=== PATIENT | male | born 1975 | race Caucasian/White ===

== ENCOUNTER 2017-08-15 20:08 | Emergency (ER) | payer SELFPAY ==
[~2017-08-15] VITALS: Ht 175.3 cm; Wt 97.0 kg
[~2017-08-15 20:08] MED LIST: AMLO10 PO; CIPR500T4 PO; DOXY100T PO; DOXY1CAP91 PO; PYRI200T4 PO; TAMS.4 PO; TAMS0.4C67 PO; ULTR50TA PO
[2017-08-15] MEDS ORDERED: HYDR-3516 PO (20:26)
[2017-08-15 20:27] VITALS: BP 179/95; PULSE 83; RESP 18; TEMP 98.3; O2SAT 97
--- NOTE | 2017-08-15 21:04 | PD ---
HPI Chief Complaint: Injury Time Seen by Provider: 20:37 Travel History International Travel<30 days: No Contact w/Intl Traveler<30days: No Traveled to known affect area: No History of Present Illness HPI 41-year-old diabetic male presents to the emergency room for evaluation of right ankle pain and swelling for the past 2 weeks. Patient states while at work, he misstepped and tripped over a tree. He does not remember twisting his ankle because it happened so quickly but had immediate pain. He went to [facility] where they performed x-rays of the evening and told him that it was sprained. They told him to return to work in 2 days. He has not followed up with a worker's comp physician because his child told him that he has to find one on his own. While being evaluated for ankle sprain, the ER physician noticed his diabetic foot ulcer which started about one week prior to injury. It started as a small blister because his shoes are too tight and has been worsening. He was put on clindamycin and Keflex and states he finished both prescriptions yesterday. He denies fever, chills, and vomiting. He has been out of his metformin "since the last time I was at the ER." He does not have a primary care physician. PFSH Past Medical History Arthritis: No Asthma: No Autoimmune Disease: No Anxiety: No Depression: No Heart Rhythm Problems: No Cancer: No Cardiovascular Problems: No High Cholesterol: No Chemotherapy: No Chest Pain: No Congestive Heart Failure: No COPD: No Cerebrovascular Accident: No Diabetes: Yes Patient Takes Glucophage: No (doesn have script fpr meds) Diminished Hearing: No Endocrine: No GERD: No Genitourinary: No Hiatal Hernia: No Hypertension: Yes (NONCOMPLIANT WITH MEDS FOR SEVERAL YEARS) Immune Disorder: No Kidney Stones: No Musculoskeletal: No Neurologic: No Psychiatric: No Reproductive: No Respiratory: No Immunizations Current: No Migraines: Yes Radiation Therapy: No Renal Failure: No Seizures: No Sickle Cell Disease: No Sleep Apnea: No Thyroid Disease: No Ulcer: No Tetanus Vaccination: < 5 Years Influenza Vaccination: No Past Surgical History Abdominal Surgery: No AICD: No Arteriovenous Shunt: No Cardiac Surgery: No Ear Surgery: No Endocrine Surgery: No Eye Surgery: No Genitourinary Surgery: No Gynecologic Surgery: No Insulin Pump: No Joint Replacement: No Oral Surgery: No Pacemaker: No Thoracic Surgery: No Other Surgery: Yes (04/05 PERINEAL/SCROTAL AREA abscess) Social History Alcohol Use: No Tobacco Use: Yes (1 ppd) Substance Use: No Allergies-Medications (Allergen,Severity, Reaction): Coded Allergies: No Known Allergies (Verified , 08/15/17) Reported Meds & Prescriptions Reported Meds & Active Scripts Active Bactrim DS (Sulfamethoxazole-Trimethoprim) 800-160 Mg Tab 1 Tab PO BID Ciprofloxacin (Ciprofloxacin HCl) 500 Mg Tab 500 Mg PO BID 7 Days Metformin (Metformin HCl) 500 Mg Tab 500 Mg PO BIDPC With meals Reported Hydrocodone-Acetaminophen 5-325 mg Tab 1 Tab PO Q4H PRN Review of Systems Except as stated in HPI: all other systems reviewed are Neg Physical Exam Narrative GENERAL: Well-nourished, well-developed male in no acute distress. Afebrile. SKIN: Focused skin assessment warm/dry. Mild to moderate ecchymosis of the right ankle. There is a chronic appearing diabetic foot ulcer on the ball of the right plantar foot. It measures about 4 cm in diameter with a black center. There is mild surrounding erythema. No spontaneous drainage. No streaking. It is extremely tender to palpation. HEAD: Normocephalic. EYES: No scleral icterus. No injection or drainage. NECK: Supple, trachea midline. No JVD or lymphadenopathy. CARDIOVASCULAR: Regular rate and rhythm without murmurs, gallops, or rubs. RESPIRATORY: Breath sounds equal bilaterally. No accessory muscle use. MUSCULOSKELETAL: No cyanosis, or edema. 2+ dorsalis pedis pulse. Full range of motion. Extreme tenderness to palpation especially around the ulcer. Data Data Last Documented VS Vital Signs Date Time Temp Pulse Resp B/P (MAP) Pulse Ox O2 Delivery O2 Flow Rate FiO2 08/15/17 20:27 98.3 83 18 179/95 (123) 97 Orders Orders Complete Blood Count With Diff (08/15/17 20:52) Comprehensive Metabolic Panel (08/15/17 20:52) Prothrombin Time / Inr (Pt) (08/15/17 20:52) Act Partial Throm Time (Ptt) (08/15/17 20:52) Westergren Sedimentation Rate (08/15/17 20:52) Foot, Complete ([id number]) (08/15/17 ) Splint Or Brace Apply/Monitor (08/15/17 22:01) Labs Laboratory Tests Test 08/15/17 21:00 White Blood Count 10.7 TH/MM3 Red Blood Count 4.53 MIL/MM3 Hemoglobin 14.0 GM/DL Hematocrit 40.3 % Mean Corpuscular Volume 88.8 FL Mean Corpuscular Hemoglobin 30.9 PG Mean Corpuscular Hemoglobin Concent 34.8 % Red Cell Distribution Width 12.0 % Platelet Count 255 TH/MM3 Mean Platelet Volume 8.0 FL Neutrophils (%) (Auto) 62.2 % Lymphocytes (%) (Auto) 28.4 % Monocytes (%) (Auto) 6.0 % Eosinophils (%) (Auto) 2.4 % Basophils (%) (Auto) 1.0 % Neutrophils # (Auto) 6.7 TH/MM3 Lymphocytes # (Auto) 3.0 TH/MM3 Monocytes # (Auto) 0.6 TH/MM3 Eosinophils # (Auto) 0.3 TH/MM3 Basophils # (Auto) 0.1 TH/MM3 CBC Comment DIFF FINAL Differential Comment Erythrocyte Sedimentation Rate 22 mm/hr Prothrombin Time 10.7 SEC Prothromb Time International Ratio 1.0 RATIO Activated Partial Thromboplast Time 27.4 SEC Blood Urea Nitrogen 10 MG/DL Creatinine 1.10 MG/DL Random Glucose 334 MG/DL Total Protein 7.4 GM/DL Albumin 3.3 GM/DL Calcium Level 8.7 MG/DL Alkaline Phosphatase 82 U/L Aspartate Amino Transf (AST/SGOT) 19 U/L Alanine Aminotransferase (ALT/SGPT) 23 U/L Total Bilirubin 0.3 MG/DL Sodium Level 137 MEQ/L Potassium Level 3.8 MEQ/L Chloride Level 102 MEQ/L Carbon Dioxide Level 26.5 MEQ/L Anion Gap 9 MEQ/L Estimat Glomerular Filtration Rate 73 ML/MIN [facility] Medical Decision Making Medical Screen Exam Complete: Yes Emergency Medical Condition: Yes Medical Record Reviewed: Yes Differential Diagnosis Diabetic foot ulcer, strain, sprain, contusion, infection, osteomyelitis Narrative Course 41-year-old male presents to the emergency room for reevaluation of right ankle sprain. Patient twisted his ankle 2 weeks ago while at work. He had an x-ray at [facility] which no fracture. He was told to return to work after 2 days. Patient states symptoms are persistent. Incidentally, patient has a diabetic foot ulcer on the same foot that started 1 week prior to injury. He was just on Keflex and clindamycin and finished them 2 days ago. He denies systemic signs of infection. Afebrile and well-appearing in the emergency room. Vital signs stable. Physical exam reveals mild to moderate ecchymosis of the right ankle. There is a chronic appearing diabetic foot ulcer on the ball of the right plantar foot. It measures about 4 cm in diameter with a black center. Mild surrounding erythema. No spontaneous drainage. No streaking. It is extremely tender to palpation. I spoke to my attending physician, Dr. Chahal, who recommends basic labs and x-ray to evaluate for osteomyelitis. CBC and CMP are unremarkable except for hyperglycemia. Sedimentation rate is only mildly elevated at 22. X-ray of the foot shows no bony involvement of the ulcer. 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 He was given one month supply of metformin and told to follow- up at [facility] for management of chronic ulcer and diabetes. Told to return for worsening symptoms. He understands and agrees to plan. Diagnosis Primary Impression: Diabetic foot ulcer Qualified Codes: E10.621 - Type 1 diabetes mellitus with foot ulcer; L97.512 - Non-pressure chronic ulcer of other part of right foot with fat layer exposed Referrals: Primary Care Physician Additional Instructions: Rest and drink plenty of fluids. Cipro and Bactrim as directed, until gone. Take ibuprofen with food as directed, as needed for pain. Apply ice to the affected area for 20 minutes at a time, as needed for pain and swelling. Follow-up with a primary care physician, armed guard, and worker's comp physician. Return to the emergency room for worsening symptoms. Scripts Sulfamethoxazole-Trimethoprim (Bactrim DS) 800-160 Mg Tab 1 TAB PO BID for Infection, #14 TAB 0 Refills Prov: Jorge Rodriguez MD 08/15/17 Ciprofloxacin (Ciprofloxacin) 500 Mg Tab 500 MG PO BID for Infection for 7 Days, #14 TAB 0 Refills Prov: Jorge Rodriguez MD 08/15/17 Metformin (Metformin) 500 Mg Tab 500 MG PO BIDPC for Blood Sugar Management, #60 TAB 0 Refills With meals Prov: Jorge Rodriguez MD 08/15/17 Disposition: 01 DISCHARGE HOME Condition: Stable Nancy Ackerman Aug 15, 2017 21:04
[2017-08-15 21:13] LABS: AUTOMATED NEUTROPHIL # 6.7 TH/MM3 (1.8-7.7); BASOPHIL # 0.1 TH/MM3 (0-0.2); EOSINOPHIL # 0.3 TH/MM3 (0-0.4); EOSINOPHIL % 2.4 % (0.0-4.0); HEMATOCRIT 40.3 % (39.0-51.0); HEMO FLAGS DIFF FINAL; LYMPH % 28.4 % (9.0-44.0); MEAN CELL VOLUME 88.8 FL (80.0-100.0); MEAN CORPUSCULAR HEMOGLOBIN 30.9 PG (27.0-34.0); MEAN CORPUSCULAR HGB CONC 34.8 % (32.0-36.0); NEUT % 62.2 % (16.0-70.0); PLATELET COUNT 255 TH/MM3 (150-450); RED BLOOD COUNT 4.53 MIL/MM3 (4.50-5.90); WHITE BLOOD COUNT 10.7 TH/MM3 (4.0-11.0)
[2017-08-15 21:22] LABS: CHLORIDE 102 MEQ/L (98-107); POTASSIUM 3.8 MEQ/L (3.5-5.1); SODIUM (NA) 137 MEQ/L (136-145)
[2017-08-15 21:27] LABS: ANION GAP 9 MEQ/L (5-15); APTT (PATIENT) 27.4 SEC (24.3-30.1); BICARBONATE 26.5 MEQ/L (21.0-32.0); BLOOD UREA NITROGEN 10 MG/DL (7-18); PROTHROMBIN TIME - PATIENT 10.7 SEC (9.8-11.6)
[2017-08-15 21:30] LABS: ALT (GPT) 23 U/L (12-78); AST (GOT) 19 U/L (15-37); GLOMERULAR FILTRATION RATE 73 ML/MIN (>89)
[2017-08-15 21:31] LABS: TOTAL BILIRUBIN ADULT 0.3 MG/DL (0.2-1.0)
--- NOTE | 2017-08-15 21:31 | RADRPT ---
EXAM DATE/TIME: 08/15/2017 20:56 [facility] COMPARISON: No previous studies available for comparison. INDICATIONS : Open sore on plantar surface of right foot MEDICAL HISTORY : Diabetes mellitus type 2 SURGICAL HISTORY : None. ENCOUNTER: Initial ACUITY: 4 - 6 months PAIN SCORE: 5/10 LOCATION: Right plantar surface of 1st MTPJ FINDINGS: There is ulceration plantar to the first metatarsophalangeal joint and sesamoids that appears fairly shallow. No bone destruction seen. The sesamoids appear mildly sclerotic but probably related to statement request clerk courtney degenerative changes. 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 Second through fifth hammertoe noted. CONCLUSION: No acute bony abnormality demonstrated. Raphael Rogers MD on August 15, 2017 at 21:29 Board Certified Radiologist. This report was verified electronically.
[2017-08-15 21:33] LABS: ALKALINE PHOSPHATASE 82 U/L (45-117)
[2017-08-15] MEDS ORDERED: CIPR500T2 PO (21:50)
[2017-08-15] MEDS ORDERED: METF500T PO (21:50)
[2017-08-15] MEDS ORDERED: BACT800T5 PO (21:50)
== END 2017-08-15 22:28 | disposition home or self-care (01) ==
LOC: PHEFT 20:08
DX: E11.621 Type 2 diabetes mellitus with foot ulcer (principal); L97.512 Non-pressure chronic ulcer of other part of right foot with fat layer exposed; E11.65 Type 2 diabetes mellitus with hyperglycemia; S93.401D Sprain of unspecified ligament of right ankle, subsequent encounter; I10 Essential (primary) hypertension; F17.200 Nicotine dependence, unspecified, uncomplicated; Z79.84 Long term (current) use of oral hypoglycemic drugs; Z86.69 Personal history of other diseases of the nervous system and sense organs; W18.49XD Other slipping, tripping and stumbling without falling, subsequent encounter
CPT/HCPCS: 73630; 80053; 85025; 85610; 85652; 85730; 99284; L1906

== ENCOUNTER 2018-02-14 12:46 | Emergency (ER) | payer SELFPAY ==
[~2018-02-14] VITALS: Ht 185.4 cm; Wt 95.7 kg
[~2018-02-14 12:46] MED LIST changes: -AMLO10 PO; +BACT800T5 PO; +CIPR500T2 PO; -CIPR500T4 PO; -DOXY100T PO; -DOXY1CAP91 PO; +HYDR-3516 PO; +METF500T PO; -PYRI200T4 PO; -TAMS.4 PO; -TAMS0.4C67 PO; -ULTR50TA PO
[2018-02-14 13:01] VITALS: BP 183/84; PULSE 81; RESP 18; TEMP 99.2; O2SAT 99
[2018-02-14] MEDS ORDERED: ASP: Location of Dalbavancin administration OTHER ONE (13:30)
--- NOTE | 2018-02-14 13:31 | PD ---
HPI Chief Complaint: Skin Problem Time Seen by Provider: 13:07 Travel History International Travel<30 days: No Contact w/Intl Traveler<30days: No Traveled to known affect area: No History of Present Illness HPI This is a 42-year-old male who presented to the ER for a right foot pain. Patient has history of diabetes and he is not on any medications due to insurance issues. He states that a year ago he had a new boot that he started using and the boot had a small puncture wound into his right foot and since then he has been having right foot ulcer/cellulitis for the last year. Patient states that for the last week he started noticing that the pain is getting worse as well as the swelling and redness on his right foot. He denies any fever or chills or night sweats. Has not taken any medications for now and denies any new trauma to his foot. PFSH Past Medical History Arthritis: No Asthma: No Autoimmune Disease: No Anxiety: No Depression: No Heart Rhythm Problems: No Cancer: No Cardiovascular Problems: No High Cholesterol: No Chemotherapy: No Chest Pain: No Congestive Heart Failure: No COPD: No Cerebrovascular Accident: No Diabetes: Yes Patient Takes Glucophage: No Diminished Hearing: No Endocrine: No GERD: No Genitourinary: No Headaches: No Hiatal Hernia: No Heparin Induced Thrombocytopen: No Hypertension: Yes (NONCOMPLIANT WITH MEDS FOR SEVERAL YEARS) Immune Disorder: No Implanted Vascular Access Dvce: No Kidney Stones: No Musculoskeletal: No Neurologic: No Psychiatric: No Reproductive: No Respiratory: No Immunizations Current: No Migraines: Yes Radiation Therapy: No Renal Failure: No Seizures: No Sickle Cell Disease: No Sleep Apnea: No Thyroid Disease: No Ulcer: No Past Surgical History Abdominal Surgery: No AICD: No Arteriovenous Shunt: No Cardiac Surgery: No Ear Surgery: No Endocrine Surgery: No Eye Surgery: No Genitourinary Surgery: No Gynecologic Surgery: No Insulin Pump: No Joint Replacement: No Neurologic Surgery: No Oral Surgery: No Pacemaker: No Thoracic Surgery: No Other Surgery: Yes (04/05 PERINEAL/SCROTAL AREA abscess) Social History Alcohol Use: No Tobacco Use: Yes (1 ppd) Substance Use: No Allergies-Medications (Allergen,Severity, Reaction): Coded Allergies: No Known Allergies (Verified Adverse Reaction, Unknown, 02/14/18) Reported Meds & Prescriptions Reported Meds & Active Scripts Active No Active Prescriptions or Reported Medications Review of Systems Except as stated in HPI: all other systems reviewed are Neg Physical Exam Narrative GENERAL: Alert oriented 3 no acute distress. SKIN: Focused skin assessment warm/dry. HEAD: Atraumatic. Normocephalic. EYES: Pupils equal and round. No scleral icterus. No injection or drainage. ENT: No nasal bleeding or discharge. Mucous membranes pink and moist. NECK: Trachea midline. No JVD. CARDIOVASCULAR: Regular rate and rhythm. No murmur appreciated. RESPIRATORY: No accessory muscle use. Clear to auscultation. Breath sounds equal bilaterally. GASTROINTESTINAL: Abdomen soft, non-tender, nondistended. Hepatic and splenic margins not palpable. MUSCULOSKELETAL: Small diabetic ulcer in the right foot and the pulmonary surface of first metatarsal approximately 2 cm in diameter surrounded with area of erythema and warm skin, diminished pulses in the right foot more than left, sensation is intact. Swelling extending to right above the ankle. NEUROLOGICAL: Awake and alert. No obvious cranial nerve deficits. Motor grossly within normal limits. Normal speech. PSYCHIATRIC: Appropriate mood and affect; insight and judgment normal. Data Data Last Documented VS Vital Signs Date Time Temp Pulse Resp B/P (MAP) Pulse Ox O2 Delivery O2 Flow Rate FiO2 02/14/18 13:01 99.2 81 18 183/84 (117) 99 Orders Orders Foot, Limited (2vws) (02/14/18 ) Complete Blood Count With Diff (02/14/18 13:16) Comprehensive Metabolic Panel (02/14/18 13:16) Act Partial Throm Time (Ptt) (02/14/18 13:16) Prothrombin Time / Inr (Pt) (02/14/18 13:16) Asp: [facility] Admin (Asp Crit: (02/14/18 13:30) Ed Discharge Order (02/14/18 14:16) Labs Laboratory Tests Test 02/14/18 13:37 White Blood Count 14.7 TH/MM3 Red Blood Count 4.61 MIL/MM3 Hemoglobin 13.8 GM/DL Hematocrit 41.5 % Mean Corpuscular Volume 90.1 FL Mean Corpuscular Hemoglobin 30.0 PG Mean Corpuscular Hemoglobin Concent 33.3 % Red Cell Distribution Width 12.7 % Platelet Count 259 TH/MM3 Mean Platelet Volume 8.2 FL Neutrophils (%) (Auto) 73.6 % Lymphocytes (%) (Auto) 17.7 % Monocytes (%) (Auto) 6.8 % Eosinophils (%) (Auto) 1.5 % Basophils (%) (Auto) 0.4 % Neutrophils # (Auto) 10.8 TH/MM3 Lymphocytes # (Auto) 2.6 TH/MM3 Monocytes # (Auto) 1.0 TH/MM3 Eosinophils # (Auto) 0.2 TH/MM3 Basophils # (Auto) 0.1 TH/MM3 CBC Comment DIFF FINAL Differential Comment Prothrombin Time 10.5 SEC Prothromb Time International Ratio 1.0 RATIO Activated Partial Thromboplast Time 29.1 SEC Blood Urea Nitrogen 11 MG/DL Creatinine 0.70 MG/DL Random Glucose 329 MG/DL Total Protein 7.5 GM/DL Albumin 3.2 GM/DL Calcium Level 8.6 MG/DL Alkaline Phosphatase 80 U/L Aspartate Amino Transf (AST/SGOT) 11 U/L Alanine Aminotransferase (ALT/SGPT) 13 U/L Total Bilirubin 0.4 MG/DL Sodium Level 134 MEQ/L Potassium Level 3.7 MEQ/L Chloride Level 102 MEQ/L Carbon Dioxide Level 23.7 MEQ/L Anion Gap 8 MEQ/L Estimat Glomerular Filtration Rate 123 ML/MIN [facility] Medical Decision Making Medical Screen Exam Complete: Yes Emergency Medical Condition: Yes Differential Diagnosis Cellulitis, osteomyelitis. Narrative Course This is a 42-year-old male presents to the ER complaining of right foot I will center. Patient has no primary care physician and has history of diabetes but has not been taking any medications for it. Diabetic onset is been going on for a year now but got worse recently. Patient labs show elevated white blood count with left shift and physical exam is remarkable for diabetic ulcer was evidence of cellulitis. I believe this patient will benefit from a course of antibiotics and to return to ER if symptoms change or do not improve. They discussed with the patient importance of following up with the primary care physician from [facility] and I gave him information. I also discussed with the patient that if symptoms get worse he will have to come to the ER immediately for further management. Patient understands and agrees to the plan of care. Diagnosis Primary Impression: Diabetes Qualified Codes: E11.621 - Type 2 diabetes mellitus with foot ulcer; L97.509 - Non-pressure chronic ulcer of other part of unspecified foot with unspecified severity Additional Impression: Diabetic ulcer of foot associated with type 2 diabetes mellitus, limited to breakdown of skin Qualified Codes: E11.621 - Type 2 diabetes mellitus with foot ulcer; L97.511 - Non-pressure chronic ulcer of other part of right foot limited to breakdown of skin Additional Instructions: Follow-up with his iliac clinic, take medication as directed, return to ER immediately if symptoms change or do not improve Scripts Tramadol ER 24 HR (Tramadol ER 24 HR) 100 Mg Caper 100 MG PO DAILY for Pain Management, #10 CAP 0 Refills Prov: Puma Hopkins MD 02/14/18 Metformin (Metformin) 500 Mg Tab 500 MG PO BIDPC for Blood Sugar Management, #60 TAB 0 Refills With meals Prov: Puma Hopkins MD 02/14/18 Sulfamethoxazole-Trimethoprim (Bactrim DS) 800-160 Mg Tab 1 TAB PO BID for Infection, #14 TAB 0 Refills Prov: Puma Hopkins MD 02/14/18 Disposition: 01 DISCHARGE HOME Condition: Stable Puma Hopkins MD Feb 14, 2018 13:30
--- NOTE | 2018-02-14 13:43 | RADRPT ---
EXAM DATE/TIME: 02/14/2018 13:23 [facility] COMPARISON: No previous studies available for comparison. INDICATIONS : Right foot pain; sore on the bottom of foot. MEDICAL HISTORY : Hypertension. Diabetes mellitus type II. SURGICAL HISTORY : None. ENCOUNTER: Initial ACUITY: 1 week PAIN SCORE: 10/10 LOCATION: Right plantar foot. FINDINGS: Two view examination of the right foot demonstrates no soft tissue swelling, dislocation, or fracture . The calcaneus is intact. There is osteopenia of the bony structures. No radiopaque foreign bodies. CONCLUSION: There is osteopenia of the bony structures. However the bony structures are grossly intact. Luis Enrique Colin MD on February 14, 2018 at 13:41 Board Certified Radiologist. This report was verified electronically.
[2018-02-14 13:46] LABS: AUTOMATED NEUTROPHIL # 10.8 TH/MM3 (1.8-7.7); BASOPHIL # 0.1 TH/MM3 (0-0.2); BASOPHIL % 0.4 % (0.0-2.0); EOSINOPHIL # 0.2 TH/MM3 (0-0.4); EOSINOPHIL % 1.5 % (0.0-4.0); HEMATOCRIT 41.5 % (39.0-51.0); HEMOGLOBIN 13.8 GM/DL (13.0-17.0); LYMPH % 17.7 % (9.0-44.0); LYMPHOCYTE # 2.6 TH/MM3 (1.0-4.8); MEAN CELL VOLUME 90.1 FL (80.0-100.0); MEAN CORPUSCULAR HGB CONC 33.3 % (32.0-36.0); MEAN PLATELET VOLUME 8.2 FL (7.0-11.0); MONO % 6.8 % (0.0-8.0); NEUT % 73.6 % (16.0-70.0); PLATELET COUNT 259 TH/MM3 (150-450); RED BLOOD COUNT 4.61 MIL/MM3 (4.50-5.90); RED CELL DISTRIBUTION WIDTH 12.7 % (11.6-17.2); WHITE BLOOD COUNT 14.7 TH/MM3 (4.0-11.0)
[2018-02-14 13:59] LABS: CHLORIDE 102 MEQ/L (98-107); SODIUM (NA) 134 MEQ/L (136-145)
[2018-02-14 14:03] LABS: ALBUMIN 3.2 GM/DL (3.4-5.0); BICARBONATE 23.7 MEQ/L (21.0-32.0); BLOOD UREA NITROGEN 11 MG/DL (7-18); CALCIUM 8.6 MG/DL (8.5-10.1); GLUCOSE,RANDOM 329 MG/DL (74-106)
[2018-02-14 14:06] LABS: ALT (GPT) 13 U/L (12-78); AST (GOT) 11 U/L (15-37); GLOMERULAR FILTRATION RATE 123 ML/MIN (>89); PROTHROMBIN TIME - PATIENT 10.5 SEC (9.8-11.6)
[2018-02-14 14:08] LABS: TOTAL BILIRUBIN ADULT 0.4 MG/DL (0.2-1.0); TOTAL PROTEIN 7.5 GM/DL (6.4-8.2)
[2018-02-14 14:09] LABS: ALKALINE PHOSPHATASE 80 U/L (45-117)
[2018-02-14] MEDS ORDERED: METF500T PO (14:22)
[2018-02-14] MEDS ORDERED: BACT800T5 PO (14:22)
[2018-02-14] MEDS ORDERED: TRAM1CAP21 PO (14:22)
== END 2018-02-14 14:56 | disposition home or self-care (01) ==
LOC: PHED 12:46
DX: E11.621 Type 2 diabetes mellitus with foot ulcer (principal); L97.511 Non-pressure chronic ulcer of other part of right foot limited to breakdown of skin; F17.200 Nicotine dependence, unspecified, uncomplicated; Z91.14 Patient's other noncompliance with medication regimen
CPT/HCPCS: 73620; 80053; 85025; 85610; 85730; 99284

== ENCOUNTER 2018-02-17 11:56 | Inpatient (IN) | payer SELFPAY ==
[~2018-02-17] VITALS: Ht 185.4 cm; Wt 91.2 kg
[~2018-02-17 11:56] MED LIST changes: -CIPR500T2 PO; -HYDR-3516 PO; +TRAM1CAP21 PO
[2018-02-17 11:58] VITALS: BP 186/87; PULSE 95; RESP 16; TEMP 100.4; O2SAT 97
[2018-02-17] MEDS ORDERED: MORPHINE SULFATE 2 MG/ML SYRINGE IV PUSH ONE (12:30)
[2018-02-17 12:58] LABS: AUTOMATED NEUTROPHIL # 14.7 TH/MM3 (1.8-7.7); BASOPHIL # 0.1 TH/MM3 (0-0.2); BASOPHIL % 0.6 % (0.0-2.0); EOSINOPHIL # 0.1 TH/MM3 (0-0.4); EOSINOPHIL % 0.4 % (0.0-4.0); HEMATOCRIT 41.8 % (39.0-51.0); HEMOGLOBIN 14.1 GM/DL (13.0-17.0); LYMPH % 13.1 % (9.0-44.0); LYMPHOCYTE # 2.4 TH/MM3 (1.0-4.8); MEAN CELL VOLUME 89.4 FL (80.0-100.0); MEAN CORPUSCULAR HGB CONC 33.6 % (32.0-36.0); MEAN PLATELET VOLUME 8.1 FL (7.0-11.0); MONO % 6.1 % (0.0-8.0); MONOCYTE # 1.1 TH/MM3 (0-0.9); NEUT % 79.8 % (16.0-70.0); PLATELET COUNT 366 TH/MM3 (150-450); RED BLOOD COUNT 4.68 MIL/MM3 (4.50-5.90); RED CELL DISTRIBUTION WIDTH 12.4 % (11.6-17.2); WHITE BLOOD COUNT 18.4 TH/MM3 (4.0-11.0)
[2018-02-17 13:30] LABS: CHLORIDE 97 MEQ/L (98-107); SODIUM (NA) 131 MEQ/L (136-145)
[2018-02-17 13:33] LABS: CALCIUM 9.3 MG/DL (8.5-10.1)
[2018-02-17 13:34] LABS: ALBUMIN 3.1 GM/DL (3.4-5.0); BICARBONATE 25.1 MEQ/L (21.0-32.0); BLOOD UREA NITROGEN 10 MG/DL (7-18); GLUCOSE,RANDOM 262 MG/DL (74-106)
[2018-02-17 13:35] LABS: INTERNATIONAL NORMALIZED RATIO 1.1 RATIO; PROTHROMBIN TIME - PATIENT 11.4 SEC (9.8-11.6)
[2018-02-17 13:37] LABS: ALT (GPT) 15 U/L (12-78); AST (GOT) 14 U/L (15-37); CREATININE 0.78 MG/DL (0.60-1.30); GLOMERULAR FILTRATION RATE 108 ML/MIN (>89)
[2018-02-17 13:38] LABS: TOTAL BILIRUBIN ADULT 0.5 MG/DL (0.2-1.0); TOTAL PROTEIN 8.3 GM/DL (6.4-8.2)
[2018-02-17 13:38] LABS: BLOOD, URINE NEG (NEG); GLUCOSE,URINE 1000 OR GREATER mg/dL (NEG); KETONE, URINE 80 OR GREATER mg/dL (NEG); NITRITE,URINE NEG (NEG); URINE COLOR YELLOW (YELLW/STRAW); URINE LEUKOCYTE ESTERASE NEG (NEG)
[2018-02-17 13:40] LABS: ALKALINE PHOSPHATASE 99 U/L (45-117)
[2018-02-17 13:41] LABS: BILIRUBIN, URINE NEG (NEG)
[2018-02-17 13:46] LABS: AMORPHOUS SEDIMENT, URINE FEW; RBC, URINE 0-3 /hpf (0-3); SQUAMOUS EPITHELIAL CELL URINE 0-5 /hpf (0-5)
[2018-02-17] MEDS ORDERED: VANCOMYCIN INJ 1,000 MG in SODIUM CHLOR 0.9% 250 ML INJ 250 ML IV ONE (14:00)
[2018-02-17] MEDS ORDERED: LEVOFLOXACIN 500 MG PREMIX INJ 100 ML IV ONE (14:00)
--- NOTE | 2018-02-17 14:00 | PD ---
HPI Chief Complaint: Diabetic Time Seen by Provider: 12:07 Travel History International Travel<30 days: No Contact w/Intl Traveler<30days: No Traveled to known affect area: No History of Present Illness HPI This is a 42-year-old male presented the ER complaining of foot ulcer. Patient was here before and was seen by me on January for diabetic foot ulcer in the right foot. Patient at that time was given antibiotics and was encouraged to follow-up with his [facility] clinic. Patient has uncontrolled diabetes and has not been taking his insulin for "a while" due to insurance issues. Patient returned today to the ER for an annual diabetic ulcer on the right foot closer to the older one that is painful and swollen. Patient denies any fever or chills he has no nausea or vomiting or diarrhea, no chest pain or shortness of breath. Patient states that he started noticing a new lesion on his foot 2 days ago and has been getting worse rapidly. He does not recall any trauma to the foot and does not recall using any new shoes. PFSH Past Medical History Arthritis: No Asthma: No Autoimmune Disease: No Anxiety: No Depression: No Heart Rhythm Problems: No Cancer: No Cardiovascular Problems: No High Cholesterol: No Chemotherapy: No Chest Pain: No Congestive Heart Failure: No COPD: No Cerebrovascular Accident: No Diabetes: Yes Patient Takes Glucophage: Yes Diminished Hearing: No Endocrine: No GERD: No Genitourinary: No Headaches: No Hiatal Hernia: No Heparin Induced Thrombocytopen: No Hypertension: Yes (NONCOMPLIANT WITH MEDS FOR SEVERAL YEARS) Immune Disorder: No Implanted Vascular Access Dvce: No Kidney Stones: No Musculoskeletal: No Neurologic: No Psychiatric: No Reproductive: No Respiratory: No Immunizations Current: No Migraines: Yes Radiation Therapy: No Renal Failure: No Seizures: No Sickle Cell Disease: No Sleep Apnea: No Thyroid Disease: No Ulcer: No Influenza Vaccination: No ?: Not Past Surgical History Abdominal Surgery: No AICD: No Arteriovenous Shunt: No Cardiac Surgery: No Ear Surgery: No Endocrine Surgery: No Eye Surgery: No Genitourinary Surgery: No Gynecologic Surgery: No Insulin Pump: No Joint Replacement: No Neurologic Surgery: No Oral Surgery: No Pacemaker: No Thoracic Surgery: No Other Surgery: Yes (04/05 PERINEAL/SCROTAL AREA abscess) Social History Alcohol Use: No Tobacco Use: Yes (1 ppd) Substance Use: No Allergies-Medications (Allergen,Severity, Reaction): Coded Allergies: No Known Allergies (Verified Adverse Reaction, Unknown, 02/17/18) Reported Meds & Prescriptions Reported Meds & Active Scripts Active Metformin (Metformin HCl) 500 Mg Tab 500 Mg PO BIDPC With meals Bactrim DS (Sulfamethoxazole-Trimethoprim) 800-160 Mg Tab 1 Tab PO BID Review of Systems Except as stated in HPI: all other systems reviewed are Neg Physical Exam Narrative GENERAL: Alert oriented 3 no acute distress SKIN: Focused skin assessment warm/dry. HEAD: Atraumatic. Normocephalic. EYES: Pupils equal and round. No scleral icterus. No injection or drainage. ENT: No nasal bleeding or discharge. Mucous membranes pink and moist. NECK: Trachea midline. CARDIOVASCULAR: Regular rate and rhythm. No murmur appreciated. RESPIRATORY: No accessory muscle use. Clear to auscultation. Breath sounds equal bilaterally. GASTROINTESTINAL: Abdomen soft, non-tender, nondistended. Hepatic and splenic margins not palpable. MUSCULOSKELETAL: Small ulcer in the plantar aspect of right foot close to first metatarsal unchanged from last visit on February 14, new ulcer on the plantar aspect of the right foot as well measuring about 5 cm with gangrenous changes, eschar covering the ulcer, faint pulses bilaterally. NEUROLOGICAL: Awake and alert. No obvious cranial nerve deficits. Motor grossly within normal limits. Normal speech. PSYCHIATRIC: Appropriate mood and affect; insight and judgment normal. Data Data Last Documented VS Vital Signs Date Time Temp Pulse Resp B/P (MAP) Pulse Ox O2 Delivery O2 Flow Rate FiO2 02/17/18 11:58 100.4 95 16 186/87 (120) 97 Orders Orders Lactic Acid (02/17/18 12:17) Complete Blood Count With Diff (02/17/18 12:17) Comprehensive Metabolic Panel (02/17/18 12:17) Act Partial Throm Time (Ptt) (02/17/18 12:17) Prothrombin Time / Inr (Pt) (02/17/18 12:17) Urinalysis - C+S If Indicated (02/17/18 12:17) Blood Culture (02/17/18 12:17) Morphine Inj (Morphine Inj) (02/17/18 12:30) Vancomycin Inj (Vancomycin Inj) (02/17/18 14:00) Levofloxacin 500 Mg Premix Inj (Levaquin (02/17/18 14:00) Admit Order (Ed Use Only) (02/17/18 13:58) Labs Laboratory Tests Test 02/17/18 12:42 02/17/18 13:01 White Blood Count 18.4 TH/MM3 Red Blood Count 4.68 MIL/MM3 Hemoglobin 14.1 GM/DL Hematocrit 41.8 % Mean Corpuscular Volume 89.4 FL Mean Corpuscular Hemoglobin 30.0 PG Mean Corpuscular Hemoglobin Concent 33.6 % Red Cell Distribution Width 12.4 % Platelet Count 366 TH/MM3 Mean Platelet Volume 8.1 FL Neutrophils (%) (Auto) 79.8 % Lymphocytes (%) (Auto) 13.1 % Monocytes (%) (Auto) 6.1 % Eosinophils (%) (Auto) 0.4 % Basophils (%) (Auto) 0.6 % Neutrophils # (Auto) 14.7 TH/MM3 Lymphocytes # (Auto) 2.4 TH/MM3 Monocytes # (Auto) 1.1 TH/MM3 Eosinophils # (Auto) 0.1 TH/MM3 Basophils # (Auto) 0.1 TH/MM3 CBC Comment AUTO DIFF Prothrombin Time 11.4 SEC Prothromb Time International Ratio 1.1 RATIO Activated Partial Thromboplast Time 31.9 SEC Blood Urea Nitrogen 10 MG/DL Creatinine 0.78 MG/DL Random Glucose 262 MG/DL Total Protein 8.3 GM/DL Albumin 3.1 GM/DL Calcium Level 9.3 MG/DL Alkaline Phosphatase 99 U/L Aspartate Amino Transf (AST/SGOT) 14 U/L Alanine Aminotransferase (ALT/SGPT) 15 U/L Total Bilirubin 0.5 MG/DL Sodium Level 131 MEQ/L Potassium Level 3.9 MEQ/L Chloride Level 97 MEQ/L Carbon Dioxide Level 25.1 MEQ/L Anion Gap 9 MEQ/L Estimat Glomerular Filtration Rate 108 ML/MIN Lactic Acid Level 1.3 mmol/L Urine Collection Type CLEAN CATCH Urine Color YELLOW Urine Turbidity CLEAR Urine pH 6.0 Urine Specific [place] 1.025 Urine Protein 30 mg/dL Urine Glucose (UA) 1000 OR GREATER mg/dL Urine Ketones 80 OR GREATER mg/dL Urine Occult Blood NEG Urine Nitrite NEG Urine Bilirubin NEG Urine Leukocyte Esterase NEG Urine RBC 0-3 /hpf Urine Squamous Epithelial Cells 0-5 /hpf Urine Amorphous Sediment FEW Microscopic Urinalysis Comment CULT NOT INDICATED Urine Collection Time 1301 MDM Medical Decision Making Medical Screen Exam Complete: Yes Emergency Medical Condition: Yes Differential Diagnosis Diabetic foot ulcer, gangrene, sepsis. Narrative Course This is a 42-year-old male presented here complaining of foot ulcer and right foot. Patient was seen by me on February 14 and was sent home on antibiotics and a follow-up appointment with primary care physician but he returned to ER with a new ulcer close to the older one measuring approximately 5 cm and showing gangrenous changes. White blood count is elevated from 14,000 to 18,000 now, lactic acid is 1.3, vitals are stable. Patient will be admitted for further evaluation of diabetic foot ulcer and possible debridement. Diagnosis Primary Impression: Diabetic foot ulcer Qualified Codes: E11.621 - Type 2 diabetes mellitus with foot ulcer; L97.415 - Non-pressure chronic ulcer of right heel and midfoot with muscle involvement without evidence of necrosis Additional Impression: Uncontrolled diabetes mellitus Admitting Information Admitting Physician Requests: Admit Condition: Stable Puma Hopkins MD Feb 17, 2018 14:00
[2018-02-17 14:25] VITALS: BP 155/75; PULSE 75; O2SAT 98
[2018-02-17] MEDS ORDERED: SODIUM CHLOR 0.9% 1000 ML INJ 1,000 ML IV ONE ×2 (14:30)
--- NOTE | 2018-02-17 15:12 | HHI.HP ---
[facility] No Primary Care Physician Admission Diagnosis DIABETIC FOOT ULCER, UNCONTROLLED DIABETES. Diagnoses: Chief Complaint: Foot pain Travel History International Travel<30 Days: No Contact w/Intl Traveler <30 Da: No Traveled to Known Affected Are: No History of Present Illness 42-year-old white male being admitted for sepsis secondary to infected diabetic foot ulcer with possible osteomyelitis Patient was in his usual state of health until about a week or 2 ago when he began having some right foot pain. He came to the emergency room about 3 days ago and was given Bactrim to take twice a day for presumed infected diabetic foot ulcer. However patient states that his foot pain actually worsened and he noted a bullous-like lesion arises within the next few days I was very painful. This particular morning he also developed new onset calf pain that would hurt when he would walk around. Does admit to very mild foot edema but denies any calf edema. Denies stepping on a nail or any puncturing injury. He does report nausea but no vomiting. Denies any fevers or chills. In the emergency room the patient was noted to have temperature of 100.4 with a heart rate greater than 90. Patient states that he has been out of his metformin since last September due to financial issues. Review of Systems Except as stated in HPI: all other systems reviewed are Neg Past Family Social History Past Medical History Uncontrolled diabetes, hypertension Allergies: Coded Allergies: No Known Allergies (Verified Adverse Reaction, Unknown, 02/17/18) Family History Mom with lung cancer and throat cancer Brother with some sort of unspecified cancer within the abdomen Father with diabetes Social History Lifelong history of smoking, denies drinking. Does endorse using crack one time in the past. 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 EYES: No scleral icterus. No injection or drainage. ENT: Normocephalic, atraumatic CARDIOVASCULAR: Regular rate and rhythm. no murmurs RESPIRATORY: No accessory muscle use. Clear to auscultation. Breath sounds equal bilaterally. GASTROINTESTINAL: Abdomen soft, non-tender, nondistended. Hepatic and splenic margins not palpable. Extremities: No clubbing, cyanosis. There is erythema on the medial aspect of his right mid foot with an obvious superficial if not deep abscess that drains as well as a second draining site over the first MTP pressure-point. Both of these areas are exquisitely tender to touch and palpation. The first tarsal is tender to palpation as well. Bilateral malleoli are nontender to palpation. Heel is nontender to palpation. Patient also has tenderness to deep palpation over the right calf. He does have intact sensation to light touch all throughout the foot. MUSCULOSKELETAL: grossly intact ROM with 5/5 strength in upper and lower extremities proximally; adequate muscle bulk and tone for age and habitus NEUROLOGICAL: Awake and alert. No obvious cranial nerve deficits. No facial droop nor slurred speech noted. PSYCHIATRIC: Appropriate mood and affect; insight and judgment normal. Laboratory Laboratory Tests Test 02/17/18 12:42 02/17/18 13:01 White Blood Count 18.4 Red Blood Count 4.68 Hemoglobin 14.1 Hematocrit 41.8 Mean Corpuscular Volume 89.4 Mean Corpuscular Hemoglobin 30.0 Mean Corpuscular Hemoglobin Concent 33.6 Red Cell Distribution Width 12.4 Platelet Count 366 Mean Platelet Volume 8.1 Neutrophils (%) (Auto) 79.8 Lymphocytes (%) (Auto) 13.1 Monocytes (%) (Auto) 6.1 Eosinophils (%) (Auto) 0.4 Basophils (%) (Auto) 0.6 Neutrophils # (Auto) 14.7 Lymphocytes # (Auto) 2.4 Monocytes # (Auto) 1.1 Eosinophils # (Auto) 0.1 Basophils # (Auto) 0.1 CBC Comment AUTO DIFF Differential Comment AUTO DIFF CONFIRMED Prothrombin Time 11.4 Prothromb Time International Ratio 1.1 Activated Partial Thromboplast Time 31.9 Blood Urea Nitrogen 10 Creatinine 0.78 Random Glucose 262 Total Protein 8.3 Albumin 3.1 Calcium Level 9.3 Alkaline Phosphatase 99 Aspartate Amino Transf (AST/SGOT) 14 Alanine Aminotransferase (ALT/SGPT) 15 Total Bilirubin 0.5 Sodium Level 131 Potassium Level 3.9 Chloride Level 97 Carbon Dioxide Level 25.1 Anion Gap 9 Estimat Glomerular Filtration Rate 108 Lactic Acid Level 1.3 Urine Collection Type CLEAN CATCH Urine Color YELLOW Urine Turbidity CLEAR Urine pH 6.0 Urine Specific [place] 1.025 Urine Protein 30 Urine Glucose (UA) 1000 OR GREATER Urine Ketones 80 OR GREATER Urine Occult Blood NEG Urine Nitrite NEG Urine Bilirubin NEG Urine Leukocyte Esterase NEG Urine RBC 0-3 Urine Squamous Epithelial Cells 0-5 Urine Amorphous Sediment FEW Microscopic Urinalysis Comment CULT NOT INDICATED Urine Collection Time 1301 Date/Time Source Procedure Growth Status 02/17/18 12:40 Blood Peripheral Aerobic Blood Culture Pending Received 02/17/18 12:40 Blood Peripheral Anaerobic Blood Culture Pending Received Result Diagram: 02/17/18 1242 02/17/18 1242 Capsamir VTE Risk Assessment Caprini VTE Risk Assessment: Mod/High Risk (score >= 2) Caprini Risk Assessment Model Point Value = 1 Point Value = 2 Point Value = 3 Point Value = 5 Age 41-60 Minor surgery BMI > 25 kg/m2 Swollen legs Varicose veins or History of unexplained or recurrent spontaneous Oral contraceptives or hormone replacement Sepsis (< 1 month) Serious lung disease, including pneumonia (< 1 month) Abnormal pulmonary function Acute myocardial infarction Congestive heart failure (< 1 month) History of inflammatory bowel disease Medical patient at bed rest Age 61-74 Arthroscopic surgery Major open surgery (> 45 min) Laparoscopic surgery (> 45 min) Malignancy Confined to bed (> 72 hours) Immobilizing plaster cast Central venous access Age >= 75 History of VTE Family history of VTE Factor V Leiden Prothrombin [id number] Lupus anticoagulant Anticardiolipin antibodies Elevated serum homocysteine Heparin-induced thrombocytopenia Other congenital or acquired thrombophilia Stroke (< 1 month) Elective arthroplasty Hip, pelvis, or leg fracture Acute spinal cord injury (< 1 month) Prophylaxis Regimen Total Risk Factor Score Risk Level Prophylaxis Regimen 0-1 Low Early ambulation 2 Moderate Order ONE of the following: *Sequential Compression Device (SCD) *Heparin 5000 units SQ BID 3-4 Higher Order ONE of the following medications: *Heparin 5000 units SQ TID *Enoxaparin/Lovenox 40 mg SQ daily (WT < 150 kg, CrCl > 30 mL/min) *Enoxaparin/Lovenox 30 mg SQ daily (WT < 150 kg, CrCl > 10-29 mL/min) *Enoxaparin/Lovenox 30 mg SQ BID (WT < 150 kg, CrCl > 30 mL/min) AND/OR *Sequential Compression Device (SCD) 5 or more Highest Order ONE of the following medications: *Heparin 5000 units SQ TID (Preferred with Epidurals) *Enoxaparin/Lovenox 40 mg SQ daily (WT < 150 kg, CrCl > 30 mL/min) *Enoxaparin/Lovenox 30 mg SQ daily (WT < 150 kg, CrCl > 10-29 mL/min) *Enoxaparin/Lovenox 30 mg SQ BID (WT < 150 kg, CrCl > 30 mL/min) AND *Sequential Compression Device (SCD) Assessment and Plan Assessment and Plan 42-year-old white male being admitted for sepsis secondary to infected diabetic foot ulcer as well as possible osteomyelitis Sepsis secondary to infected diabetic foot ulcer and abscess -Blood cultures drawn, aggressive IV fluids, antibiotics and workup as below Infected diabetic foot ulcer with abscess -Consulting podiatry appropriate bedside versus OR debridement -Possible osteomyelitis, obtaining sed rate/CRP, if elevated will proceed with MRI -Vancomycin and Levaquin Uncontrolled diabetes -Starting Accu-Cheks with low-dose sliding scale Heparin Physician Certification 2 Midnight Certification Type: Admission for Inpatient Services Order for Inpatient Services The services are ordered in accordance with Medicare regulations or non- Medicare payer requirements, as applicable. In the case of services not specified as inpatient-only, they are appropriately provided as inpatient services in accordance with the 2-midnight benchmark. Estimated LOS (days): 3 3 days is the estimated time the patient will need to remain in the hospital, assuming treatment plan goals are met and no additional complications. Post-Hospital Plan: Not yet determined Holger Beltrán MD Feb 17, 2018 15:12
[2018-02-17] MEDS ORDERED: DEXTROSE 50% IN WATER 50 ML VIAL(D50) IV PUSH PRN (15:15)
[2018-02-17] MEDS ORDERED: GLUCAGON 1 MG/ML VIAL OTHER PRN (15:15)
[2018-02-17] MEDS ORDERED: Vancomycin Consult Pharmacy 1 EA OTHER SCH (15:15)
[2018-02-17] MEDS: ACETAMINOPHEN/HYDROcodone 325 MG/5 MG TAB PO PRN ×2 (15:53→20:23)
[2018-02-17 16:00] VITALS: BP 172/82; PULSE 78; RESP 12; TEMP 101.8; O2SAT 95
--- NOTE | 2018-02-17 16:22 | RADRPT ---
EXAM DATE/TIME: 02/17/2018 15:20 [facility] COMPARISON: No previous studies available for comparison. INDICATIONS : Right leg swelling and pain. MEDICAL HISTORY : Hypertension. Diabetes. SURGICAL HISTORY : Scrotal abscess. ENCOUNTER: Initial ACUITY: 1 day PAIN SCORE: 10/10 LOCATION: Right leg. TECHNIQUE: Venous ultrasound of the leg was performed from the inguinal ligament to the proximal calf. Real-nazanin e, color Doppler and spectral tracing, compression and augmentation techniques were used. FINDINGS: There is normal compressibility of the deep venous system from the inguinal region to the proximal ca lf. No echogenic clot is seen in the lumen of the common femoral, femoral, popliteal, and posterior tibial veins. There is a normal response of the venous system to proximal and distal augmentation an d respiration. Palpable lump in the upper thigh represents enlarged lymph nodes the largest measuring 3.67 m. CONCLUSION: No evidence of DVT. Lymphadenopathy in the proximal right thigh. Delonte Hernández MD on February 17, 2018 at 16:19 Board Certified Radiologist. This report was verified electronically.
[2018-02-17] MEDS ORDERED: ATORVASTATIN 40 MG TAB PO ONE (16:45)
[2018-02-17] MEDS: GABAPENTIN 300 MG CAP PO SCH (17:14)
[2018-02-17] MEDS: ACETAMINOPHEN 500 MG CPLT PO PRN (17:14)
--- NOTE | 2018-02-17 17:23 | RADRPT ---
EXAM DATE/TIME: 02/17/2018 00:00 [facility] COMPARISON: No previous studies available for comparison. INDICATIONS : Right Foot Diabetic Ulcer TECHNIQUE: Four-cuff ankle and brachial pressures were obtained. Pulse cuff waveform tracings of the ankles were recorded, and ankle-brachial indices were calculated. PRESSURES (mmHg): Brachial (arm): Right 168 Left IV SITE Ankle: Right 44 Left 72 ETHAN: Right 0.26 Left 0.43 PULSED CUFF WAVEFORMS: Not recorded CONCLUSION: 1. Decreased right ETHAN which is in the critical limb ischemia range. 2. Decreased left ETHAN which is in the moderate to severe arterial insufficiency range. Delonte Hernández MD on February 17, 2018 at 17:19 Board Certified Radiologist. This report was verified electronically.
[2018-02-17] MEDS: INSULIN NovoLIN REGULAR SUPPLEMENTAL SCALE SQ SCH ×2 (17:28→21:16)
[2018-02-17] MEDS ORDERED: GADODIAMIDE PF 287 MG/ML 20 ML VIAL (for RAD MRI) IVCONTRAST ONE (18:44)
[2018-02-17 20:00] VITALS: BP 150/72; PULSE 64; PULSE 68; RESP 17; TEMP 99.2; O2SAT 93
[2018-02-17] MEDS: SODIUM CHLOR 0.9% 1000 ML INJ 1,000 ML IV SCH (20:13)
--- NOTE | 2018-02-17 20:16 | RADRPT ---
EXAM DATE/TIME: 02/17/2018 18:22 [facility] COMPARISON: FOOT RIGHT LIMITED (2VWS), February 14, 2018, 13:23. INDICATIONS : Osteomyelitis. CONTRAST: 18 cc Omniscan (gadodiamide) IV MEDICAL HISTORY : Diabetes mellitus type 2. SURGICAL HISTORY : None. ENCOUNTER: Initial ACUITY: 1 day PAIN SCORE: 0/10 LOCATION: Right foot TECHNIQUE: Multiplanar, multisequence MRI examination was performed without contrast and after the intravenous a dministration of gadolinium. FINDINGS: No there is a heterogeneous fluid collection with air locules suspected at the plantar aspect of the foot distally extending to the skin surface and measuring on axial image 8 of series 93.4 x 2.4 cm in transverse and AP dimension. There is edema seen within the plantar musculature and subcutaneous tis sues. The collection is just proximal to the sesamoid bones of the first digit which demonstrated mil d increased T2 signal. There is moderate enhancement of the surrounding plantar soft tissues. The bryanna earance is suspicious for osteomyelitis at this level. There is also mild edema at the base of the fi rst proximal phalanx with enhancement also suspicious for osteomyelitis.. CONCLUSION: There is a plantar subcutaneous abscess and edema identified at the plantar aspect of the first metat arsal, and there is abnormal bone marrow signal intensity within the sesamoid bones of the first digi t, and first proximal phalanx concerning for abscess formation and osteomyelitis. Micah Lowery MD on February 17, 2018 at 20:10 Board Certified Radiologist. This report was verified electronically.
[2018-02-17] MEDS: ATORVASTATIN 40 MG TAB PO SCH (20:23)
[2018-02-17] MEDS ORDERED: VANCOMYCIN 1,000 MG/NS 250 ML IV ONE ×2 (22:00)
[2018-02-17] MEDS: HEPARIN SODIUM - SQ 10,000 UNITS/ML VIAL SQ SCH (22:34)
--- NOTE | 2018-02-17 23:15 | RADRPT ---
EXAM DATE/TIME: 02/17/2018 22:44 [facility] COMPARISON: No previous studies available for comparison. INDICATIONS : Right foot ulcer; osteomyleitis. MEDICAL HISTORY : Diabetes mellitus type II. SURGICAL HISTORY : None. ENCOUNTER: Sequela ACUITY: 1 week PAIN SCORE: 1/10 LOCATION: Right plantar foot. FINDINGS: There is soft tissue air overlying the plantar aspect of the medial midfoot. There is mild diffuse os teopenia. No definite focal cortical obstruction or other change to specifically indicate site of ost eomyelitis. Articulations are grossly intact. CONCLUSION: Medial soft tissue swelling and soft tissue air. No specific findings of osteomyelitis Rapahel Stoner MD on February 17, 2018 at 23:12 Board Certified Radiologist. This report was verified electronically.
--- NOTE | 2018-02-17 23:23 | RADRPT ---
EXAM DATE/TIME: 02/17/2018 22:44 [facility] COMPARISON: No previous studies available for comparison. INDICATIONS : Right ankle swelling; osteomyleitis. MEDICAL HISTORY : Diabetes mellitus type II. SURGICAL HISTORY : None. ENCOUNTER: Initial ACUITY: 3 days PAIN SCORE: 0/10 LOCATION: Right ankle. FINDINGS: Three view exam was performed of the right ankle. The bony structures are in normal alignment. No e vidence of fracture, dislocation, or soft tissue swelling. The ankle mortise is intact. No radiopaq ue foreign bodies are seen. Bony mineralization is normal. CONCLUSION: Unremarkable examination of the right ankle. Raphael Stoner MD on February 17, 2018 at 23:21 Board Certified Radiologist. This report was verified electronically.
[2018-02-18] VITALS (7 sets, daily range): BP systolic 136–163; BP diastolic 69–91; PULSE 67–85; RESP 15–19; TEMP 97.8–98.7; O2SAT 94–98
[2018-02-18] MEDS: ACETAMINOPHEN/HYDROcodone 325 MG/5 MG TAB PO PRN (02:57)
[2018-02-18] MEDS: HEPARIN SODIUM - SQ 10,000 UNITS/ML VIAL SQ SCH ×3 (05:00→20:30)
[2018-02-18 06:38] LABS: AUTOMATED NEUTROPHIL # 9.9 TH/MM3 (1.8-7.7); BASOPHIL # 0.1 TH/MM3 (0-0.2); BASOPHIL % 0.4 % (0.0-2.0); EOSINOPHIL # 0.1 TH/MM3 (0-0.4); EOSINOPHIL % 1.1 % (0.0-4.0); HEMATOCRIT 36.7 % (39.0-51.0); HEMOGLOBIN 12.3 GM/DL (13.0-17.0); LYMPH % 15.9 % (9.0-44.0); LYMPHOCYTE # 2.1 TH/MM3 (1.0-4.8); MEAN CELL VOLUME 89.5 FL (80.0-100.0); MEAN CORPUSCULAR HGB CONC 33.6 % (32.0-36.0); MEAN PLATELET VOLUME 8.3 FL (7.0-11.0); MONO % 9.5 % (0.0-8.0); MONOCYTE # 1.3 TH/MM3 (0-0.9); NEUT % 73.1 % (16.0-70.0); PLATELET COUNT 296 TH/MM3 (150-450); RED BLOOD COUNT 4.09 MIL/MM3 (4.50-5.90); WHITE BLOOD COUNT 13.5 TH/MM3 (4.0-11.0)
--- NOTE | 2018-02-18 06:51 | PD.POD.CON ---
Patient Intake Chief Complaint Painful red hot swollen right foot Consult Requested by Medicine team Reason for Consult Right diabetic foot infection Primary Care Physician No Primary Care Physician History of Present Illness Patient has a history of chronic ulceration of the right foot. He was seen in the ED and was given oral antibiotic with no response. The patient then returned to the ED and the patient was admitted and vascular studies as well as MRI was ordered. A routine consult was placed for podiatry. Patient has a history of smoking since the age of 11 he smokes a pack approximately every other day. Coded Allergies: No Known Allergies (Verified Adverse Reaction, Unknown, 02/17/18) Preferred Language to Discuss: Ug[place]an Vital Signs Date Time Temp Pulse Resp B/P (MAP) Pulse Ox O2 Delivery O2 Flow Rate FiO2 02/18/18 06:28 97.8 85 18 138/76 (96) 96 02/18/18 04:00 98.2 71 19 141/76 (97) 94 02/18/18 00:00 98.5 75 18 136/69 (91) 95 02/17/18 20:00 64 02/17/18 20:00 99.2 68 17 150/72 (98) 93 02/17/18 16:00 101.8 78 12 172/82 (112) 95 02/17/18 16:00 101.8 78 12 172/82 (112) 95 02/17/18 15:04 02/17/18 14:25 75 155/75 (101) 98 02/17/18 11:58 100.4 95 16 186/87 (120) 97 Pain score: 5 Medications Administered Medications Medications (Trade) Dose Ordered Sig/Breanne Route PRN Reason Start Time Stop Time Status Last Admin Dose Admin Sodium Chloride 1,000 ml @ 42 mls/hr [id number] IV 02/17/18 14:30 02/17/18 20:13 Insulin Human Regular (NovoLIN R SUPPLEMENTAL SCALE) 1 ACHS SLIDING SCALE SQ 02/17/18 17:00 02/17/18 21:16 Heparin Sodium (Porcine) (Heparin Inj) 5,000 units Q8HR SQ 02/17/18 22:00 02/17/18 22:34 Gabapentin (Neurontin) 300 mg TID PO 02/17/18 18:00 02/17/18 17:14 Acetaminophen/ Hydrocodone Bitart (Glen 5-325 Mg) 1 tab Q4H PRN PO pain 02/17/18 15:15 02/18/18 02:57 Acetaminophen (Tylenol) 500 mg Q4H PRN PO fever 02/17/18 16:45 02/17/18 17:14 Atorvastatin Calcium (Lipitor) 40 mg HS PO 02/17/18 21:00 02/17/18 20:23 Past, Family & Social History Past Medical History PFSH Reviewed: Yes Endocrine: REPORTS HX OF: Diabetes mellitus, DENIES HX OF: Hyperthyroidism, Hypothyroidism Cardiovascular: REPORTS HX OF: Hypertension, DENIES HX OF: Myocardial infarction Genitourinary: DENIES HX OF: Kidney failure Psychiatric: DENIES HX OF: Anxiety Past Surgical History Musculoskeletal: DENIES HX OF: Other musculoskeletal srg Integumentary: REPORTS HX OF: Other integumentary surg (i and d x2) Family Medical History Diabetes mellitus G8 FATHER G8 BROTHER Hypertension G8 FATHER G8 BROTHER Social History Social History: Educational Level: 3 y hs Marital Status: single Occupation: none Diet and Exercise Dietary Habits: Well-balanced Diet: About half the time Daily Servings Milk/Calcium: 0-1 Eating Out: Rarely or never Substance Use Substance Use: Denies use Exam-Podiatry Constitutional General appearance: comfortable Nutritional status: normal Orientation: alert and oriented x3 Dermatological Exam Details Right foot examined edematous redness with fluctuant soft tissue emphysema plantar aspect medial arch entering approximately 4 x 5 cm no obvious odor the foot is warm redness and swelling remains below the ankle Neurologic Exam Details Decreased sensation to light touch below bilateral ankles however good muscle strength noted Musculoskeletal Exam Details No instability or decreased range of motion of digits forefoot hindfoot or ankle bilateral Lab and Radiology Results Laboratory Laboratory Tests Test 02/17/18 12:42 02/18/18 05:43 White Blood Count 18.4 TH/MM3 13.5 TH/MM3 Red Blood Count 4.68 MIL/MM3 4.09 MIL/MM3 Hemoglobin 14.1 GM/DL 12.3 GM/DL Hematocrit 41.8 % 36.7 % Mean Corpuscular Volume 89.4 FL 89.5 FL Mean Corpuscular Hemoglobin 30.0 PG 30.0 PG Mean Corpuscular Hemoglobin Concent 33.6 % 33.6 % Red Cell Distribution Width 12.4 % 12.0 % Platelet Count 366 TH/MM3 296 TH/MM3 Mean Platelet Volume 8.1 FL 8.3 FL Neutrophils (%) (Auto) 79.8 % 73.1 % Lymphocytes (%) (Auto) 13.1 % 15.9 % Monocytes (%) (Auto) 6.1 % 9.5 % Eosinophils (%) (Auto) 0.4 % 1.1 % Basophils (%) (Auto) 0.6 % 0.4 % Neutrophils # (Auto) 14.7 TH/MM3 9.9 TH/MM3 Lymphocytes # (Auto) 2.4 TH/MM3 2.1 TH/MM3 Monocytes # (Auto) 1.1 TH/MM3 1.3 TH/MM3 Eosinophils # (Auto) 0.1 TH/MM3 0.1 TH/MM3 Basophils # (Auto) 0.1 TH/MM3 0.1 TH/MM3 CBC Comment AUTO DIFF DIFF FINAL Differential Comment AUTO DIFF CONFIRMED Erythrocyte Sedimentation Rate 52 mm/hr Laboratory Tests Test 02/17/18 12:42 02/18/18 05:43 Blood Urea Nitrogen 10 MG/DL Creatinine 0.78 MG/DL Random Glucose 262 MG/DL Total Protein 8.3 GM/DL Albumin 3.1 GM/DL Calcium Level 9.3 MG/DL Alkaline Phosphatase 99 U/L Aspartate Amino Transf (AST/SGOT) 14 U/L Alanine Aminotransferase (ALT/SGPT) 15 U/L Total Bilirubin 0.5 MG/DL Sodium Level 131 MEQ/L Potassium Level 3.9 MEQ/L Chloride Level 97 MEQ/L Carbon Dioxide Level 25.1 MEQ/L Anion Gap 9 MEQ/L Estimat Glomerular Filtration Rate 108 ML/MIN Lactic Acid Level 1.3 mmol/L C-Reactive Protein 25.40 MG/DL Microbiology Date/Time Source Procedure Growth Status 02/17/18 12:40 Blood Peripheral Aerobic Blood Culture Pending Received 02/17/18 12:40 Blood Peripheral Anaerobic Blood Culture Pending Received 02/17/18 12:36 Blood Peripheral Aerobic Blood Culture Pending Received 02/17/18 12:36 Blood Peripheral Anaerobic Blood Culture Pending Received Last 72 hours Impressions Lower Extremity Ultrasound 02/17/18 0000 Signed Impressions: Service Date/Time: Saturday, February 17, 2018 15:20 - CONCLUSION: No evidence of DVT. Lymphadenopathy in the proximal right thigh. Delonte Hernández MD Foot X-Ray 02/17/18 0000 Signed Impressions: Service Date/Time: Saturday, February 17, 2018 22:44 - CONCLUSION: Medial soft tissue swelling and soft tissue air. No specific findings of osteomyelitis Raphael Stoner MD Foot MRI 02/17/18 Signed Impressions: Service Date/Time: Saturday, February 17, 2018 18:22 - CONCLUSION: There is a plantar subcutaneous abscess and edema identified at the plantar aspect of the first metatarsal, and there is abnormal bone marrow signal intensity within the sesamoid bones of the first digit, and first proximal phalanx concerning for abscess formation and osteomyelitis. Micah Lowery MD Ankle X-Ray 02/17/18 Signed Impressions: Service Date/Time: Saturday, February 17, 2018 22:44 - CONCLUSION: Unremarkable examination of the right ankle. Raphael Stoner MD Radiology Last Impressions Lower Extremity Ultrasound 02/17/18 Signed Impressions: Service Date/Time: Saturday, February 17, 2018 15:20 - CONCLUSION: No evidence of DVT. Lymphadenopathy in the proximal right thigh. Delonte Hernández MD Foot X-Ray 02/17/18 Signed Impressions: Service Date/Time: Saturday, February 17, 2018 22:44 - CONCLUSION: Medial soft tissue swelling and soft tissue air. No specific findings of osteomyelitis Raphael Stoner MD Foot MRI 02/17/18 Signed Impressions: Service Date/Time: Saturday, February 17, 2018 18:22 - CONCLUSION: There is a plantar subcutaneous abscess and edema identified at the plantar aspect of the first metatarsal, and there is abnormal bone marrow signal intensity within the sesamoid bones of the first digit, and first proximal phalanx concerning for abscess formation and osteomyelitis. Micah Lowery MD Ankle X-Ray 02/17/18 Signed Impressions: Service Date/Time: Saturday, February 17, 2018 22:44 - CONCLUSION: Unremarkable examination of the right ankle. Raphael Stoner MD Assessment/Plan Problem List: (1) Diabetic infection of right foot Status: Acute Plan: X-rays and MRI reviewed, emergent incision and drainage planned for today. Reviewed with patient risks and benefits regarding surgery. The severity of the infection will likely require multiple debridements possibly leading to digit or partial foot amputation. The patient has a long-standing history of diabetes and smoking. ABIs reviewed, will need vascular surgery intervention likely to heal. Surgery will be performed here within the next 1- 2 hours and then recommend transferring to main hospital for vascular evaluation and likely repeat debridements of the next 3-4 days. I added clindamycin for anaerobic coverage reviewed case with medicine team. Consents signed, right foot incision and drainage debridement with possible bone biopsy. (2) Peripheral vascular disease with claudication Plan: ABIs reviewed, will likely need CTA with runoff however recommend vascular evaluation for possible arteriogram in combination with intervention once transferred to [facility] Oz Delarosa DPM Feb 18, 2018 06:51
[2018-02-18 06:57] LABS: CREATININE 0.52 MG/DL (0.60-1.30)
[2018-02-18] MEDS: CLINDAMYCIN 600 MG/NS PREMIX 50 ML IV SCH ×2 (07:00→13:29)
[2018-02-18] MEDS ORDERED: CHLORHEXIDINE GLUCONATE 2 % 1 PACK (2 CLOTHS) TOPICAL PRN (07:30)
[2018-02-18] MEDS ORDERED: SODIUM CHLORID 0.9% 500 ML IV PRN (07:30)
[2018-02-18] MEDS ORDERED: POVIDONE IODINE 5% (ANTISEPSIS KIT) 4 APPLICATIONS EACH NARE PRN (07:30)
[2018-02-18] MEDS ORDERED: LACTATED RINGER'S 1000 ML IV PRN (07:30)
[2018-02-18] MEDS ORDERED: NEOMYCIN/POLYMYXIN 1 ML G.U. IRRIGANT ONE (07:37)
[2018-02-18] MEDS ORDERED: BUPIVACAINE HCL PF 0.5% 10 ML VIAL ONE (07:42)
[2018-02-18] MEDS: VANCOMYCIN 1,500 MG/NS 500 ML IV SCH ×4 (08:00→16:16)
--- NOTE | 2018-02-18 08:17 | PD.OP ---
Operative Report Preoperative Diagnosis: (1) Diabetic infection of right foot Postoperative Diagnosis: (1) Diabetic infection of right foot Procedure: Incision and drainage debridement fasciotomy extensor tendon sheath exploration with bone biopsy right foot, incision bone cortex Estimated blood loss 75 ML's. Bone biopsy for pathological analysis. 2 deep cultures for microbial analysis. No tourniquet used. Anesthesia: Gen. with local 10 cc 0.25% Marcaine plain Surgeon: Oz Holt Carpet Installation Specialist(s): Scrub Operation and Findings: Justification for procedure. Diabetic gentleman admitted to the hospital MRI showed gas within the tissue x-ray showed gas only in the foot no proximal extension to the ankle. Recommended emergent incision and drainage to prevent further progression of gas within tissue. ABIs noted to be decreased. Patient will need vascular evaluation and very close follow-up. Likely will need multiple surgeries. Procedure in detail: Under mild sedation the patient was brought the operating room and placed on the operative of the supine position. Following the induction of general anesthesia, right lower extremity was scrubbed prepped and draped in the usual aseptic fashion. Foot was elevated and examined. Redness with blistering of soft tissue emphysema of the medial arch. Ulceration noted of the plantar medial first MPJ that probes directly to bone. An elliptical incision to place removing the ulceration extending down to joint capsule and FHL tendon. Fascial planes dissected noted to have gas deep to the fascia and within the flexor hallucis longus tendon sheath. This was tracked up to the level of the medial arch or it appears to have stopped proximal spread at this point. There was actually bleeding noted nonexcessive. Bovie and ligation of structures took place as deemed appropriate. Ronjair was used for an incision bone cortex of the medial first MPJ sesamoid and this was sent for pathological analysis. Pulse lavage was used to evacuate abscess in gas noted within tissue. Ronjair were and iris scissor debridement took place of all nonviable necrotic tissue mainly within the medial arch down to the flexor hallucis longus tendon. Loose retention sutures placed and the wound packed open. 10 cc of 0.25% Marcaine plain was infiltrated in the proximal medial ankle to help with pain in the postop setting. A bulky bandage placed 4 x 4 ABDs pad Eileen wrap and Arturo. Capillary fill time to the digit remained intact. Patient was transferred from or to PACU with all vital signs stable. Immediately after surgery, vascular surgery consult to with infectious disease consultation as well and requesting transfer to the main for appropriate care. Oz Holt DPM Feb 18, 2018 08:17
[2018-02-18] MEDS ORDERED: MIDAZOLAM HCL 2 MG/2 ML VIAL ONE (08:25)
--- NOTE | 2018-02-18 08:25 | EKG ---
Date Performed: 02/17/2018 Time Performed: 23:55:36 PTAGE: 42 years EKG: Sinus rhythm POSSIBLE INFERIOR MYOCARDIAL INFARCTION, OLD BORDERLINE ECG PREVIOUS TRACING : 04/06/2012 13.42 Since the previous tracing, no significant change noted DOCTOR: Franchesca Jiang Interpretating Date/Time 02/18/2018 08:24:37
[2018-02-18] MEDS: INSULIN NovoLIN REGULAR SUPPLEMENTAL SCALE SQ SCH ×4 (08:55→20:29)
[2018-02-18] MEDS ORDERED: INSULIN HUMAN REGULAR 1,000 UNITS/10 ML VIAL ONE (09:02)
[2018-02-18] MEDS ORDERED: DO NOT ADM ANY ANTICOAGULANT DRUGS PRN (09:45)
[2018-02-18] MEDS: GABAPENTIN 300 MG CAP PO SCH ×3 (11:03→17:07)
[2018-02-18] MEDS: oxyCODONE/ACETAMINOPHEN 7.5 MG/325 MG TAB PO PRN ×3 (11:08→20:37)
--- NOTE | 2018-02-18 13:09 | HHI.PR ---
Subjective Remarks Nursing denies any deterioration since last night. Discussed case with podiatry , patient's pain improved. Compared to preop. Patient himself says he feels better. Objective Vital Signs Date Time Temp Pulse Resp B/P (MAP) Pulse Ox O2 Delivery O2 Flow Rate FiO2 02/18/18 11:00 97.9 71 15 156/90 (112) 98 02/18/18 09:15 65 16 122/69 (86) 96 02/18/18 09:05 63 16 124/68 (86) 95 02/18/18 08:50 65 16 126/66 (86) 97 02/18/18 08:36 63 16 117/67 (84) Room Air 02/18/18 08:21 99.6 61 16 108/61 (77) 100 Simple Mask 8 02/18/18 07:09 98.8 96 20 146/78 (100) 100 02/18/18 06:28 97.8 85 18 138/76 (96) 96 02/18/18 04:00 98.2 71 19 141/76 (97) 94 02/18/18 00:00 98.5 75 18 136/69 (91) 95 02/17/18 20:00 64 02/17/18 20:00 99.2 68 17 150/72 (98) 93 02/17/18 16:00 101.8 78 12 172/82 (112) 95 02/17/18 16:00 101.8 78 12 172/82 (112) 95 02/17/18 15:04 02/17/18 14:25 75 155/75 (101) 98 I/O 02/17/18 02/17/18 02/17/18 02/18/18 02/18/18 02/18/18 06:59 14:59 22:59 06:59 14:59 22:59 Intake Total 2590 ml 824 ml 400 ml Output Total 800 ml 1000 ml 75 ml Balance 1790 ml -176 ml 325 ml Intake Oral 240 ml IV Total 2350 ml 824 ml Other 400 ml Output Urine Total 800 ml 1000 ml Estimated Blood Loss 75 ml # Voids 2 Result Diagram: 02/18/18 0543 02/18/18 0543 Objective Remarks Right foot in postop dressing, lying in bed, no acute distress, awake, alert A/P Assessment and Plan 42-year-old white male being admitted for sepsis secondary to infected diabetic foot ulcer as well as possible osteomyelitis Sepsis secondary to infected diabetic foot ulcer and abscess -Blood cultures drawn, abx and IVFs Infected diabetic foot ulcer with abscess and gas gangrene -s/p debridement, podiatry following, -Vancomycin and Levaquin and now clindamycin added; infectious disease consult - f/u on BMP in AM given pt has undergone contrast study and may receive further such studies PAD - confirmed w/ ETHAN, vascular surgery consulted, transferring pt to [facility] [place], -Lipitor and aspirin Uncontrolled diabetes -Starting Accu-Cheks with low-dose sliding scale Heparin Holger Beltrán MD Feb 18, 2018 13:09
[2018-02-18] MEDS ORDERED: LEVOFLOXACIN 750 MG PREMIX INJ 150 ML IV SCH (15:00)
[2018-02-18] MEDS: SODIUM CHLOR 0.9% 1000 ML INJ 1,000 ML IV SCH ×2 (15:16→23:44)
[2018-02-18] MEDS ORDERED: PIPERACIL-TAZO 3.375 GM PREMIX 50 ML IV SCH (18:00)
--- NOTE | 2018-02-18 18:21 | PD.ID.CON ---
History of Present Illness Service ID Consult Requested By Dr Torres Reason for Consult DFI R foot Primary Care Physician No Primary Care Physician Diagnoses: History of Present Illness 42 yo tobacco + diabetic male presented with recurrent open ulcer over R foot He initially had diabetic ulcer in the same location in September, but apparently it healed and now reopend a week ago He was started on oral bactrim and got worse Pt was c/o swelling, pain redness, blister on presentation On presenteation fever up to 101.8, leukocytopsis with WBC of 18 K, no lactic acidosis Blood clx negatvie @ 1 day MRI showed plantar subcutaneous abscess and edema identified at the plantar aspect of the first metatarsal, and there is abnormal bone marrow signal intensity within the sesamoid bones of the first digit, and first proximal phalanx concerning for abscess formation and osteomyelitis Today pt underwent incision and drainage debridement fasciotomy extensor tendon sheath exploration with bone biopsy right foot, incision bone cortex Bone biopsy for pathological analysis. 2 deep cultures for microbial analysis by Dr Holt Pt is scheduled to be transferred to the [facility] for further vascular w/u after his arterial study showed critical ischemia on RLE and severe on LLE Review of Systems Except as stated in HPI: all other systems reviewed are Neg Past Family Social History Allergies: Coded Allergies: No Known Allergies (Verified Adverse Reaction, Unknown, 02/17/18) Past Medical History DM HTN Past Surgical History no major surgeries Active Ordered Medications Medications where reviewed in EMR Antibiotics Include: levaquin clinda vanco Family History reviewed and is non cobntributory ton presenting ID problem Social History tobacco + 1/2 PPD No ETOH no IVDU Physical Exam Vital Signs Vital Signs Date Time Temp Pulse Resp B/P (MAP) Pulse Ox O2 Delivery O2 Flow Rate FiO2 02/18/18 15:00 98.7 72 15 159/91 (113) 02/18/18 11:25 67 02/18/18 11:00 97.9 71 15 156/90 (112) 98 02/18/18 09:15 65 16 122/69 (86) 96 02/18/18 09:05 63 16 124/68 (86) 95 02/18/18 08:50 65 16 126/66 (86) 97 02/18/18 08:36 63 16 117/67 (84) Room Air 02/18/18 08:21 99.6 61 16 108/61 (77) 100 Simple Mask 8 02/18/18 07:09 98.8 96 20 146/78 (100) 100 02/18/18 06:28 97.8 85 18 138/76 (96) 96 02/18/18 04:00 98.2 71 19 141/76 (97) 94 02/18/18 00:00 98.5 75 18 136/69 (91) 95 02/17/18 20:00 64 02/17/18 20:00 99.2 68 17 150/72 (98) 93 Physical Exam CONSTITUTIONAL/GENERAL: This is an adequately nourished patient, in no apparent distress. TUBES/LINES/DRAINS: SKIN: No jaundice, rashes, or lesions. Ecchymoses on upper extremities. No wounds seen anteriorly. Skin temperature appropriate. Not diaphoretic. HEAD: Atraumatic. Normocephalic. EYES: Pupils equal and round and reactive. Extraocular motions intact. No scleral icterus. No injection or drainage. Fundi not examined. ENT: Hearing grossly normal. Nose without bleeding or purulent drainage. Throat without visible erythema, exudates, masses, or lesions. edentulous NECK: Trachea midline. Supple, nontender. No palpable thyroid enlargement or nodularity. CARDIOVASCULAR: Regular rate and rhythm without murmurs, gallops, or rubs. No JVD. Peripheral pulses symmetric. RESPIRATORY/CHEST: Symmetric, unlabored respirations. Clear to auscultation. Breath sounds equal bilaterally. No wheezes, rales, or rhonchi. GASTROINTESTINAL: Abdomen soft, non-tender, nondistended. No hepato-splenomegaly , or palpable masses. No guarding. Bowel sounds present. GENITOURINARY: Without palpable bladder distension. MUSCULOSKELETAL: Extremities without clubbing, cyanosis, or edema. + prominent loss of skin appendages Dressing in place R foot No ascending lymphangitis or cellulitis noted + Enlarged, tender R inguinal lymph node LYMPHATICS: No palpable cervical or supraclavicular adenopathy. NEUROLOGICAL: Awake and alert. Motor and sensory grossly within normal limits. Follows commands. Cognitively sharp. Moves all extremities. PSYCHIATRIC: No obvious anxiety/depression. no apparent hallucinations or other psychotic thought process. Laboratory Laboratory Tests Test 02/18/18 05:43 White Blood Count 13.5 Red Blood Count 4.09 Hemoglobin 12.3 Hematocrit 36.7 Mean Corpuscular Volume 89.5 Mean Corpuscular Hemoglobin 30.0 Mean Corpuscular Hemoglobin Concent 33.6 Red Cell Distribution Width 12.0 Platelet Count 296 Mean Platelet Volume 8.3 Neutrophils (%) (Auto) 73.1 Lymphocytes (%) (Auto) 15.9 Monocytes (%) (Auto) 9.5 Eosinophils (%) (Auto) 1.1 Basophils (%) (Auto) 0.4 Neutrophils # (Auto) 9.9 Lymphocytes # (Auto) 2.1 Monocytes # (Auto) 1.3 Eosinophils # (Auto) 0.1 Basophils # (Auto) 0.1 CBC Comment DIFF FINAL Differential Comment Creatinine 0.52 Estimat Glomerular Filtration Rate 173 Date/Time Source Procedure Growth Status 02/17/18 12:40 Blood Peripheral Aerobic Blood Culture - Preliminary NO GROWTH IN 1 DAY Resulted 02/17/18 12:40 Blood Peripheral Anaerobic Blood Culture - Preliminary NO GROWTH IN 1 DAY Resulted 02/18/18 07:49 Wound Foot Fungal Smear Pending Received 02/18/18 07:49 Wound Foot Fungal Culture Pending Received Result Diagram: 02/18/18 0543 02/18/18 0543 Imaging Last Impressions Lower Extremity Ultrasound 02/17/18 0000 Signed Impressions: Service Date/Time: Saturday, February 17, 2018 15:20 - CONCLUSION: No evidence of DVT. Lymphadenopathy in the proximal right thigh. Delonte Hernández MD Foot X-Ray 02/17/18 0000 Signed Impressions: Service Date/Time: Saturday, February 17, 2018 22:44 - CONCLUSION: Medial soft tissue swelling and soft tissue air. No specific findings of osteomyelitis Raphael Stoner MD Foot MRI 02/17/18 0000 Signed Impressions: Service Date/Time: Saturday, February 17, 2018 18:22 - CONCLUSION: There is a plantar subcutaneous abscess and edema identified at the plantar aspect of the first metatarsal, and there is abnormal bone marrow signal intensity within the sesamoid bones of the first digit, and first proximal phalanx concerning for abscess formation and osteomyelitis. Micah Lowery MD Ankle X-Ray 02/17/18 0000 Signed Impressions: Service Date/Time: Saturday, February 17, 2018 22:44 - CONCLUSION: Unremarkable examination of the right ankle. Raphael Stoner MD Assessment and Plan Assessment and Plan Diabetic foot infection, R foot 1sh prox phalanx with osteomyelitis and abscess s/p I+D PVD with critical ischemia, cont abx: change to zosyn, vancomycin agree with plan for vasc w/u Discussed Condition With Dr Isaura Simmons,Susu Taylor MD Feb 18, 2018 18:21
[2018-02-18] MEDS: ATORVASTATIN 40 MG TAB PO SCH (20:28)
[2018-02-18] MEDS: FAMOTIDINE 20 MG TAB PO SCH (21:45)
[2018-02-18] MEDS ORDERED: ALUMINUM/MAGNESIUM/SIMETH 30 ML CUP PO ONE (21:45)
[2018-02-18] MEDS: MORPHINE SULFATE 2 MG/ML SYRINGE IV PUSH PRN (21:50)
[2018-02-18] MEDS: PIPERACIL-TAZO 3.375 GM PREMIX 50 ML IV SCH (23:56)
[2018-02-19] VITALS: BP 148/70; PULSE 62; RESP 18; TEMP 98; O2SAT 93
[2018-02-19] MEDS: oxyCODONE/ACETAMINOPHEN 7.5 MG/325 MG TAB PO PRN ×2 (00:06→09:08)
[2018-02-19] MEDS: VANCOMYCIN 1,500 MG/NS 500 ML IV SCH ×4 (00:52→08:00)
[2018-02-19] MEDS: MORPHINE SULFATE 2 MG/ML SYRINGE IV PUSH PRN ×3 (04:52→21:42)
[2018-02-19] MEDS: HEPARIN SODIUM - SQ 10,000 UNITS/ML VIAL SQ SCH ×3 (04:52→22:00)
[2018-02-19] MEDS: PIPERACIL-TAZO 3.375 GM PREMIX 50 ML IV SCH ×3 (04:53→18:00)
--- NOTE | 2018-02-19 07:23 | PD.VS.CON ---
History of Present Illness Chief Complaint: R foot wound, DM and PAD Consult Requested by: Medical service and Dr. Delarosa History of Present Illness 42 yo male with longstanding DM and tobacco abuse, adm with diabetic foot infection and presumed osteo. No palpable pedal pulses and asked to evaluate. Pt notes foot hurts worse over past days. Ambulatory. Getting wound / foot care under expertise of Dr. Delarosa. Past/Family/Social History Past Medical History DM HTN tobacco Past Surgical History abscess drainage foot debridement Social History + tobacco Family History DM and ENT malignancies Home Medications Active Scripts Metformin (Metformin) 500 Mg Tab, 500 MG PO BIDPC for Blood Sugar Management, # 60 TAB 0 Refills With meals Prov:Puma Hopkins MD 02/14/18 Sulfamethoxazole-Trimethoprim (Bactrim DS) 800-160 Mg Tab, 1 TAB PO BID for Infection, #14 TAB 0 Refills Prov:Puma Hopkins MD 02/14/18 Discontinued Reported Medications Hydrocodone-Acetaminophen (Hydrocodone-Acetaminophen) 5-325 mg Tab, 1 TAB PO Q4H Y for PAIN, TAB 0 Refills 08/15/17 Discontinued Scripts Tramadol ER 24 HR (Tramadol ER 24 HR) 100 Mg Caper, 100 MG PO DAILY for Pain Management, #10 CAP 0 Refills Prov:Puma Hopkins MD 02/14/18 Ciprofloxacin (Ciprofloxacin) 500 Mg Tab, 500 MG PO BID for Infection for 7 Days , #14 TAB 0 Refills Prov:Jorge Rodriguez MD 08/15/17 Coded Allergies: No Known Allergies (Verified Adverse Reaction, Unknown, 02/17/18) Review of Systems Constitutional: COMPLAINS OF: Chills Musculoskeletal: COMPLAINS OF: Joint pain Physical Exam Vitals/I&O Date Time Temp Pulse Resp B/P (MAP) Pulse Ox O2 Delivery O2 Flow Rate FiO2 02/19/18 00:00 98.0 62 18 148/70 (96) 93 02/18/18 20:00 98.5 70 16 163/76 (105) 94 02/18/18 15:00 98.7 72 15 159/91 (113) 02/18/18 11:25 67 02/18/18 11:00 97.9 71 15 156/90 (112) 98 02/18/18 09:15 65 16 122/69 (86) 96 02/18/18 09:05 63 16 124/68 (86) 95 02/18/18 08:50 65 16 126/66 (86) 97 02/18/18 08:36 63 16 117/67 (84) Room Air 02/18/18 08:21 99.6 61 16 108/61 (77) 100 Simple Mask 8 02/19/18 02/19/18 02/19/18 07:00 15:00 23:00 Output Total 750 ml Balance -750 ml Neuro: alert, oriented, no distress HEENT: NC/AT; anicteric sclera Neck: no JVD Heart: reg rate Lungs: nonlabored breathing Vascular: palpable femoral pulses but nothing distally Extremities: R foot wrapped with surgical dressing, no calf tenderness nor streaking erythema Date/Time Source Procedure Growth Status 02/17/18 12:40 Blood Peripheral Aerobic Blood Culture - Preliminary NO GROWTH IN 1 DAY Resulted 02/17/18 12:40 Blood Peripheral Anaerobic Blood Culture - Preliminary NO GROWTH IN 1 DAY Resulted 02/18/18 07:49 Wound Foot Fungal Smear Pending Received 02/18/18 07:49 Wound Foot Fungal Culture Pending Received PVR: 0.26/0.43 Assessment and Plan Plan R foot wound and nonpalpable pulse, needs more perfusion to improve chances of healing 1. Wound care, IV antibiotics as currently doing 2. vein survey today to access bypass conduit options 3. By my examination, he has infra-inguinal disease (palpable femoral pulse). As such, will perform R LE angiogram. Scheduled for SUNDAY. NPO after MN. 4. f/u Hgb A1c - ordered 5. 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
[2018-02-19] MEDS ORDERED: PHARMACY ORDERED LAB ONE (07:45)
[2018-02-19 08:00] VITALS: BP 162/77; PULSE 58; RESP 19; TEMP 98; O2SAT 93
[2018-02-19] MEDS: INSULIN NovoLIN REGULAR SUPPLEMENTAL SCALE SQ SCH (08:00)
[2018-02-19] MEDS: GABAPENTIN 300 MG CAP PO SCH ×4 (09:08→21:42)
[2018-02-19] MEDS: ASPIRIN EC 81 MG TABEC PO SCH (09:08)
[2018-02-19] MEDS: FAMOTIDINE 20 MG TAB PO SCH ×2 (09:08→21:43)
--- NOTE | 2018-02-19 09:19 | HHI.PR ---
Subjective Remarks This is a pleasant 42 y/o male who was admitted secondary to Diabetic foot ulcer with possible osteomyelitis, February 17/2018, has tobacco dependence Status post Right foot Incision and drainage debridement fasciotomy extensor tendon sheath exploration with bone biopsy right foot, incision bone cortex as per Doctor Oz Davis Followed by Vascular counseling specialist, recommended wound care, IV antibiotics, vein survey to access for bypass conduit options, has infra-inguinal disease with palpable femoral pulse, will perform Right lower extremity angiogram, Scheduled for Sunday, Hemoglobin A1C. and Tobacco cessation. by Doctor Dandy Patel. 02/19; Seen in his bedroom, Awaiting for angiography for tomorrow, his blood sugar is been uncontrolled started on insulin management. No nausea, vomit or diarrhea. Objective Vital Signs Date Time Temp Pulse Resp B/P (MAP) Pulse Ox O2 Delivery O2 Flow Rate FiO2 02/19/18 08:00 98.0 58 19 162/77 (105) 93 02/19/18 00:00 98.0 62 18 148/70 (96) 93 02/18/18 20:00 98.5 70 16 163/76 (105) 94 02/18/18 15:00 98.7 72 15 159/91 (113) 02/18/18 11:25 67 02/18/18 11:00 97.9 71 15 156/90 (112) 98 I/O 02/18/18 02/18/18 02/18/18 02/19/18 02/19/18 02/19/18 07:00 15:00 23:00 07:00 15:00 23:00 Intake Total 824 ml 450 ml 1749 ml Output Total 1000 ml 75 ml 1300 ml 750 ml Balance -176 ml 375 ml 449 ml -750 ml Intake Oral 750 ml IV Total 824 ml 50 ml 999 ml Other 400 ml Output Urine Total 1000 ml 1300 ml 750 ml Estimated Blood Loss 75 ml # Voids 1 Result Diagram: 02/18/18 0543 02/18/18 0543 Imaging Last Impressions Lower Extremity Ultrasound 02/17/18 0000 Signed Impressions: Service Date/Time: Saturday, February 17, 2018 15:20 - CONCLUSION: No evidence of DVT. Lymphadenopathy in the proximal right thigh. Delonte Hernández MD Foot X-Ray 02/17/18 0000 Signed Impressions: Service Date/Time: Saturday, February 17, 2018 22:44 - CONCLUSION: Medial soft tissue swelling and soft tissue air. No specific findings of osteomyelitis Raphael Stoner MD Foot MRI 02/17/18 0000 Signed Impressions: Service Date/Time: Saturday, February 17, 2018 18:22 - CONCLUSION: There is a plantar subcutaneous abscess and edema identified at the plantar aspect of the first metatarsal, and there is abnormal bone marrow signal intensity within the sesamoid bones of the first digit, and first proximal phalanx concerning for abscess formation and osteomyelitis. Micah Lowery MD Ankle X-Ray 02/17/18 0000 Signed Impressions: Service Date/Time: Saturday, February 17, 2018 22:44 - CONCLUSION: Unremarkable examination of the right ankle. Raphael Stoner MD Procedures Status post Right foot Incision and drainage debridement fasciotomy extensor tendon sheath exploration with bone biopsy right foot, incision bone cortex as per Doctor Oz Davis Other Results Laboratory Tests Test 02/17/18 12:42 02/17/18 13:01 02/18/18 05:43 02/19/18 09:00 Erythrocyte Sedimentation Rate 52 mm/hr Prothrombin Time 11.4 SEC Prothromb Time International Ratio 1.1 RATIO Activated Partial Thromboplast Time 31.9 SEC Lactic Acid Level 1.3 mmol/L Blood Urea Nitrogen 10 MG/DL Creatinine 0.78 MG/DL Random Glucose 262 MG/DL Total Protein 8.3 GM/DL Albumin 3.1 GM/DL Calcium Level 9.3 MG/DL Alkaline Phosphatase 99 U/L Aspartate Amino Transf (AST/SGOT) 14 U/L Alanine Aminotransferase (ALT/SGPT) 15 U/L Total Bilirubin 0.5 MG/DL Sodium Level 131 MEQ/L Potassium Level 3.9 MEQ/L Chloride Level 97 MEQ/L Carbon Dioxide Level 25.1 MEQ/L C-Reactive Protein 25.40 MG/DL Urine Collection Type CLEAN CATCH Urine Color YELLOW Urine Turbidity CLEAR Urine pH 6.0 Urine Specific [place] 1.025 Urine Protein 30 mg/dL Urine Glucose (UA) 1000 OR GREATER mg/dL Urine Ketones 80 OR GREATER mg/dL Urine Occult Blood NEG Urine Nitrite NEG Urine Bilirubin NEG Urine Urobilinogen 1.0 MG/DL Urine Leukocyte Esterase NEG Urine RBC 0-3 /hpf Urine Squamous Epithelial Cells 0-5 /hpf Urine Amorphous Sediment FEW Microscopic Urinalysis Comment CULT NOT INDICATED Urine Collection Time 1301 White Blood Count 13.5 TH/MM3 Red Blood Count 4.09 MIL/MM3 Hemoglobin 12.3 GM/DL Hematocrit 36.7 % Mean Corpuscular Volume 89.5 FL Mean Corpuscular Hemoglobin 30.0 PG Mean Corpuscular Hemoglobin Concent 33.6 % Red Cell Distribution Width 12.0 % Platelet Count 296 TH/MM3 Mean Platelet Volume 8.3 FL Neutrophils (%) (Auto) 73.1 % Lymphocytes (%) (Auto) 15.9 % Monocytes (%) (Auto) 9.5 % Eosinophils (%) (Auto) 1.1 % Basophils (%) (Auto) 0.4 % Neutrophils # (Auto) 9.9 TH/MM3 Lymphocytes # (Auto) 2.1 TH/MM3 Monocytes # (Auto) 1.3 TH/MM3 Eosinophils # (Auto) 0.1 TH/MM3 Basophils # (Auto) 0.1 TH/MM3 CBC Comment DIFF FINAL Differential Comment Estimat Glomerular Filtration Rate 173 ML/MIN Objective Remarks GENERAL: Well developed. no acute distress. SKIN: Warm and dry. HEAD: Atraumatic. Normocephalic. EYES: Pupils equal and round. No scleral icterus. No injection or drainage. ENT: No nasal bleeding or discharge. Mucous membranes pink and moist. NECK: Trachea midline. No JVD. CARDIOVASCULAR: Regular rate and rhythm. RESPIRATORY: No accessory muscle use. Clear to auscultation. Breath sounds equal bilaterally. GASTROINTESTINAL: Abdomen soft, non-tender, nondistended. Hepatic and splenic margins not palpable. MUSCULOSKELETAL: Dressed right foot. NEUROLOGICAL: Awake and alert. No obvious cranial nerve deficits. PSYCHIATRIC: Appropriate mood and affect; insight and judgment normal. Medications and IVs Current Medications Medications (Trade) Dose Ordered Sig/Breanne Route Start Time Stop Time Status Last Admin Sodium Chloride 1,000 ml @ 42 mls/hr [id number] IV 02/17/18 14:30 02/18/18 23:44 (D50w (Vial) Inj) 50 ml UNSCH PRN IV PUSH 02/17/18 15:15 (Glucagon Inj) 1 mg UNSCH PRN OTHER 02/17/18 15:15 (NovoLIN R SUPPLEMENTAL SCALE) 1 ACHS SLIDING SCALE SQ 02/17/18 17:00 02/19/18 08:00 Pharmacy Profile Note 0 ml @ 0 mls/hr UNSCH OTHER 02/17/18 15:15 (Heparin Inj) 5,000 units Q8HR SQ 02/17/18 22:00 02/19/18 04:52 (Neurontin) 300 mg TID PO 02/17/18 18:00 02/19/18 09:08 ([place] 5-325 Mg) 1 tab Q4H PRN PO 02/17/18 15:15 02/18/18 02:57 Vancomycin HCl 1500 mg/Sodium Chloride 515 ml @ 257.5 mls/ hr Q8H IV 02/18/18 08:00 02/19/18 00:52 (Tylenol) 500 mg Q4H PRN PO 02/17/18 16:45 02/17/18 17:14 (Lipitor) 40 mg HS PO 02/17/18 21:00 02/18/18 20:28 Lactated Ringer's 1,000 ml @ 30 mls/hr Q24H PRN IV 02/18/18 07:30 02/21/18 07:29 02/18/18 07:00 Sodium Chloride 500 ml @ 30 mls/hr [id number] PRN IV 02/18/18 07:30 02/21/18 07:29 (Betadine 5% Antisepsis Kit) 1 applic CORD SPLICER PRN EACH NARE 02/18/18 07:30 02/21/18 07:29 (Chlorhexidine 2% Cloth) 3 pack CORD SPLICER PRN TOPICAL 02/18/18 07:30 02/21/18 07:29 (Percocet 7.5-325 Mg) 1 tab Q4H PRN PO 02/18/18 08:30 02/19/18 09:08 (Morphine Inj) 2 mg Q4H PRN IV PUSH 02/18/18 08:30 02/19/18 04:52 Miscellaneous Information ALL NURSING DEPARTME... UNSCH PRN .XX 02/18/18 09:45 02/19/18 09:44 (Ecotrin Ec) 81 mg DAILY PO 02/19/18 09:00 02/19/18 09:08 (Nicotine Gum) 4 mg Q4HR PRN CHEW 02/18/18 13:30 Piperacillin Sod/ Tazobactam Sod 50 ml @ 100 mls/hr Q6H IV 02/19/18 00:00 02/19/18 04:53 (Pepcid) 20 mg BID PO 02/18/18 21:45 02/19/18 09:08 A/P Assessment and Plan 42-year-old white male being admitted for sepsis secondary to infected diabetic foot ulcer as well as possible osteomyelitis Sepsis secondary to infected diabetic foot ulcer and abscess -Blood cultures drawn, abx and IVFs, seen by Vascular counseling specialist recommended for Angiography for tomorrow. Infected diabetic foot ulcer with abscess and gas gangrene -s/p debridement, podiatry following, -Vancomycin and Zosyn continued by ID specialist. PAD - seen by Vascular specialist awaiting for Angiography for tomorrow. Uncontrolled diabetes follow hemoglobin A1C 9.8 -continue sliding scale, Insulin Levemir long lasting insulin, scheduled insulin pre meals. Heparin for DVT prophylaxis. Discharge Planning Once cleared by specialists. Wayne Machado MD Feb 19, 2018 09:19
--- NOTE | 2018-02-19 09:32 | RADRPT ---
EXAM DATE/TIME: 02/19/2018 08:00 [facility] COMPARISON: US LEG RIGHT VENOUS DOPPLER, February 17, 2018, 15:20. INDICATIONS : Arterial bypass. MEDICAL HISTORY : Hypertension. Migraine. Diabetes. SURGICAL HISTORY : None. Scrotal abscess surgery. I&D. ENCOUNTER: Subsequent ACUITY: 3 days PAIN SCORE: 4/10 LOCATION: Bilateral legs. TECHNIQUE: Venous ultrasound of the left and right leg was performed from the inguinal ligament to the proximal calf. Real-time, color Doppler and spectral tracing, compression and augmentation techniques were us ed. FINDINGS: RIGHT LEG: There is normal compressibility of the deep venous system from the inguinal region to the proximal ca lf. No echogenic clot is seen in the lumen of the common femoral, femoral, popliteal, and posterior tibial veins. There is a normal response of the venous system to proximal and distal augmentation an d respiration. LEFT LEG: There is normal compressibility of the deep venous system from the inguinal region to the proximal ca lf. No echogenic clot is seen in the lumen of the common femoral, femoral, popliteal, and posterior tibial veins. There is a normal response of the venous system to proximal and distal augmentation an d respiration. CONCLUSION: 1. No DVT identified. Marlo Klein MD on February 19, 2018 at 9:29 Board Certified Radiologist. This report was verified electronically.
[2018-02-19 09:39] LABS: BICARBONATE 24.8 MEQ/L (21.0-32.0); CALCIUM 8.4 MG/DL (8.5-10.1); CREATININE 0.66 MG/DL (0.60-1.30)
--- NOTE | 2018-02-19 09:58 | RADRPT ---
EXAM DATE/TIME: 02/19/2018 08:11 [facility] COMPARISON: US LEG BILATERAL VENOUS DOPPLER, February 19, 2018, 8:00. INDICATIONS : Arterial bypass. MEDICAL HISTORY : Hypertension. Migraine. Diabetes. SURGICAL HISTORY : Scrotal abscess surgery. I&D. ENCOUNTER: Initial ACUITY: 3 day PAIN SCORE: 4/10 LOCATION: Bilateral legs. GREATER SAPHENOUS VEIN THIGH: PROXIMAL: Right 7 mm Left 6 mm MID: Right 3 mm Left 3 mm DISTAL: Right 3 mm Left Non-visualized CALF: PROXIMAL: Right 3 mm Left 3 mm MID: Right 2 mm Left 2 mm DISTAL: Right Non-visualized Left Non-visualized FINDINGS: The venous system of the lower extremities are patent by color Doppler imaging. Measurements of the leg veins (in mm) are listed above. CONCLUSION: 1. Venous mapping as above. Marlo Klein MD on February 19, 2018 at 9:54 Board Certified Radiologist. This report was verified electronically.
[2018-02-19 12:00] VITALS: BP 165/75; PULSE 64; RESP 16; TEMP 97.3; O2SAT 97
[2018-02-19] MEDS: INSULIN DETEMIR 100 UNITS/ML VIAL SQ SCH ×2 (12:12→21:44)
[2018-02-19] MEDS: INSULIN ASPART 1,000 UNITS/10 ML VIAL SQ SCH ×2 (12:12→17:43)
[2018-02-19] MEDS: INSULIN ASPART SUPPLEMENTAL SCALE SQ SCH ×3 (12:13→21:44)
[2018-02-19] MEDS: oxyCODONE/ACETAMINOPHEN 10 MG/325 MG TAB PO PRN ×2 (14:29→18:47)
[2018-02-19] MEDS: VANCOMYCIN INJ 1,750 MG in SODIUM CHLORID 0.9% 500 ML INJ 500 ML IV SCH (15:51)
[2018-02-19 16:00] VITALS: BP 166/78; PULSE 62; RESP 17; TEMP 98.7; O2SAT 97
[2018-02-19 18:28] LABS: HEMOGLOBIN A1C 9.3 % (4.3-6.0)
--- NOTE | 2018-02-19 18:34 | PD.POD ---
Subjective Pain score: 3 Remarks Mild foot pain understands plan for vascular surgery tomorrow no new events overnight Past Med/Surg/Social History Past Medical History PFSH Reviewed: Yes Endocrine: REPORTS HX OF: Diabetes mellitus, DENIES HX OF: Hyperthyroidism, Hypothyroidism Cardiovascular: REPORTS HX OF: Hypertension, DENIES HX OF: Myocardial infarction Genitourinary: DENIES HX OF: Kidney failure Psychiatric: DENIES HX OF: Anxiety Past Surgical History Musculoskeletal: DENIES HX OF: Other musculoskeletal srg Integumentary: REPORTS HX OF: Other integumentary surg (i and d x2) Social History Smoking Status: Former Smoker Objective Vital Signs Vital Signs Date Time Temp Pulse Resp B/P (MAP) Pulse Ox O2 Delivery O2 Flow Rate FiO2 02/19/18 16:00 98.7 62 17 166/78 (107) 97 02/19/18 12:00 97.3 64 16 165/75 (105) 97 02/19/18 08:00 98.0 58 19 162/77 (105) 93 02/19/18 00:00 98.0 62 18 148/70 (96) 93 02/18/18 20:00 98.5 70 16 163/76 (105) 94 Coded Allergies: No Known Allergies (Verified Adverse Reaction, Unknown, 02/17/18) Medications and IVs Administered Medications Medications (Trade) Dose Ordered Sig/Breanne Route PRN Reason Start Time Stop Time Status Last Admin Dose Admin Sodium Chloride 1,000 ml @ 42 mls/hr [id number] IV 02/17/18 14:30 02/18/18 23:44 Heparin Sodium (Porcine) (Heparin Inj) 5,000 units Q8HR SQ 02/17/18 22:00 02/19/18 14:29 Gabapentin (Neurontin) 300 mg TID PO 02/17/18 18:00 02/19/18 17:43 Acetaminophen/ Hydrocodone Bitart ([place] 5-325 Mg) 1 tab Q4H PRN PO PAIN SCALE 1 TO 6 02/17/18 15:15 02/18/18 02:57 Acetaminophen (Tylenol) 500 mg Q4H PRN PO fever 02/17/18 16:45 02/17/18 17:14 Atorvastatin Calcium (Lipitor) 40 mg HS PO 02/17/18 21:00 02/18/18 20:28 Lactated Ringer's 1,000 ml @ 30 mls/hr Q24H PRN IV SEE LABEL COMMENTS 02/18/18 07:30 02/21/18 07:29 02/18/18 07:00 Aspirin (Ecotrin Ec) 81 mg DAILY PO 02/19/18 09:00 02/19/18 09:08 Piperacillin Sod/ Tazobactam Sod 50 ml @ 100 mls/hr Q6H IV 02/19/18 00:00 02/19/18 12:11 Famotidine (Pepcid) 20 mg BID PO 02/18/18 21:45 02/19/18 09:08 Insulin Aspart (NovoLOG SUPPLEMENTAL SCALE) 1 ACHS SLIDING SCALE SQ 02/19/18 12:00 02/19/18 17:43 Insulin Aspart (NovoLOG INJ) 5 units TIDAC SQ 02/19/18 12:00 02/19/18 17:43 Insulin Detemir (Levemir Inj) 10 units BID SQ 02/19/18 11:00 02/19/18 12:12 Vancomycin HCl 1750 mg/Sodium Chloride 517.5 ml @ 257.5 mls/ hr Q8H IV 02/19/18 16:00 02/19/18 15:51 Morphine Sulfate (Morphine Inj) 1 mg Q4H PRN IV PUSH BREAKTHROUGH PAIN 02/19/18 12:30 02/19/18 15:38 Oxycodone/ Acetaminophen (Percocet 10-325 Mg) 1 tab Q4H PRN PO PAIN SCALE 7 TO 10 02/19/18 11:45 02/19/18 14:29 Other Results Laboratory Tests Test 02/18/18 05:43 White Blood Count 13.5 TH/MM3 Red Blood Count 4.09 MIL/MM3 Hemoglobin 12.3 GM/DL Hematocrit 36.7 % Mean Corpuscular Volume 89.5 FL Mean Corpuscular Hemoglobin 30.0 PG Mean Corpuscular Hemoglobin Concent 33.6 % Red Cell Distribution Width 12.0 % Platelet Count 296 TH/MM3 Mean Platelet Volume 8.3 FL Neutrophils (%) (Auto) 73.1 % Lymphocytes (%) (Auto) 15.9 % Monocytes (%) (Auto) 9.5 % Eosinophils (%) (Auto) 1.1 % Basophils (%) (Auto) 0.4 % Neutrophils # (Auto) 9.9 TH/MM3 Lymphocytes # (Auto) 2.1 TH/MM3 Monocytes # (Auto) 1.3 TH/MM3 Eosinophils # (Auto) 0.1 TH/MM3 Basophils # (Auto) 0.1 TH/MM3 CBC Comment DIFF FINAL Differential Comment Laboratory Tests Test 02/18/18 05:43 02/19/18 09:00 Creatinine 0.52 MG/DL 0.66 MG/DL Estimat Glomerular Filtration Rate 173 ML/MIN 131 ML/MIN Blood Urea Nitrogen 7 MG/DL Random Glucose 234 MG/DL Calcium Level 8.4 MG/DL Sodium Level 137 MEQ/L Potassium Level 4.1 MEQ/L Chloride Level 105 MEQ/L Carbon Dioxide Level 24.8 MEQ/L Anion Gap 7 MEQ/L Microbiology Date/Time Source Procedure Growth Status 02/17/18 12:40 Blood Peripheral Aerobic Blood Culture - Preliminary NO GROWTH IN 2 DAYS Resulted 02/17/18 12:40 Blood Peripheral Anaerobic Blood Culture - Preliminary NO GROWTH IN 2 DAYS Resulted 02/17/18 12:36 Blood Peripheral Aerobic Blood Culture - Preliminary NO GROWTH IN 2 DAYS Resulted 02/17/18 12:36 Blood Peripheral Anaerobic Blood Culture - Preliminary NO GROWTH IN 2 DAYS Resulted 02/18/18 07:49 Wound Foot Fungal Smear - Final NO FUNGAL ELEMENTS SEEN. Resulted 02/18/18 07:49 Wound Foot Fungal Culture Pending Resulted 02/18/18 07:49 Wound Foot Acid Fast Stain - Final NO ACID FAST BACILLI SEEN Resulted 02/18/18 07:49 Wound Foot Mycobacterial Culture Pending Resulted 02/18/18 07:49 Wound Foot Gram Stain - Final Resulted 02/18/18 07:49 Wound Culture - Preliminary Group B Beta Strep Resulted 02/18/18 07:49 Wound Foot Fungal Smear - Final NO FUNGAL ELEMENTS SEEN. Resulted 02/18/18 07:49 Wound Foot Fungal Culture Pending Resulted 02/18/18 07:49 Wound Foot Acid Fast Stain - Final NO ACID FAST BACILLI SEEN Resulted 02/18/18 07:49 Wound Foot Mycobacterial Culture Pending Resulted 02/18/18 07:49 Wound Foot Gram Stain - Final Resulted 02/18/18 07:49 Wound Culture - Preliminary Group B Beta Strep Resulted GRAM STAIN Final 02/19/18-0936 RARE WBC MUCUS MANY GRAM POSITIVE COCCI IN PAIRS RARE GRAM NEGATIVE RODS FINAL DIAGNOSIS: BONE RIGHT FOOT, BIOPSY: FRAGMENTED BONE WITH FOCAL ACUTE INFLAMMATION, SUSPICIOUS FOR ACUTE OSTEOMYELITIS. Physical Exam Remarks Right foot medial arch approximately 6 x 5 cm x 3 cm soft tissue void with villaseñor fibrotic tissue exposed flexor hallucis tendon no odor redness has improved upon removing packing serosanguineous drainage noted there appears to be no spread proximal Sensation decreased to light touch intact deep pressure, foot is warm pulses severely diminished Assessment & Plan Diagnosis: (1) Diabetic infection of right foot ICD Codes: E11.628 - Type 2 diabetes mellitus with other skin complications; L08.9 - Local infection of the skin and subcutaneous tissue, unspecified Status: Acute A/P Packing removed bandage changed, reviewed vascular and infectious disease recommendations. Hopefully improvement with blood flow tomorrow, bone path appears to show osteomyelitis, will return to OR for incision drainage and further bone debridement wound VAC as early as Sunday. Educated the patient on the need to remain nicotine free and controlled diabetes. Follow-up 1-2 days. Discharge Planning Upon DC will likely need wound VAC and home health and will be nonweightbearing of the right lower extremity Oz Delarosa DPM Feb 19, 2018 18:34
[2018-02-19] MEDS: NICOTINE 4 MG/GUM CHEW PRN (18:48)
[2018-02-19 20:00] VITALS: BP 172/83; PULSE 58; RESP 16; TEMP 98.1; O2SAT 91
[2018-02-19] MEDS: ATORVASTATIN 40 MG TAB PO SCH (21:43)
[2018-02-20] VITALS: BP 181/86; PULSE 59; RESP 16; TEMP 98; O2SAT 95
[2018-02-20] MEDS: PIPERACIL-TAZO 3.375 GM PREMIX 50 ML IV SCH ×4 (01:05→16:58)
[2018-02-20] MEDS: VANCOMYCIN INJ 1,750 MG in SODIUM CHLORID 0.9% 500 ML INJ 500 ML IV SCH ×2 (01:51→09:20)
[2018-02-20] MEDS: oxyCODONE/ACETAMINOPHEN 10 MG/325 MG TAB PO PRN ×4 (04:17→20:01)
[2018-02-20] MEDS: HEPARIN SODIUM - SQ 10,000 UNITS/ML VIAL SQ SCH ×3 (05:51→21:29)
[2018-02-20] MEDS: MORPHINE SULFATE 2 MG/ML SYRINGE IV PUSH PRN ×3 (06:11→22:39)
[2018-02-20] MEDS: INSULIN ASPART SUPPLEMENTAL SCALE SQ SCH ×4 (07:29→21:30)
[2018-02-20] MEDS: INSULIN ASPART 1,000 UNITS/10 ML VIAL SQ SCH ×3 (07:31→16:57)
[2018-02-20] MEDS: INSULIN DETEMIR 100 UNITS/ML VIAL SQ SCH ×2 (07:31→21:30)
[2018-02-20 08:00] VITALS: BP 166/79; PULSE 55; RESP 17; TEMP 97.7; O2SAT 93
[2018-02-20] MEDS ORDERED: amLODIPine BESYLATE 5 MG TAB PO SCH (09:15)
[2018-02-20] MEDS: ASPIRIN EC 81 MG TABEC PO SCH (09:21)
[2018-02-20] MEDS: FAMOTIDINE 20 MG TAB PO SCH ×2 (09:21→20:00)
[2018-02-20 09:32] LABS: CREATININE 0.62 MG/DL (0.60-1.30)
[2018-02-20] MEDS: GABAPENTIN 300 MG CAP PO SCH ×2 (11:08→16:58)
[2018-02-20] MEDS: SODIUM CHLOR 0.9% 1000 ML INJ 1,000 ML IV SCH (11:09)
[2018-02-20] MEDS ORDERED: MIDAZOLAM HCL 5 MG/5 ML VIAL ONE (11:38)
[2018-02-20] MEDS ORDERED: HEPARIN-NS/PF FLUSH BAG 1,000 ML IV FLUSH ONE (11:44)
[2018-02-20] MEDS ORDERED: HEPARIN SODIUM - IV 10,000 UNITS/10 ML VIAL ONE (12:02)
--- NOTE | 2018-02-20 12:14 | HHI.PR ---
cc: Dandy Patel MD; Oz Delarosa DPM Immediate Post Op Note Procedure Date: Feb 20, 2018 Pre Op Diagnosis: PAD B LE R LE tissue loss Post Op Diagnosis: PAD B LE R LE tissue loss Surgeon: Dandy Patel Observatory Director(s): none Procedure: 1. Aortogram w/ B LE angiogram 2. L EIA COUNTRY MANAGER (8mm) 3. L SUPERVISOR ENGINE ASSEMBLY Angioseal Findings: 1. high grade L EIA stenosis, successful COUNTRY MANAGER 2. R SUPERVISOR ENGINE ASSEMBLY and PFA stenosis 3. R EIA stenosis 4. R SFA occlusion 5. 3 vessel runoff R LE Additional Information: will need R groin reconstruction and SFA recanalization (OR) - will schedule Complications: none Specimen(s) removed: none Estimated blood loss: 10mL Anesthesia: MAC Drains: None Fluids: 500mL IVF Patient to: Other (DOCU) Patient Condition: Good Implant/Devices: SEE IMPLANT LOG (if applicable) Date/Time of Procedure: SEE SURGICAL CARE RECORD Dandy Patel MD Feb 20, 2018 12:14
--- NOTE | 2018-02-20 12:38 | CATHPROC ---
ODEC HIS Report Study Information Study Number Admission Scheduled Start Study Start [id number] Feb 17 2018 2:00PM 02/20/2018 Feb 20 2018 11:17AM [place] Service Cath Endovascular Study Admit Source Facility Department Other [facility] - Maternity Nurse Physician and Clinical Staff Initial Dandy Sims [employer] Ned Horvath,JAMAR Other cathlab, cathlab Recorder Minnie Grimm,CONSERVATION SCIENCE TEACHER TECH2 Recorder Jayne Mclean,RT(R) TECH2 Scrub Benito Swift,RT(R) Procedures Performed Procedure Location (Site) Vessel Name Abdominal Angiogram Abd Aorta (A3) Aorta Angiogram (manual) Iliac L. Com. (L4) Illiac Art. TRAVEL RN Iliac L. Com. (L4) Illiac Art. Wire insertion Fem Art (left) Femoral Art Equipment Time Pleater Hand Description Size Mfg Part Number Used/Scraped [id number] 11:19 ANGIO[employer]NAM[employer] OMNI FLUSH 65CM CATHETER FR 4 Used *[id number] 11:50 ANGIO-DYNAM[employer] OMNI FLUSH 65CM CATHETER FR 4 Used *[id number] INTRODUCER SET, 11:19 [employer] FR 5 [id number] *[id number] Used MICROPUNCTURE STIFF [id number] 12:12 [facility] ANGIOSEAL, FR6 VIP FR 6 Used *[id number] BALLOON, ADMIRAL EXTREME 8 [id number] 12:08 [employer] 130CM Used X 20 130CM *[id number] 11:19 [employer] PACK, CCL CUSTOM * Used *[id number] 11:19 [facility] MEDICAL PRESSURE TUBING 48" 48" [id number] 12:03 [facility] MEDICAL SHEATH, FR5.5 PRELUDE 11CM FR 5 [id number] Used [id number] 12:03 [facility] MEDICAL WIRE, BEEBE 260CM .035 260CM Used *[id number] 11:19 NAMIC TUBING, HIGH PRESSURE 20" 20" Used *[id number] TUBING, PRESSURE INJECTION [id number] 11:19 NAMIC PACER 72" Used 72" *[id number] 11:19 [employer] OMNIPAQUE, 300 MG, 150ML 150ML [id number] Used 11:19 [employer] OMNIPAQUE, 300 MG, 50ML 50ML [id number] Used [id number] 11:19 [facility] [place] BLANKET,WARM AIR CCL * Used *[id number] 11:19 TERUMO MEDICAL SHEATH, FR4 TERUMO (10CM) FR 4 Used *[id number] 12:03 [employer] MEDICAL SHEATH, FR6 TERUMO (10CM) FR 6 Used *[id number] WIRE, ANGLED GLIDE .035 [id number] 11:19 TERUMO MEDICAL/SRIDHAR 260CM Used 260CM *[id number] Medication Medication Total Dose (Bolus/Oral) Medication Total Dosage/Unit 1% XYLOCAINE 20 mL FENTANYL 50 mcg HEPARIN 5000 units VERSED 2 mg Medications (Bolus/Oral) Medication Time Given Dosage/Unit Administered By Reason VERSED 02/20/2018 11:46:35 AM 2 mg Ned Horvath 2 mg VERSED given in lab by Ned Horvath RN in Right Antecubital via Peripheral IV. FENTANYL 02/20/2018 11:46:50 AM 50 mcg Ned Horvath 50 mcg FENTANYL given in lab by Ned Horvath RN in Right Antecubital via Peripheral IV. Ordered by Dandy Patel. 1% XYLOCAINE 02/20/2018 11:49:01 AM 20 mL Dandy Patel For pain 20 mL 1% XYLOCAINE given in lab by Dandy Patel in Left Groin via Subcutaneous. Ordered by Dandy Patel. Reason: For pain. HEPARIN 02/20/2018 12:02:59 PM 5000 units Ned Horvath 5000 units HEPARIN given in lab by Ned Horvath RN in Right Antecubital via Peripheral IV. Ordered by Dandy Patel. Medication (Drip) Medication Time Given Dosage/Unit Concentration/Unit Diluent (ml) Solutio n IV Solutions 02/20/2018 11:30:24 AM 0 mL (IV) 500 NaCl .9 IV Solutions given pre op by cathlab, cathlab in Left Antecubital via Peripheral IV. Pump/Drip Flow = 20 ml/hr using NaCl .9. IV Solutions 02/20/2018 11:30:46 AM 0 mL (IV) 500 NaCl .9 IV Solutions given pre op by cathlab, cathlab in Right Antecubital via Peripheral IV. Pump/Drip Flow = 20 ml/hr using NaCl .9. Initial Case Assessment Cardiovascular HR Rhythm NIBP Chest Pain 56 sr 178/89 0 Edema Present Skin color Skin None Normal Warm Dry Circulatory - Right Pulses Femoral 2 Scale (0,1,2,3,4,d) Circulatory - Left Pulses Femoral 2 Scale (0,1,2,3,4,d) Neurological State Oriented to time-place- Alert Moves all extremities person Respiration - General Respiration Rate SpO2 (%) (B/min) 18 95 Final Case Assessment Cardiovascular HR Rhythm NIBP Chest Pain 65 sr 206/101 0 Edema Present Skin color Skin None Normal Warm Dry Circulatory - Right Pulses Dorsalis Pedis Femoral d 2 Scale (0,1,2,3,4,d) Circulatory - Left Pulses Dorsalis Pedis Femoral 2 Scale (0,1,2,3,4,d) Neurological State Oriented to time-place- Alert Moves all extremities person Respiration - General Respiration Rate SpO2 (%) (B/min) 18 99 Chronological Log Time Study Chronological Log IV Solutions given pre op by cathlab, cathlab in Left Antecubital via Peripheral IV. Pump/Drip Flow = 20 ml/hr using 11:30:24 NaCl .9. 11:30:29 Patient arrived via Bed. 11:30:31 Patient Name, D.O.B, / Armband Verified By R.N. 11:30:32 Consent signed by the physician and the patient and verified by the Maternity Nurse staff. 11:30:32 Pre-op and post- op instructions given; patient acknowledges understanding of instructions. 11:30:34 Verbal Stimulation=2 Physical Stimulation=2 Airway=2 Respiration=2 TOTAL=8. (0=absent, 1=li mited, 2=present) 11:30:36 Presedation assessment performed by Maternity Nurse RN. 11:30:38 Patient has been NPO for More than 6Hrs. 11:30:41 Skin Breakdown-blister right foot 11:30:43 Maria De Jesus [employer] Protected 11:30:44 A # 20 IV was noted in the Antecubital (left). Grade = 0 11:30:46 A # 20 IV was noted in the Antecubital (right). Grade = 0 IV Solutions given pre op by cathlab, cathlab in Right Antecubital via Peripheral IV. Pump/Drip Flow = 20 ml/hr using 11:30:46 NaCl .9. 11:30:48 History and physical on the chart or being dictated. Assessment: Initial Case, HR=56 BPM, Rhythm=sr, LPWA=012/89 mmhg, Chest Pain=0, Edema=None, Col or=Normal, Skin = Warm, Dry Right Pulses: Femoral=2 11:41:33 Left Pulses: Luis Alberto Ped=d, Femoral=2 Neurological: State=Alert, Ox3, HERCULES Respiration: Resp=18 B/min, SpO2=95 % Vitals capture started with the following parameters, Patient=Adult, Interval=5 min, Initial Pr ijxerg=280 mmHg, 11:42:23 Deflation Rate=5 mmHg, Cuff placed on Right Ankle 11:43:28 MD arrived. 11:44:06 HR=52 bpm, ZBVM=602/89 mmhg, SpO2=96.0 %, Resp=14 B/min, Pain=0, Lorena=10, Mcdonald=2 11:44:07 The Recorder is being relieved by Jayne Mclean, RT(R) TECH2. 11:45:15 HR=55 bpm, IYES=058/83 mmhg, SpO2=95 %, Resp=18 B/min, Pain=0, Lorena=10, Mcdonald=2 11:46:01 Reference ECG taken 11:46:35 2 mg VERSED given in lab by Ned Horvath, JAMAR in Right Antecubital via Peripheral IV. 11:46:50 50 mcg FENTANYL given in lab by Ned Horvath, JAMAR in Right Antecubital via Peripheral IV. Ordered by Dandy Patel. 11:47:04 HR=56 bpm, YSXT=117/91 mmhg, SpO2=96.0 %, Resp=16 B/min, Pain=0, Lorena=10, Mcdonald=2 Time Out. Correct patient, correct procedure, correct physician, power injector loaded, or not loaded with contrast with 11:47:16 surgical team present. Time Out Concurred by MD and individual staff in procedure. 11:48:22 Case Start 20 mL 1% XYLOCAINE given in lab by Dandy Patel in Left Groin via Subcutaneous. Ordered by Dandy Chowdary. 11:49:01 Reason: For pain. 11:49:05 HR=60 bpm, HDWD=683/88 mmhg, SpO2=93.0 %, Resp=20 B/min, Pain=0, Lorena=10, Mcdonald=2 11:49:36 Access site was Left Femoral Artery. A SHEATH, FR4 TERUMO (10CM) FR 4 was advanced into the Fem Art (left) using the Percutaneous te chnique. 11:49:50 obtained witht the help of a micropuncture kit A OMNI FLUSH 65CM CATHETER FR 4 was advanced over a wire. OMNIPAQUE, 300 MG, 50ML 50ML was used for 11:50:42 injections. 11:51:08 HR=56 bpm, YEXE=726/86 mmhg, SpO2=92.0 %, Resp=27 B/min, Pain=0, Lorena=10, Mcdonald=2 11:51:36 Through a OMNI FLUSH 65CM CATHETER FR 4, The Abdominal Aorta was injected with 10 cc's of c ontrast. 11:53:04 HR=55 bpm, UQXJ=551/86 mmhg, SpO2=97.0 %, Resp=20 B/min, Pain=0, Lorena=10, Mcdonald=2 11:53:35 A WIRE, ANGLED GLIDE .035 260CM 260CM was inserted via Fem Art (left). 11:55:03 HR=55 bpm, IIPF=451/93 mmhg, SpO2=94.0 %, Resp=27 B/min, Pain=0, Lorena=10, Mcdonald=2 11:56:36 Through a OMNI FLUSH 65CM CATHETER FR 4, The Iliac R. Com. (R4) was injected with 10 cc's o f contrast. 11:56:51 Through a OMNI FLUSH 65CM CATHETER FR 4, The Iliac R. Com. (R4) was injected with 10 cc's o f contrast. 11:57:02 HR=55 bpm, UCTB=823/94 mmhg, SpO2=93.0 %, Resp=23 B/min, Pain=0, Lorena=10, Mcdonald=2 11:59:03 HR=54 bpm, JJEN=739/90 mmhg, SpO2=95.0 %, Resp=24 B/min, Pain=0, Lorena=10, Mcdonald=2 12:01:06 HR=57 bpm, LTRC=590/83 mmhg, SpO2=97.0 %, Resp=20 B/min, Pain=0, Lorena=10, Mcdonald=2 12:01:46 Catheter was removed A SHEATH, FR6 TERUMO (10CM) FR 6 was exchanged in the Fem Art (left). This was necessary in ord er to 12:02:24 accomodate a larger catheter. 12:02:59 5000 units HEPARIN given in lab by Ned Horvath, JAMAR in Right Antecubital via Peripheral I V. Ordered by Dandy Patel. 12:03:05 HR=54 bpm, UNMC=051/96 mmhg, SpO2=98.0 %, Resp=19 B/min, Pain=0, Lorena=10, Mcdonald=2 12:05:05 HR=57 bpm, EKSZ=689/92 mmhg, SpO2=96.0 %, Resp=20 B/min, Pain=0, Lorena=10, Mcdonald=2 12:05:27 A balloons was inserted over WIRE, BEEBE 260CM .035 260CM via the Iliac L. Com. (L4). In the Iliac L. Com. (L4) a BALLOON, ADMIRAL EXTREME 8 X 20 130CM 130CM was inflated to 14 atms for 120 12:06:33 seconds. 12:07:04 HR=59 bpm, WWSJ=905/89 mmhg, SpO2=97.0 %, Resp=27 B/min, Pain=0, Lorena=10, Mcdonald=2 12:09:03 HR=57 bpm, JXYB=157/86 mmhg, SpO2=97.0 %, Resp=19 B/min, Pain=0, Lorena=10, Mcdonald=2 12:09:07 Balloon Removed. 12:10:00 Iliac L. Com. (L4) angiogram, manually injected. injected with 15cc contrast 12:11:39 An injection in the Fem Art (left) was made through the SHEATH, FR6 TERUMO (10CM) FR 6. 12:11:49 HR=70 bpm, NXGO=262/103 mmhg, SpO2=98 %, Resp=23 B/min, Pain=0, Lorena=10, Mcdonald=2 12:12:03 ANGIOSEAL, FR6 VIP FR 6 placement in the Fem Art (left) 12:12:43 No case complications noted. 12:12:45 Sterile dressing applied to site 12:12:48 Cine recording checked. 12:12:52 Bedside Report will be given. Assessment: Final Case, HR=65 BPM, Rhythm=sr, OQOC=006/101 mmhg, Chest Pain=0, Edema=None, Col or=Normal, Skin = Warm, Dry Right Pulses: Luis Alberto Ped=d, Femoral=2 12:13:05 Left Pulses: Femoral=2 Neurological: State=Alert, Ox3, HERCULES Respiration: Resp=18 B/min, SpO2=99 % 12:13:11 HR=66 bpm, WEDR=711/101 mmhg, Resp=20 B/min, Pain=0, Lorena=10, Mcdonald=2 12:15:14 HR=65 bpm, OTCJ=982/95 mmhg, SpO2=98 %, Resp=20 B/min, Pain=0, Lorena=10, Mcdonald=2 12:17:07 Vitals capture stopped. 12:18:11 [facility] DOC[facility] called. Spoke to Elvi ROLDAN regarding finished case End Study - Contrast Media Used In Study Contrast Total Opened (mL) Total Used (mL) Total Wasted (mL) Omnipaque 60 60 0 End Study - Radiation Exposure Fluoro Time (minutes) 3.5 End Study - Patient Disposition Complications Transferred To Interventional Outcome No Telemetry Bed successful
--- NOTE | 2018-02-20 13:02 | HHI.IDPN ---
Subjective Subjective Remarks Pt was seen in DOCU post procedure Pt had angiogram today Findings: 1. 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 R EIA stenosis 4. R SFA occlusion 5. 3 vessel runoff R LE He is scheduled for R groin reconstruction and SFA recanalization pt is afbrile, otolerating abx OK Antibiotics zosyn vanco Allergies: Coded Allergies: No Known Allergies (Verified Adverse Reaction, Unknown, 02/17/18) Objective . Vital Signs Date Time Temp Pulse Resp B/P (MAP) Pulse Ox O2 Delivery O2 Flow Rate FiO2 02/20/18 08:00 97.7 55 17 166/79 (108) 93 02/20/18 00:00 98.0 59 16 181/86 (117) 95 02/19/18 20:00 98.1 58 16 172/83 (112) 91 02/19/18 16:00 98.7 62 17 166/78 (107) 97 . Laboratory Tests Test 02/19/18 09:00 02/20/18 09:00 Blood Urea Nitrogen 7 MG/DL Creatinine 0.66 MG/DL 0.62 MG/DL Random Glucose 234 MG/DL Calcium Level 8.4 MG/DL Sodium Level 137 MEQ/L Potassium Level 4.1 MEQ/L Chloride Level 105 MEQ/L Carbon Dioxide Level 24.8 MEQ/L Anion Gap 7 MEQ/L Estimat Glomerular Filtration Rate 131 ML/MIN 141 ML/MIN Microbiology Date/Time Source Procedure Growth Status 02/18/18 07:49 Wound Foot Fungal Smear - Final NO FUNGAL ELEMENTS SEEN. Resulted 02/18/18 07:49 Wound Foot Fungal Culture Pending Resulted 02/18/18 07:49 Wound Foot Acid Fast Stain - Final NO ACID FAST BACILLI SEEN Resulted 02/18/18 07:49 Wound Foot Mycobacterial Culture Pending Resulted 02/18/18 07:49 Wound Foot Gram Stain - Final Resulted 02/18/18 07:49 Wound Culture - Preliminary Group B Beta Strep Resulted 02/18/18 07:49 Wound Foot Fungal Smear - Final NO FUNGAL ELEMENTS SEEN. Resulted 02/18/18 07:49 Wound Foot Fungal Culture Pending Resulted 02/18/18 07:49 Wound Foot Acid Fast Stain - Final NO ACID FAST BACILLI SEEN Resulted 02/18/18 07:49 Wound Foot Mycobacterial Culture Pending Resulted 02/18/18 07:49 Wound Foot Gram Stain - Final Resulted 02/18/18 07:49 Wound Culture - Preliminary Group B Beta Strep Resulted Imaging Last Impressions Lower Extremity Ultrasound 02/19/18 0000 Signed Impressions: Service Date/Time: Monday, February 19, 2018 08:00 - CONCLUSION: 1. No DVT identified. Marlo Klein MD Foot X-Ray 02/17/18 0000 Signed Impressions: Service Date/Time: Saturday, February 17, 2018 22:44 - CONCLUSION: Medial soft tissue swelling and soft tissue air. No specific findings of osteomyelitis Raphael Stoner MD Foot MRI 02/17/18 0000 Signed Impressions: Service Date/Time: Saturday, February 17, 2018 18:22 - CONCLUSION: There is a plantar subcutaneous abscess and edema identified at the plantar aspect of the first metatarsal, and there is abnormal bone marrow signal intensity within the sesamoid bones of the first digit, and first proximal phalanx concerning for abscess formation and osteomyelitis. Micah Lowery MD Ankle X-Ray 02/17/18 0000 Signed Impressions: Service Date/Time: Saturday, February 17, 2018 22:44 - CONCLUSION: Unremarkable examination of the right ankle. Raphael Stoner MD Physical Exam CONSTITUTIONAL/GENERAL: This is an adequately nourished patient, in no apparent distress. TUBES/LINES/DRAINS: SKIN: No jaundice, rashes, or lesions. MUSCULOSKELETAL: Extremities without clubbing, cyanosis, or edema. + prominent loss of skin appendages Dressing in place R foot No ascending lymphangitis or cellulitis noted + Enlarged, tender R inguinal lymph node NEUROLOGICAL: Awake and alert. Motor and sensory grossly within normal limits. Follows commands. Cognitively sharp. Moves all extremities. PSYCHIATRIC: No obvious anxiety/depression. no apparent hallucinations or other psychotic thought process. Assessment & Plan Remarks Diabetic foot infection, R foot 1sh prox phalanx with osteomyelitis and abscess - Group B strep s/p I+D PVD with critical ischemia, angiogram confirmed severe PVD cont leodan gonzales vancomycin agree with plan for Susu Luther MD Feb 20, 2018 13:02
--- NOTE | 2018-02-20 13:52 | MP ---
cc: Dandy Patel MD DATE OF OPERATION: PREOPERATIVE DIAGNOSIS: Right lower extremity tissue loss, bilateral lower extremity peripheral arterial occlusive disease. POSTOPERATIVE DIAGNOSIS: Right lower extremity tissue loss, bilateral lower extremity peripheral arterial occlusive disease. PROCEDURES: 1. Aortogram with bilateral lower extremity angiogram. 2. Left external iliac artery angioplasty with 8 mm balloon. 3. Left common femoral artery Angio-Seal. ATTENDING SURGEON: Dandy Patel MD ANESTHESIA: Local with sedation. INDICATIONS: Mr. Hills is a 42-year-old gentleman with diabetes and peripheral vascular disease as well as tobacco abuse. He has right lower extremity tissue loss, nonpalpable pedal pulses, taken to the operating room for angiographic evaluation and treatment. There is no prior catheterization available for review. DESCRIPTION OF PROCEDURE: Informed consent was obtained. The patient was taken to the operating room and placed supine on the operating table. An appropriate timeout was taken to ensure the patient, the operative site and planned procedure. He was already on systemic and therapeutic antibiotics, and these will be continued postoperatively for ongoing treatment of his diabetic foot infection. Everyone in the room agreed procedure. The bilateral groins were prepped and draped. Left groin was anesthetized with 1% lidocaine and a 21-gauge micropuncture needle was used to access the left common femoral artery. This was obtained using Seldinger technique for micropuncture sheath, through which a 0.035 Glidewire was introduced and the micropuncture sheath was changed for a 4 Vincentian sheath. The Glidewire and a VCF catheter were advanced down to the right lower extremity, right common femoral artery and the right lower extremity arteriogram was obtained. The patient was then systemically heparinized with 5000 units of IV heparin. The catheter was advanced. It was pulled back to the ipsilateral iliac and a James guidewire was introduced. The 4 Vincentian sheath was exchanged for a 6 Vincentian sheath and the external iliac artery was angioplastied with an 8 mm balloon. The completion angiograms showed excellent result extravasation. The wire, catheter and sheath were removed and groin was closed with Angio-Seal. INTERPRETATION: This patient has patent infrarenal aorta, common iliac arteries and external iliac arteries. The left has a high-grade stenosis that is nearly catheter occlusive. The right is widely patent with a small 50% stenosis proximally. The right common femoral artery has a high-grade stenosis as does the profunda and the SFA is occluded in the mid segment but reconstitutes via based collaterals in the distal SFA and there is 3-vessel runoff to the foot. MD EUGENE Hairston/VIJAY , 01:33 PM , 01:52 PM
[2018-02-20] MEDS ORDERED: IOHEXOL 350 MG/ML 100 ML BTL (for Cath Lab) OTHER ONE (14:09)
[2018-02-20 16:00] VITALS: BP 189/91; PULSE 67; RESP 18; TEMP 98.3; O2SAT 95
[2018-02-20] MEDS: NICOTINE 4 MG/GUM CHEW PRN (17:03)
--- NOTE | 2018-02-20 18:12 | PD.POD ---
Subjective Pain score: 3 Remarks Feels the right foot may be improving, understands the need for debridement, and possible further vascular intervention at a later date. Past Med/Surg/Social History Past Medical History PFSH Reviewed: Yes Endocrine: REPORTS HX OF: Diabetes mellitus, DENIES HX OF: Hyperthyroidism, Hypothyroidism Cardiovascular: REPORTS HX OF: Hypertension, DENIES HX OF: Myocardial infarction Genitourinary: DENIES HX OF: Kidney failure Psychiatric: DENIES HX OF: Anxiety Past Surgical History Musculoskeletal: DENIES HX OF: Other musculoskeletal srg Integumentary: REPORTS HX OF: Other integumentary surg (i and d x2) Social History Smoking Status: Former Smoker Objective Vital Signs Vital Signs Date Time Temp Pulse Resp B/P (MAP) Pulse Ox O2 Delivery O2 Flow Rate FiO2 02/20/18 13:59 98 Room Air 02/20/18 08:00 97.7 55 17 166/79 (108) 93 02/20/18 00:00 98.0 59 16 181/86 (117) 95 02/19/18 20:00 98.1 58 16 172/83 (112) 91 Coded Allergies: No Known Allergies (Verified Adverse Reaction, Unknown, 02/17/18) Medications and IVs Administered Medications Medications (Trade) Dose Ordered Sig/Breanne Route PRN Reason Start Time Stop Time Status Last Admin Dose Admin Sodium Chloride 1,000 ml @ 42 mls/hr [id number] IV 02/17/18 14:30 02/20/18 11:09 Heparin Sodium (Porcine) (Heparin Inj) 5,000 units Q8HR SQ 02/17/18 22:00 02/19/18 14:29 Gabapentin (Neurontin) 300 mg TID PO 02/17/18 18:00 02/20/18 16:58 Acetaminophen/ Hydrocodone Bitart (Diggs 5-325 Mg) 1 tab Q4H PRN PO PAIN SCALE 1 TO 6 02/17/18 15:15 02/18/18 02:57 Acetaminophen (Tylenol) 500 mg Q4H PRN PO fever 02/17/18 16:45 02/17/18 17:14 Atorvastatin Calcium (Lipitor) 40 mg HS PO 02/17/18 21:00 02/19/18 21:43 Lactated Ringer's 1,000 ml @ 30 mls/hr Q24H PRN IV SEE LABEL COMMENTS 02/18/18 07:30 4/5/18 07:29 02/18/18 07:00 Aspirin (Ecotrin Ec) 81 mg DAILY PO 02/19/18 09:00 02/20/18 09:21 Nicotine (Nicotine Gum) 4 mg Q4HR PRN CHEW craving 02/18/18 13:30 02/20/18 17:03 Piperacillin Sod/ Tazobactam Sod 50 ml @ 100 mls/hr Q6H IV 02/19/18 00:00 02/20/18 16:58 Famotidine (Pepcid) 20 mg BID PO 02/18/18 21:45 02/20/18 09:21 Insulin Aspart (NovoLOG SUPPLEMENTAL SCALE) 1 ACHS SLIDING SCALE SQ 02/19/18 12:00 02/20/18 16:58 Insulin Aspart (NovoLOG INJ) 5 units TIDAC SQ 02/19/18 12:00 02/20/18 16:57 Insulin Detemir (Levemir Inj) 10 units BID SQ 02/19/18 11:00 02/19/18 21:44 Morphine Sulfate (Morphine Inj) 1 mg Q4H PRN IV PUSH BREAKTHROUGH PAIN 02/19/18 12:30 02/20/18 11:08 Oxycodone/ Acetaminophen (Percocet 10-325 Mg) 1 tab Q4H PRN PO PAIN SCALE 7 TO 10 02/19/18 11:45 02/20/18 15:40 Amlodipine Besylate (Norvasc) 5 mg DAILY PO 02/20/18 09:15 02/20/18 11:09 Other Results Laboratory Tests Test 02/19/18 09:00 02/20/18 09:00 Blood Urea Nitrogen 7 MG/DL Creatinine 0.66 MG/DL 0.62 MG/DL Random Glucose 234 MG/DL Calcium Level 8.4 MG/DL Sodium Level 137 MEQ/L Potassium Level 4.1 MEQ/L Chloride Level 105 MEQ/L Carbon Dioxide Level 24.8 MEQ/L Anion Gap 7 MEQ/L Estimat Glomerular Filtration Rate 131 ML/MIN 141 ML/MIN Microbiology Date/Time Source Procedure Growth Status 02/18/18 07:49 Wound Foot Fungal Smear - Final NO FUNGAL ELEMENTS SEEN. Resulted 02/18/18 07:49 Wound Foot Fungal Culture Pending Resulted 02/18/18 07:49 Wound Foot Acid Fast Stain - Final NO ACID FAST BACILLI SEEN Resulted 02/18/18 07:49 Wound Foot Mycobacterial Culture Pending Resulted 02/18/18 07:49 Wound Foot Gram Stain - Final Resulted 02/18/18 07:49 Wound Culture - Preliminary Group B Beta Strep Resulted 02/18/18 07:49 Wound Foot Fungal Smear - Final NO FUNGAL ELEMENTS SEEN. Resulted 02/18/18 07:49 Wound Foot Fungal Culture Pending Resulted 02/18/18 07:49 Wound Foot Acid Fast Stain - Final NO ACID FAST BACILLI SEEN Resulted 02/18/18 07:49 Wound Foot Mycobacterial Culture Pending Resulted 02/18/18 07:49 Wound Foot Gram Stain - Final Resulted 02/18/18 07:49 Wound Culture - Preliminary Group B Beta Strep Resulted Physical Exam Remarks Right foot full-thickness wound necrotic borders full-thickness exposed tendon localized redness toes pink no strikethrough on bandage good range of motion of foot and ankle foot is warm decreased sensation to light touch Assessment & Plan Diagnosis: (1) Diabetic infection of right foot ICD Codes: E11.628 - Type 2 diabetes mellitus with other skin complications; L08.9 - Local infection of the skin and subcutaneous tissue, unspecified Status: Acute A/P Reviewed case with vascular intervention at a later date however clear to continue with incision and drainage debridement and application of wound VAC to hopefully expedite healing. Patient ordered nothing by mouth after midnight surgery plan for tomorrow. Discharge Planning Upon DC will likely need wound VAC and home health and will be nonweightbearing of the right lower extremity Oz Delarosa DPM Feb 20, 2018 18:12
[2018-02-20 18:19] VITALS: O2SAT 95
--- NOTE | 2018-02-20 18:37 | HHI.PR ---
Subjective Remarks This is a pleasant 42 y/o male who was admitted secondary to Diabetic foot ulcer with possible osteomyelitis, February 17/2018, has tobacco dependence Status post Right foot Incision and drainage debridement fasciotomy extensor tendon sheath exploration with bone biopsy right foot, incision bone cortex as per Doctor Oz Davis Followed by Vascular grant specialist, recommended wound care, IV antibiotics, vein survey to access for bypass conduit options, has infra-inguinal disease with palpable femoral pulse, will perform Right lower extremity angiogram, Scheduled for Sunday, Hemoglobin A1C. and Tobacco cessation. by Doctor Dandy Patel. 02/19; Seen in his bedroom, Awaiting for angiography for tomorrow, his blood sugar is been uncontrolled started on insulin management. 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 scheduled for tomorrow for Right groin reconstruction and SFA recanalization, Continue Vancomycin and removed Zosyn Group B streptococcus infection performed I and D by Podiatry specialist, no nausea, vomit or diarrhea. Objective Vital Signs Date Time Temp Pulse Resp B/P (MAP) Pulse Ox O2 Delivery O2 Flow Rate FiO2 02/20/18 18:19 95 21 02/20/18 16:00 98.3 67 18 189/91 (123) 95 02/20/18 13:59 98 Room Air 02/20/18 08:00 97.7 55 17 166/79 (108) 93 02/20/18 00:00 98.0 59 16 181/86 (117) 95 02/19/18 20:00 98.1 58 16 172/83 (112) 91 I/O 02/19/18 02/19/18 02/19/18 02/20/18 02/20/18 02/20/18 07:00 15:00 23:00 07:00 15:00 23:00 Intake Total 1240 ml 0 ml 600 ml Output Total 750 ml 950 ml 2250 ml 1800 ml Balance -750 ml 290 ml -2250 ml -1200 ml Intake Oral 1240 ml 0 ml 600 ml Output Urine Total 750 ml 950 ml 2250 ml 1800 ml # Voids 4 # Bowel Movements 0 3 0 Result Diagram: 02/18/18 0543 02/20/18 0900 Imaging Last Impressions Lower Extremity Ultrasound 02/19/18 0000 Signed Impressions: Service Date/Time: Monday, February 19, 2018 08:00 - CONCLUSION: 1. No DVT identified. Marlo Klein MD Foot X-Ray 02/17/18 0000 Signed Impressions: Service Date/Time: Saturday, February 17, 2018 22:44 - CONCLUSION: Medial soft tissue swelling and soft tissue air. No specific findings of osteomyelitis Raphael Stoner MD Foot MRI 02/17/18 0000 Signed Impressions: Service Date/Time: Saturday, February 17, 2018 18:22 - CONCLUSION: There is a plantar subcutaneous abscess and edema identified at the plantar aspect of the first metatarsal, and there is abnormal bone marrow signal intensity within the sesamoid bones of the first digit, and first proximal phalanx concerning for abscess formation and osteomyelitis. Micah Lowery MD Ankle X-Ray 02/17/18 0000 Signed Impressions: Service Date/Time: Saturday, February 17, 2018 22:44 - CONCLUSION: Unremarkable examination of the right ankle. 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 scheduled for tomorrow for Right groin reconstruction and SFA recanalization 03/06 Other Results Laboratory Tests Test 02/17/18 12:42 02/17/18 13:01 02/18/18 05:43 02/19/18 09:00 Erythrocyte Sedimentation Rate 52 mm/hr Prothrombin Time 11.4 SEC Prothromb Time International Ratio 1.1 RATIO Activated Partial Thromboplast Time 31.9 SEC Lactic Acid Level 1.3 mmol/L Blood Urea Nitrogen 10 MG/DL 7 MG/DL Creatinine 0.78 MG/DL 0.66 MG/DL Random Glucose 262 MG/DL 234 MG/DL Total Protein 8.3 GM/DL Albumin 3.1 GM/DL Calcium Level 9.3 MG/DL 8.4 MG/DL Alkaline Phosphatase 99 U/L Aspartate Amino Transf (AST/SGOT) 14 U/L Alanine Aminotransferase (ALT/SGPT) 15 U/L Total Bilirubin 0.5 MG/DL Sodium Level 131 MEQ/L 137 MEQ/L Potassium Level 3.9 MEQ/L 4.1 MEQ/L Chloride Level 97 MEQ/L 105 MEQ/L Carbon Dioxide Level 25.1 MEQ/L 24.8 MEQ/L C-Reactive Protein 25.40 MG/DL Urine Collection Type CLEAN CATCH Urine Color YELLOW Urine Turbidity CLEAR Urine pH 6.0 Urine Specific Gilman 1.025 Urine Protein 30 mg/dL Urine Glucose (UA) 1000 OR GREATER mg/dL Urine Ketones 80 OR GREATER mg/dL Urine Occult Blood NEG Urine Nitrite NEG Urine Bilirubin NEG Urine Urobilinogen 1.0 MG/DL Urine Leukocyte Esterase NEG Urine RBC 0-3 /hpf Urine Squamous Epithelial Cells 0-5 /hpf Urine Amorphous Sediment FEW Microscopic Urinalysis Comment CULT NOT INDICATED Urine Collection Time 1301 White Blood Count 13.5 TH/MM3 Red Blood Count 4.09 MIL/MM3 Hemoglobin 12.3 GM/DL Hematocrit 36.7 % Mean Corpuscular Volume 89.5 FL Mean Corpuscular Hemoglobin 30.0 PG Mean Corpuscular Hemoglobin Concent 33.6 % Red Cell Distribution Width 12.0 % Platelet Count 296 TH/MM3 Mean Platelet Volume 8.3 FL Neutrophils (%) (Auto) 73.1 % Lymphocytes (%) (Auto) 15.9 % Monocytes (%) (Auto) 9.5 % Eosinophils (%) (Auto) 1.1 % Basophils (%) (Auto) 0.4 % Neutrophils # (Auto) 9.9 TH/MM3 Lymphocytes # (Auto) 2.1 TH/MM3 Monocytes # (Auto) 1.3 TH/MM3 Eosinophils # (Auto) 0.1 TH/MM3 Basophils # (Auto) 0.1 TH/MM3 CBC Comment DIFF FINAL Differential Comment Hemoglobin A1c 9.3 % Anion Gap 7 MEQ/L Vancomycin Level Trough 11.2 MCG/ML Test 02/20/18 09:00 Creatinine 0.62 MG/DL Estimat Glomerular Filtration Rate 141 ML/MIN Objective Remarks GENERAL: Well developed. no acute distress. SKIN: Warm and dry. HEAD: Atraumatic. Normocephalic. EYES: Pupils equal and round. No scleral icterus. No injection or drainage. ENT: No nasal bleeding or discharge. Mucous membranes pink and moist. NECK: Trachea midline. No JVD. CARDIOVASCULAR: Regular rate and rhythm. RESPIRATORY: No accessory muscle use. Clear to auscultation. Breath sounds equal bilaterally. GASTROINTESTINAL: Abdomen soft, non-tender, nondistended. Hepatic and splenic margins not palpable. MUSCULOSKELETAL: Dressed right foot. NEUROLOGICAL: Awake and alert. No obvious cranial nerve deficits. PSYCHIATRIC: Appropriate mood and affect; insight and judgment normal. Medications and IVs Current Medications Medications (Trade) Dose Ordered Sig/Breanne Route Start Time Stop Time Status Last Admin Sodium Chloride 1,000 ml @ 42 mls/hr [id number] IV 02/17/18 14:30 02/20/18 11:09 (D50w (Vial) Inj) 50 ml UNSCH PRN IV PUSH 02/17/18 15:15 (Glucagon Inj) 1 mg UNSCH PRN OTHER 02/17/18 15:15 (Heparin Inj) 5,000 units Q8HR SQ 02/17/18 22:00 02/19/18 14:29 (Neurontin) 300 mg TID PO 02/17/18 18:00 02/20/18 16:58 ([place] 5-325 Mg) 1 tab Q4H PRN PO 02/17/18 15:15 02/18/18 02:57 (Tylenol) 500 mg Q4H PRN PO 02/17/18 16:45 02/17/18 17:14 (Lipitor) 40 mg HS PO 02/17/18 21:00 02/19/18 21:43 Lactated Ringer's 1,000 ml @ 30 mls/hr Q24H PRN IV 02/18/18 07:30 02/21/18 07:29 02/18/18 07:00 Sodium Chloride 500 ml @ 30 mls/hr [id number] PRN IV 02/18/18 07:30 02/21/18 07:29 (Betadine 5% Antisepsis Kit) 1 applic VENEER STACKER PRN EACH NARE 02/18/18 07:30 02/21/18 07:29 (Chlorhexidine 2% Cloth) 3 pack VENEER STACKER PRN TOPICAL 02/18/18 07:30 02/21/18 07:29 (Ecotrin Ec) 81 mg DAILY PO 02/19/18 09:00 02/20/18 09:21 (Nicotine Gum) 4 mg Q4HR PRN CHEW 02/18/18 13:30 02/20/18 17:03 Piperacillin Sod/ Tazobactam Sod 50 ml @ 100 mls/hr Q6H IV 02/19/18 00:00 02/20/18 16:58 (Pepcid) 20 mg BID PO 02/18/18 21:45 02/20/18 09:21 (NovoLOG SUPPLEMENTAL SCALE) 1 ACHS SLIDING SCALE SQ 02/19/18 12:00 02/20/18 16:58 (NovoLOG INJ) 5 units TIDAC SQ 02/19/18 12:00 02/20/18 16:57 (Levemir Inj) 10 units BID SQ 02/19/18 11:00 02/19/18 21:44 (Morphine Inj) 1 mg Q4H PRN IV PUSH 02/19/18 12:30 02/20/18 11:08 (Percocet 10-325 Mg) 1 tab Q4H PRN PO 02/19/18 11:45 02/20/18 15:40 (Norvasc) 5 mg DAILY PO 02/20/18 09:15 02/20/18 11:09 (Catapres) 0.1 mg Q6H PRN PO 02/20/18 09:15 A/P Assessment and Plan 42-year-old white male being admitted for sepsis secondary to infected diabetic foot ulcer as well as possible osteomyelitis -Sepsis secondary to infected diabetic foot ulcer and abscess Blood cultures drawn, abx and IVFs, continue Vancomycin and stopped Zosyn, no blood stream infection -Infected diabetic foot ulcer with abscess and gas gangrene, continue Vancomycin ID following, scheduled for tomorrow for scheduled for tomorrow for Right groin reconstruction and SFA recanalization 02/20/18 -Status post Right foot Incision and drainage debridement fasciotomy extensor tendon sheath exploration with bone biopsy right foot, incision bone cortex as per Doctor Oz Davis 02/18/18 Angiography performed, Found High grade L EIA stenosis, 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 -PAD - Read above -Uncontrolled diabetes Mellitus II, hemoglobin A1C 9.8, Poorly controlled -continue sliding scale, Insulin Levemir long lasting insulin, scheduled insulin pre meals. Heparin for DVT prophylaxis. Discharge Planning Once cleared by specialists. Wayne Machado MD Feb 20, 2018 18:37
[2018-02-20 20:00] VITALS: BP 197/93; PULSE 63; RESP 20; TEMP 98; O2SAT 97
[2018-02-20] MEDS ORDERED: amLODIPine BESYLATE 5 MG TAB PO ONE (20:00)
[2018-02-20] MEDS: ATORVASTATIN 40 MG TAB PO SCH (20:00)
[2018-02-21] VITALS: BP 179/86; PULSE 59; RESP 20; TEMP 98.9; O2SAT 93
[2018-02-21] MEDS: PIPERACIL-TAZO 3.375 GM PREMIX 50 ML IV SCH ×5 (00:38→23:35)
[2018-02-21] MEDS: oxyCODONE/ACETAMINOPHEN 10 MG/325 MG TAB PO PRN ×5 (03:04→23:34)
[2018-02-21 04:00] VITALS: BP 183/84; PULSE 61; RESP 20; TEMP 99.8; O2SAT 94
[2018-02-21] MEDS: cloNIDine HCL 0.1 MG TAB PO PRN (04:34)
[2018-02-21] MEDS: MORPHINE SULFATE 2 MG/ML SYRINGE IV PUSH PRN ×4 (04:37→20:28)
[2018-02-21] MEDS: HEPARIN SODIUM - SQ 10,000 UNITS/ML VIAL SQ SCH ×3 (04:42→20:32)
[2018-02-21] MEDS: INSULIN ASPART SUPPLEMENTAL SCALE SQ SCH ×5 (07:10→20:32)
[2018-02-21] MEDS: INSULIN ASPART 1,000 UNITS/10 ML VIAL SQ SCH ×3 (07:10→14:47)
[2018-02-21] MEDS: INSULIN DETEMIR 100 UNITS/ML VIAL SQ SCH ×2 (07:17→20:32)
[2018-02-21] MEDS ORDERED: PHARMACY ORDERED LAB ONE (07:45)
[2018-02-21 08:00] VITALS: BP 170/85; PULSE 54; RESP 16; TEMP 98.4; O2SAT 95
[2018-02-21] MEDS: GABAPENTIN 300 MG CAP PO SCH ×3 (09:28→17:06)
[2018-02-21] MEDS: FAMOTIDINE 20 MG TAB PO SCH ×2 (09:29→20:29)
[2018-02-21] MEDS: ASPIRIN EC 81 MG TABEC PO SCH (09:30)
[2018-02-21] MEDS: SODIUM CHLOR 0.9% 1000 ML INJ 1,000 ML IV SCH (11:16)
[2018-02-21 12:00] VITALS: BP 154/78; PULSE 60; RESP 17; TEMP 98.4; O2SAT 94
--- NOTE | 2018-02-21 12:07 | PD.VS.PN ---
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 Delarosa Discussed angiographic findings with patient today Objective Vitals/I&O Date Time Temp Pulse Resp B/P (MAP) Pulse Ox O2 Delivery O2 Flow Rate FiO2 02/21/18 08:00 98.4 54 16 170/85 (113) 95 02/21/18 04:00 99.8 61 20 183/84 (117) 94 02/21/18 00:00 98.9 59 20 179/86 (117) 93 02/20/18 20:00 98.0 63 20 197/93 (127) 97 02/20/18 18:19 95 21 02/20/18 16:00 98.3 67 18 189/91 (123) 95 02/20/18 13:59 98 Room Air 02/21/18 02/21/18 02/21/18 07:00 15:00 23:00 Intake Total 0 ml Output Total 1700 ml Balance -1700 ml Physical Exam L groin soft, NT Laboratory Date/Time Source Procedure Growth Status 02/17/18 12:40 Blood Peripheral Aerobic Blood Culture - Preliminary NO GROWTH IN 4 DAYS Resulted 02/17/18 12:40 Blood Peripheral Anaerobic Blood Culture - Preliminary NO GROWTH IN 4 DAYS Resulted 02/18/18 07:49 Wound Foot Fungal Smear - Final NO FUNGAL ELEMENTS SEEN. Resulted 02/18/18 07:49 Wound Foot Fungal Culture Pending Resulted Assessment and Plan Plan R foot wound and nonpalpable pulse, needs more perfusion to improve chances of healing 1.Plan for R groin reconstruction and angio on Sunday 2. Continue wound care per podiatry 3. Consents obtained and on chart Dandy Patel MD FACS [employer] product management internship [facility] - Heart and Vascular Surgery at [facility] [phone] Dadny Patel MD Feb 21, 2018 12:07
--- NOTE | 2018-02-21 13:18 | HHI.PR ---
Subjective Remarks Follow-up for diabetic foot infection, peripheral vascular disease. Patient is currently doing well. He is a scheduled for bariatric surgery this afternoon. No fever or chills. Objective Vitals Vital Signs Date Time Temp Pulse Resp B/P (MAP) Pulse Ox O2 Delivery O2 Flow Rate FiO2 02/21/18 12:00 98.4 60 17 154/78 (103) 94 02/21/18 08:00 98.4 54 16 170/85 (113) 95 02/21/18 04:00 99.8 61 20 183/84 (117) 94 02/21/18 00:00 98.9 59 20 179/86 (117) 93 02/20/18 20:00 98.0 63 20 197/93 (127) 97 02/20/18 18:19 95 21 02/20/18 16:00 98.3 67 18 189/91 (123) 95 02/20/18 13:59 98 Room Air I/O 02/20/18 02/20/18 02/20/18 02/21/18 02/21/18 02/21/18 06:59 14:59 22:59 06:59 14:59 22:59 Intake Total 0 ml 600 ml 0 ml Output Total 2250 ml 1800 ml 1700 ml Balance -2250 ml -1200 ml -1700 ml Intake Oral 0 ml 600 ml 0 ml Output Urine Total 2250 ml 1800 ml 1700 ml # Voids 4 # Bowel Movements 3 0 Result Diagram: 02/18/18 0543 02/20/18 0900 Imaging Last Impressions Lower Extremity Ultrasound 02/19/18 0000 Signed Impressions: Service Date/Time: Monday, February 19, 2018 08:00 - CONCLUSION: 1. No DVT identified. Marlo Klein MD Foot X-Ray 02/17/18 0000 Signed Impressions: Service Date/Time: Saturday, February 17, 2018 22:44 - CONCLUSION: Medial soft tissue swelling and soft tissue air. No specific findings of osteomyelitis Raphael Stoner MD Foot MRI 02/17/18 0000 Signed Impressions: Service Date/Time: Saturday, February 17, 2018 18:22 - CONCLUSION: There is a plantar subcutaneous abscess and edema identified at the plantar aspect of the first metatarsal, and there is abnormal bone marrow signal intensity within the sesamoid bones of the first digit, and first proximal phalanx concerning for abscess formation and osteomyelitis. Micah Lowery MD Ankle X-Ray 02/17/18 0000 Signed Impressions: Service Date/Time: Saturday, February 17, 2018 22:44 - CONCLUSION: Unremarkable examination of the right ankle. Raphael Stoner MD Objective Remarks GENERAL: Alert, oriented 3, NAD. SKIN: Warm and dry. HEAD: Normocephalic. EYES: No scleral icterus. No injection or drainage. NECK: Supple, trachea midline. No JVD or lymphadenopathy. CARDIOVASCULAR: Regular rate and rhythm without murmurs, gallops, or rubs. RESPIRATORY: Breath sounds equal bilaterally. No accessory muscle use. GASTROINTESTINAL: Abdomen soft, non-tender, nondistended. MUSCULOSKELETAL: No cyanosis, or edema. Right foot wrapped in dressing. BACK: Nontender without obvious deformity. No CVA tenderness. Procedures 02/20/2018 1. Aortogram with bilateral lower extremity angiogram. 2. Left external iliac artery angioplasty with 8 mm balloon. 3. Left common femoral artery Angio-Seal. 02/18/2018 Incision and drainage debridement fasciotomy extensor tendon sheath exploration with bone biopsy right foot, incision bone cortex A/P Assessment and Plan 42-year-old white male being admitted for sepsis secondary to infected diabetic foot ulcer as well as possible osteomyelitis Sepsis secondary to infected diabetic foot ulcer and abscess Diabetic foot infection Blood cultures negative so far. Wound culture is growing group B strep. Infectious disease following. Vancomycin discontinued and infectious disease continued Zosyn. For incision and drainage with wound VAC placement today. Percocet, morphine for pain. Peripheral arterial disease Vascular surgery following. Patient underwent aortogram and left external iliac artery angioplasty. Continue aspirin 81 mg daily. Diabetes Mellitus II, hemoglobin A1C 9.8, Poorly controlled Hypertension Hyperlipidemia Currently on sliding scale insulin, Levemir 10 units twice daily, pre-meal insulin. Continue amlodipine 10 mg daily, atorvastatin 40 mg nightly. Full code. Heparin for DVT prophylaxis. Navneet Pereyra DO Feb 21, 2018 1:18 pm
[2018-02-21 16:00] VITALS: BP 159/77; PULSE 58; RESP 16; TEMP 98.3; O2SAT 96
[2018-02-21] MEDS: NICOTINE 4 MG/GUM CHEW PRN (17:49)
[2018-02-21] MEDS: ATORVASTATIN 40 MG TAB PO SCH (19:32)
[2018-02-21 20:00] VITALS: BP 155/77; PULSE 61; RESP 20; TEMP 98.4; O2SAT 94
[2018-02-22] VITALS: BP 154/72; PULSE 63; RESP 20; TEMP 98.7; O2SAT 94
[2018-02-22] MEDS: MORPHINE SULFATE 2 MG/ML SYRINGE IV PUSH PRN ×5 (00:58→21:24)
[2018-02-22] MEDS ORDERED: POVIDONE IODINE 5% (ANTISEPSIS KIT) 4 APPLICATIONS EACH NARE PRN (02:15)
[2018-02-22] MEDS ORDERED: METOPROLOL TARTRATE 25 MG TAB PO PRN (02:15)
[2018-02-22] MEDS ORDERED: CHLORHEXIDINE GLUCONATE 2 % 1 PACK (2 CLOTHS) TOPICAL PRN (02:15)
[2018-02-22] MEDS ORDERED: LACTATED RINGER'S 1000 ML IV PRN (02:15)
[2018-02-22] MEDS ORDERED: SODIUM CHLORID 0.9% 500 ML IV PRN (02:15)
[2018-02-22 04:00] VITALS: BP 178/86; PULSE 57; RESP 18; O2SAT 90
[2018-02-22] MEDS: oxyCODONE/ACETAMINOPHEN 10 MG/325 MG TAB PO PRN ×4 (04:33→20:13)
[2018-02-22] MEDS: PIPERACIL-TAZO 3.375 GM PREMIX 50 ML IV SCH ×3 (04:35→17:36)
[2018-02-22] MEDS: HEPARIN SODIUM - SQ 10,000 UNITS/ML VIAL SQ SCH ×3 (04:36→20:19)
[2018-02-22 08:00] VITALS: BP 154/68; PULSE 57; RESP 17; TEMP 98.5; O2SAT 94
[2018-02-22] MEDS: ASPIRIN EC 81 MG TABEC PO SCH (09:00)
[2018-02-22] MEDS: INSULIN ASPART 1,000 UNITS/10 ML VIAL SQ SCH ×3 (09:02→17:33)
[2018-02-22] MEDS: INSULIN ASPART SUPPLEMENTAL SCALE SQ SCH ×4 (09:03→20:25)
[2018-02-22] MEDS: INSULIN DETEMIR 100 UNITS/ML VIAL SQ SCH ×2 (09:04→20:26)
[2018-02-22] MEDS: FAMOTIDINE 20 MG TAB PO SCH ×2 (09:05→20:14)
[2018-02-22] MEDS: GABAPENTIN 300 MG CAP PO SCH ×3 (09:05→17:38)
[2018-02-22 12:00] VITALS: BP 146/70; PULSE 57; RESP 17; TEMP 98.7; O2SAT 92
[2018-02-22] MEDS ORDERED: ONDANSETRON HCL 4 MG/2 ML VIAL IV ONE (12:00)
[2018-02-22] MEDS ORDERED: LIDOCAINE HCL 1% PF 5 ML SYRINGE OTHER ONE (12:00)
[2018-02-22] MEDS ORDERED: PROPOFOL 200 MG/20 ML AMP IV ONE (12:00)
[2018-02-22] MEDS ORDERED: BUPIVACAINE HCL PF 0.25% 30 ML VIAL ONE (12:36)
[2018-02-22] MEDS ORDERED: NEOMYCIN/POLYMYXIN 1 ML G.U. IRRIGANT ONE (12:36)
[2018-02-22] MEDS: SODIUM CHLOR 0.9% 1000 ML INJ 1,000 ML IV SCH (13:35)
--- NOTE | 2018-02-22 14:30 | HHI.PR ---
Immediate Post Op Note Procedure Date: Feb 22, 2018 Pre Op Diagnosis: Right foot osteomyelitis, diabetic foot infection, plantar foot wound Post Op Diagnosis: Same Surgeon: Oz Holt Nursing Consultant(s): Scrub Procedure: Incision bone cortex first MPJ, excision of tibial and fibular sesamoid, incision and drainage deep plantar right foot, partial delayed primary closure of wound, application of wound VAC Findings: Under mild sedation the patient was brought to the operating room and placed in the operating table in the supine position. Following the induction of general anesthesia, the patient's right foot was then scrubbed prepped and draped in the usual aseptic fashion. The right foot was examined loose retention sutures were removed. Plantar wound was examined and extended from the first MPJ to the medial aspect of the foot villaseñor fibrotic purple tissue was noted at the wound periphery. There is exposure of tendon FHL as well as deep aponeurosis and muscle belly of the plantar foot. No odor was noted no dontae purulence. Pathology report verified likely osteomyelitis at this time tibial and fibular sesamoid was then excised. A biopsy was taken of the plantar medial condyle of the first metatarsal as margin to attempt to rule out osteomyelitis of first metatarsal. Extensive sharp debridement took place of all nonviable tissue keeping the FHL tendon intact. The wound was flushed with copious amounts of normal saline. Retention sutures were then placed in the first MPJ just proximal to the resection of the sesamoid excision site. Next a wound VAC was applied under adequate seal and suction the dorsal foot breakage. Decreased bleeding noted however no delayed capillary fill time to digits noted. The patient will return to floor await vascular intervention. The patient will need long-term wound care and possible resection of first MPJ and proximal phalanx to allow for wound closure. There is a possibility of repeat debridement in the next 3-5 days after vascular surgery intervention. Wound will be evaluated on Sunday or Sunday and wound VAC will be changed. Complications: None Specimen(s) removed: Tibial and fibular sesamoid, medial first metatarsal for pathological analysis. Estimated blood loss: Less than 30 mL's Anesthesia: General Drains: None Tourniquet time (min at mmHg) None Patient to: PACU Patient Condition: Good Implant/Devices: SEE IMPLANT LOG (if applicable) Date/Time of Procedure: SEE SURGICAL CARE RECORD Oz Holt DPM Feb 22, 2018 14:30
[2018-02-22] MEDS ORDERED: DO NOT ADM ANY ANTICOAGULANT DRUGS PRN (14:33)
[2018-02-22] MEDS ORDERED: *morphine SULFATE 4 MG/ML PERIprocedure ONLY ONE (14:59)
[2018-02-22 16:00] VITALS: BP 153/73; PULSE 61; RESP 17; TEMP 98.1; O2SAT 96
[2018-02-22] MEDS: NICOTINE 4 MG/GUM CHEW PRN (17:20)
[2018-02-22 20:00] VITALS: BP 138/69; PULSE 64; RESP 17; TEMP 98.9; O2SAT 96
[2018-02-22] MEDS: ATORVASTATIN 40 MG TAB PO SCH (20:14)
--- NOTE | 2018-02-22 23:01 | HHI.PR ---
Subjective Remarks Follow-up for diabetic foot infection, peripheral vascular disease. Patient underwent wound vac placement today. No acute concerns other than pain. No fever , chills. Objective Vitals Vital Signs Date Time Temp Pulse Resp B/P (MAP) Pulse Ox O2 Delivery O2 Flow Rate FiO2 02/22/18 20:00 98.9 64 17 138/69 (92) 96 02/22/18 17:29 18 02/22/18 16:40 18 02/22/18 16:00 98.1 61 17 153/73 (99) 96 02/22/18 15:33 18 02/22/18 15:00 97.9 60 20 141/72 (95) 96 Nasal Cannula 2 02/22/18 14:45 56 20 126/65 (85) 96 Nasal Cannula 2 02/22/18 14:30 97.9 56 20 142/69 (93) 97 Nasal Cannula 2 02/22/18 12:00 98.7 57 17 146/70 (95) 92 02/22/18 08:00 98.5 57 17 154/68 (96) 94 02/22/18 04:00 57 18 178/86 (116) 90 02/22/18 00:00 98.7 63 20 154/72 (99) 94 I/O 02/21/18 02/21/18 02/21/18 02/22/18 02/22/18 02/22/18 07:00 15:00 23:00 07:00 15:00 23:00 Intake Total 0 ml 50 ml 530 ml 0 ml 600 ml 960 ml Output Total 1700 ml 2150 ml 1100 ml 310 ml 1350 ml Balance -1700 ml 50 ml -1620 ml -1100 ml 290 ml -390 ml Intake Oral 0 ml 480 ml 0 ml 960 ml IV Total 50 ml 50 ml 600 ml Output Urine Total 1700 ml 2150 ml 1100 ml 300 ml 1350 ml Estimated Blood Loss 10 ml # Voids 1 # Bowel Movements 0 Result Diagram: 02/18/18 0543 02/20/18 0900 Imaging Last Impressions Lower Extremity Ultrasound 02/19/18 0000 Signed Impressions: Service Date/Time: Monday, February 19, 2018 08:00 - CONCLUSION: 1. No DVT identified. Marlo Klein MD Foot X-Ray 02/17/18 0000 Signed Impressions: Service Date/Time: Saturday, February 17, 2018 22:44 - CONCLUSION: Medial soft tissue swelling and soft tissue air. No specific findings of osteomyelitis Raphael Stoner MD Foot MRI 02/17/18 0000 Signed Impressions: Service Date/Time: Saturday, February 17, 2018 18:22 - CONCLUSION: There is a plantar subcutaneous abscess and edema identified at the plantar aspect of the first metatarsal, and there is abnormal bone marrow signal intensity within the sesamoid bones of the first digit, and first proximal phalanx concerning for abscess formation and osteomyelitis. Micah Lowery MD Ankle X-Ray 02/17/18 0000 Signed Impressions: Service Date/Time: Saturday, February 17, 2018 22:44 - CONCLUSION: Unremarkable examination of the right ankle. Raphael Stoner MD Objective Remarks GENERAL: Alert, oriented 3, NAD. SKIN: Warm and dry. HEAD: Normocephalic. EYES: No scleral icterus. No injection or drainage. NECK: Supple, trachea midline. No JVD or lymphadenopathy. CARDIOVASCULAR: Regular rate and rhythm without murmurs, gallops, or rubs. RESPIRATORY: Breath sounds equal bilaterally. No accessory muscle use. GASTROINTESTINAL: Abdomen soft, non-tender, nondistended. MUSCULOSKELETAL: No cyanosis, or edema. Right foot wrapped in dressing. BACK: Nontender without obvious deformity. No CVA tenderness. Procedures 02/20/2018 1. Aortogram with bilateral lower extremity angiogram. 2. Left external iliac artery angioplasty with 8 mm balloon. 3. Left common femoral artery Angio-Seal. 02/18/2018 Incision and drainage debridement fasciotomy extensor tendon sheath exploration with bone biopsy right foot, incision bone cortex A/P Assessment and Plan 42-year-old white male being admitted for sepsis secondary to infected diabetic foot ulcer as well as possible osteomyelitis Sepsis secondary to infected diabetic foot ulcer and abscess Diabetic foot infection Blood cultures negative so far. Wound culture is growing group B strep. Infectious disease following. Vancomycin discontinued and infectious disease continued Zosyn. For incision and drainage with wound VAC placement 02/22/2018 Percocet, morphine for pain. Peripheral arterial disease Vascular surgery following. Patient underwent aortogram and left external iliac artery angioplasty. Right groin reconstruction early next week. Continue aspirin 81 mg daily. Diabetes Mellitus II, hemoglobin A1C 9.8, Poorly controlled Hypertension Hyperlipidemia Currently on sliding scale insulin, Levemir 10 units twice daily, pre-meal insulin. Continue amlodipine 10 mg daily, atorvastatin 40 mg nightly. Full code. Heparin for DVT prophylaxis. Navneet Pereyra DO Feb 22, 2018 23:01
[2018-02-23] VITALS (7 sets, daily range): BP systolic 147–167; BP diastolic 70–80; PULSE 60–68; RESP 15–18; TEMP 98.3–101.2; O2SAT 91–95
[2018-02-23] MEDS: oxyCODONE/ACETAMINOPHEN 10 MG/325 MG TAB PO PRN ×5 (00:43→19:19)
[2018-02-23] MEDS: PIPERACIL-TAZO 3.375 GM PREMIX 50 ML IV SCH ×5 (00:43→21:56)
[2018-02-23] MEDS: MORPHINE SULFATE 2 MG/ML SYRINGE IV PUSH PRN ×4 (03:28→21:56)
[2018-02-23] MEDS: HEPARIN SODIUM - SQ 10,000 UNITS/ML VIAL SQ SCH ×3 (05:44→21:44)
[2018-02-23] MEDS: ASPIRIN EC 81 MG TABEC PO SCH (08:52)
[2018-02-23] MEDS: INSULIN ASPART 1,000 UNITS/10 ML VIAL SQ SCH ×3 (08:53→17:00)
[2018-02-23] MEDS: FAMOTIDINE 20 MG TAB PO SCH ×2 (08:53→21:43)
[2018-02-23] MEDS: INSULIN ASPART SUPPLEMENTAL SCALE SQ SCH ×4 (08:53→21:46)
[2018-02-23] MEDS: GABAPENTIN 300 MG CAP PO SCH ×3 (08:53→17:44)
[2018-02-23] MEDS: INSULIN DETEMIR 100 UNITS/ML VIAL SQ SCH ×2 (08:54→21:46)
--- NOTE | 2018-02-23 09:46 | HHI.FF ---
Face to Face Verification Diagnosis: (1) Diabetic foot ulcer (2) Diabetic infection of right foot Home Health Nursing Order: Wound care and dressing changes Instructions: Changed Wound vac MWF 100mmg continuous I have seen patient Branden Hills on 02/23/18. My clinical findings support the need for the requested home health care services because: Limited ability to care for self Infection w/ risk of complications I certify that my clinical findings support that this patient is homebound because: [id number] bed/chair Oz Delarosa DPM Feb 23, 2018 09:46
--- NOTE | 2018-02-23 09:52 | PD.POD ---
Subjective Pain score: 6 Remarks Pain intense right foot, poor pain control. Past Med/Surg/Social History Past Medical History PFSH Reviewed: Yes Endocrine: REPORTS HX OF: Diabetes mellitus, DENIES HX OF: Hyperthyroidism, Hypothyroidism Cardiovascular: REPORTS HX OF: Hypertension, DENIES HX OF: Myocardial infarction Genitourinary: DENIES HX OF: Kidney failure Psychiatric: DENIES HX OF: Anxiety Past Surgical History Musculoskeletal: DENIES HX OF: Other musculoskeletal srg Integumentary: REPORTS HX OF: Other integumentary surg (i and d x2) Social History Smoking Status: Former Smoker Objective Vital Signs Vital Signs Date Time Temp Pulse Resp B/P (MAP) Pulse Ox O2 Delivery O2 Flow Rate FiO2 02/23/18 08:00 98.3 61 16 153/71 (98) 91 02/23/18 04:00 99.7 60 17 159/70 (99) 92 02/23/18 03:31 18 02/23/18 03:31 18 02/23/18 00:00 98.8 66 17 153/72 (99) 95 02/22/18 20:00 98.9 64 17 138/69 (92) 96 02/22/18 16:00 98.1 61 17 153/73 (99) 96 02/22/18 15:33 18 02/22/18 15:00 97.9 60 20 141/72 (95) 96 Nasal Cannula 2 02/22/18 14:45 56 20 126/65 (85) 96 Nasal Cannula 2 02/22/18 14:30 97.9 56 20 142/69 (93) 97 Nasal Cannula 2 02/22/18 12:00 98.7 57 17 146/70 (95) 92 Coded Allergies: No Known Allergies (Verified Adverse Reaction, Unknown, 02/17/18) Medications and IVs Administered Medications Medications (Trade) Dose Ordered Sig/Breanne Route PRN Reason Start Time Stop Time Status Last Admin Dose Admin Sodium Chloride 1,000 ml @ 42 mls/hr [id number] IV 02/17/18 14:30 02/22/18 13:35 Heparin Sodium (Porcine) (Heparin Inj) 5,000 units Q8HR SQ 02/17/18 22:00 02/23/18 05:44 Gabapentin (Neurontin) 300 mg TID PO 02/17/18 18:00 02/23/18 08:53 Acetaminophen/ Hydrocodone Bitart ([place] 5-325 Mg) 1 tab Q4H PRN PO PAIN SCALE 1 TO 6 02/17/18 15:15 02/18/18 02:57 Acetaminophen (Tylenol) 500 mg Q4H PRN PO fever 02/17/18 16:45 02/17/18 17:14 Atorvastatin Calcium (Lipitor) 40 mg HS PO 02/17/18 21:00 02/22/18 20:14 Aspirin (Ecotrin Ec) 81 mg DAILY PO 02/19/18 09:00 02/23/18 08:52 Nicotine (Nicotine Gum) 4 mg Q4HR PRN CHEW craving 02/18/18 13:30 02/22/18 17:20 Piperacillin Sod/ Tazobactam Sod 50 ml @ 100 mls/hr Q6H IV 02/19/18 00:00 02/23/18 05:44 Famotidine (Pepcid) 20 mg BID PO 02/18/18 21:45 02/23/18 08:53 Insulin Aspart (NovoLOG SUPPLEMENTAL SCALE) 1 ACHS SLIDING SCALE SQ 02/19/18 12:00 02/23/18 08:53 Insulin Aspart (NovoLOG INJ) 5 units TIDAC SQ 02/19/18 12:00 02/23/18 08:53 Insulin Detemir (Levemir Inj) 10 units BID SQ 02/19/18 11:00 02/23/18 08:54 Morphine Sulfate (Morphine Inj) 1 mg Q4H PRN IV PUSH BREAKTHROUGH PAIN 02/19/18 12:30 02/23/18 07:44 Oxycodone/ Acetaminophen (Percocet 10-325 Mg) 1 tab Q4H PRN PO PAIN SCALE 7 TO 10 02/19/18 11:45 02/23/18 05:44 Clonidine (Catapres) 0.1 mg Q6H PRN PO SBP>160, DBP>90 02/20/18 09:15 02/21/18 04:34 Amlodipine Besylate (Norvasc) 10 mg DAILY PO 02/21/18 09:00 02/23/18 08:53 Physical Exam Remarks Right lower extremity examined: Wound VAC in place with mild edema and redness to the medial arch, suture seen of the distal first MPJ intact. Pulses severely diminished bilateral lower extremities sensation decreased to light touch this or instability upon range of motion of digits forefoot hindfoot or ankle. Assessment & Plan Diagnosis: (1) Diabetic infection of right foot ICD Codes: E11.628 - Type 2 diabetes mellitus with other skin complications; L08.9 - Local infection of the skin and subcutaneous tissue, unspecified Status: Acute A/P Status post incision and drainage excision of sesamoids, first MPJ bone biopsy, with application of wound vac postop day 1 Decreased wound VAC pressure to 75 mmHg, patient will continue nonweightbearing. Changed Percocet. Anticipating vascular intervention on Sunday. Sesamoids were excised attempted clean margins however bone biopsy taken of first MPJ awaiting final pathology. Continue IV antibiotics for now. Wound will be evaluated Sunday or Sunday, wound VAC orders in chart, home health [id number] entered, will sign out Sunday to Dr Carlton who will evaluate wound before advising discharge. Discharge Planning Needs wound VAC and home health and will be nonweightbearing of the right lower extremity, may need wheelchair and crutches. Oz Delaorsa DPM Feb 23, 2018 09:52
[2018-02-23] MEDS: NICOTINE 4 MG/GUM CHEW PRN (12:04)
--- NOTE | 2018-02-23 12:34 | HHI.PR ---
Subjective Remarks Follow-up for diabetic foot infection, peripheral vascular disease. Patient is currently doing well. No fever or chills. No acute concerns. Objective Vitals Vital Signs Date Time Temp Pulse Resp B/P (MAP) Pulse Ox O2 Delivery O2 Flow Rate FiO2 02/23/18 08:00 98.3 61 16 153/71 (98) 91 02/23/18 04:00 99.7 60 17 159/70 (99) 92 02/23/18 03:31 18 02/23/18 03:31 18 02/23/18 00:00 98.8 66 17 153/72 (99) 95 02/22/18 20:00 98.9 64 17 138/69 (92) 96 02/22/18 16:00 98.1 61 17 153/73 (99) 96 02/22/18 15:33 18 02/22/18 15:00 97.9 60 20 141/72 (95) 96 Nasal Cannula 2 02/22/18 14:45 56 20 126/65 (85) 96 Nasal Cannula 2 02/22/18 14:30 97.9 56 20 142/69 (93) 97 Nasal Cannula 2 I/O 02/22/18 02/22/18 02/22/18 02/23/18 02/23/18 02/23/18 07:00 15:00 23:00 07:00 15:00 23:00 Intake Total 0 ml 600 ml 960 ml 1400 ml Output Total 1100 ml 310 ml 1350 ml 1900 ml 0 ml Balance -1100 ml 290 ml -390 ml -500 ml 0 ml Intake Oral 0 ml 960 ml 1400 ml IV Total 600 ml Output Urine Total 1100 ml 300 ml 1350 ml 1900 ml Drainage Total 0 ml Estimated Blood Loss 10 ml # Voids 1 Result Diagram: 02/20/18 0900 Objective Remarks GENERAL: Alert, oriented 3, NAD. SKIN: Warm and dry. HEAD: Normocephalic. EYES: No scleral icterus. No injection or drainage. NECK: Supple, trachea midline. No JVD or lymphadenopathy. CARDIOVASCULAR: Regular rate and rhythm without murmurs, gallops, or rubs. RESPIRATORY: Breath sounds equal bilaterally. No accessory muscle use. GASTROINTESTINAL: Abdomen soft, non-tender, nondistended. MUSCULOSKELETAL: No cyanosis, or edema. Right foot wrapped in dressing. BACK: Nontender without obvious deformity. No CVA tenderness. Procedures 02/20/2018 1. Aortogram with bilateral lower extremity angiogram. 2. Left external iliac artery angioplasty with 8 mm balloon. 3. Left common femoral artery Angio-Seal. 02/18/2018 Incision and drainage debridement fasciotomy extensor tendon sheath exploration with bone biopsy right foot, incision bone cortex A/P Assessment and Plan 42-year-old white male being admitted for sepsis secondary to infected diabetic foot ulcer as well as possible osteomyelitis Sepsis secondary to infected diabetic foot ulcer and abscess Diabetic foot infection Blood cultures negative so far. Wound culture is growing group B strep. Infectious disease following. Vancomycin discontinued and infectious disease continued Zosyn. For incision and drainage with wound VAC placement 02/22/2018 Percocet, morphine for pain. Peripheral arterial disease Vascular surgery following. Patient underwent aortogram and left external iliac artery angioplasty. Right groin reconstruction and angiogram on 02/25/2018. Continue aspirin 81 mg daily. Diabetes Mellitus II, hemoglobin A1C 9.8, Poorly controlled Hypertension Hyperlipidemia Blood glucose is still slightly elevated. Currently on sliding scale insulin, Change from BID dosing to Levemir 15 units QHS and titrate up, pre-meal insulin. Continue amlodipine 10 mg daily, atorvastatin 40 mg nightly. Full code. Heparin for DVT prophylaxis. Discussed with Podiatry. Navneet Pereyra DO Feb 23, 2018 12:34 pm
[2018-02-23] MEDS: SODIUM CHLOR 0.9% 1000 ML INJ 1,000 ML IV SCH (13:24)
[2018-02-23] MEDS: ATORVASTATIN 40 MG TAB PO SCH (21:43)
[2018-02-23] MEDS: cloNIDine HCL 0.1 MG TAB PO PRN (21:43)
[2018-02-24] VITALS: BP 155/75; PULSE 60; RESP 18; TEMP 98.9; O2SAT 93
[2018-02-24] MEDS: oxyCODONE/ACETAMINOPHEN 10 MG/325 MG TAB PO PRN ×5 (02:41→23:07)
[2018-02-24] MEDS: MORPHINE SULFATE 2 MG/ML SYRINGE IV PUSH PRN ×5 (04:10→21:26)
[2018-02-24] MEDS: PIPERACIL-TAZO 3.375 GM PREMIX 50 ML IV SCH ×4 (04:11→22:41)
[2018-02-24] MEDS: HEPARIN SODIUM - SQ 10,000 UNITS/ML VIAL SQ SCH ×3 (04:11→22:41)
[2018-02-24] MEDS: ACETAMINOPHEN/HYDROcodone 325 MG/5 MG TAB PO PRN (06:32)
[2018-02-24 08:00] VITALS: BP 149/73; PULSE 64; RESP 16; TEMP 98.3; O2SAT 94
[2018-02-24] MEDS: INSULIN ASPART 1,000 UNITS/10 ML VIAL SQ SCH ×3 (08:00→17:00)
[2018-02-24] MEDS: INSULIN ASPART SUPPLEMENTAL SCALE SQ SCH ×4 (08:00→20:29)
[2018-02-24] MEDS: ASPIRIN EC 81 MG TABEC PO SCH (08:21)
[2018-02-24] MEDS: FAMOTIDINE 20 MG TAB PO SCH ×2 (08:21→20:29)
[2018-02-24] MEDS: GABAPENTIN 300 MG CAP PO SCH ×3 (08:22→16:46)
[2018-02-24 12:00] VITALS: BP 145/78; PULSE 62; RESP 16; TEMP 97.8; O2SAT 94
--- NOTE | 2018-02-24 12:48 | HHI.PR ---
Subjective Remarks Follow-up for diabetic foot infection, peripheral vascular disease. Patient is currently doing well. No acute concerns. Objective Vitals Vital Signs Date Time Temp Pulse Resp B/P (MAP) Pulse Ox O2 Delivery O2 Flow Rate FiO2 02/24/18 08:00 98.3 64 16 149/73 (98) 94 02/24/18 00:00 98.9 60 18 155/75 (101) 93 02/23/18 20:14 92 02/23/18 20:00 101.2 68 18 167/80 (109) 94 02/23/18 16:00 98.5 67 15 162/76 (104) 93 I/O 02/23/18 02/23/18 02/23/18 02/24/18 02/24/18 02/24/18 07:00 15:00 23:00 07:00 15:00 23:00 Intake Total 1400 ml 1050 ml 240 ml Output Total 1900 ml 0 ml 1500 ml 900 ml Balance -500 ml 0 ml -450 ml -660 ml Intake Oral 1400 ml 1000 ml 240 ml IV Total 50 ml Output Urine Total 1900 ml 1500 ml 900 ml Drainage Total 0 ml 0 ml # Bowel Movements 1 Result Diagram: 02/20/18 0900 Objective Remarks GENERAL: Alert, oriented 3, NAD. SKIN: Warm and dry. HEAD: Normocephalic. EYES: No scleral icterus. No injection or drainage. NECK: Supple, trachea midline. No JVD or lymphadenopathy. CARDIOVASCULAR: Regular rate and rhythm without murmurs, gallops, or rubs. RESPIRATORY: Breath sounds equal bilaterally. No accessory muscle use. GASTROINTESTINAL: Abdomen soft, non-tender, nondistended. MUSCULOSKELETAL: No cyanosis, or edema. Right foot wrapped in dressing. BACK: Nontender without obvious deformity. No CVA tenderness. Procedures 02/20/2018 1. Aortogram with bilateral lower extremity angiogram. 2. Left external iliac artery angioplasty with 8 mm balloon. 3. Left common femoral artery Angio-Seal. 02/18/2018 Incision and drainage debridement fasciotomy extensor tendon sheath exploration with bone biopsy right foot, incision bone cortex A/P Assessment and Plan 42-year-old white male being admitted for sepsis secondary to infected diabetic foot ulcer as well as possible osteomyelitis Sepsis secondary to infected diabetic foot ulcer and abscess Diabetic foot infection Blood cultures negative so far. Wound culture is growing group B strep. Infectious disease following. Vancomycin discontinued and infectious disease continued Zosyn. For incision and drainage with wound VAC placement 02/22/2018 Percocet, morphine for pain. Peripheral arterial disease Vascular surgery following. Patient underwent aortogram and left external iliac artery angioplasty. Right groin reconstruction and angiogram on 02/25/2018. Continue aspirin 81 mg daily. Diabetes Mellitus II, hemoglobin A1C 9.8, Poorly controlled Hypertension Hyperlipidemia Blood glucose is still slightly elevated. Currently on sliding scale insulin, Levemir 15 units QHS and titrate up, pre- meal insulin. Continue amlodipine 10 mg daily, atorvastatin 40 mg nightly. Full code. Heparin for DVT prophylaxis. Navneet Pereyra DO Feb 24, 2018 12:48
[2018-02-24 12:54] VITALS: O2SAT 91
[2018-02-24] MEDS: SODIUM CHLOR 0.9% 1000 ML INJ 1,000 ML IV SCH (15:30)
[2018-02-24 16:00] VITALS: BP 139/71; PULSE 58; RESP 16; TEMP 99.1; O2SAT 96
[2018-02-24 20:00] VITALS: BP 148/73; PULSE 60; RESP 18; TEMP 99.1; O2SAT 95
[2018-02-24] MEDS: NICOTINE 4 MG/GUM CHEW PRN (20:29)
[2018-02-24] MEDS: ATORVASTATIN 40 MG TAB PO SCH (20:29)
[2018-02-24] MEDS: INSULIN DETEMIR 100 UNITS/ML VIAL SQ SCH (20:29)
[2018-02-25] VITALS: BP 169/81; PULSE 61; RESP 18; TEMP 99.2; O2SAT 95
[2018-02-25] MEDS ORDERED: SODIUM CHLORID 0.9% 500 ML IV PRN (00:15)
[2018-02-25] MEDS ORDERED: CHLORHEXIDINE GLUCONATE 2 % 1 PACK (2 CLOTHS) TOPICAL PRN (00:15)
[2018-02-25] MEDS ORDERED: POVIDONE IODINE 5% (ANTISEPSIS KIT) 4 APPLICATIONS EACH NARE PRN (00:15)
[2018-02-25] MEDS ORDERED: LACTATED RINGER'S 1000 ML IV PRN (00:15)
[2018-02-25] MEDS: MORPHINE SULFATE 2 MG/ML SYRINGE IV PUSH PRN ×4 (01:29→23:22)
[2018-02-25] MEDS: PIPERACIL-TAZO 3.375 GM PREMIX 50 ML IV SCH ×3 (05:41→16:35)
[2018-02-25] MEDS: HEPARIN SODIUM - SQ 10,000 UNITS/ML VIAL SQ SCH ×3 (05:41→22:00)
[2018-02-25] MEDS: oxyCODONE/ACETAMINOPHEN 10 MG/325 MG TAB PO PRN (05:41)
[2018-02-25] MEDS ORDERED: THROMBIN (TOPICAL) 20,000 UNIT SPRAY KIT ONE (07:04)
[2018-02-25] MEDS ORDERED: BUPIVACAINE HCL PF 0.5% 30 ML VIAL ONE (07:04)
[2018-02-25] MEDS ORDERED: HEPARIN-NS/PF INJ 500 ML ONE (07:04)
[2018-02-25] MEDS ORDERED: PROTAMINE SULFATE 50 MG/5 ML VIAL ONE (07:04)
[2018-02-25] MEDS ORDERED: HEPARIN SODIUM - IV 10,000 UNITS/10 ML VIAL ONE (07:04)
[2018-02-25] MEDS: GABAPENTIN 300 MG CAP PO SCH ×3 (07:53→16:35)
[2018-02-25] MEDS: FAMOTIDINE 20 MG TAB PO SCH ×2 (07:53→19:36)
[2018-02-25] MEDS: INSULIN ASPART SUPPLEMENTAL SCALE SQ SCH ×4 (07:54→19:39)
[2018-02-25] MEDS: ASPIRIN EC 81 MG TABEC PO SCH (07:54)
[2018-02-25] MEDS: INSULIN ASPART 1,000 UNITS/10 ML VIAL SQ SCH ×3 (07:54→16:35)
[2018-02-25 08:00] VITALS: BP 129/62; PULSE 62; RESP 17; TEMP 98; O2SAT 94
[2018-02-25] MEDS ORDERED: ACETAMINOPHEN 1000 MG/100 ML 100 ML IV ONE (08:08)
[2018-02-25] MEDS ORDERED: VANCOMYCIN HCL 1000 MG VIAL ONE (08:57)
[2018-02-25] MEDS ORDERED: IOHEXOL 300 INJ 50 ML IV ONE (10:00)
--- NOTE | 2018-02-25 11:42 | HHI.PR ---
cc: Dandy Patel MD; Oz Delarosa DPM; Priscilla Carlton DPM Immediate Post Op Note Procedure Date: Feb 25, 2018 Pre Op Diagnosis: PAD, diabetic ulcer Post Op Diagnosis: PAD, diabetic ulcer Surgeon: Dandy Patel Parking Ramp Attendant(s): Dandy Gonzalez Procedure: 1. R ilioprofunda bypass w/ 8mm Dacron 2. R SUPERVISOR PAYROLL-SFA bypass with 8mm Dacron 3. R EIA LIFTS AND CRANES INSPECTOR/stent (8x40) 4. R SFA LIFTS AND CRANES INSPECTOR (5x200) Findings: biphasic PT/DP after case Additional Information: good runoff to foot Complications: none Specimen(s) removed: none for pathology Estimated blood loss: 150mL Anesthesia: General Drains: None Fluids: 1250mL IVF Urinary Output (mLs): 250 Patient to: PACU Patient Condition: Good Implant/Devices: SEE IMPLANT LOG (if applicable) Date/Time of Procedure: SEE SURGICAL CARE RECORD Dandy Patel MD Feb 25, 2018 11:42
[2018-02-25] MEDS ORDERED: NEOSTIGMINE 5 MG/5 ML SYRINGE IV PUSH ONE (12:00)
[2018-02-25] MEDS ORDERED: ROCURONIUM INJ 50 MG/5 ML SYRINGE IV PUSH ONE (12:00)
[2018-02-25] MEDS ORDERED: SODIUM CHLORID 0.9% 500 ML INJ 500 ML IV ONE (12:00)
[2018-02-25] MEDS ORDERED: PROPOFOL 200 MG/20 ML AMP IV ONE (12:00)
[2018-02-25] MEDS ORDERED: ONDANSETRON HCL 4 MG/2 ML VIAL IV PUSH ONE (12:00)
[2018-02-25] MEDS ORDERED: SODIUM CHLORIDE 0.9% 10 ML VIAL IV ONE (12:00)
[2018-02-25] MEDS ORDERED: DEXAMETHASONE SOD PHOS 4 MG/ML VIAL IV ONE (12:00)
[2018-02-25] MEDS ORDERED: GLYCOPYRROLATE 1 MG/5 ML SYRINGE IV PUSH ONE (12:00)
[2018-02-25] MEDS ORDERED: NORMOSOL R INJ 1,000 ML IV ONE (12:00)
[2018-02-25] MEDS ORDERED: ePHEDrine/NS 25 MG/5 ML SYRINGE IV ONE (12:00)
[2018-02-25] MEDS ORDERED: SODIUM CHLOR 0.9% 250 ML INJ 250 ML IV ONE (12:00)
[2018-02-25] MEDS ORDERED: LIDOCAINE HCL 1% PF 5 ML SYRINGE OTHER ONE (12:00)
[2018-02-25] MEDS ORDERED: DO NOT ADM ANY ANTICOAGULANT DRUGS PRN (12:11)
[2018-02-25] MEDS ORDERED: MORPHINE SULFATE 4 MG/ML INJ ONE (12:23)
[2018-02-25] MEDS: SODIUM CHLOR 0.9% 1000 ML INJ 1,000 ML IV SCH (13:02)
[2018-02-25] MEDS: HYDROmorphone HCL 2 MG TAB PO PRN ×3 (13:20→21:31)
--- NOTE | 2018-02-25 13:26 | MP ---
cc: Dandy Patel MD DATE OF OPERATION: 02/25/2018 Corrected Copy: 03/01/18 PREOPERATIVE DIAGNOSIS: Diabetic foot ulcer, right lower extremity peripheral arterial occlusive disease. POSTOPERATIVE DIAGNOSIS: Diabetic foot ulcer, right lower extremity peripheral arterial occlusive disease. PROCEDURE PERFORMED: 1. Right ilio-profunda bypass with 8 mm Dacron. 2. Right common femoral to SFA bypass with 8 mm Dacron. 3. Right external carotid angioplasty and stent with 8 x 40 [place]. 4. Right SFA angioplasty with a 5 x 200 balloon. ATTENDING SURGEON: Dandy Patel MD DIAL SCREW ASSEMBLER SURGEON: Dandy Fernandez ANESTHESIA: General. INDICATION: Mr. Hills is a 42-year-old gentleman with diabetic foot ulcer of the right lower extremity, who was taken to the operating room for endovascular and open revascularization. DESCRIPTION OF PROCEDURE: Informed consent was obtained from the patient. He was taken to the operating room and placed supine on the operating table. An appropriate timeout was taken to ensure the patient's identity, operative site and planned procedure. The administration of a gram of vancomycin was initiated prior skin incision and will be discontinued after a single preoperative dose. Vancomycin was chosen because of patient's preoperative complaint exceeding 48 hours and a diabetic foot infection. Everyone in the room agreed with timeout and we proceeded. He was prepped from his nipples to his knees. A vertical incision was made in the patient's right groin and carried down through subcutaneous tissue with electrocautery. The common femoral artery, external iliac artery were circumferentially dissected free, as well as the profunda down to the second order profunda branches and SFA. The patient was systemically heparinized. Proximal control of the external iliac artery was obtained with profunda clamp and distal control of both profunda branches and SFA was obtained. The artery was transected and the proximal limb was bevelled and endarterectomized locally. The distal end of the SFA was transected and the profunda was endarterectomized. An 8 mm Dacron was brought upon the field, spatulated and sewn end-to-end proximally to the external iliac artery and distally to the profunda femoris artery, so the toe of the anastomosis was over the profunda femoris and the heel of the anastomosis was over the common femoral, thereby preserving a large femoral circumflex branch. Both anastomoses were done with 5-0 Prolene suture. At completion, it was flushed and noted to be hemostatic. Clamps were reapplied on the graft and a longitudinal graftotomy was made with an 11 blade, extended with [place] scissors, and 8 mm Dacron was spatulated and sewn end-to-side to the graft using 5-0 Prolene suture and then the SFA was cut and bevelled and sewn. The distal anastomosis was end-to-end with 5-0 Prolene suture. At the completion, it was flushed and noted to be hemostatic. There was a palpable pulse in the profunda. A 21-gauge micropuncture sheath was used to assess the jump graft to the SFA. This was exchanged using Seldinger undertaken for a micropuncture sheath, through which a 0.035 Glidewire was introduced. Micropuncture sheath was changed to a 6 Bengali sheath. The external iliac artery with angioplastied with 8 mm balloon. The completion angiogram showed residual dissection. It was treated with an 8 x 40 stent, post-dilated to 8 mm. Completion angiogram showed excellent result. The wire, catheter and sheath removed and through the same graftotomy, the Glidewire and a 6 Bengali sheath were angled down to the SFA. A CXI catheter was placed over the Glidewire and a CELLO TEACHER wire and the Glidewire were used to navigate through the SFA occlusion into the popliteal artery. It was confirmed angiographically. The entirety of SFA was angioplastied with a 5 mm balloon. The completion angiogram showed excellent result on extravasation and no embolic complication of the foot. The wire, catheter and sheath were removed. The graftotomy was closed with 5-0 Prolene suture. All the wounds were made hemostatic, infiltrated with Marcaine and closed with 2-0 Polysorb, 3-0 Polysorb and 4-0 Monocryl. Sponge and needle counts were correct at the end of the case. I was present, scrubbed, and performed the entire procedure. MD EUGENE Hairston/VIJAY , 01:03 PM , 01:26 PM
[2018-02-25 14:34] VITALS: O2SAT 93
--- NOTE | 2018-02-25 15:20 | EKG ---
Date Performed: 02/25/2018 Time Performed: 05:30:48 PTAGE: 42 years EKG: Sinus rhythm . Normal ECG PREVIOUS TRACING : 02/17/18 @ 3755 DOCTOR: Maggy Rawls Interpretating Date/Time 02/25/2018 15:13:09
[2018-02-25 16:00] VITALS: BP 148/77; PULSE 66; RESP 17; TEMP 97.3; O2SAT 96
[2018-02-25] MEDS: ATORVASTATIN 40 MG TAB PO SCH (19:36)
[2018-02-25] MEDS: INSULIN DETEMIR 100 UNITS/ML VIAL SQ SCH (19:37)
[2018-02-25 20:00] VITALS: BP 146/67; PULSE 67; RESP 18; TEMP 98.9; O2SAT 95
[2018-02-25 21:25] VITALS: BP 137/65; PULSE 98; RESP 18; TEMP 99.2; O2SAT 100
--- NOTE | 2018-02-25 21:31 | HHI.PR ---
Subjective Remarks Patient seen bedside. Reports pain to right lower extremity. Denies N,V,F,Ch. Objective Vital Signs Date Time Temp Pulse Resp B/P (MAP) Pulse Ox O2 Delivery O2 Flow Rate FiO2 02/25/18 16:00 97.3 66 17 148/77 (100) 96 02/25/18 14:34 93 Nasal Cannula 1.00 02/25/18 13:00 62 20 148/72 (97) 96 Nasal Cannula 3 02/25/18 12:45 68 22 155/78 (103) 94 Nasal Cannula 3 02/25/18 12:30 67 21 149/73 (98) 92 Nasal Cannula 3 02/25/18 12:15 62 22 165/74 (104) 92 Nasal Cannula 3 02/25/18 12:10 98.4 69 17 182/86 (118) 93 Nasal Cannula 3 02/25/18 08:00 98.0 62 17 129/62 (84) 94 02/25/18 00:00 99.2 61 18 169/81 (110) 95 I/O 02/24/18 02/24/18 02/24/18 02/25/18 02/25/18 02/25/18 07:00 15:00 23:00 07:00 15:00 23:00 Intake Total 240 ml 2050 ml 0 ml 1250 ml 460 ml Output Total 900 ml 2000 ml 1450 ml 700 ml 3112 ml Balance -660 ml 50 ml -1450 ml 550 ml -2652 ml Intake Oral 240 ml 1000 ml 0 ml 360 ml IV Total 1050 ml 100 ml Other 1250 ml Output Urine Total 900 ml 2000 ml 1450 ml 550 ml 3112 ml Drainage Total 0 ml Estimated Blood Loss 150 ml # Bowel Movements 1 1 0 Imaging Last Impressions Lower Extremity Ultrasound 02/19/18 0000 Signed Impressions: Service Date/Time: Monday, February 19, 2018 08:00 - CONCLUSION: 1. No DVT identified. Marlo Klein MD Foot X-Ray 02/17/18 0000 Signed Impressions: Service Date/Time: Saturday, February 17, 2018 22:44 - CONCLUSION: Medial soft tissue swelling and soft tissue air. No specific findings of osteomyelitis Raphael Stoner MD Foot MRI 02/17/18 0000 Signed Impressions: Service Date/Time: Saturday, February 17, 2018 18:22 - CONCLUSION: There is a plantar subcutaneous abscess and edema identified at the plantar aspect of the first metatarsal, and there is abnormal bone marrow signal intensity within the sesamoid bones of the first digit, and first proximal phalanx concerning for abscess formation and osteomyelitis. Micah Lowery MD Ankle X-Ray 02/17/18 0000 Signed Impressions: Service Date/Time: Saturday, February 17, 2018 22:44 - CONCLUSION: Unremarkable examination of the right ankle. Raphael Stoner MD Procedures Status post Right foot Incision and drainage debridement fasciotomy extensor tendon sheath exploration with bone biopsy right foot, incision bone cortex as per Doctor Oz Davis 02/18/18 Angiography performed, Found High grade L EIA stenosis, successful DIRECTOR OF MANUFACTURING OPERATIONS, Right RADIO TELEVISION ANNOUNCER and PFA stenosis, Right SFA occlusion, 3 Vessel runoff R LE. scheduled for tomorrow for Right groin reconstruction and SFA recanalization 03/06 Other Results Microbiology Date/Time Source Procedure Growth Status 02/17/18 12:40 Blood Peripheral Aerobic Blood Culture - Final NO GROWTH IN 5 DAYS Complete 02/17/18 12:40 Blood Peripheral Anaerobic Blood Culture - Final NO GROWTH IN 5 DAYS Complete 02/18/18 07:49 Wound Foot Fungal Smear - Final NO FUNGAL ELEMENTS SEEN. Resulted 02/18/18 07:49 Wound Foot Fungal Culture - Preliminary NO GROWTH IN 1 WEEK Resulted Objective Remarks Wound vac in place functioning at 125 mmHg. Plantar ulcerations/fasciotomies x2 with granulation tissue present. Exposed tendon present. Surrounding erythema and edema noted to plantar aspect of right foot. Sutures intact with skin well coapted. PMO BUSINESS ANALYST under 3 secs and WNL. Medications and IVs Current Medications Medications (Trade) Dose Ordered Sig/Breanne Route Start Time Stop Time Status Last Admin Sodium Chloride 1,000 ml @ 42 mls/hr [id number] IV 02/17/18 14:30 02/24/18 15:30 (D50w (Vial) Inj) 50 ml UNSCH PRN IV PUSH 02/17/18 15:15 (Glucagon Inj) 1 mg UNSCH PRN OTHER 02/17/18 15:15 (Heparin Inj) 5,000 units Q8HR SQ 02/17/18 22:00 02/24/18 22:41 (Neurontin) 300 mg TID PO 02/17/18 18:00 02/25/18 16:35 (Tylenol) 500 mg Q4H PRN PO 02/17/18 16:45 02/17/18 17:14 (Lipitor) 40 mg HS PO 02/17/18 21:00 02/25/18 19:36 (Ecotrin Ec) 81 mg DAILY PO 02/19/18 09:00 02/24/18 08:21 (Nicotine Gum) 4 mg Q4HR PRN CHEW 02/18/18 13:30 02/24/18 20:29 Piperacillin Sod/ Tazobactam Sod 50 ml @ 100 mls/hr Q6H IV 02/19/18 00:00 02/25/18 16:35 (Pepcid) 20 mg BID PO 02/18/18 21:45 02/25/18 19:36 (NovoLOG SUPPLEMENTAL SCALE) 1 ACHS SLIDING SCALE SQ 02/19/18 12:00 02/25/18 19:39 (Catapres) 0.1 mg Q6H PRN PO 02/20/18 09:15 02/23/18 21:43 (Norvasc) 10 mg DAILY PO 02/21/18 09:00 02/24/18 08:22 (NovoLOG INJ) 6 units TIDAC SQ 02/23/18 17:00 02/25/18 16:35 (Levemir Inj) 15 units HS SQ 02/23/18 21:00 02/25/18 19:37 Lactated Ringer's 1,000 ml @ 30 mls/hr Q24H PRN IV 02/25/18 00:15 02/28/18 00:14 Sodium Chloride 500 ml @ 30 mls/hr [id number] PRN IV 02/25/18 00:15 02/28/18 00:14 (Betadine 5% Antisepsis Kit) 1 applic PATIENT ACCESS MANAGER PRN EACH NARE 02/25/18 00:15 02/28/18 00:14 (Chlorhexidine 2% Cloth) 3 pack PATIENT ACCESS MANAGER PRN TOPICAL 02/25/18 00:15 02/28/18 00:14 (Roxicodone) 5 mg Q4H PRN PO 02/25/18 11:45 (Dilaudid) 2 mg Q4H PRN PO 02/25/18 11:45 02/25/18 17:27 (Morphine Inj) 2 mg Q1H PRN IV PUSH 02/25/18 11:45 02/25/18 19:48 Miscellaneous Information ALL NURSING DEPARTME... UNSCH PRN .XX 02/25/18 12:11 02/26/18 12:10 Assessment and Plan Assessment and Plan 42 year old male s/p Right foot Incision and drainage debridement fasciotomy extensor tendon sheath exploration with bone biopsy right foot, incision bone cortex Patient examined and evaluated with all questions answered Patient would benefit from continued IV abx therapy Will evaluate wound in 48 hours as there is continued erythema/edema Do not recommend discharge at this time from podiatry stand point Wound care to perform wound vac changes Toni Whitmore,F Priscilla Carlton DPM Feb 25, 2018 21:31
--- NOTE | 2018-02-25 23:07 | HHI.PR ---
Subjective Remarks Follow-up for diabetic foot infection, peripheral vascular disease. Patient is currently doing well. He underwent vascular surgery this morning which included bypass and stent placement on the right leg. Post surgery, patient is doing well. Objective Vitals Vital Signs Date Time Temp Pulse Resp B/P (MAP) Pulse Ox O2 Delivery O2 Flow Rate FiO2 02/25/18 20:00 98.9 67 18 146/67 (93) 95 02/25/18 16:00 97.3 66 17 148/77 (100) 96 02/25/18 14:34 93 Nasal Cannula 1.00 02/25/18 13:00 62 20 148/72 (97) 96 Nasal Cannula 3 02/25/18 12:45 68 22 155/78 (103) 94 Nasal Cannula 3 02/25/18 12:30 67 21 149/73 (98) 92 Nasal Cannula 3 02/25/18 12:15 62 22 165/74 (104) 92 Nasal Cannula 3 02/25/18 12:10 98.4 69 17 182/86 (118) 93 Nasal Cannula 3 02/25/18 08:00 98.0 62 17 129/62 (84) 94 02/25/18 00:00 99.2 61 18 169/81 (110) 95 I/O 02/25/18 02/25/18 02/25/18 02/26/18 02/26/18 02/26/18 07:00 15:00 23:00 07:00 15:00 23:00 Intake Total 0 ml 1250 ml 460 ml Output Total 1450 ml 700 ml 3112 ml Balance -1450 ml 550 ml -2652 ml Intake Oral 0 ml 360 ml IV Total 100 ml Other 1250 ml Output Urine Total 1450 ml 550 ml 3112 ml Drainage Total 0 ml Estimated Blood Loss 150 ml # Bowel Movements 1 0 Objective Remarks GENERAL: Alert, oriented 3, NAD. SKIN: Warm and dry. HEAD: Normocephalic. EYES: No scleral icterus. No injection or drainage. NECK: Supple, trachea midline. No JVD or lymphadenopathy. CARDIOVASCULAR: Regular rate and rhythm without murmurs, gallops, or rubs. RESPIRATORY: Breath sounds equal bilaterally. No accessory muscle use. GASTROINTESTINAL: Abdomen soft, non-tender, nondistended. MUSCULOSKELETAL: No cyanosis, or edema. Right foot wrapped in dressing. BACK: Nontender without obvious deformity. No CVA tenderness. Procedures 02/20/2018 1. Aortogram with bilateral lower extremity angiogram. 2. Left external iliac artery angioplasty with 8 mm balloon. 3. Left common femoral artery Angio-Seal. 02/18/2018 Incision and drainage debridement fasciotomy extensor tendon sheath exploration with bone biopsy right foot, incision bone cortex 02/25/2018 1. R ilioprofunda bypass w/ 8mm Dacron 2. R SALVAGE SUPERVISOR-SFA bypass with 8mm Dacron 3. R EIA GRADUATE NURSE/stent (8x40) 4. R SFA GRADUATE NURSE (5x200) A/P Assessment and Plan 42-year-old white male being admitted for sepsis secondary to infected diabetic foot ulcer as well as possible osteomyelitis Sepsis secondary to infected diabetic foot ulcer and abscess Diabetic foot infection Blood cultures negative so far. Wound culture is growing group B strep. Infectious disease following. Vancomycin discontinued and infectious disease continued Zosyn. For incision and drainage with wound VAC placement 02/22/2018 Percocet, morphine for pain. Peripheral arterial disease Vascular surgery following. Patient underwent aortogram and left external iliac artery angioplasty. Right sided ilioprofunda bypass, SALVAGE SUPERVISOR-SFA bypass Continue aspirin 81 mg daily, Lipitor 40mg QHS. Diabetes Mellitus II, hemoglobin A1C 9.8, Poorly controlled Hypertension Hyperlipidemia Blood glucose is still slightly elevated. Currently on sliding scale insulin, Levemir 15 units QHS and titrate up, pre- meal insulin. Continue amlodipine 10 mg daily, atorvastatin 40 mg nightly. Full code. Heparin for DVT prophylaxis. Navneet Pereyra DO Feb 25, 2018 23:07
[2018-02-26] VITALS: BP 161/74; PULSE 68; RESP 18; TEMP 98.7; O2SAT 96
[2018-02-26] MEDS: PIPERACIL-TAZO 3.375 GM PREMIX 50 ML IV SCH ×5 (00:11→23:56)
[2018-02-26] MEDS: HYDROmorphone HCL 2 MG TAB PO PRN ×6 (01:20→21:46)
[2018-02-26] MEDS: MORPHINE SULFATE 2 MG/ML SYRINGE IV PUSH PRN ×6 (03:30→23:54)
[2018-02-26] MEDS: HEPARIN SODIUM - SQ 10,000 UNITS/ML VIAL SQ SCH ×3 (05:32→20:16)
[2018-02-26 05:44] LABS: HEMATOCRIT 38.5 % (39.0-51.0); MEAN CELL VOLUME 88.1 FL (80.0-100.0); MEAN CORPUSCULAR HEMOGLOBIN 29.7 PG (27.0-34.0); MEAN CORPUSCULAR HGB CONC 33.7 % (32.0-36.0); MEAN PLATELET VOLUME 7.6 FL (7.0-11.0); PLATELET COUNT 554 TH/MM3 (150-450); RED BLOOD COUNT 4.37 MIL/MM3 (4.50-5.90); RED CELL DISTRIBUTION WIDTH 13.2 % (11.6-17.2); WHITE BLOOD COUNT 18.7 TH/MM3 (4.0-11.0)
[2018-02-26 06:14] LABS: BICARBONATE 26.5 MEQ/L (21.0-32.0); CALCIUM 8.8 MG/DL (8.5-10.1); CREATININE 0.65 MG/DL (0.60-1.30)
[2018-02-26] MEDS: INSULIN ASPART 1,000 UNITS/10 ML VIAL SQ SCH ×3 (07:53→17:47)
[2018-02-26] MEDS: INSULIN ASPART SUPPLEMENTAL SCALE SQ SCH ×4 (07:53→20:22)
[2018-02-26 08:00] VITALS: BP 188/85; PULSE 56; RESP 16; TEMP 98.2; O2SAT 96
--- NOTE | 2018-02-26 08:04 | PD.VS.PN ---
Subjective POD #: 1 Procedure(s): R groin reconstruction, iliac stent, and SFA COPY OPERATOR Subjective/Hospital Course C/O groin pain but foot ok linda po Objective Vitals/I&O Date Time Temp Pulse Resp B/P (MAP) Pulse Ox O2 Delivery O2 Flow Rate FiO2 02/26/18 03:35 18 02/26/18 00:00 98.7 68 18 161/74 (103) 96 02/25/18 22:31 18 02/25/18 20:00 98.9 67 18 146/67 (93) 95 02/25/18 16:00 97.3 66 17 148/77 (100) 96 02/25/18 14:34 93 Nasal Cannula 1.00 02/25/18 13:00 62 20 148/72 (97) 96 Nasal Cannula 3 02/25/18 12:45 68 22 155/78 (103) 94 Nasal Cannula 3 02/25/18 12:30 67 21 149/73 (98) 92 Nasal Cannula 3 02/25/18 12:15 62 22 165/74 (104) 92 Nasal Cannula 3 02/25/18 12:10 98.4 69 17 182/86 (118) 93 Nasal Cannula 3 02/26/18 02/26/18 02/26/18 07:00 15:00 23:00 Intake Total 0 ml Output Total 2050 ml Balance -2050 ml Exam: R groin Prevena in place palpable DP pulse Laboratory Laboratory Tests Test 02/26/18 05:25 White Blood Count 18.7 Red Blood Count 4.37 Hemoglobin 13.0 Hematocrit 38.5 Mean Corpuscular Volume 88.1 Mean Corpuscular Hemoglobin 29.7 Mean Corpuscular Hemoglobin Concent 33.7 Red Cell Distribution Width 13.2 Platelet Count 554 Mean Platelet Volume 7.6 Blood Urea Nitrogen 9 Creatinine 0.65 Random Glucose 221 Calcium Level 8.8 Sodium Level 136 Potassium Level 4.2 Chloride Level 102 Carbon Dioxide Level 26.5 Anion Gap 8 Estimat Glomerular Filtration Rate 133 Date/Time Source Procedure Growth Status 02/17/18 12:40 Blood Peripheral Aerobic Blood Culture - Final NO GROWTH IN 5 DAYS Complete 02/17/18 12:40 Blood Peripheral Anaerobic Blood Culture - Final NO GROWTH IN 5 DAYS Complete 02/18/18 07:49 Wound Foot Fungal Smear - Final NO FUNGAL ELEMENTS SEEN. Resulted 02/18/18 07:49 Wound Foot Fungal Culture - Preliminary NO GROWTH IN 1 WEEK Resulted Assessment and Plan Plan POD#1 s/p R groin reconstruction and EIA stent and SFA COPY OPERATOR palpable pedal pulse 1. D/c obregon and normalize (OOB, PT consult) 2. Foot wound per podiatry 3. R Prevena VAC on until Sunday and can be removed as outpatient Dandy Patel MD FACS RPVI technical inspector [facility] - [facility] V[facility] Surgery at [facility] [phone] Discharge Planning as early as tomorrow (POD#2) from vascular surgery standpoint Dandy Patel MD Feb 26, 2018 08:04
[2018-02-26] MEDS: GABAPENTIN 300 MG CAP PO SCH ×3 (08:43→17:26)
[2018-02-26] MEDS: ASPIRIN EC 81 MG TABEC PO SCH (08:43)
[2018-02-26] MEDS: FAMOTIDINE 20 MG TAB PO SCH ×2 (08:43→20:13)
[2018-02-26 12:00] VITALS: BP 166/81; PULSE 67; RESP 16; TEMP 97.9; O2SAT 96
[2018-02-26] MEDS: SODIUM CHLOR 0.9% 1000 ML INJ 1,000 ML IV SCH (12:16)
[2018-02-26 16:00] VITALS: BP 138/73; PULSE 68; RESP 16; TEMP 97.8; O2SAT 97
[2018-02-26 20:00] VITALS: BP 176/82; PULSE 68; RESP 22; TEMP 98.3; O2SAT 96
[2018-02-26] MEDS: ATORVASTATIN 40 MG TAB PO SCH (20:13)
[2018-02-26] MEDS: INSULIN DETEMIR 100 UNITS/ML VIAL SQ SCH (20:21)
--- NOTE | 2018-02-26 21:03 | HHI.PR ---
Subjective Remarks Follow-up for diabetic foot infection, peripheral vascular disease. Patient is currently doing well. Complains of some pain. No fever, chills. Objective Vitals Vital Signs Date Time Temp Pulse Resp B/P (MAP) Pulse Ox O2 Delivery O2 Flow Rate FiO2 02/26/18 16:00 97.8 68 16 138/73 (94) 97 02/26/18 12:00 97.9 67 16 166/81 (109) 96 02/26/18 08:00 98.2 56 16 188/85 (119) 96 02/26/18 03:35 18 02/26/18 00:00 98.7 68 18 161/74 (103) 96 02/25/18 22:31 18 I/O 02/25/18 02/25/18 02/25/18 02/26/18 02/26/18 02/26/18 07:00 15:00 23:00 07:00 15:00 23:00 Intake Total 0 ml 1250 ml 460 ml 0 ml 50 ml 620 ml Output Total 1450 ml 700 ml 3112 ml 2050 ml 400 ml Balance -1450 ml 550 ml -2652 ml -2050 ml -350 ml 620 ml Intake Oral 0 ml 360 ml 0 ml 620 ml IV Total 100 ml 50 ml Other 1250 ml Output Urine Total 1450 ml 550 ml 3112 ml 2000 ml 400 ml Drainage Total 0 ml 50 ml Estimated Blood Loss 150 ml # Voids 2 # Bowel Movements 1 0 0 1 0 Result Diagram: 02/26/18 0525 02/26/18 0525 Objective Remarks GENERAL: Alert, oriented 3, NAD. SKIN: Warm and dry. HEAD: Normocephalic. EYES: No scleral icterus. No injection or drainage. NECK: Supple, trachea midline. No JVD or lymphadenopathy. CARDIOVASCULAR: Regular rate and rhythm without murmurs, gallops, or rubs. RESPIRATORY: Breath sounds equal bilaterally. No accessory muscle use. GASTROINTESTINAL: Abdomen soft, non-tender, nondistended. MUSCULOSKELETAL: No cyanosis, or edema. Right foot wrapped in dressing. BACK: Nontender without obvious deformity. No CVA tenderness. Procedures 02/20/2018 1. Aortogram with bilateral lower extremity angiogram. 2. Left external iliac artery angioplasty with 8 mm balloon. 3. Left common femoral artery Angio-Seal. 02/18/2018 Incision and drainage debridement fasciotomy extensor tendon sheath exploration with bone biopsy right foot, incision bone cortex 02/25/2018 1. R ilioprofunda bypass w/ 8mm Dacron 2. R CHIROPRACTIC TEACHER-SFA bypass with 8mm Dacron 3. R EIA CARRIAGE FEEDER/stent (8x40) 4. R SFA CARRIAGE FEEDER (5x200) A/P Assessment and Plan 42-year-old white male being admitted for sepsis secondary to infected diabetic foot ulcer as well as possible osteomyelitis Sepsis secondary to infected diabetic foot ulcer and abscess Diabetic foot infection Blood cultures negative so far. Wound culture is growing group B strep. Infectious disease following. Vancomycin discontinued and infectious disease continued Zosyn. For incision and drainage with wound VAC placement 02/22/2018 Percocet, morphine for pain. Peripheral arterial disease Vascular surgery following. Patient underwent aortogram and left external iliac artery angioplasty. Right sided ilioprofunda bypass, CHIROPRACTIC TEACHER-SFA bypass Continue aspirin 81 mg daily, Lipitor 40mg QHS. Diabetes Mellitus II, hemoglobin A1C 9.8, Poorly controlled Hypertension Hyperlipidemia Blood glucose better controlled. Currently on sliding scale insulin, Levemir 15 units QHS and titrate up, pre- meal insulin. Continue amlodipine 10 mg daily, atorvastatin 40 mg nightly. Full code. Heparin for DVT prophylaxis. Discharge plan: Discharge when cleared by consultants. Navneet Pereyra DO Feb 26, 2018 21:03
[2018-02-26 21:35] VITALS: O2SAT 93
[2018-02-27] VITALS: BP 164/83; PULSE 71; RESP 20; TEMP 100.8; O2SAT 95
[2018-02-27] MEDS: HYDROmorphone HCL 2 MG TAB PO PRN ×4 (04:32→20:55)
[2018-02-27] MEDS: PIPERACIL-TAZO 3.375 GM PREMIX 50 ML IV SCH ×2 (04:35→12:29)
[2018-02-27] MEDS: HEPARIN SODIUM - SQ 10,000 UNITS/ML VIAL SQ SCH ×3 (04:36→21:05)
[2018-02-27] MEDS: MORPHINE SULFATE 2 MG/ML SYRINGE IV PUSH PRN ×4 (07:53→18:43)
[2018-02-27 08:00] VITALS: BP 168/79; PULSE 67; RESP 16; TEMP 98.9; O2SAT 95
[2018-02-27] MEDS: INSULIN ASPART 1,000 UNITS/10 ML VIAL SQ SCH ×3 (08:27→17:12)
[2018-02-27] MEDS: FAMOTIDINE 20 MG TAB PO SCH ×2 (08:27→20:55)
[2018-02-27] MEDS: GABAPENTIN 300 MG CAP PO SCH ×3 (08:28→17:13)
[2018-02-27] MEDS: ASPIRIN EC 81 MG TABEC PO SCH (08:28)
[2018-02-27] MEDS: INSULIN ASPART SUPPLEMENTAL SCALE SQ SCH ×4 (08:29→21:04)
[2018-02-27 08:40] VITALS: O2SAT 93
--- NOTE | 2018-02-27 10:29 | PD.VS.PN ---
Subjective POD #: 2 Procedure(s): R groin reconstruction, iliac stent, and SFA CANDY WAFFLE ASSEMBLER Subjective/Hospital Course 42/M s/p R LE revascularization Pt c/o mild right groin discomfort R groin w/ Provena wound vac in place/NO hematoma or swelling noted LE warm w/ motor intact Objective Vitals/I&O Date Time Temp Pulse Resp B/P (MAP) Pulse Ox O2 Delivery O2 Flow Rate FiO2 02/27/18 08:40 93 21 02/27/18 08:00 98.9 67 16 168/79 (108) 95 02/27/18 07:58 18 02/27/18 00:00 100.8 71 20 164/83 (110) 95 02/26/18 21:35 93 21 02/26/18 20:00 98.3 68 22 176/82 (113) 96 02/26/18 16:00 97.8 68 16 138/73 (94) 97 02/26/18 12:00 97.9 67 16 166/81 (109) 96 02/27/18 02/27/18 02/27/18 07:00 15:00 23:00 Intake Total 320 ml Output Total 650 ml Balance -330 ml Exam: GENERAL: 42/M alert in NAD SKIN: LE Warm and dry w/ motor intact Right groin w/ provena wound vac intact Right foot with wound vac in place MUSCULOSKELETAL: No cyanosis, or edema R DP/PT with strong multiphasic signals heard via Doppler Laboratory Date/Time Source Procedure Growth Status 02/17/18 12:40 Blood Peripheral Aerobic Blood Culture - Final NO GROWTH IN 5 DAYS Complete 02/17/18 12:40 Blood Peripheral Anaerobic Blood Culture - Final NO GROWTH IN 5 DAYS Complete 02/18/18 07:49 Wound Foot Fungal Smear - Final NO FUNGAL ELEMENTS SEEN. Resulted 02/18/18 07:49 Wound Foot Fungal Culture - Preliminary NO GROWTH IN 1 WEEK Resulted Assessment and Plan Plan POD#2 s/p R groin reconstruction and EIA stent and SFA CANDY WAFFLE ASSEMBLER Pt w/ strong distal pulses present Plan Pt clear for D/C from a vascular standpoint Will arrange out pt f/u Continue Foot wound care per podiatry RIGHT groin Prevena VAC on until Sunday and can be removed as outpatient Zulma Ledezma NP [facility] [phone] Discharge Planning Pt clear for D/C from vascular surgery standpoint Arranged out pt f/u Zulma Ledezma Feb 27, 2018 10:29
[2018-02-27 12:00] VITALS: BP 163/79; PULSE 67; RESP 15; TEMP 99.1; O2SAT 95
--- NOTE | 2018-02-27 13:38 | PD.WCN.NOT ---
Wound Consult Description: Received consult for VAC management of R plantar foot for Sunday- Sunday - Sunday from Doctor Carlton Communicated with: JAMAR gutierrez and Doctor Carlton Recommendation: Please follow orders in place from Doctor Carlton.Leave dressing in place until Sunday. Wound care nurse to re-evaluate, may need Santyl and d/c of VAC with next dressing change. Additional Information: Patient seen on for VAC management around 1030. See NPWT Neg Pressure Wound Therapy Wound Location Wound Location: R medial plantar foot Wound Description Length: 7.5cm Width: 2cm Depth: ~0.9cm Periwound appearance: Other (macerated with 1 suture at 6 o'clock and 2 sutures at 12 o'clock) Settings Suction: 125 mmHg Intensity: Low Other Information: Bridged Foam type: Black Number of pieces: 2 Additonal Information Patient was premedicated for pain by JAMAR gutierrez before removing wound VAC dressing in place, including 1 piece of black granufoam, and oil emulsion gauze in place to reveal wound. Wound bed presents with ~40% exposed tendon, ~40% red non granulation tissue and ~20% necrotic facia. Wound has scant sero-sanguinous drainage without odor. Periwound presents with macerated peeling skin and 2 sutures at 12 o'clock and 1 suture at 6 o'clock. Sutures are intact with macerated periwound. Wound was cleansed with normal saline and patted dry. Skin barrier film was applied to periwound, and dorsal foot. Applied oil emulsion gauze over exposed tendon. Maxorb II (calcium alginate) was applied to macerated periwound. Xeroform was applied over sutures for protection from VAC suction and drape. Window paned wound with VAC drape applied 2 pieces of black granufoam to wound bed . Covered with VAC drape. Small hole was cut to expose granufoam. Bridged 1 piece of granufoam from exposed granufoam to dorsal foot over VAC drape. Secured with additional VAC drape. Applied mushroom cap of black granufoam to dorsal bridged granufoam with attached Sensi trac pad. Secured in place. Further secured dressing with rolled gauze and tape. Patient tolerated dressing change well. Next VAC dressing change is due on 2017. Nichelle Coto [facility] Feb 27, 2018 13:38
[2018-02-27] MEDS: cloNIDine HCL 0.1 MG TAB PO PRN (13:40)
[2018-02-27] MEDS: SODIUM CHLOR 0.9% 1000 ML INJ 1,000 ML IV SCH (13:43)
--- NOTE | 2018-02-27 14:51 | HHI.IDPN ---
Subjective Subjective Remarks doing OK s/p revasc, R foot debridement low graade fever this am 100.8 x 1 time no other c/o no cough, no diarrhea Antibiotics zosyn vanco Allergies: Coded Allergies: No Known Allergies (Verified Adverse Reaction, Unknown, 02/17/18) Objective . Vital Signs Date Time Temp Pulse Resp B/P (MAP) Pulse Ox O2 Delivery O2 Flow Rate FiO2 02/27/18 12:00 99.1 67 15 163/79 (107) 95 02/27/18 11:01 18 02/27/18 10:44 18 02/27/18 08:40 93 21 02/27/18 08:00 98.9 67 16 168/79 (108) 95 02/27/18 00:00 100.8 71 20 164/83 (110) 95 02/26/18 21:35 93 21 02/26/18 20:00 98.3 68 22 176/82 (113) 96 02/26/18 16:00 97.8 68 16 138/73 (94) 97 . Laboratory Tests Test 02/26/18 05:25 White Blood Count 18.7 TH/MM3 Red Blood Count 4.37 MIL/MM3 Hemoglobin 13.0 GM/DL Hematocrit 38.5 % Mean Corpuscular Volume 88.1 FL Mean Corpuscular Hemoglobin 29.7 PG Mean Corpuscular Hemoglobin Concent 33.7 % Red Cell Distribution Width 13.2 % Platelet Count 554 TH/MM3 Mean Platelet Volume 7.6 FL Laboratory Tests Test 02/26/18 05:25 Blood Urea Nitrogen 9 MG/DL Creatinine 0.65 MG/DL Random Glucose 221 MG/DL Calcium Level 8.8 MG/DL Sodium Level 136 MEQ/L Potassium Level 4.2 MEQ/L Chloride Level 102 MEQ/L Carbon Dioxide Level 26.5 MEQ/L Anion Gap 8 MEQ/L Estimat Glomerular Filtration Rate 133 ML/MIN Imaging Last Impressions Lower Extremity Ultrasound 02/19/18 0000 Signed Impressions: Service Date/Time: Monday, February 19, 2018 08:00 - CONCLUSION: 1. No DVT identified. Marlo Klein MD Foot X-Ray 02/17/18 0000 Signed Impressions: Service Date/Time: Saturday, February 17, 2018 22:44 - CONCLUSION: Medial soft tissue swelling and soft tissue air. No specific findings of osteomyelitis Raphael Stoner MD Foot MRI 02/17/18 0000 Signed Impressions: Service Date/Time: Saturday, February 17, 2018 18:22 - CONCLUSION: There is a plantar subcutaneous abscess and edema identified at the plantar aspect of the first metatarsal, and there is abnormal bone marrow signal intensity within the sesamoid bones of the first digit, and first proximal phalanx concerning for abscess formation and osteomyelitis. Micah Lowery MD Ankle X-Ray 02/17/18 0000 Signed Impressions: Service Date/Time: Saturday, February 17, 2018 22:44 - CONCLUSION: Unremarkable examination of the right ankle. Raphael Stoner MD Physical Exam CONSTITUTIONAL/GENERAL: This is an adequately nourished patient, in no apparent distress. TUBES/LINES/DRAINS: SKIN: No jaundice, rashes, or lesions. MUSCULOSKELETAL: Extremities without clubbing, cyanosis, or edema. + prominent loss of skin appendages Dressing in place R foot No ascending lymphangitis or cellulitis noted NEUROLOGICAL: Awake and alert. Motor and sensory grossly within normal limits. Follows commands. Cognitively sharp. Moves all extremities. PSYCHIATRIC: No obvious anxiety/depression. no apparent hallucinations or other psychotic thought process. Assessment & Plan Remarks Diabetic foot infection, R foot 1sh prox phalanx with osteomyelitis and abscess - Group B strep and anaerobs s/p I+D PVD with critical ischemia, angiogram confirmed severe PVD Leukopccytosis, low grade fever - post op? change zosyn to unasyn Susu Simmons MD Feb 27, 2018 14:51
[2018-02-27] MEDS: AMPICILLIN-SULBACTAM INJ 3 GM in SODIUM CHLORIDE 0.9% INJ 100 ML IV SCH ×2 (15:06→20:55)
[2018-02-27 16:00] VITALS: BP 144/73; PULSE 65; RESP 16; TEMP 98.2; O2SAT 97
[2018-02-27 20:00] VITALS: BP 167/75; PULSE 69; RESP 17; TEMP 100.3; O2SAT 94
[2018-02-27] MEDS: ATORVASTATIN 40 MG TAB PO SCH (20:56)
[2018-02-27] MEDS: INSULIN DETEMIR 100 UNITS/ML VIAL SQ SCH (21:03)
--- NOTE | 2018-02-27 22:30 | HHI.PR ---
Subjective Remarks NOT SEEN Objective Vitals Vital Signs Date Time Temp Pulse Resp B/P (MAP) Pulse Ox O2 Delivery O2 Flow Rate FiO2 02/27/18 20:00 100.3 69 17 167/75 (105) 94 02/27/18 16:00 98.2 65 16 144/73 (96) 97 02/27/18 15:14 18 02/27/18 14:40 18 02/27/18 12:00 99.1 67 15 163/79 (107) 95 02/27/18 08:40 93 21 02/27/18 08:00 98.9 67 16 168/79 (108) 95 02/27/18 00:00 100.8 71 20 164/83 (110) 95 I/O 02/26/18 02/26/18 02/26/18 02/27/18 02/27/18 02/27/18 07:00 15:00 23:00 07:00 15:00 23:00 Intake Total 0 ml 50 ml 620 ml 320 ml 480 ml Output Total 2050 ml 400 ml 650 ml 907 ml Balance -2050 ml -350 ml 620 ml -330 ml -427 ml Intake Oral 0 ml 620 ml 320 ml 480 ml IV Total 50 ml Output Urine Total 2000 ml 400 ml 650 ml 900 ml Drainage Total 50 ml 7 ml # Voids 2 # Bowel Movements 0 1 0 0 0 Result Diagram: 02/26/1825 02/26/18 05 Imaging Last Impressions Lower Extremity Ultrasound 02/19/18 0000 Signed Impressions: Service Date/Time: Monday, February 19, 2018 08:00 - CONCLUSION: 1. No DVT identified. Marlo Klein MD Foot X-Ray 02/17/18 0000 Signed Impressions: Service Date/Time: Saturday, February 17, 2018 22:44 - CONCLUSION: Medial soft tissue swelling and soft tissue air. No specific findings of osteomyelitis Raphael Stoner MD Foot MRI 02/17/18 0000 Signed Impressions: Service Date/Time: Saturday, February 17, 2018 18:22 - CONCLUSION: There is a plantar subcutaneous abscess and edema identified at the plantar aspect of the first metatarsal, and there is abnormal bone marrow signal intensity within the sesamoid bones of the first digit, and first proximal phalanx concerning for abscess formation and osteomyelitis. Micah Lowery MD Ankle X-Ray 02/17/18 0000 Signed Impressions: Service Date/Time: Saturday, February 17, 2018 22:44 - CONCLUSION: Unremarkable examination of the right ankle. Raphael Stoner MD Objective Remarks GENERAL: Alert, oriented 3, NAD. SKIN: Warm and dry. HEAD: Normocephalic. EYES: No scleral icterus. No injection or drainage. NECK: Supple, trachea midline. No JVD or lymphadenopathy. CARDIOVASCULAR: Regular rate and rhythm without murmurs, gallops, or rubs. RESPIRATORY: Breath sounds equal bilaterally. No accessory muscle use. GASTROINTESTINAL: Abdomen soft, non-tender, nondistended. MUSCULOSKELETAL: No cyanosis, or edema. Right foot wrapped in dressing. BACK: Nontender without obvious deformity. No CVA tenderness. Procedures 02/20/2018 1. Aortogram with bilateral lower extremity angiogram. 2. Left external iliac artery angioplasty with 8 mm balloon. 3. Left common femoral artery Angio-Seal. 02/18/2018 Incision and drainage debridement fasciotomy extensor tendon sheath exploration with bone biopsy right foot, incision bone cortex 02/25/2018 1. R ilioprofunda bypass w/ 8mm Dacron 2. R UNIX SYSTEM ADMINISTRATOR-SFA bypass with 8mm Dacron 3. R EIA FRENCH BINDING FOLDER/stent (8x40) 4. R SFA FRENCH BINDING FOLDER (5x200) A/P Problem List: (1) Peripheral vascular disease with claudication ICD Code: I73.9 - Peripheral vascular disease, unspecified (2) Diabetic infection of right foot ICD Code: E11.628 - Type 2 diabetes mellitus with other skin complications; L08.9 - Local infection of the skin and subcutaneous tissue, unspecified Status: Acute Assessment and Plan 42-year-old white male being admitted for sepsis secondary to infected diabetic foot ulcer as well as possible osteomyelitis Sepsis secondary to infected diabetic foot ulcer and abscess Diabetic foot infection Blood cultures negative so far. Wound culture is growing group B strep. Infectious disease following. Vancomycin and Zosyn discontinued and continue Unasyn incision and drainage with wound VAC placement 02/22/2018 Percocet, morphine for pain. Peripheral arterial disease Vascular surgery following. Patient underwent aortogram and left external iliac artery angioplasty. Right sided ilioprofunda bypass, UNIX SYSTEM ADMINISTRATOR-SFA bypass Continue aspirin 81 mg daily, Lipitor 40mg QHS. Diabetes Mellitus II, hemoglobin A1C 9.8, Hypertension Hyperlipidemia Blood glucose better controlled. Currently on sliding scale insulin, Levemir 15 units QHS and titrate up, pre- meal insulin. Continue amlodipine 10 mg daily, atorvastatin 40 mg nightly. Full code. Heparin for DVT prophylaxis. Discharge plan: Discharge when cleared by consultants. Froilan Dong MD Feb 27, 2018 22:30
[2018-02-27] MEDS ORDERED: WALKER WHEELS/F1 MIS (22:38)
--- NOTE | 2018-02-27 23:18 | HHI.PR ---
Subjective Remarks Follow-up for diabetic foot infection, peripheral vascular disease. Patient is currently doing well. He complains of pain but controlled with pain medications. No fever or chills. Objective Vitals Vital Signs Date Time Temp Pulse Resp B/P (MAP) Pulse Ox O2 Delivery O2 Flow Rate FiO2 02/27/18 20:00 100.3 69 17 167/75 (105) 94 02/27/18 16:00 98.2 65 16 144/73 (96) 97 02/27/18 15:14 18 02/27/18 14:40 18 02/27/18 12:00 99.1 67 15 163/79 (107) 95 02/27/18 08:40 93 21 02/27/18 08:00 98.9 67 16 168/79 (108) 95 02/27/18 00:00 100.8 71 20 164/83 (110) 95 I/O 02/27/18 02/27/18 02/27/18 02/28/18 02/28/18 02/28/18 07:00 15:00 23:00 07:00 15:00 23:00 Intake Total 320 ml 480 ml Output Total 650 ml 907 ml Balance -330 ml -427 ml Intake Oral 320 ml 480 ml Output Urine Total 650 ml 900 ml Drainage Total 7 ml # Bowel Movements 0 0 Result Diagram: 02/26/1825 02/26/18524 Objective Remarks GENERAL: Alert, oriented 3, NAD. SKIN: Warm and dry. HEAD: Normocephalic. EYES: No scleral icterus. No injection or drainage. NECK: Supple, trachea midline. No JVD or lymphadenopathy. CARDIOVASCULAR: Regular rate and rhythm without murmurs, gallops, or rubs. RESPIRATORY: Breath sounds equal bilaterally. No accessory muscle use. GASTROINTESTINAL: Abdomen soft, non-tender, nondistended. MUSCULOSKELETAL: No cyanosis, or edema. Right foot wrapped in dressing. BACK: Nontender without obvious deformity. No CVA tenderness. Procedures 02/20/2018 1. Aortogram with bilateral lower extremity angiogram. 2. Left external iliac artery angioplasty with 8 mm balloon. 3. Left common femoral artery Angio-Seal. 02/18/2018 Incision and drainage debridement fasciotomy extensor tendon sheath exploration with bone biopsy right foot, incision bone cortex 02/25/2018 1. R ilioprofunda bypass w/ 8mm Dacron 2. R MANAGER BASKETBALL-SFA bypass with 8mm Dacron 3. R EIA ACOUSTIC SENSOR OPERATOR/stent (8x40) 4. R SFA ACOUSTIC SENSOR OPERATOR (5x200) A/P Problem List: (1) Peripheral vascular disease with claudication ICD Code: I73.9 - Peripheral vascular disease, unspecified (2) Diabetic infection of right foot ICD Code: E11.628 - Type 2 diabetes mellitus with other skin complications; L08.9 - Local infection of the skin and subcutaneous tissue, unspecified Status: Acute Assessment and Plan 42-year-old white male being admitted for sepsis secondary to infected diabetic foot ulcer as well as possible osteomyelitis Sepsis secondary to infected diabetic foot ulcer and abscess Diabetic foot infection Blood cultures negative so far. Wound culture is growing group B strep. Infectious disease following. Vancomycin discontinued and infectious disease continued Zosyn. For incision and drainage with wound VAC placement 02/22/2018 Percocet, morphine for pain. Podiatry will likely re-evaluate today. Peripheral arterial disease Vascular surgery following. Patient underwent aortogram and left external iliac artery angioplasty. Right sided ilioprofunda bypass, MANAGER BASKETBALL-SFA bypass Continue aspirin 81 mg daily, Lipitor 40mg QHS. Diabetes Mellitus II, hemoglobin A1C 9.8, Poorly controlled Hypertension Hyperlipidemia Blood glucose better controlled. Currently on sliding scale insulin, Levemir 15 units QHS and titrate up, pre- meal insulin. Continue amlodipine 10 mg daily, atorvastatin 40 mg nightly. Full code. Heparin for DVT prophylaxis. Discharge plan: Discharge when cleared by consultants. Navneet Pereyra DO Feb 27, 2018 23:18
[2018-02-28] VITALS: BP 149/72; PULSE 67; RESP 17; TEMP 99.9; O2SAT 94
[2018-02-28] MEDS: MORPHINE SULFATE 2 MG/ML SYRINGE IV PUSH PRN ×5 (00:42→18:00)
[2018-02-28] MEDS: HYDROmorphone HCL 2 MG TAB PO PRN ×5 (02:10→22:03)
[2018-02-28] MEDS: AMPICILLIN-SULBACTAM INJ 3 GM in SODIUM CHLORIDE 0.9% INJ 100 ML IV SCH ×4 (02:11→22:05)
[2018-02-28] MEDS: HEPARIN SODIUM - SQ 10,000 UNITS/ML VIAL SQ SCH ×3 (06:10→22:13)
[2018-02-28 08:00] VITALS: BP 132/76; PULSE 66; RESP 17; TEMP 98.5; O2SAT 93
[2018-02-28] MEDS: INSULIN ASPART SUPPLEMENTAL SCALE SQ SCH ×4 (08:00→22:14)
[2018-02-28] MEDS: INSULIN ASPART 1,000 UNITS/10 ML VIAL SQ SCH ×3 (08:00→16:20)
[2018-02-28] MEDS: FAMOTIDINE 20 MG TAB PO SCH ×2 (08:09→22:04)
[2018-02-28] MEDS: GABAPENTIN 300 MG CAP PO SCH ×3 (08:09→16:19)
[2018-02-28] MEDS: ASPIRIN EC 81 MG TABEC PO SCH (08:09)
[2018-02-28 12:00] VITALS: BP 144/66; PULSE 61; RESP 17; TEMP 98.9; O2SAT 97
[2018-02-28] MEDS: SODIUM CHLOR 0.9% 1000 ML INJ 1,000 ML IV SCH (12:29)
--- NOTE | 2018-02-28 14:12 | HHI.PR ---
Subjective Remarks Follow-up foot osteomyelitis. States he is doing pretty good complains of right foot pain. Discussed with nursing Objective Vitals Vital Signs Date Time Temp Pulse Resp B/P (MAP) Pulse Ox O2 Delivery O2 Flow Rate FiO2 02/28/18 12:00 98.9 61 17 144/66 (92) 97 02/28/18 08:00 98.5 66 17 132/76 (94) 93 02/28/18 00:00 99.9 67 17 149/72 (97) 94 02/27/18 20:00 100.3 69 17 167/75 (105) 94 02/27/18 16:00 98.2 65 16 144/73 (96) 97 02/27/18 15:14 18 02/27/18 14:40 18 I/O 02/27/18 02/27/18 02/27/18 02/28/18 02/28/18 02/28/18 07:00 15:00 23:00 07:00 15:00 23:00 Intake Total 320 ml 480 ml 240 ml Output Total 650 ml 907 ml 600 ml Balance -330 ml -427 ml -360 ml Intake Oral 320 ml 480 ml 240 ml Output Urine Total 650 ml 900 ml 600 ml Drainage Total 7 ml # Bowel Movements 0 0 Result Diagram: 02/26/18 0525 02/26/18 0525 Imaging Last Impressions Lower Extremity Ultrasound 02/19/18 0000 Signed Impressions: Service Date/Time: Monday, February 19, 2018 08:00 - CONCLUSION: 1. No DVT identified. Marlo Klein MD Foot X-Ray 02/17/18 0000 Signed Impressions: Service Date/Time: Saturday, February 17, 2018 22:44 - CONCLUSION: Medial soft tissue swelling and soft tissue air. No specific findings of osteomyelitis Raphael Stoner MD Foot MRI 02/17/18 0000 Signed Impressions: Service Date/Time: Saturday, February 17, 2018 18:22 - CONCLUSION: There is a plantar subcutaneous abscess and edema identified at the plantar aspect of the first metatarsal, and there is abnormal bone marrow signal intensity within the sesamoid bones of the first digit, and first proximal phalanx concerning for abscess formation and osteomyelitis. Micah Lowery MD Ankle X-Ray 02/17/18 0000 Signed Impressions: Service Date/Time: Saturday, February 17, 2018 22:44 - CONCLUSION: Unremarkable examination of the right ankle. Raphael Stoner MD Objective Remarks GENERAL: Alert, oriented 3, NAD. SKIN: Warm and dry. CARDIOVASCULAR: Regular rate and rhythm without murmurs, gallops, or rubs. RESPIRATORY: Breath sounds equal bilaterally. No accessory muscle use. GASTROINTESTINAL: Abdomen soft, non-tender, nondistended. MUSCULOSKELETAL: No cyanosis, or edema. Right foot wrapped in dressing with wound VAC. BACK: Nontender without obvious deformity. No CVA tenderness. Procedures 02/20/2018 1. Aortogram with bilateral lower extremity angiogram. 2. Left external iliac artery angioplasty with 8 mm balloon. 3. Left common femoral artery Angio-Seal. 02/18/2018 Incision and drainage debridement fasciotomy extensor tendon sheath exploration with bone biopsy right foot, incision bone cortex 02/25/2018 1. R ilioprofunda bypass w/ 8mm Dacron 2. R NEWS EDITOR-SFA bypass with 8mm Dacron 3. R EIA LOAN OPERATIONS SPECIALIST/stent (8x40) 4. R SFA LOAN OPERATIONS SPECIALIST (5x200) A/P Problem List: (1) Peripheral vascular disease with claudication ICD Code: I73.9 - Peripheral vascular disease, unspecified (2) Diabetic infection of right foot ICD Code: E11.628 - Type 2 diabetes mellitus with other skin complications; L08.9 - Local infection of the skin and subcutaneous tissue, unspecified Status: Acute Assessment and Plan 42-year-old white male being admitted for sepsis secondary to infected diabetic foot ulcer as well as possible osteomyelitis Sepsis secondary to infected diabetic foot ulcer and abscess Diabetic foot infection with first metatarsal and sesamoid osteomyelitis Blood cultures negative so far. Wound culture is growing group B strep, but for Aspergillus and anaerobic gram-positive cocci. Infectious disease following. Vancomycin and Zosyn discontinued and started Unasyn incision and drainage with wound VAC placement 02/22/2018 Percocet, morphine for pain. Peripheral arterial disease Vascular surgery following. Patient underwent aortogram and left external iliac artery angioplasty. Right sided ilioprofunda bypass, NEWS EDITOR-SFA bypass Continue aspirin 81 mg daily, Lipitor 40mg QHS. Diabetes Mellitus II, hemoglobin A1C 9.8, Hypertension Hyperlipidemia Blood glucose better controlled. Currently on sliding scale insulin, Levemir 15 units QHS and titrate up, pre- meal insulin. Continue amlodipine 10 mg daily, atorvastatin 40 mg nightly. Full code. Heparin for DVT prophylaxis. Discharge plan: Discharge when cleared by consultants. Discussed with ID. Podiatry to reevaluate Froilan Dong MD Feb 28, 2018 14:12
[2018-02-28 16:00] VITALS: BP 130/68; PULSE 65; RESP 16; TEMP 99.5; O2SAT 98
[2018-02-28 20:00] VITALS: BP 143/69; PULSE 72; RESP 16; TEMP 99.3; O2SAT 97
--- NOTE | 2018-02-28 20:29 | HHI.PR ---
Subjective Remarks Patient seen bedside. Reports continued pain to right groin. States pain in foot is improving. Denies N,V,F,Ch. Objective Vital Signs Date Time Temp Pulse Resp B/P (MAP) Pulse Ox O2 Delivery O2 Flow Rate FiO2 02/28/18 20:00 99.3 72 16 143/69 (93) 97 02/28/18 16:00 99.5 65 16 130/68 (88) 98 02/28/18 12:00 98.9 61 17 144/66 (92) 97 02/28/18 08:00 98.5 66 17 132/76 (94) 93 02/28/18 00:00 99.9 67 17 149/72 (97) 94 I/O 02/27/18 02/27/18 02/27/18 02/28/18 02/28/18 02/28/18 07:00 15:00 23:00 07:00 15:00 23:00 Intake Total 320 ml 480 ml 240 ml 1000 ml Output Total 650 ml 907 ml 600 ml 700 ml Balance -330 ml -427 ml -360 ml 300 ml Intake Oral 320 ml 480 ml 240 ml 1000 ml Output Urine Total 650 ml 900 ml 600 ml 700 ml Drainage Total 7 ml # Bowel Movements 0 0 0 Result Diagram: 02/26/1852402/26/18524 Imaging Last Impressions Lower Extremity Ultrasound 02/19/18 0000 Signed Impressions: Service Date/Time: Monday, February 19, 2018 08:00 - CONCLUSION: 1. No DVT identified. Marlo Klein MD Foot X-Ray 02/17/18 0000 Signed Impressions: Service Date/Time: Saturday, February 17, 2018 22:44 - CONCLUSION: Medial soft tissue swelling and soft tissue air. No specific findings of osteomyelitis Raphael Stoner MD Foot MRI 02/17/18 0000 Signed Impressions: Service Date/Time: Saturday, February 17, 2018 18:22 - CONCLUSION: There is a plantar subcutaneous abscess and edema identified at the plantar aspect of the first metatarsal, and there is abnormal bone marrow signal intensity within the sesamoid bones of the first digit, and first proximal phalanx concerning for abscess formation and osteomyelitis. Micah Lowery MD Ankle X-Ray 02/17/18 0000 Signed Impressions: Service Date/Time: Saturday, February 17, 2018 22:44 - CONCLUSION: Unremarkable examination of the right ankle. Raphael Stoner MD Procedures Status post Right foot Incision and drainage debridement fasciotomy extensor tendon sheath exploration with bone biopsy right foot, incision bone cortex as per Doctor Oz Davis 02/18/18 Angiography performed, Found High grade L EIA stenosis, successful LINE PALLETIZER, Right GLAZE MIXER and PFA stenosis, Right SFA occlusion, 3 Vessel runoff R LE. scheduled for tomorrow for Right groin reconstruction and SFA recanalization 03/06 Other Results Microbiology Date/Time Source Procedure Growth Status 02/17/18 12:40 Blood Peripheral Aerobic Blood Culture - Final NO GROWTH IN 5 DAYS Complete 02/17/18 12:40 Blood Peripheral Anaerobic Blood Culture - Final NO GROWTH IN 5 DAYS Complete 02/18/18 07:49 Wound Foot Fungal Smear - Final NO FUNGAL ELEMENTS SEEN. Resulted 02/18/18 07:49 Wound Foot Fungal Culture - Preliminary NO GROWTH IN 1 WEEK Resulted Objective Remarks Wound vac in place functioning at 125 mmHg. Plantar ulcerations/fasciotomies x2 with granulation tissue present, improvement noted. Exposed tendon present. Decreased surrounding erythema and edema noted to plantar aspect of right foot. Sutures intact with skin well coapted. TIMEKEEPING SUPERVISOR under 3 secs and WNL. Maceration noted periwound area. Medications and IVs Current Medications Medications (Trade) Dose Ordered Sig/Breanne Route Start Time Stop Time Status Last Admin Sodium Chloride 1,000 ml @ 42 mls/hr [id number] IV 02/17/18 14:30 02/28/18 12:29 (D50w (Vial) Inj) 50 ml UNSCH PRN IV PUSH 02/17/18 15:15 (Glucagon Inj) 1 mg UNSCH PRN OTHER 02/17/18 15:15 (Heparin Inj) 5,000 units Q8HR SQ 02/17/18 22:00 02/28/18 14:04 (Neurontin) 300 mg TID PO 02/17/18 18:00 02/28/18 16:19 (Tylenol) 500 mg Q4H PRN PO 02/17/18 16:45 02/17/18 17:14 (Lipitor) 40 mg HS PO 02/17/18 21:00 02/27/18 20:56 (Ecotrin Ec) 81 mg DAILY PO 02/19/18 09:00 02/28/18 08:09 (Nicotine Gum) 4 mg Q4HR PRN CHEW 02/18/18 13:30 02/24/18 20:29 (Pepcid) 20 mg BID PO 02/18/18 21:45 02/28/18 08:09 (NovoLOG SUPPLEMENTAL SCALE) 1 ACHS SLIDING SCALE SQ 02/19/18 12:00 02/28/18 16:21 (Catapres) 0.1 mg Q6H PRN PO 02/20/18 09:15 02/27/18 13:40 (Norvasc) 10 mg DAILY PO 02/21/18 09:00 02/28/18 08:09 (NovoLOG INJ) 6 units TIDAC SQ 02/23/18 17:00 02/28/18 16:20 (Levemir Inj) 15 units HS SQ 02/23/18 21:00 02/27/18 21:03 (Roxicodone) 5 mg Q4H PRN PO 02/25/18 11:45 (Dilaudid) 2 mg Q4H PRN PO 02/25/18 11:45 02/28/18 16:19 (Morphine Inj) 2 mg Q1H PRN IV PUSH 02/25/18 11:45 02/28/18 18:00 Ampicillin Sodium/ Sulbactam Sodium 3 gm/Sodium Chloride 100 ml @ 200 mls/hr Q6H IV 02/27/18 15:00 02/28/18 14:04 Assessment and Plan Assessment and Plan 42 year old male s/p Right foot Incision and drainage debridement fasciotomy extensor tendon sheath exploration with bone biopsy right foot, incision bone cortex Patient examined and evaluated with all questions answered Improvement noted in edema and erythema to right foot OK to DC per podiatry once ID recommendations made for outpatient IV abx therapy as bone margins + for acute OM Patient to follow up in [address] Delarosa Wound care to perform wound vac changes M,W,F while in house please apply white foam/adaptic to tendon area Patient to be DC with wound vac Priscilla Carlton DPM Feb 28, 2018 20:29
[2018-02-28] MEDS: ATORVASTATIN 40 MG TAB PO SCH (22:04)
[2018-02-28] MEDS: INSULIN DETEMIR 100 UNITS/ML VIAL SQ SCH (22:14)
[2018-03-01] VITALS: BP 152/73; PULSE 65; RESP 18; TEMP 98.8; O2SAT 95
[2018-03-01] MEDS: MORPHINE SULFATE 2 MG/ML SYRINGE IV PUSH PRN ×4 (00:16→22:55)
[2018-03-01] MEDS: HEPARIN SODIUM - SQ 10,000 UNITS/ML VIAL SQ SCH ×3 (05:02→21:16)
[2018-03-01] MEDS: AMPICILLIN-SULBACTAM INJ 3 GM in SODIUM CHLORIDE 0.9% INJ 100 ML IV SCH ×4 (05:03→21:16)
[2018-03-01] MEDS: HYDROmorphone HCL 2 MG TAB PO PRN ×4 (05:03→21:20)
[2018-03-01 08:00] VITALS: BP 146/67; PULSE 63; RESP 16; TEMP 98.8; O2SAT 95
[2018-03-01 08:26] LABS: AUTOMATED NEUTROPHIL # 13.9 TH/MM3 (1.8-7.7); BASOPHIL # 0.1 TH/MM3 (0-0.2); BASOPHIL % 0.6 % (0.0-2.0); EOSINOPHIL # 0.3 TH/MM3 (0-0.4); EOSINOPHIL % 1.9 % (0.0-4.0); HEMATOCRIT 34.9 % (39.0-51.0); HEMOGLOBIN 12.1 GM/DL (13.0-17.0); LYMPH % 14.8 % (9.0-44.0); LYMPHOCYTE # 2.8 TH/MM3 (1.0-4.8); MEAN CELL VOLUME 87.8 FL (80.0-100.0); MEAN CORPUSCULAR HEMOGLOBIN 30.4 PG (27.0-34.0); MEAN CORPUSCULAR HGB CONC 34.6 % (32.0-36.0); MEAN PLATELET VOLUME 7.9 FL (7.0-11.0); MONO % 8.9 % (0.0-8.0); MONOCYTE # 1.7 TH/MM3 (0-0.9); NEUT % 73.8 % (16.0-70.0); PLATELET COUNT 560 TH/MM3 (150-450); RED BLOOD COUNT 3.97 MIL/MM3 (4.50-5.90); RED CELL DISTRIBUTION WIDTH 13.1 % (11.6-17.2); WHITE BLOOD COUNT 18.8 TH/MM3 (4.0-11.0)
[2018-03-01 08:39] VITALS: BP 146/67; PULSE 63; RESP 16; TEMP 98.8
[2018-03-01] MEDS: INSULIN ASPART 1,000 UNITS/10 ML VIAL SQ SCH ×3 (10:02→17:30)
[2018-03-01] MEDS: INSULIN ASPART SUPPLEMENTAL SCALE SQ SCH ×4 (10:04→21:17)
[2018-03-01] MEDS: ASPIRIN EC 81 MG TABEC PO SCH (10:07)
[2018-03-01] MEDS: FAMOTIDINE 20 MG TAB PO SCH ×2 (10:08→21:15)
[2018-03-01] MEDS: GABAPENTIN 300 MG CAP PO SCH ×3 (10:08→17:29)
[2018-03-01 11:24] VITALS: BP 143/72; PULSE 62; RESP 18; TEMP 98.7; O2SAT 97
--- NOTE | 2018-03-01 13:02 | HHI.PR ---
Subjective Remarks Follow-up diabetic foot infection. Patient has been cleared for discharge by podiatry however patient having difficulty getting out of bed and ambulating secondary to wound VAC in the right groin. Per vascular surgery this will be discontinued this coming Sunday. Patient also has leukocytosis without fever. He has nonproductive cough. Discussed with ID, will check chest x-ray. Objective Vitals Vital Signs Date Time Temp Pulse Resp B/P (MAP) Pulse Ox O2 Delivery O2 Flow Rate FiO2 03/01/18 11:24 98.7 62 18 143/72 (95) 97 03/01/18 08:39 98.8 63 16 146/67 (93) 03/01/18 08:00 98.8 63 16 146/67 (93) 95 03/01/18 00:00 98.8 65 18 152/73 (99) 95 02/28/18 20:00 99.3 72 16 143/69 (93) 97 02/28/18 16:00 99.5 65 16 130/68 (88) 98 I/O 02/28/18 02/28/18 02/28/18 03/01/18 03/01/18 03/01/18 07:00 15:00 23:00 07:00 15:00 23:00 Intake Total 240 ml 1100 ml 100 ml Output Total 600 ml 700 ml 700 ml Balance -360 ml 400 ml -600 ml Intake Oral 240 ml 1000 ml IV Total 100 ml 100 ml Output Urine Total 600 ml 700 ml 700 ml # Bowel Movements 0 Result Diagram: 03/01/18 0643 02/26/18 0525 Imaging Last Impressions Lower Extremity Ultrasound 02/19/18 0000 Signed Impressions: Service Date/Time: Monday, February 19, 2018 08:00 - CONCLUSION: 1. No DVT identified. Marlo Klein MD Foot X-Ray 02/17/18 0000 Signed Impressions: Service Date/Time: Saturday, February 17, 2018 22:44 - CONCLUSION: Medial soft tissue swelling and soft tissue air. No specific findings of osteomyelitis Raphael Stoner MD Foot MRI 02/17/18 0000 Signed Impressions: Service Date/Time: Saturday, February 17, 2018 18:22 - CONCLUSION: There is a plantar subcutaneous abscess and edema identified at the plantar aspect of the first metatarsal, and there is abnormal bone marrow signal intensity within the sesamoid bones of the first digit, and first proximal phalanx concerning for abscess formation and osteomyelitis. Micah Lowery MD Ankle X-Ray 02/17/18 0000 Signed Impressions: Service Date/Time: Saturday, February 17, 2018 22:44 - CONCLUSION: Unremarkable examination of the right ankle. Raphael Stoner MD Objective Remarks GENERAL: Alert, oriented 3, NAD. SKIN: Warm and dry. Provena dressing with wound VAC right groin. Dry dressing right foot. CARDIOVASCULAR: Regular rate and rhythm without murmurs, gallops, or rubs. RESPIRATORY: Breath sounds equal bilaterally. No accessory muscle use. GASTROINTESTINAL: Abdomen soft, non-tender, nondistended. MUSCULOSKELETAL: No cyanosis, or edema. Right foot wrapped in dressing BACK: Nontender without obvious deformity. No CVA tenderness. Procedures 02/20/2018 1. Aortogram with bilateral lower extremity angiogram. 2. Left external iliac artery angioplasty with 8 mm balloon. 3. Left common femoral artery Angio-Seal. 02/18/2018 Incision and drainage debridement fasciotomy extensor tendon sheath exploration with bone biopsy right foot, incision bone cortex 02/25/2018 1. R ilioprofunda bypass w/ 8mm Dacron 2. R MOTOR AND CONTROLS TESTER-SFA bypass with 8mm Dacron 3. R EIA TRUCK RENTAL SERVICE ATTENDANT/stent (8x40) 4. R SFA TRUCK RENTAL SERVICE ATTENDANT (5x200) A/P Problem List: (1) Peripheral vascular disease with claudication ICD Code: I73.9 - Peripheral vascular disease, unspecified (2) Diabetic infection of right foot ICD Code: E11.628 - Type 2 diabetes mellitus with other skin complications; L08.9 - Local infection of the skin and subcutaneous tissue, unspecified Status: Acute Assessment and Plan 42-year-old white male being admitted for sepsis secondary to infected diabetic foot ulcer as well as possible osteomyelitis Sepsis secondary to infected diabetic foot ulcer and abscess. Diabetic foot infection with first metatarsal and sesamoid osteomyelitis Persistent leukocytosis. Check chest x-ray Blood cultures negative so far. Wound culture is growing group B strep, but for Aspergillus and anaerobic gram-positive cocci. Infectious disease following. Vancomycin and Zosyn discontinued and started Unasyn incision and drainage with wound VAC placement 02/22/2018 Percocet, morphine for pain. Peripheral arterial disease Vascular surgery following. Patient underwent aortogram and left external iliac artery angioplasty. Right sided ilioprofunda bypass, MOTOR AND CONTROLS TESTER-SFA bypass Continue aspirin 81 mg daily, Lipitor 40mg QHS. Continue Provena dressing with wound VAC Diabetes Mellitus II, hemoglobin A1C 9.8, Hypertension Hyperlipidemia Blood glucose better controlled. Currently on sliding scale insulin, Levemir 15 units QHS and titrate up, pre- meal insulin. Continue amlodipine 10 mg daily, atorvastatin 40 mg nightly. Full code. Heparin for DVT prophylaxis. Continue physical therapy discharge plan: Discharge when patient able to ambulate. Having difficulty getting out of bed and ambulating secondary to wound VAC which will be discontinued this coming Sunday Froilan Dong MD Mar 01, 2018 13:02
[2018-03-01] MEDS ORDERED: COLLAGENASE OINT 30 GM TUBE TOPICAL ONE (14:30)
--- NOTE | 2018-03-01 15:08 | RADRPT ---
EXAM DATE/TIME: 03/01/2018 14:37 [facility] COMPARISON: No previous studies available for comparison. INDICATIONS : Cough. MEDICAL HISTORY : Hypertension. Migraine. Diabetes. SURGICAL HISTORY : Scrotal abscess surgery. I&D. ENCOUNTER: Subsequent ACUITY: 4 - 6 days PAIN SCORE: 0/10 LOCATION: Bilateral chest FINDINGS: Ill-defined parenchymal opacity in the right medial lower lobe in the region of the right lower lobe pulmonary vessels which may reflect confluence of shadows. Otherwise, no focal pleural or parenchymal opacities. Cardiomediastinal contours are within normal limits given portable technique bony thorax is intact. CONCLUSION: 1. Ill-defined opacity in the right medial lower lobe in the region of the right lower lobe pulmonary vessels which may reflect confluence of shadows. Consider formal PA and lateral views of the chest f or better evaluation. Fady Triplett MD on March 01, 2018 at 15:05 Board Certified Radiologist. This report was verified electronically.
[2018-03-01 17:00] VITALS: BP 131/64; PULSE 63; RESP 16; TEMP 97.6; O2SAT 98
--- NOTE | 2018-03-01 18:01 | PD.WCN.NOT ---
Wound Consult Additional Information: Spoke with patient and Doctor Carlton regarding wound. Received telephone order to d/c wound VAC dressing and apply dressing as ordered with dina by Doctor Bianka podiatry and change daily. Nichelle Coto [facility] Mar 01, 2018 18:00
[2018-03-01] MEDS: ATORVASTATIN 40 MG TAB PO SCH (21:15)
[2018-03-01] MEDS: INSULIN DETEMIR 100 UNITS/ML VIAL SQ SCH (21:16)
[2018-03-02] VITALS: BP 150/76; PULSE 67; RESP 18; TEMP 99.4; O2SAT 98
[2018-03-02] MEDS: AMPICILLIN-SULBACTAM INJ 3 GM in SODIUM CHLORIDE 0.9% INJ 100 ML IV SCH ×4 (04:24→22:06)
[2018-03-02 05:31] LABS: BASOPHIL # 0.2 TH/MM3 (0-0.2); BASOPHIL % 1.2 % (0.0-2.0); EOSINOPHIL # 0.4 TH/MM3 (0-0.4); EOSINOPHIL % 2.5 % (0.0-4.0); HEMATOCRIT 34.7 % (39.0-51.0); HEMOGLOBIN 11.9 GM/DL (13.0-17.0); LYMPH % 16.1 % (9.0-44.0); LYMPHOCYTE # 2.5 TH/MM3 (1.0-4.8); MEAN CELL VOLUME 87.5 FL (80.0-100.0); MEAN CORPUSCULAR HEMOGLOBIN 30.1 PG (27.0-34.0); MEAN CORPUSCULAR HGB CONC 34.4 % (32.0-36.0); MONO % 9.7 % (0.0-8.0); MONOCYTE # 1.5 TH/MM3 (0-0.9); NEUT % 70.5 % (16.0-70.0); PLATELET COUNT 578 TH/MM3 (150-450); RED BLOOD COUNT 3.97 MIL/MM3 (4.50-5.90); RED CELL DISTRIBUTION WIDTH 12.8 % (11.6-17.2); WHITE BLOOD COUNT 15.6 TH/MM3 (4.0-11.0)
[2018-03-02] MEDS: HYDROmorphone HCL 2 MG TAB PO PRN ×4 (05:31→22:17)
[2018-03-02 05:55] LABS: BICARBONATE 25.2 MEQ/L (21.0-32.0); CREATININE 0.58 MG/DL (0.60-1.30); MAGNESIUM 1.9 MG/DL (1.5-2.5)
[2018-03-02] MEDS: HEPARIN SODIUM - SQ 10,000 UNITS/ML VIAL SQ SCH ×3 (06:00→22:07)
[2018-03-02] MEDS: MORPHINE SULFATE 2 MG/ML SYRINGE IV PUSH PRN ×2 (06:46→14:40)
[2018-03-02 08:00] VITALS: BP 148/73; PULSE 62; RESP 17; TEMP 98.4; O2SAT 98
[2018-03-02] MEDS: GABAPENTIN 300 MG CAP PO SCH ×3 (08:42→17:34)
[2018-03-02] MEDS: ASPIRIN EC 81 MG TABEC PO SCH (08:42)
[2018-03-02] MEDS: INSULIN ASPART SUPPLEMENTAL SCALE SQ SCH ×3 (08:43→22:05)
[2018-03-02] MEDS: INSULIN ASPART 1,000 UNITS/10 ML VIAL SQ SCH ×3 (08:43→17:36)
--- NOTE | 2018-03-02 11:58 | RADRPT ---
EXAM DATE/TIME: 03/02/2018 11:34 [facility] COMPARISON: No previous studies available for comparison. INDICATIONS : Shortness of breath. MEDICAL HISTORY : Hypertension. Diabetes. SURGICAL HISTORY : None. ENCOUNTER: Subsequent ACUITY: 2 days PAIN SCORE: 0/10 LOCATION: Bilateral chest FINDINGS: PA and lateral views of the chest demonstrate the lungs to be symmetrically aerated without evidence of mass, infiltrate or effusion. The cardiomediastinal contours are unremarkable. Osseous structure s are intact. CONCLUSION: No acute disease. Ken Klein MD FACR on March 02, 2018 at 11:56 Board Certified Radiologist. This report was verified electronically.
[2018-03-02 12:00] VITALS: BP 142/70; PULSE 58; RESP 17; TEMP 97.4; O2SAT 96
--- NOTE | 2018-03-02 12:03 | HHI.PR ---
Subjective Remarks Follow-up leukocytosis. He does not have any new complaints. Repeat chest x- ray shows no acute process. Still having difficulty getting out of bed and ambulating secondary to right groin pain where he has a wound VAC. Discussed with nursing and case management. Objective Vitals Vital Signs Date Time Temp Pulse Resp B/P (MAP) Pulse Ox O2 Delivery O2 Flow Rate FiO2 03/02/18 08:00 98.4 62 17 148/73 (98) 98 03/02/18 00:00 99.4 67 18 150/76 (100) 98 03/01/18 17:00 97.6 63 16 131/64 (86) 98 I/O 03/01/18 03/01/18 03/01/18 03/02/18 03/02/18 03/02/18 07:00 15:00 23:00 07:00 15:00 23:00 Intake Total 100 ml 960 ml 480 ml Output Total 700 ml 900 ml 600 ml Balance -600 ml 60 ml -120 ml Intake Oral 860 ml 480 ml IV Total 100 ml 100 ml Output Urine Total 700 ml 900 ml 600 ml Drainage Total 0 ml # Bowel Movements 0 Result Diagram: 03/02/18 0432 03/02/18 0432 Imaging Last Impressions Chest X-Ray 03/02/18 0000 Signed Impressions: Service Date/Time: Friday, March 02, 2018 11:34 - CONCLUSION: No acute disease. Ken Klein MD FACR Lower Extremity Ultrasound 02/19/18 0000 Signed Impressions: Service Date/Time: Monday, February 19, 2018 08:00 - CONCLUSION: 1. No DVT identified. Marlo Klein MD Foot X-Ray 02/17/18 0000 Signed Impressions: Service Date/Time: Saturday, February 17, 2018 22:44 - CONCLUSION: Medial soft tissue swelling and soft tissue air. No specific findings of osteomyelitis Raphael Stoner MD Foot MRI 02/17/18 0000 Signed Impressions: Service Date/Time: Saturday, February 17, 2018 18:22 - CONCLUSION: There is a plantar subcutaneous abscess and edema identified at the plantar aspect of the first metatarsal, and there is abnormal bone marrow signal intensity within the sesamoid bones of the first digit, and first proximal phalanx concerning for abscess formation and osteomyelitis. Micah Lowery MD Ankle X-Ray 02/17/18 0000 Signed Impressions: Service Date/Time: Saturday, February 17, 2018 22:44 - CONCLUSION: Unremarkable examination of the right ankle. Raphael Stoner MD Objective Remarks GENERAL: Alert, oriented 3, NAD. SKIN: Warm and dry. Provena dressing with wound VAC right groin. CARDIOVASCULAR: Regular rate and rhythm without murmurs, gallops, or rubs. RESPIRATORY: Breath sounds equal bilaterally. No accessory muscle use. GASTROINTESTINAL: Abdomen soft, non-tender, nondistended. MUSCULOSKELETAL: No cyanosis, or edema. Right foot wrapped in dressing BACK: Nontender without obvious deformity. No CVA tenderness. Procedures 02/20/2018 1. Aortogram with bilateral lower extremity angiogram. 2. Left external iliac artery angioplasty with 8 mm balloon. 3. Left common femoral artery Angio-Seal. 02/18/2018 Incision and drainage debridement fasciotomy extensor tendon sheath exploration with bone biopsy right foot, incision bone cortex 02/25/2018 1. R ilioprofunda bypass w/ 8mm Dacron 2. R TRANSFORMATION ARCHITECT-SFA bypass with 8mm Dacron 3. R EIA BUSINESS DEPARTMENT CHAIR/stent (8x40) 4. R SFA BUSINESS DEPARTMENT CHAIR (5x200) A/P Problem List: (1) Peripheral vascular disease with claudication ICD Code: I73.9 - Peripheral vascular disease, unspecified (2) Diabetic infection of right foot ICD Code: E11.628 - Type 2 diabetes mellitus with other skin complications; L08.9 - Local infection of the skin and subcutaneous tissue, unspecified Status: Acute Assessment and Plan 42-year-old white male being admitted for sepsis secondary to infected diabetic foot ulcer as well as possible osteomyelitis Sepsis secondary to infected diabetic foot ulcer and abscess. Diabetic foot infection with first metatarsal and sesamoid osteomyelitis Persistent leukocytosis. Improving repeat chest x-ray without acute Blood cultures negative so far. Wound culture is growing group B strep, but for Aspergillus and anaerobic gram-positive cocci. Infectious disease following. Vancomycin and Zosyn discontinued and started Unasyn incision and drainage with wound VAC placement 02/22/2018 Percocet, morphine for pain. Peripheral arterial disease Vascular surgery following. Patient underwent aortogram and left external iliac artery angioplasty. Right sided ilioprofunda bypass, TRANSFORMATION ARCHITECT-SFA bypass Continue aspirin 81 mg daily, Lipitor 40mg QHS. Continue Provena dressing with wound VAC Diabetes Mellitus II, hemoglobin A1C 9.8, Hypertension Hyperlipidemia Blood glucose better controlled. Currently on sliding scale insulin, Levemir 15 units QHS and titrate up, pre- meal insulin. Continue amlodipine 10 mg daily, atorvastatin 40 mg nightly. Full code. Heparin for DVT prophylaxis. Continue physical therapy discharge plan: Discharge when patient able to ambulate. Having difficulty getting out of bed and ambulating secondary to wound VAC which will be discontinued this coming Sunday Froilan Dong MD Mar 02, 2018 12:03
[2018-03-02] MEDS: FAMOTIDINE 20 MG TAB PO SCH ×2 (13:26→22:07)
[2018-03-02 16:00] VITALS: BP 135/73; PULSE 65; RESP 18; TEMP 97.7; O2SAT 98
[2018-03-02 20:00] VITALS: BP 133/69; PULSE 69; RESP 17; TEMP 99.6; O2SAT 95
[2018-03-02] MEDS: INSULIN DETEMIR 100 UNITS/ML VIAL SQ SCH (22:04)
[2018-03-02] MEDS: ATORVASTATIN 40 MG TAB PO SCH (22:06)
[2018-03-02] MEDS: NICOTINE 4 MG/GUM CHEW PRN (22:25)
[2018-03-03] VITALS: BP 134/71; PULSE 67; RESP 17; TEMP 98.3; O2SAT 97
[2018-03-03] MEDS: MORPHINE SULFATE 2 MG/ML SYRINGE IV PUSH PRN ×3 (00:03→17:14)
[2018-03-03] MEDS: AMPICILLIN-SULBACTAM INJ 3 GM in SODIUM CHLORIDE 0.9% INJ 100 ML IV SCH ×4 (02:26→20:34)
[2018-03-03] MEDS: HYDROmorphone HCL 2 MG TAB PO PRN ×5 (02:26→23:59)
[2018-03-03] MEDS: HEPARIN SODIUM - SQ 10,000 UNITS/ML VIAL SQ SCH ×3 (05:02→20:34)
[2018-03-03 08:00] VITALS: BP 111/54; PULSE 62; RESP 17; TEMP 97.2; O2SAT 94
[2018-03-03] MEDS: GABAPENTIN 300 MG CAP PO SCH ×3 (08:20→17:14)
[2018-03-03] MEDS: ASPIRIN EC 81 MG TABEC PO SCH (08:20)
[2018-03-03] MEDS: FAMOTIDINE 20 MG TAB PO SCH ×2 (08:20→20:33)
[2018-03-03] MEDS: INSULIN ASPART 1,000 UNITS/10 ML VIAL SQ SCH ×3 (08:22→17:15)
[2018-03-03] MEDS: INSULIN ASPART SUPPLEMENTAL SCALE SQ SCH ×4 (08:22→20:32)
[2018-03-03 12:00] VITALS: BP 118/61; PULSE 62; RESP 19; TEMP 98.3; O2SAT 94
--- NOTE | 2018-03-03 13:01 | HHI.PR ---
Subjective Remarks Follow-up diabetic foot infection. He is doing okay with increasing exercise tolerance getting out of bed ambulating short distances with nursing assistance. Discussed with nursing and case management, will discharge patient home after removal of inguinal wound VAC. Objective Vitals Vital Signs Date Time Temp Pulse Resp B/P (MAP) Pulse Ox O2 Delivery O2 Flow Rate FiO2 03/03/18 08:00 97.2 62 17 111/54 (73) 94 03/03/18 00:00 98.3 67 17 134/71 (92) 97 03/02/18 20:00 99.6 69 17 133/69 (90) 95 03/02/18 16:00 97.7 65 18 135/73 (93) 98 I/O 03/02/18 03/02/18 03/02/18 03/03/18 03/03/18 03/03/18 07:00 15:00 23:00 07:00 15:00 23:00 Intake Total 480 ml 100 ml 2430 ml 340 ml Output Total 600 ml 825 ml 240 ml Balance -120 ml 100 ml 1605 ml 100 ml Intake Oral 480 ml 900 ml 240 ml IV Total 100 ml 1530 ml 100 ml Output Urine Total 600 ml 825 ml 240 ml # Voids 1 # Bowel Movements 0 0 Result Diagram: 03/02/18 0432 03/02/18 0432 Imaging Last Impressions Chest X-Ray 03/02/18 0000 Signed Impressions: Service Date/Time: Friday, March 02, 2018 11:34 - CONCLUSION: No acute disease. Ken Klein MD FACR Lower Extremity Ultrasound 02/19/18 0000 Signed Impressions: Service Date/Time: Monday, February 19, 2018 08:00 - CONCLUSION: 1. No DVT identified. Marlo Klein MD Foot X-Ray 02/17/18 0000 Signed Impressions: Service Date/Time: Saturday, February 17, 2018 22:44 - CONCLUSION: Medial soft tissue swelling and soft tissue air. No specific findings of osteomyelitis Raphael Stoner MD Foot MRI 02/17/18 0000 Signed Impressions: Service Date/Time: Saturday, February 17, 2018 18:22 - CONCLUSION: There is a plantar subcutaneous abscess and edema identified at the plantar aspect of the first metatarsal, and there is abnormal bone marrow signal intensity within the sesamoid bones of the first digit, and first proximal phalanx concerning for abscess formation and osteomyelitis. Micah Lowery MD Ankle X-Ray 02/17/18 0000 Signed Impressions: Service Date/Time: Saturday, February 17, 2018 22:44 - CONCLUSION: Unremarkable examination of the right ankle. Raphael Stoner MD Objective Remarks GENERAL: Alert, oriented 3, NAD. SKIN: Warm and dry. Provena dressing with wound VAC right groin. CARDIOVASCULAR: Regular rate and rhythm without murmurs, gallops, or rubs. RESPIRATORY: Breath sounds equal bilaterally. No accessory muscle use. GASTROINTESTINAL: Abdomen soft, non-tender, nondistended. MUSCULOSKELETAL: No cyanosis, or edema. Right foot wrapped in dressing BACK: Nontender without obvious deformity. No CVA tenderness. No significant change in PE Procedures 02/20/2018 1. Aortogram with bilateral lower extremity angiogram. 2. Left external iliac artery angioplasty with 8 mm balloon. 3. Left common femoral artery Angio-Seal. 02/18/2018 Incision and drainage debridement fasciotomy extensor tendon sheath exploration with bone biopsy right foot, incision bone cortex 02/25/2018 1. R ilioprofunda bypass w/ 8mm Dacron 2. R TABLE GAMES MANAGER-SFA bypass with 8mm Dacron 3. R EIA REAL ESTATE OFFICE MANAGER/stent (8x40) 4. R SFA REAL ESTATE OFFICE MANAGER (5x200) A/P Problem List: (1) Peripheral vascular disease with claudication ICD Code: I73.9 - Peripheral vascular disease, unspecified (2) Diabetic infection of right foot ICD Code: E11.628 - Type 2 diabetes mellitus with other skin complications; L08.9 - Local infection of the skin and subcutaneous tissue, unspecified Status: Acute Assessment and Plan 42-year-old white male being admitted for sepsis secondary to infected diabetic foot ulcer as well as possible osteomyelitis Sepsis secondary to infected diabetic foot ulcer and abscess. Diabetic foot infection with first metatarsal and sesamoid osteomyelitis Persistent leukocytosis. Improving repeat chest x-ray without acute findings Blood cultures negative so far. Wound culture is growing group B strep, but for Aspergillus and anaerobic gram-positive cocci. Infectious disease following. Vancomycin and Zosyn discontinued and started Unasyn incision and drainage with wound VAC placement 02/22/2018 Percocet, morphine for pain. Peripheral arterial disease Vascular surgery following. Patient underwent aortogram and left external iliac artery angioplasty. Right sided ilioprofunda bypass, TABLE GAMES MANAGER-SFA bypass Continue aspirin 81 mg daily, Lipitor 40mg QHS. Continue Provena dressing with wound VAC Diabetes Mellitus II, hemoglobin A1C 9.8, Hypertension Hyperlipidemia Blood glucose better controlled. Currently on sliding scale insulin, Levemir 15 units QHS and titrate up, pre- meal insulin. Continue amlodipine 10 mg daily, atorvastatin 40 mg nightly. Full code. Heparin for DVT prophylaxis. Continue physical therapy discharge plan: Discharge when patient able to ambulate. Having difficulty getting out of bed and ambulating secondary to wound VAC which will be discontinued this coming Sunday tomorrow Froilan Dong MD Mar 03, 2018 13:01
--- NOTE | 2018-03-03 13:04 | HHI.FF ---
Face to Face Verification Diagnosis: (1) Diabetic infection of right foot Physical Therapy Order: Evaluate and Treat, Improve ambulation, Strength and gait training I have seen patient Branden Hills on 03/03/18. My clinical findings support the need for the requested home health care services because: Deconditioned w/ increased weakness I certify that my clinical findings support that this patient is homebound because: Unsteady gait/balance Unsafe to leave home unassisted Froilan Dong MD Mar 03, 2018 13:04
--- NOTE | 2018-03-03 13:05 | HHI.DCPOC ---
Discharge Care Plan Diagnosis: (1) Diabetic infection of right foot Your Health Problems Are: Difficulty with ADL Exercise Tolerance Goals to Promote Your Health * To prevent worsening of your condition and complications * To maintain your health at the optimal level Directions to Meet Your Goals Take your medications as prescribed Follow your dietary instruction Follow activity as directed Keep your appointments as scheduled Take your immunizations and boosters as scheduled If your symptoms worsen call your PCP, if no PCP go to Urgent Care Center or Emergency Room Smoking is Dangerous to Your Health. Avoid second hand smoke Call the 24-hour hour crisis hotline for domestic abuse at Froilan Dong MD Mar 03, 2018 13:05
[2018-03-03] MEDS ORDERED: ECASA81 PO (13:09)
[2018-03-03] MEDS ORDERED: AMLO10 PO (13:09)
[2018-03-03] MEDS ORDERED: DILA2TAB4 PO (13:09)
[2018-03-03] MEDS ORDERED: ATOR40TA16 PO (13:09)
[2018-03-03] MEDS ORDERED: BEDSIDE COMMODE1 MI1 (13:09)
[2018-03-03] MEDS ORDERED: NEUR300C PO (13:09)
[2018-03-03] MEDS: metFORMIN HCL 500 MG TAB PO SCH ×2 (13:15→17:14)
[2018-03-03 16:00] VITALS: BP 126/68; PULSE 59; RESP 18; TEMP 98.2; O2SAT 96
[2018-03-03 20:00] VITALS: BP 116/59; PULSE 64; RESP 17; TEMP 98.7; O2SAT 97
[2018-03-03] MEDS: INSULIN DETEMIR 100 UNITS/ML VIAL SQ SCH (20:33)
[2018-03-03] MEDS: ATORVASTATIN 40 MG TAB PO SCH (20:33)
[2018-03-04] VITALS: BP 121/57; PULSE 62; RESP 17; TEMP 98.9; O2SAT 95
[2018-03-04] MEDS: AMPICILLIN-SULBACTAM INJ 3 GM in SODIUM CHLORIDE 0.9% INJ 100 ML IV SCH ×4 (03:54→21:20)
[2018-03-04] MEDS: HEPARIN SODIUM - SQ 10,000 UNITS/ML VIAL SQ SCH ×3 (03:55→21:20)
[2018-03-04] MEDS: HYDROmorphone HCL 2 MG TAB PO PRN ×4 (03:55→21:20)
[2018-03-04] MEDS: MORPHINE SULFATE 2 MG/ML SYRINGE IV PUSH PRN ×2 (05:38→16:08)
--- NOTE | 2018-03-04 07:17 | PD.VS.PN ---
Subjective POD #: 7 Procedure(s): R groin reconstruction, iliac stent, and SFA POLICY CHECKER Subjective/Hospital Course looks great Prevena removed this morning palpable popliteal, pedal pulses Objective Vitals/I&O Date Time Temp Pulse Resp B/P (MAP) Pulse Ox O2 Delivery O2 Flow Rate FiO2 03/04/18 00:00 98.9 62 17 121/57 (78) 95 03/03/18 20:00 98.7 64 17 116/59 (78) 97 03/03/18 16:00 98.2 59 18 126/68 (87) 96 03/03/18 12:00 98.3 62 19 118/61 (80) 94 03/03/18 08:00 97.2 62 17 111/54 (73) 94 03/04/18 03/04/18 03/04/18 07:00 15:00 23:00 Intake Total 240 ml Balance 240 ml Exam: R groin incision c/d/i Pulses: palpable Laboratory Date/Time Source Procedure Growth Status 02/17/18 12:40 Blood Peripheral Aerobic Blood Culture - Final NO GROWTH IN 5 DAYS Complete 02/17/18 12:40 Blood Peripheral Anaerobic Blood Culture - Final NO GROWTH IN 5 DAYS Complete 02/18/18 07:49 Wound Foot Fungal Smear - Final NO FUNGAL ELEMENTS SEEN. Resulted 02/18/18 07:49 Wound Foot Fungal Culture - Preliminary NO GROWTH IN 1 WEEK Resulted Assessment and Plan Plan POD#7 s/p R groin reconstruction and EIA stent and SFA POLICY CHECKER Pt w/ strong distal pulses present Clear for d/c from vascular surgery standpoint will arrange f/u in 2-3 weeks Discharge Planning Pt clear for D/C from vascular surgery standpoint Arranged out pt f/u Dandy Patel MD Mar 04, 2018 07:17
[2018-03-04 08:00] VITALS: BP 131/63; PULSE 61; RESP 19; TEMP 98.1; O2SAT 95
[2018-03-04] MEDS: metFORMIN HCL 500 MG TAB PO SCH ×2 (08:23→16:27)
[2018-03-04] MEDS: FAMOTIDINE 20 MG TAB PO SCH ×2 (08:23→21:20)
[2018-03-04] MEDS: GABAPENTIN 300 MG CAP PO SCH ×3 (08:23→16:27)
[2018-03-04] MEDS: ASPIRIN EC 81 MG TABEC PO SCH (08:24)
[2018-03-04] MEDS: INSULIN ASPART SUPPLEMENTAL SCALE SQ SCH ×4 (08:24→22:28)
[2018-03-04] MEDS: INSULIN ASPART 1,000 UNITS/10 ML VIAL SQ SCH ×3 (08:24→16:54)
[2018-03-04 12:00] VITALS: BP 116/65; PULSE 64; RESP 19; TEMP 98; O2SAT 98
--- NOTE | 2018-03-04 12:33 | HHI.PR ---
Subjective Remarks Follow-up diabetic foot infection and PAD. He is doing okay happy that. He is ambulating. He wants to go home. States he was not compliant with metformin prior to admission in does not want insulin when he leaves the hospital. Diabetic education provided discussed with nursing Objective Vitals Vital Signs Date Time Temp Pulse Resp B/P (MAP) Pulse Ox O2 Delivery O2 Flow Rate FiO2 03/04/18 08:00 98.1 61 19 131/63 (85) 95 03/04/18 00:00 98.9 62 17 121/57 (78) 95 03/03/18 20:00 98.7 64 17 116/59 (78) 97 03/03/18 16:00 98.2 59 18 126/68 (87) 96 I/O 03/03/18 03/03/18 03/03/18 03/04/18 03/04/18 03/04/18 07:00 15:00 23:00 07:00 15:00 23:00 Intake Total 340 ml 675 ml 240 ml 120 ml Output Total 240 ml 500 ml Balance 100 ml 175 ml 240 ml 120 ml Intake Oral 240 ml 675 ml 240 ml 120 ml IV Total 100 ml Output Urine Total 240 ml 500 ml # Voids 2 # Bowel Movements 0 0 0 Result Diagram: 03/02/18 0432 03/02/18 0432 Imaging Last Impressions Chest X-Ray 03/02/18 0000 Signed Impressions: Service Date/Time: Friday, March 02, 2018 11:34 - CONCLUSION: No acute disease. Ken Klein MD FACR Lower Extremity Ultrasound 02/19/18 0000 Signed Impressions: Service Date/Time: Monday, February 19, 2018 08:00 - CONCLUSION: 1. No DVT identified. Marlo Klein MD Foot X-Ray 02/17/18 0000 Signed Impressions: Service Date/Time: Saturday, February 17, 2018 22:44 - CONCLUSION: Medial soft tissue swelling and soft tissue air. No specific findings of osteomyelitis Raphael Stoner MD Foot MRI 02/17/18 0000 Signed Impressions: Service Date/Time: Saturday, February 17, 2018 18:22 - CONCLUSION: There is a plantar subcutaneous abscess and edema identified at the plantar aspect of the first metatarsal, and there is abnormal bone marrow signal intensity within the sesamoid bones of the first digit, and first proximal phalanx concerning for abscess formation and osteomyelitis. Micah Lowery MD Ankle X-Ray 02/17/18 0000 Signed Impressions: Service Date/Time: Saturday, February 17, 2018 22:44 - CONCLUSION: Unremarkable examination of the right ankle. Raphael Stoner MD Objective Remarks GENERAL: Alert, oriented 3, NAD. SKIN: Warm and dry. CARDIOVASCULAR: Regular rate and rhythm without murmurs, gallops, or rubs. RESPIRATORY: Breath sounds equal bilaterally. No accessory muscle use. GASTROINTESTINAL: Abdomen soft, non-tender, nondistended. MUSCULOSKELETAL: No cyanosis, or edema. Right foot wrapped in dressing BACK: Nontender without obvious deformity. No CVA tenderness. Procedures 02/20/2018 1. Aortogram with bilateral lower extremity angiogram. 2. Left external iliac artery angioplasty with 8 mm balloon. 3. Left common femoral artery Angio-Seal. 02/18/2018 Incision and drainage debridement fasciotomy extensor tendon sheath exploration with bone biopsy right foot, incision bone cortex 02/25/2018 1. R ilioprofunda bypass w/ 8mm Dacron 2. R GIS PHYSICAL SCIENTIST-SFA bypass with 8mm Dacron 3. R EIA FIELD OPERATIONS MANAGER/stent (8x40) 4. R SFA FIELD OPERATIONS MANAGER (5x200) A/P Problem List: (1) Peripheral vascular disease with claudication ICD Code: I73.9 - Peripheral vascular disease, unspecified (2) Diabetic infection of right foot ICD Code: E11.628 - Type 2 diabetes mellitus with other skin complications; L08.9 - Local infection of the skin and subcutaneous tissue, unspecified Status: Acute Assessment and Plan 42-year-old white male being admitted for sepsis secondary to infected diabetic foot ulcer as well as possible osteomyelitis Sepsis secondary to infected diabetic foot ulcer and abscess. Diabetic foot infection with first metatarsal and sesamoid osteomyelitis Persistent leukocytosis. Improving repeat chest x-ray without acute findings Blood cultures negative so far. Wound culture is growing group B strep, but for Aspergillus and anaerobic gram-positive cocci. Infectious disease following. Continue Unasyn incision and drainage with wound VAC placement 02/22/2018. Wound VAC has been discontinued status post Percocet, morphine for pain. Peripheral arterial disease Vascular surgery following. Patient underwent aortogram and left external iliac artery angioplasty. Right sided ilioprofunda bypass, GIS PHYSICAL SCIENTIST-SFA bypass Continue aspirin 81 mg daily, Lipitor 40mg QHS. Status post Provena dressing with wound VAC Diabetes Mellitus II, hemoglobin A1C 9.8, Hypertension Hyperlipidemia Blood glucose better controlled. Currently on sliding scale insulin, Levemir 15 units QHS and titrate up, pre- meal insulin. Restart metformin patient was noncompliant prior to admission. Diabetic education. He does not want to use insulin when he is discharged from the hospital for Continue amlodipine 10 mg daily, atorvastatin 40 mg nightly. Full code. Heparin for DVT prophylaxis. Continue physical therapy He is stable for discharge Froilan Dong MD Mar 04, 2018 12:33
--- NOTE | 2018-03-04 14:22 | HHI.DS ---
Discharge Summary Admission Date Feb 17, 2018 at 14:00 Discharge Date: Mar 04, 2018 Admitting Diagnosis DIABETIC FOOT ULCER, UNCONTROLLED DIABETES. (1) Peripheral vascular disease with claudication ICD Code: I73.9 - Peripheral vascular disease, unspecified Diagnosis: Principal (2) Diabetic infection of right foot ICD Code: E11.628 - Type 2 diabetes mellitus with other skin complications; L08.9 - Local infection of the skin and subcutaneous tissue, unspecified Diagnosis: Principal Status: Acute Procedures 02/20/2018 1. Aortogram with bilateral lower extremity angiogram. 2. Left external iliac artery angioplasty with 8 mm balloon. 3. Left common femoral artery Angio-Seal. 02/18/2018 Incision and drainage debridement fasciotomy extensor tendon sheath exploration with bone biopsy right foot, incision bone cortex 02/25/2018 1. R ilioprofunda bypass w/ 8mm Dacron 2. R FOLDING RULES PRINTING MACHINE OPERATOR-SFA bypass with 8mm Dacron 3. R EIA SLURRY CONTROL OPERATOR HELPER/stent (8x40) 4. R SFA SLURRY CONTROL OPERATOR HELPER (5x200) Brief History - From Admission 42-year-old white male being admitted for sepsis secondary to infected diabetic foot ulcer with possible osteomyelitis Patient was in his usual state of health until about a week or 2 ago when he began having some right foot pain. He came to the emergency room about 3 days ago and was given Bactrim to take twice a day for presumed infected diabetic foot ulcer. However patient states that his foot pain actually worsened and he noted a bullous-like lesion arises within the next few days I was very painful. This particular morning he also developed new onset calf pain that would hurt when he would walk around. Does admit to very mild foot edema but denies any calf edema. Denies stepping on a nail or any puncturing injury. He does report nausea but no vomiting. Denies any fevers or chills. In the emergency room the patient was noted to have temperature of 100.4 with a heart rate greater than 90. Patient states that he has been out of his metformin since last September due to financial issues. CBC/BMP: 03/02/18 0432 03/02/18 0432 Significant Findings Laboratory Tests Test 03/02/18 04:32 White Blood Count 15.6 TH/MM3 (4.0-11.0) Red Blood Count 3.97 MIL/MM3 (4.50-5.90) Hemoglobin 11.9 GM/DL (13.0-17.0) Hematocrit 34.7 % (39.0-51.0) Platelet Count 578 TH/MM3 (150-450) Neutrophils (%) (Auto) 70.5 % (16.0-70.0) Monocytes (%) (Auto) 9.7 % (0.0-8.0) Neutrophils # (Auto) 11.0 TH/MM3 (1.8-7.7) Monocytes # (Auto) 1.5 TH/MM3 (0-0.9) Creatinine 0.58 MG/DL (0.60-1.30) Random Glucose 226 MG/DL (74-106) Imaging Last Impressions Chest X-Ray 03/02/18 0000 Signed Impressions: Service Date/Time: Friday, March 02, 2018 11:34 - CONCLUSION: No acute disease. Ken Klein MD FACR Lower Extremity Ultrasound 02/19/18 0000 Signed Impressions: Service Date/Time: Monday, February 19, 2018 08:00 - CONCLUSION: 1. No DVT identified. Marlo Klein MD Foot X-Ray 02/17/18 0000 Signed Impressions: Service Date/Time: Saturday, February 17, 2018 22:44 - CONCLUSION: Medial soft tissue swelling and soft tissue air. No specific findings of osteomyelitis Raphael Stoner MD Foot MRI 02/17/18 0000 Signed Impressions: Service Date/Time: Saturday, February 17, 2018 18:22 - CONCLUSION: There is a plantar subcutaneous abscess and edema identified at the plantar aspect of the first metatarsal, and there is abnormal bone marrow signal intensity within the sesamoid bones of the first digit, and first proximal phalanx concerning for abscess formation and osteomyelitis. Micah Lowery MD Ankle X-Ray 02/17/18 0000 Signed Impressions: Service Date/Time: Saturday, February 17, 2018 22:44 - CONCLUSION: Unremarkable examination of the right ankle. Raphael Stoner MD PE at Discharge GENERAL: Alert, oriented 3, NAD. SKIN: Warm and dry. CARDIOVASCULAR: Regular rate and rhythm without murmurs, gallops, or rubs. RESPIRATORY: Breath sounds equal bilaterally. No accessory muscle use. GASTROINTESTINAL: Abdomen soft, non-tender, nondistended. MUSCULOSKELETAL: No cyanosis, or edema. Right foot wrapped in dressing BACK: Nontender without obvious deformity. No CVA tenderness. Hospital Course 42-year-old white male being admitted for sepsis secondary to infected diabetic foot ulcer as well as possible osteomyelitis Sepsis secondary to infected diabetic foot ulcer and abscess. Diabetic foot infection with first metatarsal and sesamoid osteomyelitis Persistent leukocytosis. Improving repeat chest x-ray without acute findings Blood cultures negative so far. Wound culture is growing group B strep, but for Aspergillus and anaerobic gram-positive cocci. Infectious disease following. Continue Unasyn incision and drainage with wound VAC placement 02/22/2018. Wound VAC has been discontinued status post Percocet, morphine for pain. Peripheral arterial disease Vascular surgery following. Patient underwent aortogram and left external iliac artery angioplasty. Right sided ilioprofunda bypass, FOLDING RULES PRINTING MACHINE OPERATOR-SFA bypass Continue aspirin 81 mg daily, Lipitor 40mg QHS. Status post Provena dressing with wound VAC Diabetes Mellitus II, hemoglobin A1C 9.8, Hypertension Hyperlipidemia Blood glucose better controlled. Currently on sliding scale insulin, Levemir 15 units QHS and titrate up, pre- meal insulin. Restart metformin patient was noncompliant prior to admission. Diabetic education. He does not want to use insulin when he is discharged from the hospital for Continue amlodipine 10 mg daily, atorvastatin 40 mg nightly. Full code. Heparin for DVT prophylaxis. Continue physical therapy He is stable for discharge Pt Condition on Discharge: Stable Discharge Disposition: Disch w/ Home Health Serv Discharge Time: > 30 minutes Discharge Instructions DIET: Follow Instructions for: Heart Healthy Diet, Diabetic Diet Activities you can perform: Regular-No Restrictions Activities to Avoid: Driving Follow up Referrals: PCP Follow-up - [address] Lopez Podiatry - 1 Week @ [facility] with Oz Delarosa DPM Vascular Surgery - 3 Weeks @ Vascular Surgery with Zulma Ledezma New Medications: Bedside Commode (Bedside Commode) 1 Mis Mis EA .XX DIRECTED, #1 Walker with Front Wheels (Walker with Front Wheels) 1 Mis Mis EA .XX DIRECTED, #1 0 Refills Amlodipine (Norvasc) 10 Mg Tab 10 MG PO DAILY for Blood Pressure Management, #[address] (Aspirin DR) 81 Mg Tabdr 81 MG PO DAILY for Prevent Blood Clot, #30 TAB Atorvastatin (Atorvastatin) 40 Mg Tab 40 MG PO HS for Cholesterol Management, #30 TAB Gabapentin (Neurontin) 300 Mg Cap 300 MG PO TID for Pain Management, #90 CAP Hydromorphone (Dilaudid) 2 Mg Tab 2 MG PO Q6H PRN for PAIN SCALE 6 TO 10, #28 TAB Continued Medications: Metformin (Metformin) 500 Mg Tab 500 MG PO BIDPC for Blood Sugar Management, #60 TAB 0 Refills With meals Froilan Dong MD Mar 04, 2018 14:22
[2018-03-04 16:00] VITALS: BP 113/77; PULSE 57; RESP 19; TEMP 98.1; O2SAT 99
--- NOTE | 2018-03-04 17:52 | HHI.IDPN ---
Subjective Subjective Remarks s/p revasc, R foot debridement no fever Antibiotics unasyn Allergies: Coded Allergies: No Known Allergies (Verified Adverse Reaction, Unknown, 02/17/18) Objective . Vital Signs Date Time Temp Pulse Resp B/P (MAP) Pulse Ox O2 Delivery O2 Flow Rate FiO2 03/04/18 12:00 98.0 64 19 116/65 (82) 98 03/04/18 08:00 98.1 61 19 131/63 (85) 95 03/04/18 00:00 98.9 62 17 121/57 (78) 95 03/03/18 20:00 98.7 64 17 116/59 (78) 97 03/04/18 03/04/18 03/05/18 15:00 23:00 07:00 Intake Total 120 ml Balance 120 ml Intake Oral 120 ml Imaging Last Impressions Chest X-Ray 03/02/18 0000 Signed Impressions: Service Date/Time: Friday, March 02, 2018 11:34 - CONCLUSION: No acute disease. Ken Klein MD FACR Lower Extremity Ultrasound 02/19/18 0000 Signed Impressions: Service Date/Time: Monday, February 19, 2018 08:00 - CONCLUSION: 1. No DVT identified. Marlo Klein MD Foot X-Ray 02/17/18 0000 Signed Impressions: Service Date/Time: Saturday, February 17, 2018 22:44 - CONCLUSION: Medial soft tissue swelling and soft tissue air. No specific findings of osteomyelitis Raphael Stoner MD Foot MRI 02/17/18 0000 Signed Impressions: Service Date/Time: Saturday, February 17, 2018 18:22 - CONCLUSION: There is a plantar subcutaneous abscess and edema identified at the plantar aspect of the first metatarsal, and there is abnormal bone marrow signal intensity within the sesamoid bones of the first digit, and first proximal phalanx concerning for abscess formation and osteomyelitis. Micah Lowery MD Ankle X-Ray 02/17/18 0000 Signed Impressions: Service Date/Time: Saturday, February 17, 2018 22:44 - CONCLUSION: Unremarkable examination of the right ankle. Raphael Stoner MD Physical Exam CONSTITUTIONAL/GENERAL: This is an adequately nourished patient, in no apparent distress. TUBES/LINES/DRAINS: SKIN: No jaundice, rashes, or lesions. MUSCULOSKELETAL: Extremities without clubbing, cyanosis, or edema. + prominent loss of skin appendages large plantar wound with 50% yang necrotic tissue, 50% granulation + exposed tendons heavy odorless serosang drainage No ascending lymphangitis or cellulitis noted NEUROLOGICAL: Awake and alert. Motor and sensory grossly within normal limits. Follows commands. Cognitively sharp. Moves all extremities. PSYCHIATRIC: No obvious anxiety/depression. no apparent hallucinations or other psychotic thought process. Assessment & Plan Remarks Diabetic foot infection, R foot 1sh prox phalanx with osteomyelitis and abscess - Group B strep and anaerobs s/p I+D PVD with critical ischemia, angiogram confirmed severe PVD Leukopccytosis, btter low grade fever - post op?- resolved will cont Unasyn in house as o/p will use flagyl + IV CFTX 2 gm OPAT forms filled out PICC line dw Susu Rodriguez MD Mar 04, 2018 17:52
[2018-03-04] MEDS ORDERED: METR-1 PO (17:57)
[2018-03-04] MEDS ORDERED: CEFT2INJ IM (17:57)
[2018-03-04] MEDS ORDERED: EPIN1INJ21 IV PUSH (17:57)
[2018-03-04] MEDS ORDERED: EPIN1INJ21 SQ (17:57)
[2018-03-04] MEDS ORDERED: SOLU250I IV PUSH (17:57)
[2018-03-04 20:00] VITALS: BP 135/65; PULSE 59; RESP 18; TEMP 99; O2SAT 97
[2018-03-04] MEDS: ATORVASTATIN 40 MG TAB PO SCH (21:19)
[2018-03-04] MEDS: INSULIN DETEMIR 100 UNITS/ML VIAL SQ SCH (22:27)
[2018-03-05] VITALS: BP 137/70; PULSE 62; RESP 18; TEMP 97.8; O2SAT 96
[2018-03-05] MEDS: MORPHINE SULFATE 2 MG/ML SYRINGE IV PUSH PRN ×3 (00:42→20:33)
[2018-03-05] MEDS: AMPICILLIN-SULBACTAM INJ 3 GM in SODIUM CHLORIDE 0.9% INJ 100 ML IV SCH ×5 (04:18→20:33)
[2018-03-05] MEDS: HYDROmorphone HCL 2 MG TAB PO PRN ×4 (04:18→17:23)
[2018-03-05] MEDS: HEPARIN SODIUM - SQ 10,000 UNITS/ML VIAL SQ SCH ×3 (04:19→20:33)
--- NOTE | 2018-03-05 07:53 | PD.POD ---
Subjective Podiatric Problems Right foot, Status post Right foot Incision and drainage with debridement and fasciotomy with extensor tendon sheath exploration and bone biopsy right foot by Oz Delarosa 02/18/18 Pain score: 6 Past Med/Surg/Social History Past Medical History PFSH Reviewed: Yes Endocrine: REPORTS HX OF: Diabetes mellitus, DENIES HX OF: Hyperthyroidism, Hypothyroidism Cardiovascular: REPORTS HX OF: Hypertension, DENIES HX OF: Myocardial infarction Genitourinary: DENIES HX OF: Kidney failure Psychiatric: DENIES HX OF: Anxiety Past Surgical History Musculoskeletal: DENIES HX OF: Other musculoskeletal srg Integumentary: REPORTS HX OF: Other integumentary surg (i and d x2) Social History Smoking Status: Former Smoker Objective Vital Signs Vital Signs Date Time Temp Pulse Resp B/P (MAP) Pulse Ox O2 Delivery O2 Flow Rate FiO2 03/05/18 00:00 97.8 62 18 137/70 (92) 96 03/04/18 20:00 99.0 59 18 135/65 (88) 97 03/04/18 16:00 98.1 57 19 113/77 (89) 99 03/04/18 12:00 98.0 64 19 116/65 (82) 98 03/04/18 08:00 98.1 61 19 131/63 (85) 95 Coded Allergies: No Known Allergies (Verified Adverse Reaction, Unknown, 02/17/18) Physical Exam Remarks Wound vac not on right plantar foot at this time, but in room. Plantar ulceration medial foot sub 1st metatarsal area with some necrotic tissue to wound edges and some granulation tissue present in wound bed with tendon exposed along central wound area. Wound measurements approximately 8 cm x 3.5cm x 0.5cm depth with exposed tendon, but no exposed bone noted. Minimal lisseth-wound erythema, No purulence noted. Assessment & Plan A/P Right foot, Status post Right foot Incision and drainage with debridement and fasciotomy with extensor tendon sheath exploration and bone biopsy right foot by Oz Delarosa 02/18/18 Apparently there is some improvement noted in edema and erythema to right foot, however there remains some demarcated tissue in need of debridement. Discussed with patient that if wound is able to be adequately debrided bedside this afternoon, I have no issue with d/c home on wound vac. Will need wound vac due to no evidence of granulation over tendon at this time, and eventual graft in order to achieve limb salvage. This patient must have wound care follow up here at wound care center in order to attempt wound salvage and prevent re-admission due to infection. Patient is uninsured. Please follow through with arrangement for wound care center follow up PRIOR to discharge. Jag Jang DPM Mar 05, 2018 07:53
[2018-03-05] MEDS: metFORMIN HCL 500 MG TAB PO SCH ×2 (07:54→17:23)
[2018-03-05] MEDS: FAMOTIDINE 20 MG TAB PO SCH ×2 (07:54→20:33)
[2018-03-05] MEDS: ASPIRIN EC 81 MG TABEC PO SCH (07:54)
[2018-03-05] MEDS: GABAPENTIN 300 MG CAP PO SCH ×3 (07:54→17:23)
[2018-03-05] MEDS: INSULIN ASPART 1,000 UNITS/10 ML VIAL SQ SCH ×3 (07:57→17:23)
[2018-03-05] MEDS: INSULIN ASPART SUPPLEMENTAL SCALE SQ SCH ×4 (07:57→22:23)
[2018-03-05 08:00] VITALS: BP 143/75; PULSE 54; RESP 19; TEMP 97.9; O2SAT 98
[2018-03-05] MEDS ORDERED: SODIUM CHLORIDE 0.9% FLUSH 10 ML FLUSH IV FLUSH PRN (09:00)
[2018-03-05] MEDS: SODIUM CHLORIDE 0.9% FLUSH 10 ML FLUSH IV FLUSH SCH (09:00)
[2018-03-05 12:00] VITALS: BP 142/68; PULSE 58; RESP 19; TEMP 98.8; O2SAT 96
--- NOTE | 2018-03-05 12:35 | HHI.PR ---
Subjective Remarks Follow-up diabetic foot infection. Patient for debridement today by podiatry then possible discharge. Discussed with nursing and case management Objective Vitals Vital Signs Date Time Temp Pulse Resp B/P (MAP) Pulse Ox O2 Delivery O2 Flow Rate FiO2 03/05/18 00:00 97.8 62 18 137/70 (92) 96 03/04/18 20:00 99.0 59 18 135/65 (88) 97 03/04/18 16:00 98.1 57 19 113/77 (89) 99 I/O 03/04/18 03/04/18 03/04/18 03/05/18 03/05/18 03/05/18 07:00 15:00 23:00 07:00 15:00 23:00 Intake Total 240 ml 120 ml 1000 ml Output Total 900 ml 400 ml Balance 240 ml 120 ml 100 ml -400 ml Intake Oral 240 ml 120 ml 1000 ml Output Urine Total 900 ml 400 ml # Voids 2 # Bowel Movements 0 1 Result Diagram: 03/02/18 0432 03/02/18 0432 Imaging Last Impressions Chest X-Ray 03/02/18 0000 Signed Impressions: Service Date/Time: Friday, March 02, 2018 11:34 - CONCLUSION: No acute disease. Ken Klein MD FACR Lower Extremity Ultrasound 02/19/18 0000 Signed Impressions: Service Date/Time: Monday, February 19, 2018 08:00 - CONCLUSION: 1. No DVT identified. Marlo Klein MD Foot X-Ray 02/17/18 0000 Signed Impressions: Service Date/Time: Saturday, February 17, 2018 22:44 - CONCLUSION: Medial soft tissue swelling and soft tissue air. No specific findings of osteomyelitis Raphael Stoner MD Foot MRI 02/17/18 0000 Signed Impressions: Service Date/Time: Saturday, February 17, 2018 18:22 - CONCLUSION: There is a plantar subcutaneous abscess and edema identified at the plantar aspect of the first metatarsal, and there is abnormal bone marrow signal intensity within the sesamoid bones of the first digit, and first proximal phalanx concerning for abscess formation and osteomyelitis. Micah Lowery MD Ankle X-Ray 02/17/18 0000 Signed Impressions: Service Date/Time: Saturday, February 17, 2018 22:44 - CONCLUSION: Unremarkable examination of the right ankle. Raphael Stoner MD Objective Remarks GENERAL: Alert, oriented 3, NAD. SKIN: Warm and dry. CARDIOVASCULAR: Regular rate and rhythm without murmurs, gallops, or rubs. RESPIRATORY: Breath sounds equal bilaterally. No accessory muscle use. GASTROINTESTINAL: Abdomen soft, non-tender, nondistended. MUSCULOSKELETAL: No cyanosis, or edema. Right foot wrapped in dressing BACK: Nontender without obvious deformity. No CVA tenderness. Procedures 02/20/2018 1. Aortogram with bilateral lower extremity angiogram. 2. Left external iliac artery angioplasty with 8 mm balloon. 3. Left common femoral artery Angio-Seal. 02/18/2018 Incision and drainage debridement fasciotomy extensor tendon sheath exploration with bone biopsy right foot, incision bone cortex 02/25/2018 1. R ilioprofunda bypass w/ 8mm Dacron 2. R AUTOMATIC CORN GRINDER OPERATOR-SFA bypass with 8mm Dacron 3. R EIA ASH CONVEYOR OPERATOR/stent (8x40) 4. R SFA ASH CONVEYOR OPERATOR (5x200) PICC A/P Problem List: (1) Peripheral vascular disease with claudication ICD Code: I73.9 - Peripheral vascular disease, unspecified (2) Diabetic infection of right foot ICD Code: E11.628 - Type 2 diabetes mellitus with other skin complications; L08.9 - Local infection of the skin and subcutaneous tissue, unspecified Status: Acute Assessment and Plan 42-year-old white male being admitted for sepsis secondary to infected diabetic foot ulcer as well as possible osteomyelitis Sepsis secondary to infected diabetic foot ulcer and abscess. Diabetic foot infection with first metatarsal and sesamoid osteomyelitis Persistent leukocytosis. Improving repeat chest x-ray without acute findings Blood cultures negative so far. Wound culture is growing group B strep, but for Aspergillus and anaerobic gram-positive cocci. Infectious disease following. Continue Unasyn plan to switch to Flagyl and IV Rocephin after discharge. incision and drainage with wound VAC placement 02/22/2018. For debridement later today Percocet, morphine for pain. Counseled regarding narcotics Peripheral arterial disease Vascular surgery following. Patient underwent aortogram and left external iliac artery angioplasty. Right sided ilioprofunda bypass, AUTOMATIC CORN GRINDER OPERATOR-SFA bypass Continue aspirin 81 mg daily, Lipitor 40mg QHS. Status post Provena dressing with wound VAC Diabetes Mellitus II, hemoglobin A1C 9.8, Hypertension Hyperlipidemia Blood glucose better controlled. Currently on sliding scale insulin, Levemir 15 units QHS and titrate up, pre- meal insulin. Restart metformin patient was noncompliant prior to admission. Diabetic education. He does not want to use insulin when he is discharged from the hospital Continue amlodipine 10 mg daily, atorvastatin 40 mg nightly. Full code. Heparin for DVT prophylaxis. Continue physical therapy He is stable for discharge when cleared by podiatry Froilan Dong MD Mar 05, 2018 12:35
--- NOTE | 2018-03-05 14:02 | HHI.FF ---
Infusion Therapy Location of Infusion Therapy: Home Health Care IV Infusion Order Patient Information Patient Weight 91.2 kg Diagnosis: Coded Allergies: No Known Allergies (Verified Adverse Reaction, Unknown, 02/17/18) Administer Medication Ceftriaxone 2 grams IV q 24 hours Start Treatment: Mar 05, 2018 Stop Treatment: April 15, 2018 Additional Information Venous access: PICC Line Additional Instructions [x] Peripheral flush and dressing changes per protocol [x] Implanted port and central online advertising analyst: * Implanted port: 10 ml Normal Saline followed by 5 ml Heparin 100 units/ml Heparin flush after each use and monthly to maintain. [] May leave port accessed during therapy. [] May leave peripheral site accessed for duration of therapy. [x] If patient has SOB or respiratory distress, check oxygen saturation. If less than 90% or clinical signs of respiratory distress, administer oxygen at 2 L/min. via nasal cannula and notify physician. [x] Anaphylaxis/Reaction orders: * Stop infusion. * Keep IV line open with saline flush. * Notify physician. * Monitor vital signs every 15 minutes until symptoms resolve. * Check Oxygen saturation; Oxygen at 2 L/min. via nasal cannula if less than 90% or clinical signs of respiratory distress. * Administer diphenhydramine (Benadryl) 25 mg IV STAT, (unless patient has received as pre-med). May repeat once, if necessary. * Solu-Cortef 250 mg IVP over 30-60 seconds, use 100 mg vials for each dissolution. * Epinephrine (1mg/1 ml) 0.3 mg subcutaneously or IVP now with any signs of respiratory distress. * Check with physician for new additional pre-med orders if patient is re- challenged or re-treated. [x] May remove PICC line when treatment complete, after confirming with Physician. [x] If the patient is admitted to the hospital, the ED, or transferred via [facility] , complete transfer form including medication reconciliation order sheet. Laboratory Tests Weekly Labs: CBC w/diff, Creatinine, LFT's (Hepatic function test) Susu Simmons MD Mar 05, 2018 14:02
--- NOTE | 2018-03-05 14:52 | PD.WCN.NOT ---
Wound Consult Description: Patient seen with Doctor Valencia for wound care physician consult for R medial plantar foot Communicated with: JAMAR Moe and Doctor Valencia Recommendation: Please follow current orders in place until seen Doctor Jang for debridement Additional Information: Patient seen with Doctor Valencia for wound physician consult placed by Doctor Jang. Removed dressing in place to reveal ~40% exposed tendon, 40% red non granulation tissue, and ~20% black eschar at edges. Wound VAC was removed by Doctor Carlton on and not reapplied by wound care due to the presence of slough/eschar being a contraindication for VAC therapy. Wound was also less than 1 cm deep. two intact sutures noted at 12 o'clock and 1 intact suture noted at 6 o'clock with surround black tissue. Wound was cleansed with normal saline only. Applied Santyl ointment just to wound bed and then covered exposed tendon with oil emulsion gauze. Covered wound with dry 4x4 gauze pads and ABD pad secured dressing with rolled gauze and tape. 4x4 gauze weaved between toes to keep them from rubbing. Doctor Valencia assessed wound. No debridement was done at this time. Nichelle Coto [facility] Mar 05, 2018 14:52
--- NOTE | 2018-03-05 15:55 | PD.POD ---
Subjective Podiatric Problems Right foot, Status post Right foot Incision and drainage with debridement and fasciotomy with extensor tendon sheath exploration and bone biopsy right foot by Oz Delarosa 02/18/18 Pain score: 6 Past Med/Surg/Social History Past Medical History PFSH Reviewed: Yes Endocrine: REPORTS HX OF: Diabetes mellitus, DENIES HX OF: Hyperthyroidism, Hypothyroidism Cardiovascular: REPORTS HX OF: Hypertension, DENIES HX OF: Myocardial infarction Genitourinary: DENIES HX OF: Kidney failure Psychiatric: DENIES HX OF: Anxiety Past Surgical History Musculoskeletal: DENIES HX OF: Other musculoskeletal srg Integumentary: REPORTS HX OF: Other integumentary surg (i and d x2) Social History Smoking Status: Former Smoker Objective Vital Signs Vital Signs Date Time Temp Pulse Resp B/P (MAP) Pulse Ox O2 Delivery O2 Flow Rate FiO2 03/05/18 12:00 98.8 58 19 142/68 (92) 96 03/05/18 08:00 97.9 54 19 143/75 (97) 98 03/05/18 00:00 97.8 62 18 137/70 (92) 96 03/04/18 20:00 99.0 59 18 135/65 (88) 97 03/04/18 16:00 98.1 57 19 113/77 (89) 99 Coded Allergies: No Known Allergies (Verified Adverse Reaction, Unknown, 02/17/18) Exam-Podiatry Remarks right foot plantar wound as described in note earlier this morning. Assessment & Plan A/P Right foot, Status post Right foot Incision and drainage with debridement and fasciotomy with extensor tendon sheath exploration and bone biopsy right foot by Oz Delarosa 02/18/18 Excisional debridement performed of residual plantar right foot ulceration with #15 blade of fibrotic and necrotic tissue down to but not including level of bone and bleeding muscle tissue. Repeat MRI ordered to compare due to obvious exposed bone and dusky brown appearance of plantar 1st metatarsal head area. Dressing reapplied. No wound vac applied at this time. Will review MRI results and patient may have further surgery based on these results. I discussed the lengthy time period for this wound to heal and nonweightbearing all throughout healing and patient was quite upset hearing this news. This patient must have wound care follow up here at wound care center in order to attempt wound salvage and prevent re-admission due to infection. Patient is uninsured. Please follow through with arrangement for wound care center follow up Jag Jagn DPM Mar 05, 2018 15:55
[2018-03-05 16:00] VITALS: BP 154/74; PULSE 61; RESP 19; TEMP 97.7; O2SAT 99
[2018-03-05] MEDS ORDERED: GADODIAMIDE PF 287 MG/ML 20 ML VIAL (for RAD MRI) IVCONTRAST ONE (19:32)
--- NOTE | 2018-03-05 19:51 | RADRPT ---
EXAM DATE/TIME: 03/05/2018 18:50 [facility] COMPARISON: MRI FOOT RIGHT W & W/O CONTRAST, February 17, 2018, 18:22. INDICATIONS : Osteomyelitis. Pain by the great toe, planter surface by MTPJ with an open wound. CONTRAST: 18 cc Omniscan (gadodiamide) IV MEDICAL HISTORY : Hypertension. Diabetes mellitus type 2. SURGICAL HISTORY : Debridement of right foot. ENCOUNTER: Subsequent ACUITY: 3 weeks PAIN SCORE: 0/10 LOCATION: Right foot. TECHNIQUE: Multiplanar, multisequence MRI examination was performed without contrast and after the intravenous a dministration of gadolinium. FINDINGS: There is high T2 signal within the distal first metatarsal and base of the proximal phalanx. The re is ulceration of the skin adjacent to the first metatarsal head. Cellulitic changes are seen. Ther e is enhancement of the adjacent soft tissues. CONCLUSION: 1. Osteomyelitis of the distal first metatarsal and base of the proximal phalanx great toe with ulcer ation of the adjacent plantar surface. Long Guillen MD on March 05, 2018 at 19:42 Board Certified Radiologist. This report was verified electronically.
[2018-03-05 20:00] VITALS: BP 158/78; PULSE 58; RESP 16; TEMP 98; O2SAT 97
[2018-03-05] MEDS: ATORVASTATIN 40 MG TAB PO SCH (20:33)
[2018-03-05] MEDS: INSULIN DETEMIR 100 UNITS/ML VIAL SQ SCH (22:23)
[2018-03-06] VITALS: BP 129/72; PULSE 57; RESP 16; TEMP 98.5; O2SAT 96
[2018-03-06] MEDS: HYDROmorphone HCL 2 MG TAB PO PRN ×3 (01:35→21:21)
[2018-03-06] MEDS ORDERED: LACTATED RINGER'S 1000 ML IV PRN (01:45)
[2018-03-06] MEDS: HEPARIN SODIUM - SQ 10,000 UNITS/ML VIAL SQ SCH ×3 (03:50→19:57)
[2018-03-06] MEDS: AMPICILLIN-SULBACTAM INJ 3 GM in SODIUM CHLORIDE 0.9% INJ 100 ML IV SCH ×4 (03:50→19:52)
[2018-03-06 08:00] VITALS: BP 141/77; PULSE 59; RESP 17; TEMP 97.3; O2SAT 96
[2018-03-06 12:00] VITALS: BP 132/69; PULSE 57; RESP 17; TEMP 98.2; O2SAT 96
[2018-03-06] MEDS ORDERED: LIDOCAINE HCL 1% PF 5 ML SYRINGE OTHER ONE (12:00)
[2018-03-06] MEDS: INSULIN ASPART SUPPLEMENTAL SCALE SQ SCH ×4 (12:00→19:57)
[2018-03-06] MEDS ORDERED: PROPOFOL 200 MG/20 ML AMP IV ONE (12:00)
[2018-03-06] MEDS: INSULIN ASPART 1,000 UNITS/10 ML VIAL SQ SCH ×3 (12:00→17:00)
--- NOTE | 2018-03-06 12:08 | HHI.PR ---
Subjective Remarks MRI reveals osteomyelitis. Patient is going to surgery today for further amputation of foot. Patient's primary complaint is pain. No other complaints. Objective Vital Signs Date Time Temp Pulse Resp B/P (MAP) Pulse Ox O2 Delivery O2 Flow Rate FiO2 03/06/18 08:00 97.3 59 17 141/77 (98) 96 03/06/18 00:00 98.5 57 16 129/72 (91) 96 03/05/18 20:00 98.0 58 16 158/78 (104) 97 03/05/18 16:00 97.7 61 19 154/74 (100) 99 I/O 03/05/18 03/05/18 03/05/18 03/06/18 03/06/18 03/06/18 07:00 15:00 23:00 07:00 15:00 23:00 Intake Total 240 ml 950 ml 100 ml Output Total 400 ml 900 ml 300 ml Balance -400 ml 240 ml 50 ml -200 ml Intake Oral 240 ml 850 ml IV Total 100 ml 100 ml Output Urine Total 400 ml 900 ml 300 ml # Bowel Movements 1 Result Diagram: 03/02/18 0432 03/02/18 0432 Procedures Status post Right foot Incision and drainage debridement fasciotomy extensor tendon sheath exploration with bone biopsy right foot, incision bone cortex as per Doctor Oz Davis 02/18/18 Angiography performed, Found High grade L EIA stenosis, 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 scheduled for tomorrow for Right groin reconstruction and SFA recanalization 03/06 Objective Remarks GENERAL: NAD, A&Ox3 HEAD: Normocephalic. NECK: Supple, trachea midline. No lymphadenopathy. EYES: No scleral icterus. No injection or drainage. CARDIOVASCULAR: Regular rate and rhythm without murmurs, gallops, or rubs. RESPIRATORY: Breath sounds equal bilaterally. No accessory muscle use. GASTROINTESTINAL: Abdomen soft, non-tender, nondistended. MUSCULOSKELETAL: No cyanosis, or edema. SKIN: Warm and dry. NEURO: No focal neurological deficitis. A/P Problem List: (1) Osteomyelitis ICD Code: M86.9 - Osteomyelitis, unspecified (2) Diabetic infection of right foot ICD Code: E11.628 - Type 2 diabetes mellitus with other skin complications; L08.9 - Local infection of the skin and subcutaneous tissue, unspecified Status: Acute (3) DFI Assessment and Plan 42-year-old white male being admitted for sepsis secondary to infected diabetic foot ulcer. Finding of osteomyelitis on MRI. Osteomyelitis Sepsis secondary to infected diabetic foot ulcer and abscess. Diabetic foot infection with first metatarsal and sesamoid osteomyelitis Continue antibiotics Continue to monitor blood cultures Continue pain treatments Amputation surgery today Podiatry following Continue wound VAC postop Continue physical therapy Peripheral arterial disease Status post left external iliac artery angioplasty. Status post right sided ilioprofunda bypass, MANUFACTURING STOREPERSON-SFA bypass Vascular surgery following. Continue aspirin 81 mg daily, Lipitor 40mg QHS. Status post Provena dressing with wound VAC Diabetes mellitus type 2 Follow blood sugars Insulin sliding scale Diabetic diet Latest hemoglobin is A1C 9.8 Continue Levemir Hypertension Continue baseline treatment Follow blood pressures Adjust treatments as needed Continue amlodipine Hyperlipidemia Continue present treatment Follow as an outpatient Continue atorvastatin DVT prophylaxis Heparin Discharge planning Amputation today, postop care and stability needed before consideration for discharge Marlo Umaña MD Mar 06, 2018 12:07
[2018-03-06] MEDS: SODIUM CHLORIDE 0.9% FLUSH 10 ML FLUSH IV FLUSH SCH (12:26)
[2018-03-06] MEDS: GABAPENTIN 300 MG CAP PO SCH ×3 (12:27→18:00)
[2018-03-06] MEDS: metFORMIN HCL 500 MG TAB PO SCH ×2 (12:27→18:00)
[2018-03-06] MEDS: ASPIRIN EC 81 MG TABEC PO SCH (12:27)
[2018-03-06] MEDS: FAMOTIDINE 20 MG TAB PO SCH ×2 (12:30→19:52)
--- NOTE | 2018-03-06 13:57 | PD.WOU.CON ---
Patient Intake Chief Complaint Diabetic foot ulcer Consult Requested by Dr. Da Silva Primary Care Physician No Primary Care Physician Coded Allergies: No Known Allergies (Verified Adverse Reaction, Unknown, 02/17/18) Vital Signs Date Time Temp Pulse Resp B/P (MAP) Pulse Ox O2 Delivery O2 Flow Rate FiO2 03/06/18 12:00 98.2 57 17 132/69 (90) 96 03/06/18 08:00 97.3 59 17 141/77 (98) 96 03/06/18 00:00 98.5 57 16 129/72 (91) 96 03/05/18 20:00 98.0 58 16 158/78 (104) 97 03/05/18 16:00 97.7 61 19 154/74 (100) 99 Past, Family & Social History Past Medical History PFSH Reviewed: Yes Endocrine: REPORTS HX OF: Diabetes mellitus, DENIES HX OF: Hyperthyroidism, Hypothyroidism Cardiovascular: REPORTS HX OF: Hypertension, DENIES HX OF: Myocardial infarction Genitourinary: DENIES HX OF: Kidney failure Psychiatric: DENIES HX OF: Anxiety Past Surgical History Musculoskeletal: DENIES HX OF: Other musculoskeletal srg Integumentary: REPORTS HX OF: Other integumentary surg (i and d x2) Family Medical History Diabetes mellitus G8 FATHER G8 BROTHER Hypertension G8 FATHER G8 BROTHER Social History Social History: Educational Level: 3 y hs Marital Status: single Occupation: none Diet and Exercise Dietary Habits: Well-balanced Diet: About half the time Daily Servings Milk/Calcium: 0-1 Eating Out: Rarely or never Substance Use Substance Use: Denies use Lab and Radiology Results Radiology Last Impressions Foot MRI 03/05/18 0000 Signed Impressions: Service Date/Time: Monday, March 05, 2018 18:50 - CONCLUSION: 1. Osteomyelitis of the distal first metatarsal and base of the proximal phalanx great toe with ulceration of the adjacent plantar surface. Long Guillen MD Chest X-Ray 03/02/18 0000 Signed Impressions: Service Date/Time: Friday, March 02, 2018 11:34 - CONCLUSION: No acute disease. Ken Klein MD FACR Lower Extremity Ultrasound 02/19/18 0000 Signed Impressions: Service Date/Time: Monday, February 19, 2018 08:00 - CONCLUSION: 1. No DVT identified. Marlo Klein MD Foot X-Ray 02/17/18 0000 Signed Impressions: Service Date/Time: Saturday, February 17, 2018 22:44 - CONCLUSION: Medial soft tissue swelling and soft tissue air. No specific findings of osteomyelitis Raphael Stoner MD Ankle X-Ray 02/17/18 0000 Signed Impressions: Service Date/Time: Saturday, February 17, 2018 22:44 - CONCLUSION: Unremarkable examination of the right ankle. Raphael Stoner MD Assessment/Plan Problem List: (1) Diabetic infection of right foot Status: Acute Plan: X-rays and MRI reviewed, emergent incision and drainage planned for today. Reviewed with patient risks and benefits regarding surgery. The severity of the infection will likely require multiple debridements possibly leading to digit or partial foot amputation. The patient has a long-standing history of diabetes and smoking. ABIs reviewed, will need vascular surgery intervention likely to heal. Surgery will be performed here within the next 1- 2 hours and then recommend transferring to main hospital for vascular evaluation and likely repeat debridements of the next 3-4 days. I added clindamycin for anaerobic coverage reviewed case with medicine team. Consents signed, right foot incision and drainage debridement with possible bone biopsy. (2) Peripheral vascular disease with claudication Plan: ABIs reviewed, will likely need CTA with runoff however recommend vascular evaluation for possible arteriogram in combination with intervention once transferred to [facility] Vale Valencia MD Mar 06, 2018 13:57
[2018-03-06 16:00] VITALS: BP 145/72; PULSE 52; RESP 17; TEMP 98.1; O2SAT 98
[2018-03-06] MEDS ORDERED: LIDOCAINE HCL 2% 50 ML VIAL ONE (17:37)
[2018-03-06] MEDS ORDERED: DO NOT ADM ANY ANTICOAGULANT DRUGS PRN (18:35)
[2018-03-06] MEDS ORDERED: MIDAZOLAM HCL 2 MG/2 ML VIAL ONE (18:40)
--- NOTE | 2018-03-06 19:06 | HHI.PR ---
Immediate Post Op Note Procedure Date: Mar 06, 2018 Pre Op Diagnosis: Osteomyelitis right first metatarsal and hallux Post Op Diagnosis: same Surgeon: Jag Jang DPM Podiatrist Orthopedic(s): Staff Procedure: Right foot partial first ray amputation with bone biopsy and wound vac Findings: Consistent with diagnosis. Distal medial right foot with large plantar wound noted with exposed tendon. No dontae purulence noted. Mild peripheral necrotic tissue to wound. There is some healthy-appearing granular tissue present. Incision made encompassing hallux and disarticulated at 1st MTP joint, followed by resection of 1st metatarsal at level of proximal and middle 1/3 shaft area. Bone from residual 1st metatarsal sent as biopsy. Culture taken of right foot. All necrotic tissue and fibrotic tissue and tendon debrided from the area. Healthy wound base noted prior to partial closure. Irrigation with normal saline, followed by partial closure with 2-0 nylon suture distal 1/2 and proximal residual wound measured approximately 4cm x 3cm x 0.5cm depth with exposed plantar fascia present. Wound vac applied and set at 125mmHg medium continuous setting. Orders written for vac changes. Need to await bone biopsy to determine if all infected bone resected. Continue IV antibiotics. Nonweightbearing right foot. No further surgery planned. Will need wound vac at discharge and follow up at wound care center [place] for continued care. Placed case management consult regarding this. Additional Information: No tourniquet utilized. Complications: None Specimen(s) removed: 1. right partial 1st ray to pathology 2. bone residual 1st metatarsal for biopsy 3. culture right foot Estimated blood loss: 20mL Anesthesia: General Drains: None, Other (wound vac) IVF Patient to: PACU Patient Condition: Good Date/Time of Procedure: SEE SURGICAL CARE RECORD Jag aJng DPM Mar 06, 2018 19:06
--- NOTE | 2018-03-06 19:48 | MP ---
cc: Jag Jang KRISTINA DATE OF OPERATION: 03/06/2018 INDICATIONS: The patient presented to the emergency department with infection to the medial aspect of the right foot. He underwent excision of sesamoids with I and D and bone biopsy of the right foot with Dr. Delarosa. He has had the wound VAC on for several weeks and was examined yesterday and found to have some exposed bone to the plantar aspect of the first metatarsal head. A repeat MRI was ordered that showed findings consistent with osteomyelitis to the distal aspect of the first metatarsal as well as the proximal hallux. The bone did appear clinically in the wound to be brown in color. I discussed with the patient that there was a good chance that the bone was infected and needed to be removed. The patient consented to partial first ray amputation, right foot, with bone biopsy and wound VAC. He was seen in preop holding by myself, nursing staff, and anesthesia where the correct patient, side, and site were all confirmed to be correct and the right foot. DESCRIPTION OF PROCEDURE: The right foot was prepped and draped in normal sterile fashion. After timeouts were performed as per facility protocol, the distal medial right foot was addressed and had a large plantar wound noted with exposed tendon. No dontae purulence was noted, however, in the area. There was mild peripheral necrotic tissue noted to the wound with some healthy granular-appearing tissue present in the wound as well. An incision was made to encompass the entire hallux and disarticulated at the first metatarsophalangeal joint, followed by resection of the first metatarsal at the level of approximately the proximal and middle one-third shaft areas. Following removal of this bone, specimen was sent as partial first ray, right foot, to pathology. Bone from the residual aspect of the first metatarsal was taken and sent to pathology as bone biopsy to determine if any further osteomyelitis is left over in the wound. A culture was then taken to the right foot as well. All necrotic tissue was then debrided excisionally as well as fibrotic tissue and tendon debrided from the area. There appeared to be some plantar fascia in the residual wound. After irrigation with normal saline occurred, followed by partial closure distally with 2-0 nylon suture to approximately the distal half of the wound, it was able to be closed. The proximal wound, however, measured approximately 4 cm x 3 cm x 0.5 cm in depth and appeared to have some exposed plantar fascia present. Wound VAC was applied to this area and set at 125 mmHg medium continuous setting. The patient tolerated the procedure and anesthesia well without complications and was taken back to PACU with vital signs stable and vascular status intact to the remainder of the right foot. He will be nonweightbearing to the right foot. He will need a wound VAC upon discharge and will need to follow up at the [facility] [place] for continued care. I put in a case management consult for this. No surgery is planned. We will need to await bone biopsy to determine if all infected bone was resected as anticipated. SHORT OPERATIVE NOTE SURGEON: Jag Jang DPM GRADE CHECKER: Staff. PREOPERATIVE DIAGNOSIS: Osteomyelitis, right first metatarsal and hallux. POSTOPERATIVE DIAGNOSIS: Osteomyelitis, right first metatarsal and hallux. PROCEDURE: Right foot partial first ray amputation with bone biopsy and wound VAC. PATHOLOGY: 1. Right partial first ray to pathology. 2. Bone, residual, first metatarsal, right foot for bone biopsy. 3. Culture, right foot. ESTIMATED BLOOD LOSS: 20 mL ANESTHESIA: General endotracheal. CONDITION: Stable to PACU. COMPLICATIONS: None. DISPOSITION: Nonweightbearing, right foot. Continue wound VAC. Await bone biopsy. KRISTINA Cruz/VIJAY , 07:31 PM , 07:47 PM
[2018-03-06] MEDS: ATORVASTATIN 40 MG TAB PO SCH (19:56)
[2018-03-06] MEDS: INSULIN DETEMIR 100 UNITS/ML VIAL SQ SCH (19:56)
--- NOTE | 2018-03-06 20:02 | RADRPT ---
EXAM DATE/TIME: 03/06/2018 20:14 [facility] COMPARISON: FOOT RIGHT COMPLETE ([id number]), February 17, 2018, 22:44. INDICATIONS : Post op ampitation of right 1st digit MEDICAL HISTORY : Hypertension. Diabetes mellitus type 2. SURGICAL HISTORY : Debridement of right foot ENCOUNTER: Initial ACUITY: 1 day PAIN SCORE: 0/10 LOCATION: Right great toe FINDINGS: There has been interval transmetatarsal amputation of the first digit. Amputation site looks good. Th e remaining toes are stable and intact. The hindfoot is grossly intact. A wound VAC is seen in place. CONCLUSION: Satisfactory postop appearance Raphael Stoner MD on March 06, 2018 at 19:59 Board Certified Radiologist. This report was verified electronically.
[2018-03-06 21:30] VITALS: BP 153/72; PULSE 65; RESP 18; O2SAT 96
[2018-03-06] MEDS: NICOTINE 4 MG/GUM CHEW PRN (22:41)
[2018-03-07] VITALS: BP 165/79; PULSE 64; RESP 20; TEMP 98.3; O2SAT 96
[2018-03-07] MEDS: MORPHINE SULFATE 2 MG/ML SYRINGE IV PUSH PRN ×3 (00:36→20:04)
[2018-03-07] MEDS: AMPICILLIN-SULBACTAM INJ 3 GM in SODIUM CHLORIDE 0.9% INJ 100 ML IV SCH ×4 (03:00→19:58)
[2018-03-07 04:00] VITALS: BP 154/74; PULSE 59; RESP 20; O2SAT 96
[2018-03-07] MEDS: ACETAMINOPHEN 500 MG CPLT PO PRN (06:27)
[2018-03-07 06:46] LABS: AUTOMATED NEUTROPHIL # 7.1 TH/MM3 (1.8-7.7); BASOPHIL # 0.1 TH/MM3 (0-0.2); BASOPHIL % 0.9 % (0.0-2.0); EOSINOPHIL # 0.3 TH/MM3 (0-0.4); EOSINOPHIL % 2.9 % (0.0-4.0); HEMOGLOBIN 11.6 GM/DL (13.0-17.0); LYMPH % 25.2 % (9.0-44.0); LYMPHOCYTE # 2.9 TH/MM3 (1.0-4.8); MEAN CELL VOLUME 87.5 FL (80.0-100.0); MEAN CORPUSCULAR HEMOGLOBIN 29.9 PG (27.0-34.0); MEAN CORPUSCULAR HGB CONC 34.2 % (32.0-36.0); MEAN PLATELET VOLUME 7.7 FL (7.0-11.0); MONO % 10.3 % (0.0-8.0); MONOCYTE # 1.2 TH/MM3 (0-0.9); NEUT % 60.7 % (16.0-70.0); PLATELET COUNT 462 TH/MM3 (150-450); RED BLOOD COUNT 3.88 MIL/MM3 (4.50-5.90); RED CELL DISTRIBUTION WIDTH 13.1 % (11.6-17.2); WHITE BLOOD COUNT 11.7 TH/MM3 (4.0-11.0)
[2018-03-07 07:13] LABS: ALBUMIN 2.4 GM/DL (3.4-5.0); AST (GOT) 22 U/L (15-37); BICARBONATE 27.9 MEQ/L (21.0-32.0); BLOOD UREA NITROGEN 12 MG/DL (7-18); CALCIUM 8.8 MG/DL (8.5-10.1); CHLORIDE 102 MEQ/L (98-107); CREATININE 0.64 MG/DL (0.60-1.30); GLOMERULAR FILTRATION RATE 136 ML/MIN (>89); GLUCOSE,RANDOM 191 MG/DL (74-106); SODIUM (NA) 137 MEQ/L (136-145)
[2018-03-07 07:14] LABS: ALT (GPT) 31 U/L (12-78)
[2018-03-07 07:16] LABS: ALKALINE PHOSPHATASE 89 U/L (45-117); TOTAL BILIRUBIN ADULT 0.2 MG/DL (0.2-1.0); TOTAL PROTEIN 7.6 GM/DL (6.4-8.2)
[2018-03-07 08:30] VITALS: BP 158/82; PULSE 54; RESP 18; TEMP 98.8; O2SAT 98
[2018-03-07] MEDS: INSULIN ASPART SUPPLEMENTAL SCALE SQ SCH ×4 (08:59→20:00)
[2018-03-07] MEDS: INSULIN ASPART 1,000 UNITS/10 ML VIAL SQ SCH ×3 (08:59→16:49)
[2018-03-07] MEDS: metFORMIN HCL 500 MG TAB PO SCH ×2 (09:00→16:50)
[2018-03-07] MEDS: FAMOTIDINE 20 MG TAB PO SCH ×2 (09:00→19:58)
[2018-03-07] MEDS: GABAPENTIN 300 MG CAP PO SCH ×3 (09:00→16:50)
[2018-03-07] MEDS: ASPIRIN EC 81 MG TABEC PO SCH (09:00)
[2018-03-07] MEDS: HYDROmorphone HCL 2 MG TAB PO PRN ×3 (09:01→20:52)
[2018-03-07] MEDS: SODIUM CHLORIDE 0.9% FLUSH 10 ML FLUSH IV FLUSH SCH (09:06)
[2018-03-07 11:05] VITALS: BP 131/69; PULSE 55; RESP 17; TEMP 97.9; O2SAT 96
--- NOTE | 2018-03-07 11:32 | HHI.PR ---
Subjective Remarks Patient doing well postop. Pain is controlled. No nausea or vomiting. Objective Vital Signs Date Time Temp Pulse Resp B/P (MAP) Pulse Ox O2 Delivery O2 Flow Rate FiO2 03/07/18 11:05 97.9 55 17 131/69 (89) 96 03/07/18 08:30 98.8 54 18 158/82 (107) 98 03/07/18 04:00 59 20 154/74 (100) 96 03/07/18 02:36 20 03/07/18 00:00 98.3 64 20 165/79 (107) 96 03/06/18 23:50 20 03/06/18 21:30 65 18 153/72 (99) 96 03/06/18 19:15 98.2 53 14 144/79 (100) 97 Room Air 03/06/18 19:00 52 14 141/79 (99) 97 Room Air 03/06/18 18:45 51 14 133/73 (93) 97 Room Air 03/06/18 18:33 98.2 50 14 140/71 (94) 100 Room Air 03/06/18 16:00 98.1 52 17 145/72 (96) 98 03/06/18 12:00 98.2 57 17 132/69 (90) 96 I/O 03/06/18 03/06/18 03/06/18 03/07/18 03/07/18 03/07/18 07:00 15:00 23:00 07:00 15:00 23:00 Intake Total 100 ml 200 ml Output Total 300 ml 900 ml 20 ml Balance -200 ml -700 ml -20 ml IV Total 100 ml 200 ml Output Urine Total 300 ml 900 ml Drainage Total 20 ml Result Diagram: 03/07/18 0630 03/07/18 0630 Procedures Status post Right foot Incision and drainage debridement fasciotomy extensor tendon sheath exploration with bone biopsy right foot, incision bone cortex as per Doctor Oz Davis 02/18/18 Angiography performed, Found High grade L EIA stenosis, successful RISK ADVISOR, Right RADIAL SAW OPERATOR and PFA stenosis, Right SFA occlusion, 3 Vessel runoff R LE. scheduled for tomorrow for Right groin reconstruction and SFA recanalization 03/06 Objective Remarks GENERAL: NAD, A&Ox3 HEAD: Normocephalic. NECK: Supple, trachea midline. No lymphadenopathy. EYES: No scleral icterus. No injection or drainage. CARDIOVASCULAR: Regular rate and rhythm without murmurs, gallops, or rubs. RESPIRATORY: Breath sounds equal bilaterally. No accessory muscle use. GASTROINTESTINAL: Abdomen soft, non-tender, nondistended. MUSCULOSKELETAL: No cyanosis, or edema. SKIN: Warm and dry. NEURO: No focal neurological deficitis. A/P Problem List: (1) Osteomyelitis ICD Code: M86.9 - Osteomyelitis, unspecified (2) Diabetic infection of right foot ICD Code: E11.628 - Type 2 diabetes mellitus with other skin complications; L08.9 - Local infection of the skin and subcutaneous tissue, unspecified Status: Acute (3) DFI Assessment and Plan 42-year-old white male being admitted for sepsis secondary to infected diabetic foot ulcer. Finding of osteomyelitis on MRI. Surgical follow-up pending. Patient is doing well postop. Discharge arrangements and process. Osteomyelitis Sepsis secondary to infected diabetic foot ulcer and abscess. Diabetic foot infection with first metatarsal and sesamoid osteomyelitis Continue antibiotics Continue to monitor blood cultures Continue pain treatments Amputation surgery today Podiatry following Continue wound VAC postop Continue physical therapy Peripheral arterial disease Status post left external iliac artery angioplasty. Status post right sided ilioprofunda bypass, RADIAL SAW OPERATOR-SFA bypass Vascular surgery following. Continue aspirin 81 mg daily, Lipitor 40mg QHS. Status post Provena dressing with wound VAC Diabetes mellitus type 2 Follow blood sugars Insulin sliding scale Diabetic diet Latest hemoglobin is A1C 9.8 Continue Levemir Hypertension Continue baseline treatment Follow blood pressures Adjust treatments as needed Continue amlodipine Hyperlipidemia Continue present treatment Follow as an outpatient Continue atorvastatin DVT prophylaxis Heparin Discharge planning Amputation today, postop care and stability needed before consideration for discharge Marlo Umaña MD Mar 07, 2018 11:32
[2018-03-07 16:00] VITALS: BP 130/69; PULSE 62; RESP 18; TEMP 98.6; O2SAT 97
--- NOTE | 2018-03-07 17:11 | PD.POD ---
Subjective Podiatric Problems Right foot, Status post Right foot Incision and drainage with debridement and fasciotomy with extensor tendon sheath exploration and bone biopsy right foot by Oz Delarosa 02/18/18 status post right partial 1st ray amputation with wound vac, 03/06/18 Dr Jang Pain score: 6 Past Med/Surg/Social History Past Medical History PFSH Reviewed: Yes Endocrine: REPORTS HX OF: Diabetes mellitus, DENIES HX OF: Hyperthyroidism, Hypothyroidism Cardiovascular: REPORTS HX OF: Hypertension, DENIES HX OF: Myocardial infarction Genitourinary: DENIES HX OF: Kidney failure Psychiatric: DENIES HX OF: Anxiety Past Surgical History Musculoskeletal: DENIES HX OF: Other musculoskeletal srg Integumentary: REPORTS HX OF: Other integumentary surg (i and d x2) Social History Smoking Status: Former Smoker Objective Vital Signs Vital Signs Date Time Temp Pulse Resp B/P (MAP) Pulse Ox O2 Delivery O2 Flow Rate FiO2 03/07/18 16:00 98.6 62 18 130/69 (89) 97 03/07/18 11:05 97.9 55 17 131/69 (89) 96 03/07/18 08:30 98.8 54 18 158/82 (107) 98 03/07/18 04:00 59 20 154/74 (100) 96 03/07/18 02:36 20 03/07/18 00:00 98.3 64 20 165/79 (107) 96 03/06/18 23:50 20 03/06/18 21:30 65 18 153/72 (99) 96 03/06/18 19:15 98.2 53 14 144/79 (100) 97 Room Air 03/06/18 19:00 52 14 141/79 (99) 97 Room Air 03/06/18 18:45 51 14 133/73 (93) 97 Room Air 03/06/18 18:33 98.2 50 14 140/71 (94) 100 Room Air Coded Allergies: No Known Allergies (Verified Adverse Reaction, Unknown, 02/17/18) Other Results Current Medications Medications (Trade) Dose Ordered Sig/Breanne Route Start Time Stop Time Status Last Admin (D50w (Vial) Inj) 50 ml UNSCH PRN IV PUSH 02/17/18 15:15 (Glucagon Inj) 1 mg UNSCH PRN OTHER 02/17/18 15:15 (Heparin Inj) 5,000 units Q8HR SQ 4/1/18 22:00 Future Hold 03/05/18 20:33 (Neurontin) 300 mg TID PO 02/17/18 18:00 03/07/18 16:50 (Tylenol) 500 mg Q4H PRN PO 02/17/18 16:45 03/07/18 06:27 (Lipitor) 40 mg HS PO 02/17/18 21:00 03/06/18 19:56 (Ecotrin Ec) 81 mg DAILY PO 02/19/18 09:00 03/07/18 09:00 (Nicotine Gum) 4 mg Q4HR PRN CHEW 02/18/18 13:30 03/06/18 22:41 (Pepcid) 20 mg BID PO 02/18/18 21:45 03/07/18 09:00 (NovoLOG SUPPLEMENTAL SCALE) 1 ACHS SLIDING SCALE SQ 02/19/18 12:00 03/07/18 11:38 (Catapres) 0.1 mg Q6H PRN PO 02/20/18 09:15 02/27/18 13:40 (Norvasc) 10 mg DAILY PO 02/21/18 09:00 03/07/18 09:00 (NovoLOG INJ) 6 units TIDAC SQ 02/23/18 17:00 03/07/18 16:49 (Levemir Inj) 15 units HS SQ 02/23/18 21:00 03/06/18 19:56 (Roxicodone) 5 mg Q4H PRN PO 02/25/18 11:45 (Dilaudid) 2 mg Q4H PRN PO 02/25/18 11:45 03/07/18 16:50 Ampicillin Sodium/ Sulbactam Sodium 3 gm/Sodium Chloride 100 ml @ 200 mls/hr Q6H IV 02/27/18 15:00 03/07/18 16:48 (Glucophage) 500 mg BIDPC PO 03/03/18 13:15 03/07/18 16:50 (NS Flush) See Protocol DAILY IV FLUSH 03/05/18 09:00 03/07/18 09:06 (NS Flush) See Protocol UNSCH PRN IV FLUSH 03/05/18 09:00 (Heparin Central Flush) See Protocol DAILY IV FLUSH 03/05/18 09:00 03/05/18 10:23 (Heparin Central Flush) See Protocol UNSCH PRN IV FLUSH 03/05/18 09:00 (NS Flush) SEE PROTOCOL UNSCH PRN IV FLUSH 03/05/18 09:00 Lactated Ringer's 1,000 ml @ 30 mls/hr Q24H PRN IV 03/06/18 01:45 03/09/18 01:44 (Morphine Inj) 2 mg Q4H PRN IV PUSH 03/06/18 11:15 03/07/18 11:39 Miscellaneous Information ALL NURSING DEPARTME... UNSCH PRN .XX 03/06/18 18:35 03/07/18 18:34 Objective Remarks Last 72 hours Impressions Foot X-Ray 03/06/18 0000 Signed Impressions: Service Date/Time: Tuesday, March 06, 2018 20:14 - CONCLUSION: Satisfactory postop appearance Raphael Stoner MD Foot MRI 03/05/18 0000 Signed Impressions: Service Date/Time: Monday, March 05, 2018 18:50 - CONCLUSION: 1. Osteomyelitis of the distal first metatarsal and base of the proximal phalanx great toe with ulceration of the adjacent plantar surface. Long Guillen MD Assessment & Plan A/P Right foot, Status post Right foot Incision and drainage with debridement and fasciotomy with extensor tendon sheath exploration and bone biopsy right foot by Oz Delarosa 02/18/18 status post right partial first ray amputation with partial closure and wound vac 03/06/18 Dr Jang Continue Nonweightbearing Continue wound vac Await bone biopsy to determine length of time for antibiotics This patient must have wound care follow up here at wound care center in order to attempt wound salvage and prevent re-admission due to infection. Patient is uninsured. Please follow through with arrangement for wound care center follow up prior to discharge, as patient cannot afford continued wound care in my outpatient clinic. Jag Jang DPM Mar 07, 2018 17:11
[2018-03-07] MEDS: ATORVASTATIN 40 MG TAB PO SCH (19:59)
[2018-03-07] MEDS: INSULIN DETEMIR 100 UNITS/ML VIAL SQ SCH (19:59)
[2018-03-07 20:00] VITALS: BP 145/72; PULSE 59; RESP 20; TEMP 98.1; O2SAT 96
[2018-03-08] VITALS: BP 144/73; PULSE 63; RESP 20; TEMP 97.8; O2SAT 96
[2018-03-08] MEDS: HYDROmorphone HCL 2 MG TAB PO PRN ×4 (00:47→13:35)
[2018-03-08] MEDS: AMPICILLIN-SULBACTAM INJ 3 GM in SODIUM CHLORIDE 0.9% INJ 100 ML IV SCH ×3 (01:50→14:45)
[2018-03-08] MEDS: MORPHINE SULFATE 2 MG/ML SYRINGE IV PUSH PRN ×2 (01:50→11:39)
[2018-03-08 07:00] VITALS: BP 141/69; PULSE 58; RESP 18; TEMP 97.9; O2SAT 96
[2018-03-08] MEDS: INSULIN ASPART 1,000 UNITS/10 ML VIAL SQ SCH ×2 (09:30→11:39)
[2018-03-08] MEDS: INSULIN ASPART SUPPLEMENTAL SCALE SQ SCH ×2 (09:31→11:39)
[2018-03-08] MEDS: metFORMIN HCL 500 MG TAB PO SCH (09:31)
[2018-03-08] MEDS: GABAPENTIN 300 MG CAP PO SCH ×2 (09:31→11:38)
[2018-03-08] MEDS: ASPIRIN EC 81 MG TABEC PO SCH (09:32)
[2018-03-08] MEDS: FAMOTIDINE 20 MG TAB PO SCH (09:33)
[2018-03-08] MEDS: SODIUM CHLORIDE 0.9% FLUSH 10 ML FLUSH IV FLUSH SCH (09:33)
[2018-03-08 11:45] VITALS: BP 129/70; PULSE 61; RESP 18; TEMP 97.8; O2SAT 97
--- NOTE | 2018-03-08 11:46 | HHI.FF ---
Face to Face Verification Diagnosis: (1) Amputation at midfoot (2) Osteomyelitis (3) Diabetic infection of right foot (4) DFI Home Health Nursing Order: Signs/symptoms of disease process Wound care and dressing changes Nursing assessment with vital signs IV medication administration Instructions: Labs, dressing changes, wound vac changes, and IV antibiotic Infusions (with education to teach family) I have seen patient [place]en [place] on 03/08/18. My clinical findings support the need for the requested home health care services because: Ltd mobility - disease progression Deconditioned w/ increased weakness Limited ability to care for self Infection w/ risk of complications I certify that my clinical findings support that this patient is homebound because: Unsteady gait/balance Unsafe to leave home unassisted [id number] bed/chair Unable to use public transportation Marlo Umaña MD Mar 08, 2018 11:46
--- NOTE | 2018-03-08 11:51 | HHI.DS ---
Discharge Summary Admission Date Feb 17, 2018 at 14:00 Discharge Date: Mar 08, 2018 Admitting Diagnosis DIABETIC FOOT ULCER, UNCONTROLLED DIABETES. (1) Peripheral vascular disease with claudication ICD Code: I73.9 - Peripheral vascular disease, unspecified Diagnosis: Principal (2) Diabetic infection of right foot ICD Code: E11.628 - Type 2 diabetes mellitus with other skin complications; L08.9 - Local infection of the skin and subcutaneous tissue, unspecified Diagnosis: Principal Status: Acute (3) Osteomyelitis ICD Code: M86.9 - Osteomyelitis, unspecified Diagnosis: Principal (4) Amputation at midfoot ICD Code: S98.319A - Complete traumatic amputation of unspecified midfoot, initial encounter Diagnosis: Principal (5) DFI Diagnosis: Principal Procedures 02/20/2018 1. Aortogram with bilateral lower extremity angiogram. 2. Left external iliac artery angioplasty with 8 mm balloon. 3. Left common femoral artery Angio-Seal. 02/18/2018 Incision and drainage debridement fasciotomy extensor tendon sheath exploration with bone biopsy right foot, incision bone cortex 02/25/2018 1. R ilioprofunda bypass w/ 8mm Dacron 2. R LAND DEVELOPMENT PROJECT MANAGER-SFA bypass with 8mm Dacron 3. R EIA MOLD STAMPER/stent (8x40) 4. R SFA MOLD STAMPER (5x200) PICC 03/06/2018 amputation of right distal foot secondary to osteomyelitis Brief History - From Admission 42-year-old white male being admitted for sepsis secondary to infected diabetic foot ulcer with possible osteomyelitis Patient was in his usual state of health until about a week or 2 ago when he began having some right foot pain. He came to the emergency room about 3 days ago and was given Bactrim to take twice a day for presumed infected diabetic foot ulcer. However patient states that his foot pain actually worsened and he noted a bullous-like lesion arises within the next few days I was very painful. This particular morning he also developed new onset calf pain that would hurt when he would walk around. Does admit to very mild foot edema but denies any calf edema. Denies stepping on a nail or any puncturing injury. He does report nausea but no vomiting. Denies any fevers or chills. In the emergency room the patient was noted to have temperature of 100.4 with a heart rate greater than 90. Patient states that he has been out of his metformin since last September due to financial issues. CBC/BMP: 03/07/18 0630 03/07/18 0630 Significant Findings Laboratory Tests Test 03/05/18 21:51 03/07/18 06:30 Erythrocyte Sedimentation Rate 23 mm/hr (0-15) White Blood Count 11.7 TH/MM3 (4.0-11.0) Red Blood Count 3.88 MIL/MM3 (4.50-5.90) Hemoglobin 11.6 GM/DL (13.0-17.0) Hematocrit 34.0 % (39.0-51.0) Platelet Count 462 TH/MM3 (150-450) Monocytes (%) (Auto) 10.3 % (0.0-8.0) Monocytes # (Auto) 1.2 TH/MM3 (0-0.9) Random Glucose 191 MG/DL (74-106) Albumin 2.4 GM/DL (3.4-5.0) PE at Discharge Last 72 hours Impressions Foot X-Ray 03/06/18 0000 Signed Impressions: Service Date/Time: Tuesday, March 06, 2018 20:14 - CONCLUSION: Satisfactory postop appearance Raphael Stoner MD Foot MRI 03/05/18 0000 Signed Impressions: Service Date/Time: Monday, March 05, 2018 18:50 - CONCLUSION: 1. Osteomyelitis of the distal first metatarsal and base of the proximal phalanx great toe with ulceration of the adjacent plantar surface. Long Guillen MD Hospital Course Mr. Hills is a 42-year-old male. He was admitted secondary to a diabetic ulcer of the right foot. Debridement was performed and wound VAC was placed. Patient had further imaging which revealed osteomyelitis. removal of the affected bones and further amputation was performed at that time and patient is doing well postop. He has a wound VAC in place. Long-term outpatient antibiotics are arranged and he will have long-term wound care and outpatient antibiotics at time of discharge with home health. Medically clear and stable for discharge home today. Pt Condition on Discharge: Stable Discharge Disposition: Disch w/ Home Health Serv Discharge Time: > 30 minutes Discharge Instructions DIET: Follow Instructions for: Heart Healthy Diet, Diabetic Diet Activities you can perform: Regular-No Restrictions Activities to Avoid: Driving Follow up Referrals: PCP Follow-up - [address] Lopez Podiatry - 1 Week @ [facility] with Oz Delarosa DPM Vascular Surgery - 3 Weeks @ Vascular Surgery with [facility] - 1 Week New Medications: Bedside Commode (Bedside Commode) 1 Mis Mis EA .XX DIRECTED, #1 Ceftriaxone Inj (Ceftriaxone Inj) 2 Gram Inj 2 GM IM Q24H for Infection for 40 Days, VIAL 0 Refills Epinephrine Inj (Epinephrine Inj) 1 Mg/Ml (1 Ml) Inj 0.3 MG IV PUSH ONCE PRN for ALLERGIC REACTION, #1 VIAL Epinephrine Inj (Epinephrine Inj) 1 Mg/Ml (1 Ml) Inj 0.3 MG SQ ONCE PRN for ALLERGIC REACTION, #1 VIAL Give with any signs of respiratory distress. Hydrocortisone Inj (Solu-Cortef Inj) 250 Mg/2 Ml Inj 250 MG IV PUSH ONCE PRN for ALLERGIC REACTION, #1 VIAL 0 Refills Give over 30-60 seconds. Metronidazole (Flagyl) 500 Mg Tab 500 MG PO TID for Infection for 40 Days, TAB 0 Refills Walker with Front Wheels (Walker with Front Wheels) 1 Mis Mis EA .XX DIRECTED, #1 0 Refills Amlodipine (Norvasc) 10 Mg Tab 10 MG PO DAILY for Blood Pressure Management, #[address] (Aspirin DR) 81 Mg Tabdr 81 MG PO DAILY for Prevent Blood Clot, #30 TAB Atorvastatin (Atorvastatin) 40 Mg Tab 40 MG PO HS for Cholesterol Management, #30 TAB Gabapentin (Neurontin) 300 Mg Cap 300 MG PO TID for Pain Management, #90 CAP Hydromorphone (Dilaudid) 2 Mg Tab 2 MG PO Q6H PRN for PAIN SCALE 6 TO 10, #28 TAB Continued Medications: Metformin (Metformin) 500 Mg Tab 500 MG PO BIDPC for Blood Sugar Management, #60 TAB 0 Refills With meals Marlo Umaña MD Mar 08, 2018 11:51
--- NOTE | 2018-03-08 13:15 | PD.WCN.NOT ---
Neg Pressure Wound Therapy Wound Location Wound Location: R medial plantar foot Wound Description Length: 3.1cm Width: 4.3cm Depth: 1.0cm Wound bed appearance: ~90% beefy red granulated tissue ~10% exposed tendon Periwound appearance: Other (Sutures dry intact covered with adaptic and dry dressing) Settings Suction: 125 mmHg, Continuous Intensity: Low Other Information: Bridged, Windowpaned, Mushroomed Foam type: Black, White Number of pieces: 2 Additonal Information Patient was seen today by proposal manager writer for wound vac dressing change.Patient alert and oriented x3. Dressing removed from R foot without difficulty.Wound/suture cleansed with normal saline pat dry.Skin prep applied to periwound and bridging area.Single layer of adaptic applied to exposed tendon.Moist white foam cut to fit wound base applied covered with black sponge bridging to medial tibial area.Track pad applied suction started @125mmHg low continuous patient was connected to home vac being he is being discharged.Suture covered with adaptic and dry dressing.Patient tolerated wound care well states he is very excited to go home.Will follow up with out patient wound center. Jamel Fernandez [facility] Mar 08, 2018 13:15
== END 2018-03-08 17:45 | disposition home health service (06) | DRG 854 ==
LOC: PHED 11:56 → PHEDA 14:00 → PH3B 14:58 → N07A 02-18 22:23
PROVIDERS: ADMIT Hospitalist; ATTEND Hospitalist
PROC: 0QBN0ZX Excision of Right Metatarsal, Open Approach, Diagnostic (ICD-10-PCS; 2018-02-18)
PROC: 0LJ Tendons, Inspection (ICD-10-PCS; 2018-02-18)
PROC: 0J9Q0ZX Drainage of Right Foot Subcutaneous Tissue and Fascia, Open Approach, Diagnostic (ICD-10-PCS; 2018-02-18)
PROC: 0KBV0ZZ Excision of Right Foot Muscle, Open Approach (ICD-10-PCS; principal; 2018-02-18 07:29)
PROC: 047J3ZZ Dilation of Left External Iliac Artery, Percutaneous Approach (ICD-10-PCS; 2018-02-20)
PROC: B41D1ZZ Fluoroscopy of Aorta and Bilateral Lower Extremity Arteries using Low Osmolar Contrast (ICD-10-PCS; 2018-02-20)
PROC: 037 Upper Arteries, Dilation (ICD-10-PCS; 2018-02-25)
PROC: 041H0JH Bypass Right External Iliac Artery to Right Femoral Artery with Synthetic Substitute, Open Approach (ICD-10-PCS; 2018-02-25)
PROC: 041K0JH Bypass Right Femoral Artery to Right Femoral Artery with Synthetic Substitute, Open Approach (ICD-10-PCS; 2018-02-25)
PROC: 047K3ZZ Dilation of Right Femoral Artery, Percutaneous Approach (ICD-10-PCS; 2018-02-25)
PROC: 0KBV0ZZ Excision of Right Foot Muscle, Open Approach (ICD-10-PCS; 2018-03-05)
PROC: 0Y6M0Z9 Detachment at Right Foot, Partial 1st Ray, Open Approach (ICD-10-PCS; 2018-03-06)
PROC: 0QBN0ZX Excision of Right Metatarsal, Open Approach, Diagnostic (ICD-10-PCS; 2018-03-06)
DX: A41.9 Sepsis, unspecified organism (principal); E11.52 Type 2 diabetes mellitus with diabetic peripheral angiopathy with gangrene; E11.621 Type 2 diabetes mellitus with foot ulcer; L97.419 Non-pressure chronic ulcer of right heel and midfoot with unspecified severity; M86.171 Other acute osteomyelitis, right ankle and foot; Z91.14 Patient's other noncompliance with medication regimen; E11.69 Type 2 diabetes mellitus with other specified complication; I70.213 Atherosclerosis of native arteries of extremities with intermittent claudication, bilateral legs; L97.519 Non-pressure chronic ulcer of other part of right foot with unspecified severity; E11.65 Type 2 diabetes mellitus with hyperglycemia; E78.5 Hyperlipidemia, unspecified; Z79.4 Long term (current) use of insulin; G43.909 Migraine, unspecified, not intractable, without status migrainosus; F17.200 Nicotine dependence, unspecified, uncomplicated; I10 Essential (primary) hypertension; L08.9 Local infection of the skin and subcutaneous tissue, unspecified; Z59.9 Problem related to housing and economic circumstances, unspecified; Z80.1 Family history of malignant neoplasm of trachea, bronchus and lung; Z80.8 Family history of malignant neoplasm of other organs or systems; Z82.49 Family history of ischemic heart disease and other diseases of the circulatory system; Z83.3 Family history of diabetes mellitus; Z91.19 Patient's noncompliance with other medical treatment and regimen
CPT/HCPCS: 36246; 36569; 37220; 71045; 71046; 73610; 73630; 73720; 75710; 76937; 80048; 80053; 80202; 81001; 82565; 82948; 83036; 83605; 83735; 85025; 85027; 85610; 85652; 85730; 86140; 86403; 87015; 87040; 87070; 87076; 87102; 87116; 87176; 87185; 87205; 87206; 88304; 88305; 88307; 88311; 93005; 93922; 93970; 93971; 93998; 96374; A9579; C1725; C1768; C1769; C1876; C1893; G0269; J0131; J0295; J1100; J1642; J1644; J1815; J1956; J2250; J2270; J2405; J2543; J2710; J2720; J3010; J3370; J7030; J7040; J7050; J7120; Q9967

== ENCOUNTER 2018-04-01 18:41 | Emergency (ER) | payer SELFPAY ==
[~2018-04-01 18:41] MED LIST changes: +AMLO10 PO; +ATOR40TA16 PO; +BEDSIDE COMMODE1 MI1; +CEFT2INJ IM; +DILA2TAB4 PO; +ECASA81 PO; +EPIN1INJ21 IV PUSH; +EPIN1INJ21 SQ; +METR-1 PO; +NEUR300C PO; +SOLU250I IV PUSH; -TRAM1CAP21 PO; +WALKER WHEELS/F1 MIS
[2018-04-01 19:32] VITALS: BP 194/91; PULSE 84; RESP 18; TEMP 98.6; O2SAT 99
[2018-04-01 20:31] VITALS: BP 139/76; PULSE 73; RESP 18; O2SAT 97
[2018-04-01] MEDS ORDERED: HYDR-3516 PO (21:23)
--- NOTE | 2018-04-01 21:32 | PD ---
HPI Chief Complaint: Skin Problem Time Seen by Provider: 20:35 Travel History International Travel<30 days: No Contact w/Intl Traveler<30days: No Traveled to known affect area: No History of Present Illness HPI This is a 42-year-old male who presents for evaluation. The patient was admitted here in February 17 for treatment of a diabetic foot ulcer, uncontrolled diabetes. He was found to have peripheral vascular disease with claudication, osteomyelitis. He underwent amputation of the foot, aortogram with bilateral lower extremity angiogram, left external iliac artery angioplasty with 8 mm balloon, left common femoral artery Angio-Seal, incision and drainage and debridement of fasciotomy of extensor tendon sheath exploration with bone biopsy right foot, amputation of right distal foot secondary to osteomyelitis. PICC line was placed and he was discharged on March 08 for 40 day course of Rocephin 2 g daily which he has been doing at home. On a weekly basis he sees wound care physician on Fridays. He reports over the past few days he has had pain and pressure when attempting to administer Rocephin through his PICC line. He reports that it feels like he has to push the medication through their more forcefully than usual. In addition the patient was discharged with a 28 tablet supply of Dilaudid 2 mg significant was that he ran out last week and he has had increased pain in his right foot since then. Pain is throbbing and worse with movement and palpation. He reports that the wound care clinic typically changes his dressings on a weekly basis, most recently had been changed 3 days ago. He has had no fevers or chills, he has been compliant with his medications. No other complaints. PFSH Past Medical History Arthritis: No Asthma: No Autoimmune Disease: No Anxiety: No Depression: No Heart Rhythm Problems: No Cancer: No Cardiovascular Problems: No High Cholesterol: No Chemotherapy: No Chest Pain: No Congestive Heart Failure: No COPD: No Cerebrovascular Accident: No Diabetes: Yes Patient Takes Glucophage: No Diminished Hearing: No Endocrine: No GERD: No Genitourinary: No Headaches: No Hiatal Hernia: No Heparin Induced Thrombocytopen: No Hypertension: Yes (NONCOMPLIANT WITH MEDS FOR SEVERAL YEARS) Immune Disorder: No Implanted Vascular Access Dvce: No Kidney Stones: No Musculoskeletal: No Neurologic: No Psychiatric: No Reproductive: No Respiratory: No Immunizations Current: No Migraines: Yes Radiation Therapy: No Renal Failure: No Seizures: No Sickle Cell Disease: No Sleep Apnea: No Thyroid Disease: No Ulcer: No Past Surgical History Abdominal Surgery: No AICD: No Arteriovenous Shunt: No Cardiac Surgery: No Ear Surgery: No Endocrine Surgery: No Eye Surgery: No Genitourinary Surgery: No Gynecologic Surgery: No Insulin Pump: No Joint Replacement: No Neurologic Surgery: No Oral Surgery: No Pacemaker: No Thoracic Surgery: No Other Surgery: Yes (04/05 PERINEAL/SCROTAL AREA abscess) Social History Alcohol Use: No Tobacco Use: Yes (1 ppd) Substance Use: No Allergies-Medications (Allergen,Severity, Reaction): Coded Allergies: No Known Allergies (Verified Adverse Reaction, Unknown, 04/01/18) Reported Meds & Prescriptions Reported Meds & Active Scripts Active Hydrocodone-Acetaminophen 5-325 mg Tab 1 Tab PO Q6H PRN Ceftriaxone Inj (Ceftriaxone Sodium) 2 Gram Inj 2 Gm IM Q24H 40 Days Neurontin (Gabapentin) 300 Mg Cap 300 Mg PO TID Aspirin DR (Aspirin) 81 Mg Tabdr 81 Mg PO DAILY Norvasc (Amlodipine Besylate) 10 Mg Tab 10 Mg PO DAILY Atorvastatin (Atorvastatin Calcium) 40 Mg Tab 40 Mg PO HS Bedside Commode (Device) 1 Mis Mis Ea .XX DIRECTED Walker with Front Wheels (Device) 1 Mis Mis Ea .XX DIRECTED Metformin (Metformin HCl) 500 Mg Tab 500 Mg PO BIDPC With meals Review of Systems Except as stated in HPI: all other systems reviewed are Neg Physical Exam Narrative GENERAL: Well-developed well-nourished male no acute distress SKIN: Warm and dry. Approximately 3 cm ulceration noted to the medial plantar aspect of the right foot with clean wound edges. It is not foul-smelling. There is no necrosis or purulent drainage. HEAD: Atraumatic. Normocephalic. EYES: Pupils equal and round. No scleral icterus. No injection or drainage. ENT: No nasal bleeding or discharge. Mucous membranes pink and moist. NECK: Trachea midline. No JVD. CARDIOVASCULAR: Regular rate and rhythm. No murmur appreciated. RESPIRATORY: No accessory muscle use. Clear to auscultation. Breath sounds equal bilaterally. GASTROINTESTINAL: Abdomen soft, non-tender, nondistended. Hepatic and splenic margins not palpable. MUSCULOSKELETAL: Skin as noted above. Status post amputation right great toe. 2+ dorsalis pedis pulse and the foot feels warm and well-perfused. There is no erythema. PICC line intact in the right upper extremity. NEUROLOGICAL: Awake and alert. No obvious cranial nerve deficits. Motor grossly within normal limits. Normal speech. Data Data Last Documented VS Vital Signs Date Time Temp Pulse Resp B/P (MAP) Pulse Ox O2 Delivery O2 Flow Rate FiO2 04/01/18 20:31 73 18 139/76 (97) 97 Room Air 04/01/18 19:32 98.6 MDM Medical Decision Making Medical Screen Exam Complete: Yes Emergency Medical Condition: Yes Medical Record Reviewed: Yes Differential Diagnosis Occluded PICC line versus kinked picc line versus thrombosis Narrative Course The nurse change the dressing around the PICC line and she was able to then freely flushed with no discomfort or resistance. The right foot appears to be healing well. There is no ulceration with clean wound margins with no evidence of active infectious process. At this point time the plan is to discharge the patient after wound care is provided. He will be given a short course of hydrocodone acetaminophen for pain control. Diagnosis Primary Impression: Encounter for wound care Additional Impression: Diabetic infection of right foot Additional Instructions: Medication as prescribed. Follow-up with wound care physician as scheduled and return for any emergent medical conditions. Med/Other Pt SpecificInfo: Prescription(s) given, Wound Care Scripts Hydrocodone-Acetaminophen (Hydrocodone-Acetaminophen) 5-325 mg Tab 1 TAB PO Q6H Y for PAIN, #15 TAB 0 Refills Prov: Alissa Samuel MD 04/01/18 Disposition: 01 DISCHARGE HOME Condition: Stable Harry Duckworth April 01, 2018 21:31
== END 2018-04-01 22:10 | disposition home or self-care (01) ==
LOC: NEPE 18:41
DX: E11.621 Type 2 diabetes mellitus with foot ulcer (principal); L97.516 Non-pressure chronic ulcer of other part of right foot with bone involvement without evidence of necrosis; Z79.84 Long term (current) use of oral hypoglycemic drugs
CPT/HCPCS: 99283

== ENCOUNTER 2018-05-08 09:42 | Emergency (ER) | payer SELFPAY ==
[~2018-05-08] VITALS: Ht 185.4 cm; Wt 80.0 kg
[~2018-05-08 09:42] MED LIST changes: -BACT800T5 PO; -DILA2TAB4 PO; -EPIN1INJ21 IV PUSH; -EPIN1INJ21 SQ; +HYDR-3516 PO; -METR-1 PO; -SOLU250I IV PUSH
[2018-05-08] MEDS ORDERED: IOHEXOL 350 MG/ML 10 ML VIAL (for RAD DIAG) IVCONTRAST ONE (09:43)
[2018-05-08 09:46] VITALS: BP 138/78; PULSE 73; RESP 16; TEMP 97.8; O2SAT 99
[2018-05-08] MEDS ORDERED: SODIUM CHLOR 0.9% 1000 ML INJ 1,000 ML IV SCH (10:16)
--- NOTE | 2018-05-08 10:27 | PD ---
HPI Chief Complaint: Pain: Acute or Chronic Time Seen by Provider: 10:06 Travel History International Travel<30 days: No Contact w/Intl Traveler<30days: No Traveled to known affect area: No History of Present Illness HPI Patient is a 42-year-old male with history of diabetes, osteomyelitis, peripheral vascular disease, presents the emergency room for evaluation of possible infection to his right foot. Patient reports that in February, he was admitted to the hospital and had multiple procedures performed. On February 18, he had incision and drainage debridement fasciotomy to the extensor tendon sheath with exploration with bone biopsy of the right foot On February 20, 2018, patient had an aortogram of his bilateral lower extremities, he had left external iliac artery angioplasty with an 8 mm balloon. On February 25, 2018 he had 1. R ilioprofunda bypass w/ 8mm Dacron 2. R RECOVERY COLLECTOR-SFA bypass with 8mm Dacron 3. R EIA CLINICAL SOCIAL WORK AIDE/stent (8x40) 4. R SFA CLINICAL SOCIAL WORK AIDE (5x200) On March 06, 2018, patient had amputation of the right distal foot secondary to osteomyelitis. He was discharged home with a PICC line and completed full course of his antibiotics. Patient reports that he had been following up with the wound care clinic every week for his wound dressings. Patient reports that he has lost his patient assistance and cannot apply for help as he is homeless and has no way for applying for patient assistance. Patient reports that he has not been able to change his dressings, the last time they were changed were over a week ago. Reports that he does not have any new dressings to change them and has no help. He was concerned as today, he noticed some oozing from his dressings to his right foot. Denies any fever/chills. Denies n/v. He has not removed his dressing. Patient also complains of pain to his right groin where they performed multiple procedures. He reports that area is scabbed over, but reports increase pain to his groin since this Sunday. Reports that pain does radiate down his right leg. Denies any new trauma/injuries. PFSH Past Medical History Arthritis: No Asthma: No Autoimmune Disease: No Anxiety: No Depression: No Heart Rhythm Problems: No Cancer: No Cardiovascular Problems: No High Cholesterol: No Chemotherapy: No Chest Pain: No Congestive Heart Failure: No COPD: No Cerebrovascular Accident: No Diabetes: Yes Patient Takes Glucophage: Yes Diminished Hearing: No Endocrine: No GERD: No Genitourinary: No Headaches: No Hiatal Hernia: No Heparin Induced Thrombocytopen: No Hypertension: Yes (NONCOMPLIANT WITH MEDS FOR SEVERAL YEARS) Immune Disorder: No Implanted Vascular Access Dvce: No Kidney Stones: No Musculoskeletal: No Neurologic: No Psychiatric: No Reproductive: No Respiratory: No Immunizations Current: No Migraines: Yes Radiation Therapy: No Renal Failure: No Seizures: No Sickle Cell Disease: No Sleep Apnea: No Thyroid Disease: No Ulcer: No Past Surgical History Abdominal Surgery: No AICD: No Arteriovenous Shunt: No Cardiac Surgery: No Ear Surgery: No Endocrine Surgery: No Eye Surgery: No Genitourinary Surgery: No Gynecologic Surgery: No Insulin Pump: No Joint Replacement: No Neurologic Surgery: No Oral Surgery: No Pacemaker: No Thoracic Surgery: No Other Surgery: Yes (04/05 PERINEAL/SCROTAL AREA abscess) Social History Alcohol Use: No Tobacco Use: Yes (1 ppd) Substance Use: No Allergies-Medications (Allergen,Severity, Reaction): Coded Allergies: No Known Allergies (Verified Adverse Reaction, Unknown, 05/08/18) Reported Meds & Prescriptions Reported Meds & Active Scripts Active Aspirin DR (Aspirin) 81 Mg Tabdr 81 Mg PO DAILY Norvasc (Amlodipine Besylate) 10 Mg Tab 10 Mg PO DAILY Metformin (Metformin HCl) 500 Mg Tab 500 Mg PO BIDPC With meals Review of Systems General / Constitutional: No: Fever Eyes: No: Visual changes HENT: No: Headaches Cardiovascular: No: Chest Pain or Discomfort Respiratory: No: Shortness of Breath Gastrointestinal: Positive: Abdominal Pain (Right-sided groin pain), Other Genitourinary: No: Dysuria Musculoskeletal: No: Pain Skin: Positive Other (drainage from his right foot), No Rash Neurologic: No: Weakness Psychiatric: No: Depression Endocrine: No: Polydipsia Hematologic/Lymphatic: No: Easy Bruising Physical Exam Narrative GENERAL: NAD SKIN: Focused skin assessment warm/dry. HEAD: Atraumatic. Normocephalic. EYES: Pupils equal and round. No scleral icterus. No injection or drainage. ENT: No nasal bleeding or discharge. Mucous membranes pink and moist. NECK: Trachea midline. No JVD. CARDIOVASCULAR: Regular rate and rhythm. No murmur appreciated. RESPIRATORY: No accessory muscle use. Clear to auscultation. Breath sounds equal bilaterally. GASTROINTESTINAL: Abdomen soft, non-tender, nondistended. Hepatic and splenic margins not palpable. Exam performed in presence of an RN: Patient with healing wounds to his right groin, areas are scabbed over, there are no pus or drainage from his wound sites , he does have tenderness over these healing wounds. MUSCULOSKELETAL: LLE: normal exam RLE: patient with good granulation tissue to wound with no signs of drainage or redness, pedal pulses intact NEUROLOGICAL: Awake and alert. No obvious cranial nerve deficits. Motor grossly within normal limits. Normal speech. PSYCHIATRIC: Appropriate mood and affect; insight and judgment normal. Data Data Last Documented VS Vital Signs Date Time Temp Pulse Resp B/P (MAP) Pulse Ox O2 Delivery O2 Flow Rate FiO2 05/08/18 09:46 97.8 73 16 138/78 (98) 99 Orders Orders Complete Blood Count With Diff (05/08/18 10:16) Comprehensive Metabolic Panel (05/08/18 10:16) Prothrombin Time / Inr (Pt) (05/08/18 10:16) Act Partial Throm Time (Ptt) (05/08/18 10:16) Urinalysis - C+S If Indicated (05/08/18 10:16) Ct Abd/Pel W Iv Contrast(Rout) (05/08/18 10:16) Iv Access Insert/Monitor (05/08/18 10:16) Ecg Monitoring (05/08/18 10:16) Oximetry (05/08/18 10:16) NPO (05/08/18 10:16) Sodium Chlor 0.9% 1000 Ml Inj (Ns 1000 M (05/08/18 10:16) Sodium Chloride 0.9% Flush (Ns Flush) (05/08/18 10:30) Foot, Complete ([id number]) (05/08/18 ) Ketorolac Inj (Toradol Inj) (05/08/18 11:15) Iohexol 350 Inj (Omnipaque 350 Inj) (05/08/18 09:43) Labs Laboratory Tests Test 05/08/18 10:42 05/08/18 11:18 White Blood Count 11.6 TH/MM3 Red Blood Count 4.92 MIL/MM3 Hemoglobin 14.6 GM/DL Hematocrit 43.7 % Mean Corpuscular Volume 88.9 FL Mean Corpuscular Hemoglobin 29.7 PG Mean Corpuscular Hemoglobin Concent 33.4 % Red Cell Distribution Width 15.8 % Platelet Count 258 TH/MM3 Mean Platelet Volume 8.3 FL Neutrophils (%) (Auto) 57.3 % Lymphocytes (%) (Auto) 29.8 % Monocytes (%) (Auto) 8.9 % Eosinophils (%) (Auto) 2.8 % Basophils (%) (Auto) 1.2 % Neutrophils # (Auto) 6.6 TH/MM3 Lymphocytes # (Auto) 3.4 TH/MM3 Monocytes # (Auto) 1.0 TH/MM3 Eosinophils # (Auto) 0.3 TH/MM3 Basophils # (Auto) 0.1 TH/MM3 CBC Comment DIFF FINAL Differential Comment Prothrombin Time 10.0 SEC Prothromb Time International Ratio 1.0 RATIO Activated Partial Thromboplast Time 27.2 SEC Blood Urea Nitrogen 11 MG/DL Creatinine 0.70 MG/DL Random Glucose 184 MG/DL Total Protein 7.9 GM/DL Albumin 4.0 GM/DL Calcium Level 8.9 MG/DL Alkaline Phosphatase 94 U/L Aspartate Amino Transf (AST/SGOT) 16 U/L Alanine Aminotransferase (ALT/SGPT) 21 U/L Total Bilirubin 0.2 MG/DL Sodium Level 139 MEQ/L Potassium Level 4.3 MEQ/L Chloride Level 104 MEQ/L Carbon Dioxide Level 23.6 MEQ/L Anion Gap 11 MEQ/L Estimat Glomerular Filtration Rate 123 ML/MIN Urine Color YELLOW Urine Turbidity CLEAR Urine pH 5.0 Urine Specific [place] 1.012 Urine Protein NEG mg/dL Urine Glucose (UA) 50 mg/dL Urine Ketones NEG mg/dL Urine Occult Blood NEG Urine Nitrite NEG Urine Bilirubin NEG Urine Urobilinogen LESS THAN 2 mg/dL Urine Leukocyte Esterase NEG Urine RBC 1 /hpf Urine WBC 1 /hpf Microscopic Urinalysis Comment CULT NOT INDICATED MDM Medical Decision Making Medical Screen Exam Complete: Yes Emergency Medical Condition: Yes Medical Record Reviewed: Yes Interpretation(s) Vital Signs Date Time Temp Pulse Resp B/P (MAP) Pulse Ox O2 Delivery O2 Flow Rate FiO2 05/08/18 09:46 97.8 73 16 138/78 (98) 99 Differential Diagnosis Wound infection, electrolyte abnormality, kidney stone Narrative Course During the course of the patients emergency department visit, the patients history, examination, and differential diagnosis were reviewed with the patient. The patient was placed on a cardiac cath rn with oximetry and frequent blood pressure monitoring. The patient had an IV access obtained and blood work sent for analysis. The patients laboratory studies were reviewed and remarkable for Laboratory Tests Test 05/08/18 10:42 05/08/18 11:18 White Blood Count 11.6 TH/MM3 (4.0-11.0) Red Blood Count 4.92 MIL/MM3 (4.50-5.90) Hemoglobin 14.6 GM/DL (13.0-17.0) Hematocrit 43.7 % (39.0-51.0) Mean Corpuscular Volume 88.9 FL (80.0-100.0) Mean Corpuscular Hemoglobin 29.7 PG (27.0-34.0) Mean Corpuscular Hemoglobin Concent 33.4 % (32.0-36.0) Red Cell Distribution Width 15.8 % (11.6-17.2) Platelet Count 258 TH/MM3 (150-450) Mean Platelet Volume 8.3 FL (7.0-11.0) Neutrophils (%) (Auto) 57.3 % (16.0-70.0) Lymphocytes (%) (Auto) 29.8 % (9.0-44.0) Monocytes (%) (Auto) 8.9 % (0.0-8.0) Eosinophils (%) (Auto) 2.8 % (0.0-4.0) Basophils (%) (Auto) 1.2 % (0.0-2.0) Neutrophils # (Auto) 6.6 TH/MM3 (1.8-7.7) Lymphocytes # (Auto) 3.4 TH/MM3 (1.0-4.8) Monocytes # (Auto) 1.0 TH/MM3 (0-0.9) Eosinophils # (Auto) 0.3 TH/MM3 (0-0.4) Basophils # (Auto) 0.1 TH/MM3 (0-0.2) CBC Comment DIFF FINAL Differential Comment Prothrombin Time 10.0 SEC (9.8-11.6) Prothromb Time International Ratio 1.0 RATIO Activated Partial Thromboplast Time 27.2 SEC (24.3-30.1) Blood Urea Nitrogen 11 MG/DL (7-18) Creatinine 0.70 MG/DL (0.60-1.30) Random Glucose 184 MG/DL (74-106) Total Protein 7.9 GM/DL (6.4-8.2) Albumin 4.0 GM/DL (3.4-5.0) Calcium Level 8.9 MG/DL (8.5-10.1) Alkaline Phosphatase 94 U/L (45-117) Aspartate Amino Transf (AST/SGOT) 16 U/L (15-37) Alanine Aminotransferase (ALT/SGPT) 21 U/L (12-78) Total Bilirubin 0.2 MG/DL (0.2-1.0) Sodium Level 139 MEQ/L (136-145) Potassium Level 4.3 MEQ/L (3.5-5.1) Chloride Level 104 MEQ/L (98-107) Carbon Dioxide Level 23.6 MEQ/L (21.0-32.0) Anion Gap 11 MEQ/L (5-15) Estimat Glomerular Filtration Rate 123 ML/MIN (>89) Urine Color YELLOW (YELLW/STRAW) Urine Turbidity CLEAR (CLEAR) Urine pH 5.0 (5.0-8.5) Urine Specific [place] 1.012 (1.002-1.035) Urine Protein NEG mg/dL (NEG-TRACE) Urine Glucose (UA) 50 mg/dL (NEG) Urine Ketones NEG mg/dL (NEG) Urine Occult Blood NEG (NEG) Urine Nitrite NEG (NEG) Urine Bilirubin NEG (NEG) Urine Urobilinogen LESS THAN 2 mg/dL (LESS Urine Leukocyte Esterase NEG (NEG) Urine RBC 1 /hpf (0-3) Urine WBC 1 /hpf (0-5) Microscopic Urinalysis Comment CULT NOT INDICATED Radiology studies were reviewed and remarkable for Last Impressions Abdomen/Pelvis CT 05/08/18 1016 Signed Impressions: CONCLUSION: 1. There are inflammatory changes within the right groin suggesting previous r ight common femoral endarterectomy. The patient's operative procedure was perfo rmed back in February. It is possible this represents postoperative change however there is drainage from the wound infection cannot be excluded. Foot X-Ray 05/08/18 0000 Signed Impressions: CONCLUSION: 1. Stable appearance of transmetatarsal amputation of the first digit. No inte rval bony erosion or acute bony fracture. Vital Signs Date Time Temp Pulse Resp B/P (MAP) Pulse Ox O2 Delivery O2 Flow Rate FiO2 6/20/18 09:46 97.8 73 16 138/78 (98) 99 Patient's VSS, wbc 11.6, hgb 14.6, hct 43.7, platelets: 258 sodium 139, chloride 104, BUN 11, creatinine 0.70, glucose 184 lft's wnl VSS X-ray of the right foot shows stable appearance of the transmetatarsal amputation of the first digit, there is no interval bony erosion or acute bony fracture. On physical exam, patient has healing wounds, there is no signs of pus or drainage or redness or any signs of infection. CT of the abdomen and pelvis with inflammatory changes versus postop changes to the right groin from his previous right common femoral endarterectomy. As per radiologist, the inflammatory changes could represent postop changes if there is drainage from the wound, there is no wound drainage, there is no redness or cellulitis or signs of infection, patient has a healing wound to his right groin. Plan to dress patient's right foot, will give him extra dressings so that he can change his dressings. [facility] will be given to him for follow up. I did review all labs and all studies as well as all findings with patient in detail, he will return to the emergency room as needed. Diagnosis Primary Impression: Post-op pain Additional Impression: Encounter for surgical wound dressing change Referrals: [facility] Patient Instructions: General Instructions Additional Instructions: Please follow up with your primary care doctor in 2-3 days Return to the ER if symptoms worsen or progress Return to the ER as needed Please keep your wound clean and apply dressings Disposition: 01 DISCHARGE HOME Condition: Stable Karina Adorno DO May 08, 2018 10:27
[2018-05-08] MEDS ORDERED: SODIUM CHLORIDE 0.9% FLUSH 10 ML FLUSH IV FLUSH PRN (10:30)
--- NOTE | 2018-05-08 10:50 | RADRPT ---
EXAM DATE: 05/08/2018 10:41 AM EDT AGE/SEX: 42 years / Male INDICATIONS: Right foot pain, sore on plantar surface. CLINICAL DATA: This is the patient's initial encounter. Patient reports that signs and symptoms have been present for 1 day and indicates a pain score of 10/10. MEDICAL/SURGICAL HISTORY: Diabetes mellitus type II. . great toe right foot surgery and sore on plantar surface 02/2018 [place]PAR[place] [facility] [place] ([id number][place] 03/06/2018. . FINDINGS: Stable postsurgical features of transmetatarsal amputation of the first digit. Osseous structures bryanna ear intact without focal bony destruction or acute interval fracture. The amputation stump is stable in appearance. No radiopaque foreign bodies or subcutaneous emphysema. CONCLUSION: 1. Stable appearance of transmetatarsal amputation of the first digit. No interval bony erosion or a cute bony fracture. Electronically signed by: Fady Triplett MD 05/08/2018 10:48 AM EDT
[2018-05-08 11:04] LABS: AUTOMATED NEUTROPHIL # 6.6 TH/MM3 (1.8-7.7); BASOPHIL # 0.1 TH/MM3 (0-0.2); BASOPHIL % 1.2 % (0.0-2.0); EOSINOPHIL # 0.3 TH/MM3 (0-0.4); EOSINOPHIL % 2.8 % (0.0-4.0); HEMATOCRIT 43.7 % (39.0-51.0); HEMOGLOBIN 14.6 GM/DL (13.0-17.0); LYMPH % 29.8 % (9.0-44.0); LYMPHOCYTE # 3.4 TH/MM3 (1.0-4.8); MEAN CELL VOLUME 88.9 FL (80.0-100.0); MEAN CORPUSCULAR HEMOGLOBIN 29.7 PG (27.0-34.0); MEAN CORPUSCULAR HGB CONC 33.4 % (32.0-36.0); MEAN PLATELET VOLUME 8.3 FL (7.0-11.0); MONO % 8.9 % (0.0-8.0); NEUT % 57.3 % (16.0-70.0); PLATELET COUNT 258 TH/MM3 (150-450); RED BLOOD COUNT 4.92 MIL/MM3 (4.50-5.90); RED CELL DISTRIBUTION WIDTH 15.8 % (11.6-17.2); WHITE BLOOD COUNT 11.6 TH/MM3 (4.0-11.0)
[2018-05-08] MEDS ORDERED: KETOROLAC TROMETHAMINE 30 MG/ML (IVP) VIAL IV PUSH ONE (11:15)
[2018-05-08 11:19] LABS: ALT (GPT) 21 U/L (12-78); AST (GOT) 16 U/L (15-37); BICARBONATE 23.6 MEQ/L (21.0-32.0); BLOOD UREA NITROGEN 11 MG/DL (7-18); CALCIUM 8.9 MG/DL (8.5-10.1); CHLORIDE 104 MEQ/L (98-107); GLOMERULAR FILTRATION RATE 123 ML/MIN (>89); GLUCOSE,RANDOM 184 MG/DL (74-106); SODIUM (NA) 139 MEQ/L (136-145)
[2018-05-08 11:21] LABS: ALKALINE PHOSPHATASE 94 U/L (45-117); TOTAL BILIRUBIN ADULT 0.2 MG/DL (0.2-1.0); TOTAL PROTEIN 7.9 GM/DL (6.4-8.2)
[2018-05-08 11:49] LABS: BILIRUBIN, URINE NEG (NEG); BLOOD, URINE NEG (NEG); GLUCOSE,URINE 50 mg/dL (NEG); KETONE, URINE NEG (NEG); NITRITE,URINE NEG (NEG); URINE COLOR YELLOW (YELLW/STRAW); URINE LEUKOCYTE ESTERASE NEG (NEG)
--- NOTE | 2018-05-08 12:32 | RADRPT ---
EXAM DATE: 05/08/2018 11:53 AM EDT AGE/SEX: 42 years / Male This should BE correlated with patient's clinical history. INDICATIONS: Abdomen pain,right groin pain CLINICAL DATA: This is the patient's initial encounter. Patient reports that signs and symptoms have been present for 1 day and indicates a pain score of 10/10. MEDICAL/SURGICAL HISTORY: Hypertension. Diabetes. None. ORAL CONTRAST: No oral contrast ingested. RADIATION DOSE: 10.46 CTDI (mGy) COMPARISON: [facility], CT ABDOMEN & PELVIS W CONTRAST, 04/06/2012. . TECHNIQUE: Multiple contiguous axial images were obtained through the abdomen and pelvis following b olus infusion of 95 ml Omnipaque 350 (iohexol) nonionic water-soluble contrast as a single exam dos e. No oral contrast ingested. Using automated exposure control and adjustment of the mA and/or kV ac cording to patient size, radiation dose was kept as low as reasonably achievable to obtain optimal di agnostic quality images. DICOM format image data is available electronically for review and comparis on. FINDINGS: Imaging through the lung bases demonstrates a 6 mm pulmonary nodule in the posterior lateral aspect o f the right lower lobe. This is nonspecific in appearance. Follow-up CT examination in 6 months to do cument stability would be warranted. The appearance of the liver, spleen, pancreas, adrenal glands and kidneys is within normal limits. The visualized loops of small large bowel in the upper abdomen are unremarkable. No free air or free fluid is seen. The anterior abdominal wall is intact. The abdominal aorta is normal in caliber. There is no retroperitoneal lymphadenopathy evident. There is no free fluid within the pelvis. No iliac or inguinal adenopathy is seen. Incidental note is made of previous stenting of the right external iliac circulation. Imaging through the right groin demonstrates postsurgical changes involving the right common femoral artery. There is diffuse atherosclerotic calcification and mild aneurysmal dilation. The [place] super ficial femoral appears heavily diseased. The exam would suggest previous common femoral endarterectom y. No definite pseudoaneurysm is evident. It is possible this is all postsurgical in etiology however , if the surgery is somewhat remote this could represent postoperative infection of this area as well . CONCLUSION: 1. There are inflammatory changes within the right groin suggesting previous right common femoral en darterectomy. The patient's operative procedure was performed back in February. It is possible this repr esents postoperative change however there is drainage from the wound infection cannot be excluded. Electronically signed by: Marlo Klein MD 05/08/2018 12:31 PM EDT
== END 2018-05-08 13:06 | disposition home or self-care (01) ==
LOC: NEPD 09:42
DX: G89.18 Other acute postprocedural pain (principal); M79.671 Pain in right foot; R10.31 Right lower quadrant pain; E11.9 Type 2 diabetes mellitus without complications; I10 Essential (primary) hypertension; I73.9 Peripheral vascular disease, unspecified; F17.200 Nicotine dependence, unspecified, uncomplicated; Z89.411 Acquired absence of right great toe; Z91.14 Patient's other noncompliance with medication regimen; Z59.0 Homelessness; Z48.01 Encounter for change or removal of surgical wound dressing
CPT/HCPCS: 73630; 74177; 80053; 81001; 85025; 85610; 85730; 96361; 96374; 99285; J1885; J7030; Q9967

== ENCOUNTER 2018-11-29 23:24 | Inpatient (IN) ==
[2018-11-29] MEDS ORDERED: Vancomycin Inj 1,000 MG in Sodium Chlor 0.9% Inj 250 ML IV.SIG ONE (23:56)
[2018-11-30 00:25] LABS: Baso # (Auto) 0.1 th/mm3 (0.0-0.2); Baso % (Auto) 0.8 % (0.0-2.0); Eos # (Auto) 0.3 th/mm3 (0.0-0.4); Eos % (Auto) 2.3 % (0.0-4.0); Hematocrit 44.3 % (39.0-51.0); Hemoglobin 14.6 gm/dL (13.0-17.0); Lymph # (Auto) 3.7 th/mm3 (1.0-4.8); Lymph % (Auto) 25.9 % (9.0-44.0); Mean Corpuscular Hemoglobin 29.8 pg (27.0-34.0); Mean Corpuscular Volume 90.2 fL (80.0-100.0); Mean Platelet Volume 8.8 fL (7.0-11.0); Mono % (Auto) 6.6 % (0.0-8.0); Neut # (Auto) 9.4 th/mm3 (1.8-7.7); Neut % (Auto) 64.4 % (16.0-70.0); Platelet Count 340 th/mm3 (150-450); Red Cell Distribution Width 12.9 % (11.6-17.2); White Blood Count 14.5 th/mm3 (4.0-11.0)
--- NOTE | 2018-11-30 00:40 | ED ---
HPI General Chief complaint: Skin/Abscess/Foreign Body Stated complaint: Right foot injury x 3 days ago Time Seen by Provider: 11/29/18 23:54 Source: patient Mode of arrival: ambulatory Limitations: no limitations History of Present Illness MD complaint: Reports rash and lesion Onset (ago): day(s) (3) Tetanus Immunization: <5 Years Location: Reports R foot Severity: moderate Severity scale (1-10): 5 Quality: Reports burning and aching Pain Consistency: constant Relieving factors: none Exacerbating factors: palpation, movement and other (weight bearing) Context: Reports recent antibiotic (3 days of clindamycin sypmtoms worsening) Associated symptoms: Reports chills; Denies fever, rigors, itching, nausea, vomiting, malaise, arthralgias, myalgias, cough and shortness of breath Treatments prior to arrival: Reports antibiotic (clindamycin) Related Data Home Medications Medication Instructions Recorded Confirmed amlodipine 10 mg PO DAILY 05/31/18 11/29/18 metformin 500 mg PO BID 05/31/18 11/29/18 gabapentin 300 mg PO TID 08/19/18 11/29/18 aspirin [Aspirin Low Dose] 81 mg PO DAILY 11/29/18 11/29/18 atorvastatin 40 mg PO DAILY 11/29/18 11/29/18 Previous Rx's Medication Instructions Recorded clindamycin HCl 300 mg PO Q6H 7 Days #28 cap 11/27/18 Allergies Allergy/AdvReac Type Severity Reaction Status Date / Time No Known Allergies Allergy Verified 08/19/18 20:56 Review of Systems ROS: all other systems reviewed are negative [facility] Medical History Medical History Amputated toe of right foot (Acute) Loss of teeth due to extraction (Acute) Hypertension (Acute) Diabetes (Acute) PVD (peripheral vascular disease) (Acute) Surgical History Surgical History History of vascular surgery (Acute) Social History Social History Substance History: No History of Abuse Second Hand Smoke Exposure: Yes Smoking Status: Current every day smoker Tobacco Type: Cigarettes How Often Do You Have a Drink Containing Alcohol: Never Recent Out of Country Travel within the Last 8 Weeks: No Immunization History Tetanus Immunization: Unsure Tetanus Immunization Year if Known: 2017 Exam Narrative Exam Narrative: GENERAL: Well-nourished, well-developed patient. SKIN: Focused skin assessment warm/dry. HEAD: Normocephalic. EYES: No scleral icterus. No injection or drainage. NECK: Supple, trachea midline. No JVD or lymphadenopathy. CARDIOVASCULAR: Regular rate and rhythm without murmurs, gallops, or rubs. RESPIRATORY: Breath sounds equal bilaterally. No accessory muscle use. GASTROINTESTINAL: Abdomen soft, non-tender, nondistended. MUSCULOSKELETAL: No cyanosis, or edema. Attention right foot patient is status post amputation of the right great toe small intact hemorrhagic bullous lesion is noted to the distal aspect of the second toe large callus bullous lesion on the plantar surface at the location of the amputated right great toe with interruption of the vesicle. Erythema warmth of the dorsum of the right foot with tenderness to palpation that extends proximally to the mid lower leg. No right groin lymphadenopathy. BACK: Nontender without obvious deformity. No CVA tenderness. Course Initial Documented Vital Signs Temperature 98.6 F 11/29/18 23:28 Pulse Rate 81 11/29/18 23:28 Respiratory Rate 18 11/29/18 23:28 Blood Pressure 192/89 H 11/29/18 23:28 Pulse Oximetry 98 11/29/18 23:28 Last Documented Vital Signs Temperature 98.6 F 11/29/18 23:28 Pulse Rate 74 11/30/18 00:24 Respiratory Rate 20 11/30/18 00:24 Blood Pressure 143/78 H 11/30/18 00:24 Pulse Oximetry 97 11/30/18 00:24 Medical Decision Making [facility] Narrative Medical decision making narrative: Patient presents for worsening cellulitis of the right lower extremity specifically the foot with ascending erythema to the right mid leg patient is diabetic. Patient has large callus with interruption on the bottom of the right foot with clear drainage. White count elevated Patient is failed outpatient therapy will admit for IV antibiotics and podiatry consult will get MRI in the a.m. Discussed with Dr. Fozia Fernandez admit as inpatient Medical Screen Exam Complete: Yes Emergency Medical Condition: Yes Differential Diagnosis Differential Diagnosis: Cellulitis, osteomyelitis, infected diabetic ulcer, ascending lymphangitis, poorly controlled diabetes, failed outpatient antibiotic therapy Medical Records Medical records reviewed: Yes I reviewed the patient's medical records. Lab Data Lab results reviewed: Yes I reviewed the patient's lab results. Result diagrams: 11/30/18 00:10 11/30/18 00:10 Lab Results 11/30/18 11/30/18 11/30/18 Range/Units 00:10 00:10 00:10 CBC w Diff Auto diff final WBC 14.5 H (4.0-11.0) th/mm3 RBC 4.90 (4.50-5.90) mil/mm3 Hgb 14.6 (13.0-17.0) gm/dL Hct 44.3 (39.0-51.0) % MCV 90.2 (80.0-100.0) fL MCH 29.8 (27.0-34.0) pg MCHC 33.0 (32.0-36.0) % RDW 12.9 (11.6-17.2) % Plt Count 340 D (150-450) th/mm3 MPV 8.8 (7.0-11.0) fL Neut % (Auto) 64.4 (16.0-70.0) % Lymph % (Auto) 25.9 (9.0-44.0) % [place] % (Auto) 6.6 (0.0-8.0) % Eos % (Auto) 2.3 (0.0-4.0) % Baso % (Auto) 0.8 (0.0-2.0) % Neut # (Auto) 9.4 H (1.8-7.7) th/mm3 Lymph # (Auto) 3.7 (1.0-4.8) th/mm3 [place] # (Auto) 1.0 H (0.0-0.9) th/mm3 Eos # (Auto) 0.3 (0.0-0.4) th/mm3 Baso # (Auto) 0.1 (0.0-0.2) th/mm3 WBC Differential . Differential Comment . Sodium 137 (136-145) meq/L Potassium 3.6 (3.5-5.1) meq/L Chloride 104 (98-107) meq/L Carbon Dioxide 24.5 (21.0-32.0) meq/L Anion Gap 9 (5-15) meq/L BUN 13 (7-18) mg/dL Creatinine 0.80 (0.60-1.30) mg/dL Estimated GFR Greater than 89 (>89) mL/min POC Glucose (68-110) mg/dl Random Glucose 233 H (74-106) mg/dL Lactic Acid 1.4 (0.4-2.0) mmol/L Calcium 8.7 (8.5-10.1) mg/dL 11/30/18 Range/Units 00:41 CBC w Diff WBC (4.0-11.0) th/mm3 RBC (4.50-5.90) mil/mm3 Hgb (13.0-17.0) gm/dL Hct (39.0-51.0) % MCV (80.0-100.0) fL MCH (27.0-34.0) pg MCHC (32.0-36.0) % RDW (11.6-17.2) % Plt Count (150-450) th/mm3 MPV (7.0-11.0) fL Neut % (Auto) (16.0-70.0) % Lymph % (Auto) (9.0-44.0) % [place] % (Auto) (0.0-8.0) % Eos % (Auto) (0.0-4.0) % Baso % (Auto) (0.0-2.0) % Neut # (Auto) (1.8-7.7) th/mm3 Lymph # (Auto) (1.0-4.8) th/mm3 [place] # (Auto) (0.0-0.9) th/mm3 Eos # (Auto) (0.0-0.4) th/mm3 Baso # (Auto) (0.0-0.2) th/mm3 WBC Differential Differential Comment Sodium (136-145) meq/L Potassium (3.5-5.1) meq/L Chloride (98-107) meq/L Carbon Dioxide (21.0-32.0) meq/L Anion Gap (5-15) meq/L BUN (7-18) mg/dL Creatinine (0.60-1.30) mg/dL Estimated GFR (>89) mL/min POC Glucose 246 H (68-110) mg/dl Random Glucose (74-106) mg/dL Lactic Acid (0.4-2.0) mmol/L Calcium (8.5-10.1) mg/dL Discharge Plan Discharge Disposition Patient Disposition: ED Admit(ED Internal Use Only) Discharge Condition Condition: Stable Discharge Order Discharge Orders: ED Use Only Admit Order (Routine); Ordered 11/30/18 Ordered By: Sharron Calle Discharge Details Diagnosis: Cellulitis of right foot, Diabetes mellitus, Diabetic foot infection, Failure of outpatient treatment Physicians Team ED Provider: Sharron Calle Primary Care Provider: Bill Hagen Attending Provider: Aixa Fernandez Status ED Status: Admitted Patient
[2018-11-30 00:45] LABS: Chloride 104 meq/L (98-107); Potassium 3.6 meq/L (3.5-5.1); Sodium 137 meq/L (136-145)
[2018-11-30 00:48] LABS: Anion Gap 9 meq/L (5-15); Calcium 8.7 mg/dL (8.5-10.1); Carbon Dioxide 24.5 meq/L (21.0-32.0); Glucose,Random 233 mg/dL (74-106)
[2018-11-30 00:49] LABS: Blood Urea Nitrogen 13 mg/dL (7-18)
[2018-11-30 00:52] LABS: Glomerular Filtration Rate Greater Than 89 mL/min (>89)
[2018-11-30] MEDS ORDERED: Dextrose 50% in Water 50 ML Vial IV.PUSH PRN (01:06)
[2018-11-30] MEDS ORDERED: Acetaminophen 325 MG Tablet PO PRN (01:07)
[2018-11-30] MEDS ORDERED: Vancomycin Consult Pharmacy OTHER PRN (01:07)
[2018-11-30] MEDS ORDERED: Bisacodyl 10 MG Supp RECTAL PRN (01:07)
[2018-11-30] MEDS ORDERED: Naloxone Inj 0.4 MG/ML Vial IV.PUSH PRN (01:07)
[2018-11-30] MEDS: Morphine Inj 4 MG/ML Vial IV.PUSH PRN ×5 (01:37→20:54)
[2018-11-30] MEDS: Sod Chloride 0.9% Inj 1,000 ML IV.CONT SCH ×4 (01:39→21:51)
[2018-11-30] MEDS: amLODIPine 5 MG Tablet PO SCH (08:05)
[2018-11-30] MEDS: Gabapentin 300 MG Capsule PO SCH ×4 (08:06→18:14)
[2018-11-30] MEDS: Senna/Docusate Sodium 8.6/50 MG Tablet PO SCH ×2 (08:07→20:58)
[2018-11-30] MEDS: Insulin NovoLOG Aspart Correctional Sugar Inj SQ SCH ×4 (08:07→21:49)
[2018-11-30] MEDS: Heparin - SQ 10,000 UNITS/ML Vial SQ SCH ×2 (08:10→20:57)
--- NOTE | 2018-11-30 09:08 | P.HPIM ---
History of Present Illness Primary Care Physician: WILDA Winkler Chief Complaint: right foot infection History of Present Illness: patient is a 43 y/o male with history of diabetes and hypertension, who presented to ER with right foot infection. he says that it started about a week ago. he was seen in ER three days ago and was discharged with Clindamycin which he says that he took with no significant improvement. he denies any fever or chills but has some pain to the right foot.he otherwise denies any other complaints. Inpatient Certification Inpatient Certification: I certify that the inpatient services were ordered in accordance with Medicare regulations governing the order. This includes certification that hospital inpatient services are reasonable and necessary and in the case of services not specified as inpatient-only under 42 CFR 419.22(n), that they are appropriately provided as inpatient services in accordance to with the 2-midnight benchmark under 43 CFR 412.3(e) Estimated Total Length of Stay (Days): 2 Plans for Post Hospital Care: Not yet determined Review of Systems Review of Systems: all other systems reviewed are negative [facility] Medical History Medical History Amputated toe of right foot (Acute) Loss of teeth due to extraction (Acute) Hypertension (Acute) Diabetes (Acute) PVD (peripheral vascular disease) (Acute) Surgical History Surgical History History of vascular surgery (Acute) Social History Social History Substance History: No History of Abuse Second Hand Smoke Exposure: Yes Smoking Status: Current every day smoker Tobacco Type: Cigarettes How Often Do You Have a Drink Containing Alcohol: Never Recent Out of Country Travel within the Last 8 Weeks: No Immunization History Tetanus Immunization: Unsure Tetanus Immunization Year if Known: 2016 Hx Influenza Vaccine This Season: No Medications and Allergies Allergies Allergy/AdvReac Type Severity Reaction Status Date / Time No Known Allergies Allergy Verified 08/19/18 20:56 Home Medications Medication Instructions Recorded Confirmed Type amlodipine 10 mg PO DAILY 05/31/18 11/29/18 History metformin 500 mg PO BID 05/31/18 11/29/18 History gabapentin 300 mg PO TID 08/19/18 11/29/18 History aspirin [Aspirin Low Dose] 81 mg PO DAILY 11/29/18 11/29/18 History atorvastatin 40 mg PO DAILY 11/29/18 11/29/18 History Active Medications: Active Medications Acetaminophen (Tylenol) 650 mg PO Q4H PRN PRN Reason: Temp > 100.4 Hydrocodone Bitart/Acetaminophen ([place] 5/325) 1 tab PO Q4H PRN PRN Reason: PAIN SCALE 3 TO 5 Al Hydroxide/Mg Hydroxide (Milk Of Magnesia Liq) 30 ml PO Q12H PRN PRN Reason: Mild Constipation Amlodipine Besylate (Norvasc) 10 mg PO DAILY [facility] Last Admin: 11/30/18 08:05 Dose: 10 mg Aspirin (Ecotrin) 81 mg PO DAILY [facility] Last Admin: 11/30/18 08:06 Dose: 81 mg Atorvastatin Calcium (Lipitor) 40 mg PO DAILY [facility] Last Admin: 11/30/18 08:06 Dose: 40 mg Bisacodyl (Dulcolax Supp) 10 mg RECTAL DAILY PRN PRN Reason: SEVERE CONSITIPATION Dextrose (D50w Vial) 50 ml IV.PUSH UNSCH PRN PRN Reason: PER HYPOGLYCEMIA PROTOCOL Gabapentin (Neurontin) 300 mg PO TID [facility] Last Admin: 11/30/18 08:06 Dose: 300 mg Glucagon (Glucagon Inj) 1 mg OTHER PRN PRN PRN Reason: for Hypoglycemia Protocol Heparin Sodium (Porcine) (Heparin Inj) 5,000 units SQ Q12H [facility] Last Admin: 11/30/18 08:10 Dose: 5,000 units Cefepime HCl 1,000 mg/ Sodium (Chloride) 100 mls @ 200 mls/hr IV.SIG Q12H [facility] Last Infusion: 11/30/18 08:44 Dose: Infused Sodium Chloride (Ns Inj) 1,000 mls @ 100 mls/hr IV.CONT .Q10H [facility] Last Admin: 11/30/18 08:08 Dose: 100 mls/hr Vancomycin HCl 1,500 mg/ (Sodium Chloride) 515 mls @ 250 mls/hr IV.SIG Q12H [facility] Insulin Aspart (Novolog Insulin Correctional Sugar Inj) 0 unit SQ ACHS [facility]; Protocol Last Admin: 11/30/18 08:07 Dose: 3 unit Lactulose (Lactulose Liq) 30 ml PO DAILY PRN PRN Reason: SEVERE CONSITIPATION Miscellaneous Information [place] [place] Info) 1 each OTHER ONCE ONE Stop: 12/01/18 11:46 Morphine Sulfate (Morphine Inj) 2 mg IV.PUSH Q3H PRN PRN Reason: PAIN 6-10;IF UNABLE TO TAKE PO Last Admin: 11/30/18 08:00 Dose: 2 mg Naloxone HCl (Narcan Inj) 0.4 mg IV.PUSH UNSCH PRN PRN Reason: SEE LABEL COMMENTS Ondansetron HCl (Zofran Inj) 4 mg IV.PUSH Q6H PRN PRN Reason: NAUSEA OR VOMITING Pharmacy Profile Note (Vancomycin Consult Pharmacy) 1 each OTHER UNSCH PRN PRN Reason: Pharmacy to dose Senna/Docusate Sodium (Savana-Colace) 1 tab PO BID [facility] Last Admin: 11/30/18 08:07 Dose: Not Given Sennosides (Senokot) 17.2 mg PO Q12H PRN PRN Reason: Moderate Constipation Sodium Chloride (Ns Flush) 2 ml IV.FLUSH BID [facility] Last Admin: 11/30/18 08:06 Dose: Not Given Sodium Chloride (Ns Flush) 2 ml IV.FLUSH PRN PRN PRN Reason: FLUSH AFTER USING IV ACCESS Last Admin: 11/30/18 01:38 Dose: 2 ml Physical Exam Vital signs: Vital Signs 11/29/18 23:28 11/30/18 00:24 11/30/18 01:44 Temperature 98.6 F Pulse Rate 81 74 70 Respiratory Rate 18 20 18 Blood Pressure 192/89 H 143/78 H 154/83 H Pulse Oximetry 98 97 95 11/30/18 02:30 11/30/18 02:43 11/30/18 05:00 Temperature 98 F Pulse Rate 70 83 Respiratory Rate 20 18 Blood Pressure 148/80 H 167/76 H 150/70 H Pulse Oximetry 95 94 L 11/30/18 08:00 Temperature 99.2 F Pulse Rate 72 Respiratory Rate 16 Blood Pressure 134/62 Pulse Oximetry 96 Intake & Output 11/29/18 11/30/18 11/30/18 18:59 06:59 18:59 Intake Total 350 / 350 800 / 800 Balance 350 / 350 800 / 800 Weight 93.6 kg Intake: IV 350 / 350 800 / 800 NS Inj 1,000 ML @ 100 mls/hr IV 100 / 100 700 / 700 .CONT .Q10H [facility] Rx#:[id number] Maxipime Inj 1,000 MG In NS Inj 100 / 100 100 ML @ 200 mls/hr IV.SIG Q12H [facility] Rx#:[id number] Vancomycin Inj 1,000 MG In NS 250 / 250 Inj 250 ML @ 250 mls/hr IV.SIG ONCE ONE Rx#:[id number] Other: # Voids 3 Date of Last Bowel Movement 11/29/18 Weight On Admission 93.8 kg Constitutional no acute distress Routine HEENT Exam Eye: Present PERRL Routine Neck Exam Present supple Routine Respiratory Exam Present CTA bilaterally Routine Cardiovascular Exam Present RRR Routine Abdominal Exam Present soft Routine Extremities Exam Comments: some swelling and warmth noted over the right foot. s/p right big toe amputation. Routine Skin Exam Comments: wound noted on the bottom of the right foot. Results Labs CBC & Chem 7: 11/30/18 00:10 11/30/18 00:10 Caprini VTE Risk Assessment Caprini VTE Risk Assessment: Moderate/High Risk (score >= 2) Caprini Risk Assessment Model: Point Value = 1 Point Value = 2 Point Value = 3 Point Value = 5 Age 41-60 Minor surgery BMI > 25 kg/m2 Swollen legs Varicose veins or History of unexplained or recurrent spontaneous Oral contraceptives or hormone replacement Sepsis (< 1 month) Serious lung disease, including pneumonia (< 1 month) Abnormal pulmonary function Acute myocardial infarction Congestive heart failure (< 1 month) History of inflammatory bowel disease Medical patient at bed rest Age 61-74 Arthroscopic surgery Major open surgery (> 45 min) Laparoscopic surgery (> 45 min) Malignancy Confined to bed (> 72 hours) Immobilizing plaster cast Central venous access Age >= 75 History of VTE Family history of VTE Factor V Leiden Prothrombin [id number] Lupus anticoagulant Anticardiolipin antibodies Elevated serum homocysteine Heparin-induced thrombocytopenia Other congenital or acquired thrombophilia Stroke (< 1 month) Elective arthroplasty Hip, pelvis, or leg fracture Acute spinal cord injury (< 1 month) Prophylaxis Regimen: Total Risk Factor Score Risk Level Prophylaxis Regimen 0-1 Low Early ambulation 2 Moderate Order ONE of the following: *Sequential Compression Device (SCD) *Heparin 5000 units SQ BID 3-4 Higher Order ONE of the following medications: *Heparin 5000 units SQ TID *Enoxaparin/Lovenox 40 mg SQ daily (WT < 150 kg, CrCl > 30 mL/min) *Enoxaparin/Lovenox 30 mg SQ daily (WT < 150 kg, CrCl > 10-29 mL/min) *Enoxaparin/Lovenox 30 mg SQ BID (WT < 150 kg, CrCl > 30 mL/min) AND/OR *Sequential Compression Device (SCD) 5 or more Highest Order ONE of the following medications: *Heparin 5000 units SQ TID (Preferred with Epidurals) *Enoxaparin/Lovenox 40 mg SQ daily (WT < 150 kg, CrCl > 30 mL/min) *Enoxaparin/Lovenox 30 mg SQ daily (WT < 150 kg, CrCl > 10-29 mL/min) *Enoxaparin/Lovenox 30 mg SQ BID (WT < 150 kg, CrCl > 30 mL/min) AND *Sequential Compression Device (SCD) Assessment and Plan Plan A/P - right foot infection- failed outpatient therapy continue with broad spectrum IV antibiotics and follow the cultures- podiatry consulted. -diabetes mellitus; continue with accu-check with SSI -hypertension; resumed home meds. -DVT prophylaxis; subq Heparin. Discussed Condition With: the patient. Discharge Planning: home when work-up completed. H&P: Quality VTE Deep Vein Thrombosis/Pulmonary Embolism Present on Admission: No
[2018-11-30] MEDS ORDERED: Gadobutrol PF 10 MMOL/10 ML Vial (for RAD) IV.SIG ONE (10:31)
--- NOTE | 2018-11-30 11:04 | MR ---
EXAM DATE: 11/30/2018 10:51 AM EST AGE/SEX: 43 years / Male INDICATIONS: Osteomyelitis. Right great toe and metatarsal amputation. Pain, redness, and swellin g. CLINICAL DATA: This is the patient's initial encounter. Patient reports that signs and symptoms have been present for 1 day and indicates a pain score of 3/10. MEDICAL/SURGICAL HISTORY: Diabetes mellitus type II. Hypertension. Peripheral vascular diseas e. . Vascular surgery. COMPARISON: [facility], MRI FOOT RIGHT W & W/O CONTRAST, 03/05/2018. [facility], MRI FOOT RIGHT W & W/O CONTR AST, 02/17/2018. . TECHNIQUE: Multiplanar, multisequence MRI examination was performed without contrast and after th e intravenous administration of 10cc ml Gadavist (gadobutrol) single exam dose. FINDINGS: Bones: The osseous structures are in normal alignment. No evidence of fracture or bony edema. There are no obvious erosions present. Joint Spaces: No joint effusion or loose bodies are seen. The joint spaces are preserved. Tendons: The flexor tendons are intact. Soft Tissues: There is mild increased T2 signal identified within the intraosseous muscles with subtl e enhancement after the administration of contrast. No evidence of abscess. No clearly defined ulcera tion. Other: The plantar fascia is intact. No signal abnormalities are seen in the plantar musculature. Post Contrast: There are no abnormal areas of enhancement in the marrow, muscle or soft tissues on im ages obtained after intravenous administration of gadolinium. CONCLUSION: 1. Mild edema identified within the intraosseous muscles and oblique head of the abductor hallucis. No evidence of osteomyelitis. No visible ulceration of the skin. Electronically signed by: Varsha Colorado MD Board Certified Radiologist 11/30/2018 11:03 AM SHAUN Dc
[2018-11-30] MEDS: Vancomycin Inj 1,500 MG in Sodium Chlor 0.9% Inj 500 ML IV.SIG SCH (11:15)
--- NOTE | 2018-11-30 23:47 | P.CON ---
History of Present Illness Service: Podiatry Reason for Consult: Right ot infection Primary Care Provider: WILDA Winkler Chief Complaint: right foot infection History of Present Illness: Podiatry consulted for this 43 y/o male with history of diabetes and hypertension for right foot infection, right foot ulcer. Patient states he has been walking more which may have caused the ulceration. He denies any N, V, F, Ch. 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 Review of Systems All other systems reviewed negative except as stated in HPI PMFSH - History History Provided By: Patient - Medical History Medical History: Medical History (Last Reviewed 11/30/18 @ 23:43 by Priscilla Carlton DPM) Amputated toe of right foot (Acute) Loss of teeth due to extraction (Acute) Hypertension (Acute) Diabetes (Acute) PVD (peripheral vascular disease) (Acute) - Surgical History Surgical History: Surgical History (Last Reviewed 11/30/18 @ 09:05 by Rickey Maldonado MD) History of vascular surgery - Tobacco History Second Hand Smoke Exposure: Yes Tobacco Use In Past 30 Days: Yes Smoking Status: Current every day smoker Tobacco Type: Cigarettes - Alcohol History How Often Do You Have a Drink Containing Alcohol: Never - Substance Use History Substance History: No History of Abuse - Travel History Recent Travel Out of the Country Within the Last 8 Weeks: No - Immunization History Tetanus Immunization: Unsure Tetanus Immunization Year if Known: 2016 Hx Influenza Vaccine This Season: No Medications and Allergies Active Medications: Active Medications Acetaminophen (Tylenol) 650 mg PO Q4H PRN PRN Reason: Temp > 100.4 Hydrocodone Bitart/Acetaminophen ([place] 5/325) 1 tab PO Q4H PRN PRN Reason: PAIN SCALE 3 TO 5 Last Admin: 11/30/18 18:14 Dose: 1 tab Al Hydroxide/Mg Hydroxide (Milk Of Magnluis Liq) 30 ml PO Q12H PRN PRN Reason: Mild Constipation Amlodipine Besylate (Norvasc) 10 mg PO DAILY [facility] Last Admin: 11/30/18 08:05 Dose: 10 mg Aspirin (Ecotrin) 81 mg PO DAILY [facility] Last Admin: 11/30/18 08:06 Dose: 81 mg Atorvastatin Calcium (Lipitor) 40 mg PO DAILY [facility] Last Admin: 11/30/18 08:06 Dose: 40 mg Bisacodyl (Dulcolax Supp) 10 mg RECTAL DAILY PRN PRN Reason: SEVERE CONSITIPATION Dextrose (D50w Vial) 50 ml IV.PUSH UNSCH PRN PRN Reason: PER HYPOGLYCEMIA PROTOCOL Gabapentin (Neurontin) 300 mg PO TID [facility] Last Admin: 11/30/18 18:14 Dose: 300 mg Glucagon (Glucagon Inj) 1 mg OTHER PRN PRN PRN Reason: for Hypoglycemia Protocol Heparin Sodium (Porcine) (Heparin Inj) 5,000 units SQ Q12H [facility] Last Admin: 11/30/18 20:57 Dose: 5,000 units Cefepime HCl 1,000 mg/ Sodium (Chloride) 100 mls @ 200 mls/hr IV.SIG Q12H [facility] Last Admin: 11/30/18 21:03 Dose: 200 mls/hr Sodium Chloride (Ns Inj) 1,000 mls @ 100 mls/hr IV.CONT .Q10H [facility] Last Admin: 11/30/18 21:51 Dose: 100 mls/hr Vancomycin HCl 1,500 mg/ (Sodium Chloride) 515 mls @ 250 mls/hr IV.SIG Q12H [facility] Last Infusion: 11/30/18 13:23 Dose: Infused Insulin Aspart (Novolog Insulin Correctional Sugar Inj) 0 unit SQ ACHS [facility]; Protocol Last Admin: 11/30/18 21:49 Dose: 3 unit Lactulose (Lactulose Liq) 30 ml PO DAILY PRN PRN Reason: SEVERE CONSITIPATION Miscellaneous Information ([facility] Ordered Lab Info) 1 each OTHER ONCE ONE Stop: 12/01/18 11:46 Morphine Sulfate (Morphine Inj) 2 mg IV.PUSH Q3H PRN PRN Reason: PAIN 6-10;IF UNABLE TO TAKE PO Last Admin: 11/30/18 20:54 Dose: 2 mg Naloxone HCl (Narcan Inj) 0.4 mg IV.PUSH UNSCH PRN PRN Reason: SEE LABEL COMMENTS Ondansetron HCl (Zofran Inj) 4 mg IV.PUSH Q6H PRN PRN Reason: NAUSEA OR VOMITING Pharmacy Profile Note (Vancomycin Consult Pharmacy) 1 each OTHER UNSCH PRN PRN Reason: Pharmacy to dose Senna/Docusate Sodium (Savana-Colace) 1 tab PO BID [facility] Last Admin: 11/30/18 20:58 Dose: 1 tab Sennosides (Senokot) 17.2 mg PO Q12H PRN PRN Reason: Moderate Constipation Sodium Chloride (Ns Flush) 2 ml IV.FLUSH BID [facility] Last Admin: 11/30/18 21:03 Dose: 2 ml Sodium Chloride (Ns Flush) 2 ml IV.FLUSH PRN PRN PRN Reason: FLUSH AFTER USING IV ACCESS Last Admin: 11/30/18 01:38 Dose: 2 ml Allergies Allergy/AdvReac Type Severity Reaction Status Date / Time No Known Allergies Allergy Verified 08/19/18 20:56 Home Medications Medication Instructions Recorded Confirmed Type amlodipine 10 mg PO DAILY 05/31/18 11/29/18 History metformin 500 mg PO BID 05/31/18 11/29/18 History gabapentin 300 mg PO TID 08/19/18 11/29/18 History aspirin [Aspirin Low Dose] 81 mg PO DAILY 11/29/18 11/29/18 History atorvastatin 40 mg PO DAILY 11/29/18 11/29/18 History Physical Exam Vital signs: Vital Signs 11/30/18 00:24 11/30/18 01:44 11/30/18 02:30 Temperature Pulse Rate 74 70 70 Respiratory Rate 20 18 20 Blood Pressure 143/78 H 154/83 H 148/80 H Pulse Oximetry 97 95 95 11/30/18 02:43 11/30/18 05:00 11/30/18 08:00 Temperature 98 F 99.2 F Pulse Rate 83 72 Respiratory Rate 18 16 Blood Pressure 167/76 H 150/70 H 134/62 Pulse Oximetry 94 L 96 11/30/18 12:00 11/30/18 16:00 11/30/18 20:00 Temperature 97.5 F L 95.6 F L 98.3 F Pulse Rate 63 60 58 L Respiratory Rate 16 16 18 Blood Pressure 126/65 143/70 H 136/72 Pulse Oximetry 93 L 93 L 95 Intake & Output 11/30/18 11/30/18 12/01/18 06:59 18:59 06:59 Intake Total 350 / 350 3041 / 3041 800 / 800 Output Total 900 / 900 Balance 350 / 350 2141 / 2141 800 / 800 Weight 93.6 kg Intake: IV 350 / 350 1 / 1961 800 / 800 NS Inj 1,000 ML @ 100 mls/hr IV 100 / 100 1296 / 1296 800 / 800 .CONT .Q10H [facility] Rx#:[id number] Maxipime Inj 1,000 MG In NS Inj 100 / 100 100 ML @ 200 mls/hr IV.SIG Q12H [facility] Rx#:[id number] Vancomycin Inj 1,000 MG In NS 250 / 250 Inj 250 ML @ 250 mls/hr IV.SIG ONCE ONE Rx#:[id number] Vancomycin Inj 1,500 MG In NS 565 / 565 Inj 500 ML @ 250 mls/hr IV.SIG Q12H [facility] Rx#:[id number] Oral 1080 / 1080 Output: Urine 900 / 900 Other: # Voids 3 Date of Last Bowel Movement 11/29/18 11/29/18 # Bowel Movements 0 Weight On Admission 93.8 kg Narrative: Palpable pulses. Hallux amputated to right foot. Submet met 1 ulceration noted with blister formation. No probe to bone, no malodor. Mild clinical signs of infection. Blister noted to medial second digit which has dried and is almost resolved. Results - Labs CBC & Chem 7: 11/30/18 00:10 11/30/18 00:10 Labs: Laboratory Results - last 24 hr 11/30/18 11/30/18 11/30/18 00:10 00:10 00:10 CBC w Diff Auto diff final WBC 14.5 H RBC 4.90 Hgb 14.6 Hct 44.3 MCV 90.2 MCH 29.8 MCHC 33.0 RDW 12.9 Plt Count 340 D MPV 8.8 Neut % (Auto) 64.4 Lymph % (Auto) 25.9 [place] % (Auto) 6.6 Eos % (Auto) 2.3 Baso % (Auto) 0.8 Neut # (Auto) 9.4 H Lymph # (Auto) 3.7 [place] # (Auto) 1.0 H Eos # (Auto) 0.3 Baso # (Auto) 0.1 WBC Differential . Differential Comment . Sodium 137 Potassium 3.6 Chloride 104 Carbon Dioxide 24.5 Anion Gap 9 BUN 13 Creatinine 0.80 Estimated GFR Greater than 89 POC Glucose Random Glucose 233 H Lactic Acid 1.4 Calcium 8.7 11/30/18 11/30/18 11/30/18 00:41 07:38 11:23 CBC w Diff WBC RBC Hgb Hct MCV MCH MCHC RDW Plt Count MPV Neut % (Auto) Lymph % (Auto) [place] % (Auto) Eos % (Auto) Baso % (Auto) Neut # (Auto) Lymph # (Auto) [place] # (Auto) Eos # (Auto) Baso # (Auto) WBC Differential Differential Comment Sodium Potassium Chloride Carbon Dioxide Anion Gap BUN Creatinine Estimated GFR POC Glucose 246 H 207 H 212 H Random Glucose Lactic Acid Calcium 11/30/18 11/30/18 17:07 21:48 CBC w Diff WBC RBC Hgb Hct MCV MCH MCHC RDW Plt Count MPV Neut % (Auto) Lymph % (Auto) [place] % (Auto) Eos % (Auto) Baso % (Auto) Neut # (Auto) Lymph # (Auto) [place] # (Auto) Eos # (Auto) Baso # (Auto) WBC Differential Differential Comment Sodium Potassium Chloride Carbon Dioxide Anion Gap BUN Creatinine Estimated GFR POC Glucose 236 H 249 H Random Glucose Lactic Acid Calcium - Imaging Impressions Foot MRI 11/30/18 01:28 CONCLUSION: 1. Mild edema identified within the intraosseous muscles and oblique head of the abductor hallucis. No evidence of osteomyelitis. No visible ulceration of the skin. Assessment and Plan - Plan 43 year old with right foot ulceration Maxsorb to be applied daily to right submet 1 ulceration MRI r/o bony involvement Silvadene to right foot in [address] dressing orders Non weight bearing to right foot Patient will need referral for podiatry, patient ok to see me in office if appropriate referal is made Surgical shoe
[2018-12-01] MEDS: Vancomycin Inj 1,500 MG in Sodium Chlor 0.9% Inj 500 ML IV.SIG SCH ×2 (00:29→12:09)
[2018-12-01] MEDS: Morphine Inj 4 MG/ML Vial IV.PUSH PRN ×5 (07:39→23:15)
[2018-12-01] MEDS: Sod Chloride 0.9% Inj 1,000 ML IV.CONT SCH ×3 (07:45→18:05)
[2018-12-01 09:04] LABS: Baso # (Auto) 0.1 th/mm3 (0.0-0.2); Baso % (Auto) 1.1 % (0.0-2.0); Eos # (Auto) 0.2 th/mm3 (0.0-0.4); Eos % (Auto) 2.7 % (0.0-4.0); Hemoglobin 12.9 gm/dL (13.0-17.0); Lymph # (Auto) 2.2 th/mm3 (1.0-4.8); Lymph % (Auto) 24.6 % (9.0-44.0); Mean Corpuscular Hemoglobin 30.9 pg (27.0-34.0); Mean Corpuscular Volume 90.8 fL (80.0-100.0); Mean Platelet Volume 8.7 fL (7.0-11.0); Mono # (Auto) 0.6 th/mm3 (0.0-0.9); Mono % (Auto) 7.2 % (0.0-8.0); Neut # (Auto) 5.9 th/mm3 (1.8-7.7); Neut % (Auto) 64.4 % (16.0-70.0); Platelet Count 236 th/mm3 (150-450); Red Blood Count 4.19 mil/mm3 (4.50-5.90); Red Cell Distribution Width 12.3 % (11.6-17.2)
[2018-12-01 09:11] LABS: Chloride 108 meq/L (98-107); Potassium 3.9 meq/L (3.5-5.1); Sodium 140 meq/L (136-145)
[2018-12-01 09:15] LABS: Anion Gap 7 meq/L (5-15); Blood Urea Nitrogen 7 mg/dL (7-18); Calcium 8.1 mg/dL (8.5-10.1); Carbon Dioxide 24.6 meq/L (21.0-32.0); Glucose,Random 183 mg/dL (74-106)
[2018-12-01 09:18] LABS: Alanine Aminotransferase 26 U/L (12-78); Aspartate Aminotransferase 21 U/L (15-37)
[2018-12-01 09:19] LABS: Glomerular Filtration Rate Greater Than 89 mL/min (>89)
[2018-12-01 09:20] LABS: Total Protein 6.4 g/dL (6.4-8.2)
[2018-12-01 09:21] LABS: Alkaline Phosphatase 96 U/L (45-117)
[2018-12-01] MEDS: Insulin NovoLOG Aspart Correctional Sugar Inj SQ SCH ×4 (09:26→22:00)
[2018-12-01] MEDS: Gabapentin 300 MG Capsule PO SCH ×3 (09:27→18:06)
[2018-12-01] MEDS: Senna/Docusate Sodium 8.6/50 MG Tablet PO SCH ×2 (09:27→23:08)
[2018-12-01] MEDS: amLODIPine 5 MG Tablet PO SCH (09:28)
[2018-12-01] MEDS: Heparin - SQ 10,000 UNITS/ML Vial SQ SCH ×2 (09:30→22:59)
[2018-12-01] MEDS ORDERED: Pharmacy Ordered Lab Info OTHER ONE (11:45)
--- NOTE | 2018-12-01 15:43 | P.PNIM ---
Subjective Interval history: The patient is in bed appears in not acute distress. Says he still has pain at the surgical site. No fever or chills overnight. No nausea or vomiting able to eat. Physical Exam Vital signs: Vital Signs 11/30/18 16:00 11/30/18 20:00 12/01/18 00:00 Temperature 95.6 F L 98.3 F 97.8 F Pulse Rate 60 58 L 66 Respiratory Rate 16 18 18 Blood Pressure 143/70 H 136/72 131/64 Pulse Oximetry 93 L 95 99 12/01/18 08:00 12/01/18 12:00 Temperature 99.5 F 98.6 F Pulse Rate 62 59 L Respiratory Rate 16 16 Blood Pressure 144/55 H 135/82 Pulse Oximetry 95 95 Intake & Output 11/30/18 12/01/18 12/01/18 18:59 06:59 18:59 Intake Total 3041 / 3041 1415 / 1415 1590 / 1590 Output Total 900 / 900 Balance 2141 / 2141 1415 / 1415 1590 / 1590 Weight 95.9 kg Intake: IV 1960 / 1 1415 / 1415 1590 / 1590 NS Inj 1,000 ML @ 100 mls/hr IV 1296 / 1296 800 / 800 925 / 925 .CONT .Q10H [facility] Rx#:[id number] Maxipime Inj 1,000 MG In NS Inj 100 / 100 100 / 100 100 / 100 100 ML @ 200 mls/hr IV.SIG Q12H [facility] Rx#:[id number] Vancomycin Inj 1,500 MG In NS 565 / 565 515 / 515 565 / 565 Inj 500 ML @ 250 mls/hr IV.SIG Q12H [facility] Rx#:[id number] Oral 1080 / 1080 Output: Urine 900 / 900 Other: # Voids 3 Date of Last Bowel Movement 11/29/18 # Bowel Movements 0 Narrative: GENERAL: 43-year-old male, appears to not acute distress. CARDIOVASCULAR: Regular rate and rhythm. RESPIRATORY: No accessory muscle use. Clear to auscultation. Breath sounds equal bilaterally. GASTROINTESTINAL: Abdomen soft, obese, non-tender, nondistended. MUSCULOSKELETAL: Status post right big toe amputation, dressing CDI. Neurovascular intact. NEUROLOGICAL: Awake and alert. No obvious cranial nerve deficits. Motor grossly within normal limits. Normal speech. PSYCHIATRIC: Appropriate mood and affect; insight and judgment normal. Results Labs CBC & Chem 7: 12/01/18 07:45 12/01/18 07:45 Labs: Microbiology 11/29/18 23:55 Wound - Foot Gram Stain - Final 11/29/18 23:55 Wound - Foot Wound Culture - Preliminary Staphylococcus species gram negative rods 11/30/18 00:00 Blood - Peripheral Aerobic Blood Culture - Preliminary No growth in 1 day 11/30/18 00:00 Blood - Peripheral Anaerobic Blood Culture - Preliminary No growth in 1 day 11/30/18 00:10 Blood - Peripheral Aerobic Blood Culture - Preliminary No growth in 1 day 11/30/18 00:10 Blood - Peripheral Anaerobic Blood Culture - Preliminary No growth in 1 day Assessment and Plan Plan Right foot infection- failed outpatient therapy continue with broad spectrum IV antibiotics and follow the cultures- podiatry consulted. S/p Right big toe amputation Follow up intraoperative cultures Diabetes mellitus; continue with accu-check with SSI Hypertension; resumed home meds. DVT prophylaxis; subq Heparin. Discussed Condition With: the patient, nurse. Discharge Planning: home when cultures are back and when cleared by podiatry CM consulted for DC plan Will have PT for eval Progress Note: Quality VTE Deep Vein Thrombosis/Pulmonary Embolism Present on Admission: No
[2018-12-01] MEDS: Famotidine 20 MG Tablet PO SCH (18:32)
[2018-12-01] MEDS: Vancomycin Inj 2,000 MG in Sodium Chlor 0.9% Inj 500 ML IV.SIG SCH (23:38)
[2018-12-02] MEDS: Sod Chloride 0.9% Inj 1,000 ML IV.CONT SCH ×2 (04:47→16:22)
[2018-12-02 07:27] LABS: Baso # (Auto) 0.1 th/mm3 (0.0-0.2); Baso % (Auto) 0.9 % (0.0-2.0); Eos # (Auto) 0.2 th/mm3 (0.0-0.4); Eos % (Auto) 2.7 % (0.0-4.0); Hemoglobin 12.7 gm/dL (13.0-17.0); Lymph # (Auto) 2.4 th/mm3 (1.0-4.8); Lymph % (Auto) 31.4 % (9.0-44.0); Mean Corpuscular HGB Conc 33.3 % (32.0-36.0); Mean Corpuscular Hemoglobin 30.4 pg (27.0-34.0); Mean Corpuscular Volume 91.2 fL (80.0-100.0); Mean Platelet Volume 9.4 fL (7.0-11.0); Mono # (Auto) 0.5 th/mm3 (0.0-0.9); Mono % (Auto) 6.6 % (0.0-8.0); Neut # (Auto) 4.6 th/mm3 (1.8-7.7); Neut % (Auto) 58.4 % (16.0-70.0); Platelet Count 246 th/mm3 (150-450); Red Blood Count 4.17 mil/mm3 (4.50-5.90); Red Cell Distribution Width 12.6 % (11.6-17.2); White Blood Count 7.8 th/mm3 (4.0-11.0)
[2018-12-02 07:36] LABS: Chloride 110 meq/L (98-107); Potassium 3.9 meq/L (3.5-5.1); Sodium 141 meq/L (136-145)
[2018-12-02 07:45] LABS: Anion Gap 7 meq/L (5-15); Blood Urea Nitrogen 7 mg/dL (7-18); Carbon Dioxide 23.7 meq/L (21.0-32.0); Glucose,Random 166 mg/dL (74-106)
[2018-12-02 07:48] LABS: Glomerular Filtration Rate Greater Than 89 mL/min (>89)
[2018-12-02] MEDS: Insulin NovoLOG Aspart Correctional Sugar Inj SQ SCH ×4 (09:12→22:43)
[2018-12-02] MEDS: amLODIPine 5 MG Tablet PO SCH (09:15)
[2018-12-02] MEDS: Gabapentin 300 MG Capsule PO SCH ×3 (09:15→17:37)
[2018-12-02] MEDS: Heparin - SQ 10,000 UNITS/ML Vial SQ SCH ×2 (09:15→22:30)
[2018-12-02] MEDS: Senna/Docusate Sodium 8.6/50 MG Tablet PO SCH ×2 (09:16→22:31)
[2018-12-02] MEDS: Famotidine 20 MG Tablet PO SCH ×2 (09:16→22:31)
[2018-12-02] MEDS: Morphine Inj 4 MG/ML Vial IV.PUSH PRN ×4 (10:14→23:47)
[2018-12-02] MEDS: Vancomycin Inj 2,000 MG in Sodium Chlor 0.9% Inj 500 ML IV.SIG SCH (11:32)
--- NOTE | 2018-12-02 14:06 | P.PNIM ---
Subjective Interval history: With some nausea. no vomiting No fever or chills. No n/v/d/c. Denies chest pain or sob. Pain in his foot is farily controlled by meds. Physical Exam Vital signs: Vital Signs 12/01/18 16:00 12/01/18 20:00 12/02/18 00:00 Temperature 97.7 F 97.9 F 97.9 F Pulse Rate 56 L 60 52 L Respiratory Rate 16 16 18 Blood Pressure 148/67 H 147/65 H 133/70 Pulse Oximetry 93 L 92 L 90 L 12/02/18 08:00 12/02/18 12:00 Temperature 97.7 F 98.4 F Pulse Rate 59 L 59 L Respiratory Rate 18 18 Blood Pressure 157/83 H 153/83 H Pulse Oximetry 96 96 Intake & Output 12/01/18 12/02/18 12/02/18 18:59 06:59 18:59 Intake Total 2718 / 2718 1732 / 1732 620 / 620 Balance 2718 / 2718 1732 / 1732 620 / 620 Weight 101.1 kg Intake: IV 1958 / 1958 1252 / 1252 620 / 620 NS Inj 1,000 ML @ 100 mls/hr IV 1293 / 1293 632 / 632 .CONT .Q10H STELLA Rx#:[id number] Maxipime Inj 1,000 MG In NS Inj 100 / 100 100 / 100 100 / 100 100 ML @ 200 mls/hr IV.SIG Q12H STELLA Rx#:[id number] Vancomycin Inj 2,000 MG In NS 565 / 565 520 / 520 520 / 520 Inj 500 ML @ 250 mls/hr IV.SIG Q12H STELLA Rx#:[id number] Oral 760 / 760 480 / 480 Other: # Voids 4 3 # Bowel Movements 0 Narrative: GENERAL: 43-year-old male, appears to not acute distress. CARDIOVASCULAR: Regular rate and rhythm. RESPIRATORY: No accessory muscle use. Clear to auscultation. Breath sounds equal bilaterally. GASTROINTESTINAL: Abdomen soft, obese, non-tender, nondistended. MUSCULOSKELETAL: Status post right big toe amputation, dressing CDI. Neurovascular intact. NEUROLOGICAL: Awake and alert. No obvious cranial nerve deficits. Motor grossly within normal limits. Normal speech. PSYCHIATRIC: Appropriate mood and affect; insight and judgment normal. Results Labs CBC & Chem 7: 12/02/18 06:16 12/02/18 06:16 Labs: Microbiology 11/30/18 00:00 Blood - Peripheral Aerobic Blood Culture - Preliminary No growth in 2 days 11/30/18 00:00 Blood - Peripheral Anaerobic Blood Culture - Preliminary No growth in 2 days 11/30/18 00:10 Blood - Peripheral Aerobic Blood Culture - Preliminary No growth in 2 days 11/30/18 00:10 Blood - Peripheral Anaerobic Blood Culture - Preliminary No growth in 2 days 11/29/18 23:55 Wound - Foot Gram Stain - Final 11/29/18 23:55 Wound - Foot Wound Culture - Final Acinetobacter idalia cplx/haemol Serratia marcescens Assessment and Plan Plan Right foot infection- failed outpatient therapy continue with broad spectrum IV antibiotics and follow the cultures- podiatry consulted. S/p Right big toe amputation Follow up intraoperative cultures Diabetes mellitus; continue with accu-check with SSI Hypertension; resumed home meds. DVT prophylaxis; subq Heparin. Discussed Condition With: the patient, nurse. Discharge Planning: home when cultures are back and when cleared by podiatry CM consulted for DC plan PT for eval Progress Note: Quality VTE Deep Vein Thrombosis/Pulmonary Embolism Present on Admission: No
[2018-12-03] MEDS: Vancomycin Inj 2,000 MG in Sodium Chlor 0.9% Inj 500 ML IV.SIG SCH ×2 (01:04→12:27)
[2018-12-03] MEDS: Sod Chloride 0.9% Inj 1,000 ML IV.CONT SCH ×2 (01:04→14:57)
[2018-12-03] MEDS: Morphine Inj 4 MG/ML Vial IV.PUSH PRN ×2 (06:13→12:26)
[2018-12-03 07:41] LABS: Baso # (Auto) 0.1 th/mm3 (0.0-0.2); Baso % (Auto) 0.9 % (0.0-2.0); Eos # (Auto) 0.2 th/mm3 (0.0-0.4); Eos % (Auto) 2.9 % (0.0-4.0); Hemoglobin 13.7 gm/dL (13.0-17.0); Lymph # (Auto) 2.8 th/mm3 (1.0-4.8); Lymph % (Auto) 33.2 % (9.0-44.0); Mean Corpuscular HGB Conc 33.3 % (32.0-36.0); Mean Corpuscular Hemoglobin 30.4 pg (27.0-34.0); Mean Corpuscular Volume 91.2 fL (80.0-100.0); Mean Platelet Volume 8.8 fL (7.0-11.0); Mono # (Auto) 0.6 th/mm3 (0.0-0.9); Neut # (Auto) 4.6 th/mm3 (1.8-7.7); Platelet Count 250 th/mm3 (150-450); Red Blood Count 4.49 mil/mm3 (4.50-5.90); Red Cell Distribution Width 12.7 % (11.6-17.2); White Blood Count 8.3 th/mm3 (4.0-11.0)
[2018-12-03 07:48] LABS: Chloride 108 meq/L (98-107); Potassium 3.9 meq/L (3.5-5.1); Sodium 140 meq/L (136-145)
[2018-12-03 07:56] LABS: Blood Urea Nitrogen 6 mg/dL (7-18); Calcium 7.9 mg/dL (8.5-10.1); Glucose,Random 184 mg/dL (74-106)
[2018-12-03 07:57] LABS: Anion Gap 5 meq/L (5-15); Carbon Dioxide 26.6 meq/L (21.0-32.0)
[2018-12-03 07:59] LABS: Glomerular Filtration Rate Greater Than 89 mL/min (>89)
[2018-12-03] MEDS: Insulin NovoLOG Aspart Correctional Sugar Inj SQ SCH ×2 (08:20→12:28)
[2018-12-03] MEDS: Heparin - SQ 10,000 UNITS/ML Vial SQ SCH (08:21)
[2018-12-03] MEDS: Gabapentin 300 MG Capsule PO SCH ×2 (08:23→12:29)
[2018-12-03] MEDS: amLODIPine 5 MG Tablet PO SCH (08:23)
[2018-12-03] MEDS: Famotidine 20 MG Tablet PO SCH (08:24)
[2018-12-03] MEDS: Senna/Docusate Sodium 8.6/50 MG Tablet PO SCH (08:24)
--- NOTE | 2018-12-03 11:31 | P.DS ---
DS: Providers Date of admission: 11/30/18 01:07 Primary care physician: WILDA Winkler Consults: 11/30/18 01:11 Consult to Podiatry Routine Consulting Provider: Priscilla Carlton Reason for Consultation: Non-Healing Diabetic Foot Wound/Cellulitis CONSULT FOR AM Notified:: Service Spoke with:: Barry Date Notified:: 11/30/18 Time Notified:: 01:39 Ordering Provider: BRANDAN Brief History from admission: patient is a 43 y/o male with history of diabetes and hypertension, who presented to ER with right foot infection. he says that it started about a week ago. he was seen in ER three days ago and was discharged with Clindamycin which he says that he took with no significant improvement. he denies any fever or chills but has some pain to the right foot.he otherwise denies any other complaints. DS: Summary Right foot infection- failed outpatient therapy continue with broad spectrum IV antibiotics and follow the cultures- podiatry consulted. S/p Right big toe amputation Follow up intraoperative cultures Diabetes mellitus; continue with accu-check with SSI Hypertension; resumed home meds. DVT prophylaxis; subq Heparin. Patient improved cleared by podiatry for DC cultures reviewed continue ciprofloxacin at DC, patient to follow up with podiatry as OP. Time Spent with Patient Total time spent providing and/or coordinating discharge services: >30 min Greater than 30 minutes Quality: VTE Deep Vein Thrombosis/Pulmonary Embolism Present on Admission: No Exam Narrative Exam Narrative: GENERAL: 43-year-old male, appears in not acute distress. CARDIOVASCULAR: Regular rate and rhythm. RESPIRATORY: No accessory muscle use. Clear to auscultation. Breath sounds equal bilaterally. GASTROINTESTINAL: Abdomen soft, obese, non-tender, nondistended. MUSCULOSKELETAL: Status post right big toe amputation, dressing CDI. Neurovascular intact. NEUROLOGICAL: Awake and alert. No obvious cranial nerve deficits. Motor grossly within normal limits. Normal speech. PSYCHIATRIC: Appropriate mood and affect; insight and judgment normal. Results Labs on day of discharge: Labs from last 24 hours 12/03/18 12/03/18 12/03/18 07:32 06:30 06:30 CBC w Diff Auto diff final WBC 8.3 RBC 4.49 L Hgb 13.7 Hct 41.0 MCV 91.2 MCH 30.4 MCHC 33.3 RDW 12.7 Plt Count 250 MPV 8.8 Neut % (Auto) 56.0 Lymph % (Auto) 33.2 [place] % (Auto) 7.0 Eos % (Auto) 2.9 Baso % (Auto) 0.9 Neut # (Auto) 4.6 Lymph # (Auto) 2.8 [place] # (Auto) 0.6 Eos # (Auto) 0.2 Baso # (Auto) 0.1 WBC Differential . Differential Comment . Sodium 140 Potassium 3.9 Chloride 108 H Carbon Dioxide 26.6 Anion Gap 5 BUN 6 L Creatinine 0.56 L Estimated GFR Greater than 89 POC Glucose 194 H Random Glucose 184 H Calcium 7.9 L 12/02/18 12/02/18 12/02/18 22:28 16:21 11:30 CBC w Diff WBC RBC Hgb Hct MCV MCH MCHC RDW Plt Count MPV Neut % (Auto) Lymph % (Auto) [place] % (Auto) Eos % (Auto) Baso % (Auto) Neut # (Auto) Lymph # (Auto) [place] # (Auto) Eos # (Auto) Baso # (Auto) WBC Differential Differential Comment Sodium Potassium Chloride Carbon Dioxide Anion Gap BUN Creatinine Estimated GFR POC Glucose 243 H 231 H 183 H Random Glucose Calcium Preliminary micro results at discharge 11/30/18 00:00 Aerobic Blood Culture - Preliminary Blood - Peripheral No growth in 3 days Anaerobic Blood Culture - Preliminary No growth in 3 days 11/30/18 00:10 Aerobic Blood Culture - Preliminary Blood - Peripheral No growth in 3 days Anaerobic Blood Culture - Preliminary No growth in 3 days Impressions ITS Impressions Foot MRI 11/30/18 01:28 CONCLUSION: 1. Mild edema identified within the intraosseous muscles and oblique head of the abductor hallucis. No evidence of osteomyelitis. No visible ulceration of the skin. Discharge Plan Discharge Disposition Patient Disposition: Discharge Home Discharge Condition Condition: Stable Discharge Order Discharge Orders: Discharge Order (Routine); Ordered 12/03/18 Ordered By: Ariane Torres Physicians Team ED Provider: Sharron Calle Primary Care Provider: Bill Hagen Attending Provider: Ariane Torres Other Providers: Priscilla Carlton Rxs /Orders / Referrals /Forms Prescriptions: New hydrocodone-acetaminophen [[place]] 5-325 mg tablet 1 tab PO Q4-6H PRN (Reason: Acute Pain Exemption) Qty: 10 RF: 0 Continue metformin 500 mg Tablet 500 mg PO BID RF: 0 amlodipine 5 mg Tablet 10 mg PO DAILY RF: 0 atorvastatin 40 mg Tablet 40 mg PO DAILY RF: 0 aspirin [Aspirin Low Dose] 81 mg Tablet,Delayed Release (Dr/Ec) 81 mg PO DAILY RF: 0 gabapentin 300 mg capsule 300 mg PO TID RF: 0 clindamycin HCl 300 mg capsule 300 mg PO Q6H 7 Days Qty: 28 RF: 0 Referrals: Priscilla Carlton DPM [Physician] - See Instructions ( Please call the physician's office to book the appointment to be seen within [5-7 days ].) Bill Hagen PA [Primary Care Provider] - See Instructions ( Please call the physician's office to book the appointment to be seen within [2-3 days]. follow up with your PCP) Discharge Instructions Patient Printed Instructions: Hydrocodone/Acetaminophen (By mouth), Cellulitis (DC), Foot Care for People with Diabetes (DC), Hypertension (DC) Status ED Status: Left Department
[2018-12-03] MEDS ORDERED: Pharmacy Ordered Lab Info OTHER ONE (11:45)
== END 2018-12-03 16:40 | disposition home or self-care (01) | DRG 638 ==
LOC: PHED 23:24 → PHEDA 11-30 01:19 → PH3 11-30 02:34
PROVIDERS: ADMIT Hospitalist; ATTEND Hospitalist
CPT/HCPCS: 73720; 80048; 80053; 80202; 82948; 82962; 83605; 85025; 87040; 87070; 87077; 87186; 87205; 90765; 96365; 97116; 97162; 99285; A9585; J0692; J1644; J1815; J2270; J2405; J3370; J7030; J7040; J7050; L3250; L3825; L3908; Q0169

== ENCOUNTER 2018-12-23 17:40 | Inpatient (IN) ==
[2018-12-23] MEDS ORDERED: Piperacil/Tazo 3.375 GM Premix 3.375 GM/50 ML PIGGYBACK IV.SIG ONE (19:48)
[2018-12-23] MEDS ORDERED: Vancomycin Inj 1,000 MG in Sodium Chlor 0.9% Inj 250 ML IV.SIG ONE (19:48)
[2018-12-23] MEDS ORDERED: Sodium Chlor 0.9% Inj 500 ML IV.SIG ONE (19:48)
--- NOTE | 2018-12-23 20:01 | ED ---
HPI General Chief complaint: Extremity Injury, Lower Stated complaint: foot pain/dr sent Time Seen by Provider: 12/23/18 19:28 Source: patient History of Present Illness HPI narrative: The patient is a 43 year old female who presents to the [facility] emergency department with a history of with a history of peripheral vascular disease and diabetes who presents with a recurrent ulcer to the right foot. The patient reports that he first noticed the area of skin breakdown on his foot in mid November. He reports that he is followed by Dr. Atkinson, a local coin teller for this area of ulcer. He reports that he completed a course of antibiotic approximately 1-1/2-2 weeks ago. He reports that since completing the antibiotic, he has developed increased pain in the right foot and an area of discoloration that is new over the last week along the distal lateral surface of the right foot. The patient reports having a history of diabetes. He does not know what his last hemoglobin A1c was. He last checked his blood sugar this morning and it was in the 180s reports that he is only on metformin for his diabetes. His primary care physician is Dr. Hagen. The patient reports that he saw his coin teller earlier today and was sent to the hospital for admission and evaluation for possible worsening underlying peripheral vascular disease including an ankle-brachial index on the right side , MRI of the right foot, IV antibiotic, podiatry consultation as an inpatient. On review of systems otherwise, the patient denies having any known recent fevers, congestion, neck pain, chest pain, shortness of breath, abdominal pain, vomiting, diarrhea, urinary symptoms, or neurologic symptoms. Related Data Home Medications Medication Instructions Recorded Confirmed amlodipine 10 mg PO DAILY 05/31/18 11/29/18 metformin 500 mg PO BID 05/31/18 11/29/18 gabapentin 300 mg PO TID 08/19/18 11/29/18 aspirin [Aspirin Low Dose] 81 mg PO DAILY 11/29/18 11/29/18 atorvastatin 40 mg PO DAILY 11/29/18 11/29/18 Previous Rx's Medication Instructions Recorded hydrocodone-acetaminophen [[place]] 1 tab PO Q4-6H PRN #10 tab 12/03/18 Allergies Allergy/AdvReac Type Severity Reaction Status Date / Time No Known Allergies Allergy Verified 08/19/18 20:56 Review of Systems ROS: all other systems reviewed are negative PMFSH Medical History Medical History Amputated toe of right foot (Acute) Loss of teeth due to extraction (Acute) Hypertension (Acute) Diabetes (Acute) PVD (peripheral vascular disease) (Acute) Amputated great toe of right foot (Acute) Surgical History Surgical History History of vascular surgery (Acute) Social History Social History Substance History: No History of Abuse Second Hand Smoke Exposure: No Smoking Status: Current every day smoker Tobacco Type: Cigarettes How Often Do You Have a Drink Containing Alcohol: Never Immunization History Tetanus Immunization: <5 Years Tetanus Immunization Year if Known: 2017 Exam Const General: cooperative, no acute distress and well developed Nutritional Appearance: well nourished Orientation: alert, awake and oriented x3 HENMT Head: normocephalic and atraumatic Nose: no nasal discharge and no epistaxis Mouth: moist mucous membranes Throat: posterior oropharynx normal and uvula midline Eyes Sclera: normal sclerae Pupils: PERRL Neck Neck: no meningeal signs, trachea midline and no JVD Resp Effort & Inspection: no use of accessory muscles Auscultation: clear to auscultation bilaterally Cardio Rate: regular rate Rhythm: regular rhythm Heart Sounds: no murmurs GI Inspection: non-distended Palpation: soft, no hepatosplenomegaly, no guarding, not rigid and nontender Auscultation: normal bowel sounds Back/Spine/Pelvis Back: no CVA tenderness Skin General: dry skin (warm) Neuro General: alert, awake, oriented x3 and other (Grossly nonfocal) Speech: speech normal Motor: no movement abnormalities noted Extrem General: normal to inspection (1+ pulses in bilateral lower extremities. The patient has less than 3-second capillary refill bilateral lower extremities.), no clubbing, no cyanosis and edema (Trace pedal edema bilateral lower extremities.) Laterality: bilaterally Right lower extremity: foot (Patient has a bandage in place in the right foot that was gently removed. The patient is noted to have a prior amputation of the right great toe. The patient is noted on the ball of the foot overlying the first and second distal metatarsal to have an area of ulceration with pink base, no active drainag. The patient additionally has an area of discoloration that appears ecchymotic along the lateral aspect of the right foot along the distal aspect of the skin overlying the right fifth metatarsal.) Psych Mood: congruent mood Affect: normal affect Judgment: judgment good Course Initial Documented Vital Signs Temperature 98.1 F 12/23/18 17:44 Pulse Rate 91 H 12/23/18 17:44 Respiratory Rate 20 12/23/18 17:44 Blood Pressure 197/90 H 12/23/18 17:44 Pulse Oximetry 98 12/23/18 17:44 Last Documented Vital Signs Temperature 98.1 F 12/23/18 17:44 Pulse Rate 76 12/23/18 21:18 Respiratory Rate 16 12/23/18 21:18 Blood Pressure 151/74 H 12/23/18 21:18 Pulse Oximetry 98 12/23/18 21:18 Medical Decision Making MDM Narrative Medical decision making narrative: During the course of the patient's emergency department visit, the patient's history, examination, and differential diagnosis were reviewed with the patient. The patient was placed on a potline monitor with oximetry and frequent blood pressure monitoring. The patient had IV access obtained and blood work sent for analysis. A diagnostic evaluation was started regarding the patient's worsening right foot area of ulceration. The patient was initially provided broad-spectrum antibiotic coverage to include Zosyn and vancomycin, normal saline of 500 milliliters bolus was given x1. The patient was given hydrocodone 5 mg p.o. x1 for pain. The patient's diagnostic studies are remarkable for a white count of 10.2, hemoglobin 17.9, platelets 208 with a normal differential, PT PTT within normal limits, chemistries remarkable for GFR of 86, glucose 390, lactic acid 2.8. Given the patient's lactic acidosis, an additional normal saline 1 L IV fluid bolus was administered. A chest x-ray shows no acute cardiopulmonary disease, foot x-ray on the right side reveals no acute findings, amputation of the right great toe, mild osteoarthritis. Right foot MRI with and without contrast shows amputation of the distal first metatarsal and great toe with ulceration and mild cellulitis, medially near the amputation site. No discrete abscess, no evidence of osteomyelitis. The patient's case including history, pertinent physical examination findings, and laboratory studies were discussed with Dr. Mcdermott. It was agreed that the patient would be admitted to the hospitalist service. The patient's results were discussed with the patient, including the plan of care. I explained that further testing and/ or monitoring is indicated based on the patient's history, examination, and/ or laboratory findings. Therefore, I recommended admission for additional evaluation. The patient expressed understanding and was agreeable with this plan. The patient was admitted to the hospital in stable condition and sent to a bed under the care of the [facility] service. Medical Screen Exam Complete: Yes Emergency Medical Condition: Yes Differential Diagnosis Differential Diagnosis: Osteomyelitis, versus cellulitis, versus peripheral arterial thrombosis Medical Records Medical records reviewed: Yes I reviewed the patient's medical records. Lab Data Lab results reviewed: Yes I reviewed the patient's lab results. Result diagrams: 12/23/18 19:50 12/23/18 19:50 Lab Results 12/23/18 12/23/18 12/23/18 Range/Units 19:50 19:50 19:50 WBC 10.2 (4.0-11.0) th/mm3 RBC 5.65 (4.50-5.90) mil/mm3 Hgb 17.9 H (13.0-17.0) gm/dL Hct 52.1 H (39.0-51.0) % MCV 92.1 (80.0-100.0) fL MCH 31.7 (27.0-34.0) pg MCHC 34.4 (32.0-36.0) % RDW 13.6 (11.6-17.2) % Plt Count 208 (150-450) th/mm3 MPV 8.6 (7.0-11.0) fL Neut % (Auto) 63.0 (16.0-70.0) % Lymph % (Auto) 26.1 (9.0-44.0) % [place] % (Auto) 6.4 (0.0-8.0) % Eos % (Auto) 3.5 (0.0-4.0) % Baso % (Auto) 1.0 (0.0-2.0) % Neut # (Auto) 6.5 (1.8-7.7) th/mm3 Lymph # (Auto) 2.7 (1.0-4.8) th/mm3 [place] # (Auto) 0.7 (0.0-0.9) th/mm3 Eos # (Auto) 0.4 (0.0-0.4) th/mm3 Baso # (Auto) 0.1 (0.0-0.2) th/mm3 WBC Differential . Differential Comment Auto diff final PT 9.9 (9.8-11.6) sec INR 1.0 Ratio APTT 28.2 (23.4-31.7) sec Sodium 136 (136-145) meq/L Potassium 4.1 (3.5-5.1) meq/L Chloride 102 (98-107) meq/L Carbon Dioxide 25.6 (21.0-32.0) meq/L Anion Gap 8 (5-15) meq/L BUN 15 (7-18) mg/dL Creatinine 0.95 (0.60-1.30) mg/dL Estimated GFR 86 L (>89) mL/min Random Glucose 390 H (74-106) mg/dL Lactic Acid (0.4-2.0) mmol/L Calcium 8.8 (8.5-10.1) mg/dL Magnesium 2.2 (1.5-2.5) mg/dL Total Bilirubin 0.2 (0.2-1.0) mg/dL AST 21 (15-37) U/L ALT 28 (12-78) U/L Alkaline Phosphatase 106 (45-117) U/L Total Protein 7.8 (6.4-8.2) g/dL Albumin 3.7 (3.4-5.0) g/dL 12/23/18 Range/Units 19:55 WBC (4.0-11.0) th/mm3 RBC (4.50-5.90) mil/mm3 Hgb (13.0-17.0) gm/dL Hct (39.0-51.0) % MCV (80.0-100.0) fL MCH (27.0-34.0) pg MCHC (32.0-36.0) % RDW (11.6-17.2) % Plt Count (150-450) th/mm3 MPV (7.0-11.0) fL Neut % (Auto) (16.0-70.0) % Lymph % (Auto) (9.0-44.0) % [place] % (Auto) (0.0-8.0) % Eos % (Auto) (0.0-4.0) % Baso % (Auto) (0.0-2.0) % Neut # (Auto) (1.8-7.7) th/mm3 Lymph # (Auto) (1.0-4.8) th/mm3 [place] # (Auto) (0.0-0.9) th/mm3 Eos # (Auto) (0.0-0.4) th/mm3 Baso # (Auto) (0.0-0.2) th/mm3 WBC Differential Differential Comment PT (9.8-11.6) sec INR Ratio APTT (23.4-31.7) sec Sodium (136-145) meq/L Potassium (3.5-5.1) meq/L Chloride (98-107) meq/L Carbon Dioxide (21.0-32.0) meq/L Anion Gap (5-15) meq/L BUN (7-18) mg/dL Creatinine (0.60-1.30) mg/dL Estimated GFR (>89) mL/min Random Glucose (74-106) mg/dL Lactic Acid 2.8 H (0.4-2.0) mmol/L Calcium (8.5-10.1) mg/dL Magnesium (1.5-2.5) mg/dL Total Bilirubin (0.2-1.0) mg/dL AST (15-37) U/L ALT (12-78) U/L Alkaline Phosphatase (45-117) U/L Total Protein (6.4-8.2) g/dL Albumin (3.4-5.0) g/dL Imaging Data Radiologist's impression: Chest X-Ray 12/23/18 19:47 CONCLUSION: No acute cardiopulmonary disease Foot MRI 12/23/18 19:48 CONCLUSION: 1. Amputation of distal first metatarsal and great toe with ulceration and mild cellulitis medially near the amputation site. No discrete abscess. No evidence for osteomyelitis. Foot X-Ray 12/23/18 19:50 CONCLUSION: No acute findings. Amputation of the right great toe. Mild osteoarthritis. Discharge Plan Discharge Disposition Patient Disposition: ED Admit(ED Internal Use Only) Discharge Order Discharge Orders: ED Use Only Admit Order (Routine); Ordered 12/23/18 Ordered By: Alissa Samuel Discharge Details Diagnosis: Cellulitis of foot, right, Failure of outpatient treatment Physicians Team ED Provider: Alissa Samuel Primary Care Provider: UNKNOWN, Attending Provider: Karina Mcdermott Status ED Status: Admitted Patient
[2018-12-23 20:12] LABS: Baso # (Auto) 0.1 th/mm3 (0.0-0.2); Eos # (Auto) 0.4 th/mm3 (0.0-0.4); Eos % (Auto) 3.5 % (0.0-4.0); Hematocrit 52.1 % (39.0-51.0); Hemoglobin 17.9 gm/dL (13.0-17.0); Lymph # (Auto) 2.7 th/mm3 (1.0-4.8); Lymph % (Auto) 26.1 % (9.0-44.0); Mean Corpuscular HGB Conc 34.4 % (32.0-36.0); Mean Corpuscular Hemoglobin 31.7 pg (27.0-34.0); Mean Corpuscular Volume 92.1 fL (80.0-100.0); Mean Platelet Volume 8.6 fL (7.0-11.0); Mono # (Auto) 0.7 th/mm3 (0.0-0.9); Mono % (Auto) 6.4 % (0.0-8.0); Neut # (Auto) 6.5 th/mm3 (1.8-7.7); Platelet Count 208 th/mm3 (150-450); Red Blood Count 5.65 mil/mm3 (4.50-5.90); Red Cell Distribution Width 13.6 % (11.6-17.2); White Blood Count 10.2 th/mm3 (4.0-11.0)
[2018-12-23 20:21] LABS: Activated Partial Thrombo Time 28.2 sec (23.4-31.7); Prothrombin Time 9.9 sec (9.8-11.6)
--- NOTE | 2018-12-23 20:22 | XR ---
EXAM DATE: 12/23/2018 8:12 PM EST AGE/SEX: 43 years / Male INDICATIONS: Fever. CLINICAL DATA: This is the patient's initial encounter. Patient reports that signs and symptoms have been present for 1 day and indicates a pain score of 0/10. MEDICAL/SURGICAL HISTORY: Diabetes mellitus type II. None. [place] [facility] [place]. . FINDINGS: A single AP view of the chest demonstrates the lungs to be symmetrically aerated without evidence of mass, infiltrate or effusion. The cardiomediastinal contours are unremarkable. Osseous structures a re intact. CONCLUSION: No acute cardiopulmonary disease Electronically signed by: Long Guillen MD Board Certified Radiologist 12/23/2018 8:20 PM EST
[2018-12-23 20:29] LABS: Alanine Aminotransferase 28 U/L (12-78)
--- NOTE | 2018-12-23 20:30 | XR ---
EXAM DATE: 12/23/2018 8:14 PM EST AGE/SEX: 43 years / Male INDICATIONS: Right foot ulcers on toes and plantar surface. CLINICAL DATA: This is the patient's initial encounter. Patient reports that signs and symptoms have been present for 3 days and indicates a pain score of 2/10. MEDICAL/SURGICAL HISTORY: Diabetes mellitus type II. . Great toe amputation. COMPARISON: No prior exams available for comparison. FINDINGS: There is amputation of the distal first metatarsal and great toe. No acute fracture or dislocation. N o acute bony destructive changes. Mild osteoarthritis in the right foot. CONCLUSION: No acute findings. Amputation of the right great toe. Mild osteoarthritis. Electronically signed by: Fazal Matta MD Board Certified Radiologist 12/23/2018 8:29 PM EST
[2018-12-23 20:31] LABS: Alkaline Phosphatase 106 U/L (45-117); Total Protein 7.8 g/dL (6.4-8.2)
[2018-12-23 20:44] LABS: Albumin 3.7 g/dL (3.4-5.0); Anion Gap 8 meq/L (5-15); Aspartate Aminotransferase 21 U/L (15-37); Blood Urea Nitrogen 15 mg/dL (7-18); Calcium 8.8 mg/dL (8.5-10.1); Carbon Dioxide 25.6 meq/L (21.0-32.0); Chloride 102 meq/L (98-107); Glomerular Filtration Rate 86 mL/min (>89); Glucose,Random 390 mg/dL (74-106); Magnesium 2.2 mg/dL (1.5-2.5); Sodium 136 meq/L (136-145)
[2018-12-23 20:45] LABS: Potassium 4.1 meq/L (3.5-5.1)
[2018-12-23] MEDS ORDERED: Gadobutrol PF 10 MMOL/10 ML Vial (for RAD) IV.SIG ONE (20:57)
[2018-12-23] MEDS ORDERED: Sod Chloride 0.9% Inj 1,000 ML IV.SIG ONE (21:04)
--- NOTE | 2018-12-23 21:15 | MR ---
EXAM DATE: 12/23/2018 9:06 PM EST AGE/SEX: 43 years / Male INDICATIONS: Osteomyelitis. Right foot, planter surface, ulcer by MTPJ of first digit. CLINICAL DATA: This is the patient's subsequent encounter. Patient reports that signs and symptoms h ave been present for 3 weeks and indicates a pain score of 8/10. MEDICAL/SURGICAL HISTORY: Diabetes mellitus type II. Hypertension. . Right foot great toe sx. COMPARISON: No prior exams available for comparison. TECHNIQUE: Multiplanar, multisequence MRI examination was performed without contrast and after th e intravenous administration of 10 ml Gadavist (gadobutrol) single exam dose. FINDINGS: The distal first metatarsal and great toe has been amputated. There is an ulceration on the medial le ft foot near the amputation site. There is some mild surrounding cellulitis. No marrow signal abnorma lities or marrow enhancement is seen to suggest osteomyelitis. No fracture is identified. Mild degene rative change within the right foot. No discrete abscess. CONCLUSION: 1. Amputation of distal first metatarsal and great toe with ulceration and mild cellulitis medially near the amputation site. No discrete abscess. No evidence for osteomyelitis. Electronically signed by: Fazal Matta MD Board Certified Radiologist 12/23/2018 9:13 PM EST
[2018-12-23] MEDS ORDERED: Vancomycin Consult Pharmacy OTHER PRN (22:35)
[2018-12-23] MEDS ORDERED: Dextrose 50% in Water 50 ML Vial IV.PUSH PRN (22:37)
[2018-12-23] MEDS ORDERED: Bisacodyl 10 MG Supp RECTAL PRN (22:38)
[2018-12-23] MEDS ORDERED: Acetaminophen 325 MG Tablet PO PRN (22:38)
--- NOTE | 2018-12-23 23:33 | P.HP ---
History of Present Illness Service: [facility] Primary Care Physician: UNKNOWN History of Present Illness: 43-year-old male with a past medical history significant for diabetes mellitus, peripheral vascular disease, hypertension and hyperlipidemia presents to the emergency department at the suggestion of his quality control expert following his appointment today. The patient was seen by his quality control expert, Dr. Atkinson for his chronic foot ulcer. He completed a course of antibiotics approximately 1 week ago. He reports that since completing the antibiotic he has developed increased pain in the right foot and a new area of discoloration over the distal lateral surface on the right foot. Patient denies any fever/chills. No chest pain or shortness of breath. No abdominal pain. No nausea/vomiting/ diarrhea. No focal neurologic deficits. Inpatient Certification: I certify that the inpatient services were ordered in accordance with Medicare regulations governing the order. This includes certification that hospital inpatient services are reasonable and necessary and in the case of services not specified as inpatient-only under 42 CFR 419.22(n), that they are appropriately provided as inpatient services in accordance to with the 2-midnight benchmark under 43 CFR 412.3(e) Estimated Total Length of Stay (Days): 3 Plans for Post Hospital Care: Home Review of Systems All other systems reviewed negative except as stated in [facility]PI [facility] - History History Provided By: Patient - Medical History Medical History: Medical History (Last Updated 12/23/18 @ 23:22 by Karina Mcdermott MD) Amputated toe of right foot (Acute) Loss of teeth due to extraction (Acute) Hypertension (Acute) Diabetes (Acute) PVD (peripheral vascular disease) (Acute) Amputated great toe of right foot Hyperlipidemia - Surgical History Surgical History: Surgical History (Last Reviewed 12/23/18 @ 23:22 by Karina Mcdermott MD) History of vascular surgery - Family History Family History: Family History (Last Updated 12/23/18 @ 23:23 by Karina Mcdermott MD) Other Diabetes mellitus - Social History I have reviewed the patient's Social History: Yes - Tobacco History Second Hand Smoke Exposure: No Tobacco Use In Past 30 Days: Yes Smoking Status: Current every day smoker Tobacco Type: Cigarettes - Alcohol History How Often Do You Have a Drink Containing Alcohol: Never - Substance Use History Substance History: No History of Abuse - Immunization History Tetanus Immunization: <5 Years Tetanus Immunization Year if Known: 2017 Medications and Allergies Active Medications: Active Medications Acetaminophen (Tylenol) 650 mg PO Q4H PRN PRN Reason: Temp > 100.4 Al Hydroxide/Mg Hydroxide (Milk Of Richie Dobson) 30 ml PO Q12H PRN PRN Reason: Mild Constipation Bisacodyl (Dulcolax Supp) 10 mg RECTAL DAILY PRN PRN Reason: SEVERE CONSITIPATION Dextrose (D50w Vial) 50 ml IV.PUSH UNSCH PRN PRN Reason: PER HYPOGLYCEMIA PROTOCOL Glucagon (Glucagon Inj) 1 mg OTHER PRN PRN PRN Reason: for Hypoglycemia Protocol Piperacillin/Tazobactam/Dextrose (Zosyn 3.375 Gm Premix) 3.375 gm in 50 mls @ 100 mls/hr IV.SIG Q6H [facility] Sodium Chloride (Ns Inj) 1,000 mls @ 100 mls/hr IV.CONT .Q10H [facility] Vancomycin HCl 1,250 mg/ (Sodium Chloride) 262.5 mls @ 250 mls/hr IV.SIG Q8H [facility] Insulin Aspart (Novolog Insulin Correctional Sugar Inj) 0 unit SQ ACHS AND 3AM STE[facility]; Protocol Miscellaneous Information ([facility] Ordered Lab Info) 0 each OTHER ONCE ONE Stop: 12/24/18 19:46 Ondansetron HCl (Zofran Inj) 4 mg IV.PUSH Q6H PRN PRN Reason: NAUSEA OR VOMITING Pharmacy Profile Note (Vancomycin Consult Pharmacy) 1 each OTHER UNSCH PRN PRN Reason: Pharmacy to dose Sennosides (Senokot) 17.2 mg PO Q12H PRN PRN Reason: Moderate Constipation Sodium Chloride (Ns Flush) 2 ml IV.FLUSH BID [facility] Sodium Chloride (Ns Flush) 2 ml IV.FLUSH PRN PRN PRN Reason: FLUSH AFTER USING IV ACCESS Allergies Allergy/AdvReac Type Severity Reaction Status Date / Time No Known Allergies Allergy Verified 08/19/18 20:56 Home Medications Medication Instructions Recorded Confirmed Type amlodipine 10 mg PO DAILY 05/31/18 11/29/18 History metformin 500 mg PO BID 05/31/18 11/29/18 History gabapentin 300 mg PO TID 08/19/18 11/29/18 History aspirin [Aspirin Low Dose] 81 mg PO DAILY 11/29/18 11/29/18 History atorvastatin 40 mg PO DAILY 11/29/18 11/29/18 History Exam Vital signs: Vital Signs 12/23/18 17:44 12/23/18 19:47 12/23/18 21:18 Temperature 98.1 F Pulse Rate 91 H 76 Respiratory Rate 20 16 Blood Pressure 197/90 H 151/74 H Pulse Oximetry 98 97 98 Intake & Output 12/23/18 12/23/18 12/24/18 06:59 18:59 06:59 Intake Total 1800 / 1800 Balance 1800 / 1800 Weight 102.058 kg Intake: IV 1800 / 1800 Zosyn 3.375 GM Premix 3.375 gm 50 / 50 In 50 ml @ 100 mls/hr IV.SIG ONCE ONE Rx#:[id number] NS Inj 1,000 ML @ Wide Open IV. 1000 / 1000 SIG BOLUS ONE Rx#:[id number] NS Inj 500 ML @ Wide Open IV. 500 / 500 SIG BOLUS ONE Rx#:[id number] Vancomycin Inj 1,000 MG In NS 250 / 250 Inj 250 ML @ 250 mls/hr IV.SIG ONCE ONE Rx#:[id number] Narrative: Gen.: No acute distress Head: Normocephalic. Atraumatic. EENT: Pupils equal round and reactive to light. Nose without drainage. Airway intact. Throat without injection. Cardiovascular: Regular rate and rhythm. No murmurs, rubs or gallops. Respiratory: Lungs clear to auscultation bilaterally. No wheezes or rhonchi. Abdomen: Soft, nontender, nondistended. No peritoneal signs. Musculoskeletal: Area of ulceration at the ball of the right foot with no active drainage. The patient has an additional area of discoloration that appears ecchymotic along the lateral aspect of the right foot. Skin: No obvious rashes or erythema. Neuro: Sensory and motor grossly intact. Cranial nerves II through XII grossly intact. Results - Labs CBC & Chem 7: 12/23/18 19:50 12/23/18 19:50 Labs: Laboratory Results - last 24 hr 12/23/18 12/23/18 12/23/18 19:50 19:50 19:50 WBC 10.2 RBC 5.65 Hgb 17.9 H Hct 52.1 H MCV 92.1 MCH 31.7 MCHC 34.4 RDW 13.6 Plt Count 208 MPV 8.6 Neut % (Auto) 63.0 Lymph % (Auto) 26.1 [place] % (Auto) 6.4 Eos % (Auto) 3.5 Baso % (Auto) 1.0 Neut # (Auto) 6.5 Lymph # (Auto) 2.7 [place] # (Auto) 0.7 Eos # (Auto) 0.4 Baso # (Auto) 0.1 WBC Differential . Differential Comment Auto diff final PT 9.9 INR 1.0 APTT 28.2 Sodium 136 Potassium 4.1 Chloride 102 Carbon Dioxide 25.6 Anion Gap 8 BUN 15 Creatinine 0.95 Estimated GFR 86 L Random Glucose 390 H Lactic Acid Calcium 8.8 Magnesium 2.2 Total Bilirubin 0.2 AST 21 ALT 28 Alkaline Phosphatase 106 Total Protein 7.8 Albumin 3.7 12/23/18 19:55 WBC RBC Hgb Hct MCV MCH MCHC RDW Plt Count MPV Neut % (Auto) Lymph % (Auto) [place] % (Auto) Eos % (Auto) Baso % (Auto) Neut # (Auto) Lymph # (Auto) [place] # (Auto) Eos # (Auto) Baso # (Auto) WBC Differential Differential Comment PT INR APTT Sodium Potassium Chloride Carbon Dioxide Anion Gap BUN Creatinine Estimated GFR Random Glucose Lactic Acid 2.8 H Calcium Magnesium Total Bilirubin AST ALT Alkaline Phosphatase Total Protein Albumin - Imaging Impressions Chest X-Ray 12/23/18 19:47 CONCLUSION: No acute cardiopulmonary disease Foot MRI 12/23/18 19:48 CONCLUSION: 1. Amputation of distal first metatarsal and great toe with ulceration and mild cellulitis medially near the amputation site. No discrete abscess. No evidence for osteomyelitis. Foot X-Ray 12/23/18 19:50 CONCLUSION: No acute findings. Amputation of the right great toe. Mild osteoarthritis. Caprini VTE Risk Assessment Caprini VTE Risk Assessment: No/Low Risk (score <= 1) Caprini Risk Assessment Model: Point Value = 1 Point Value = 2 Point Value = 3 Point Value = 5 Age 41-60 Minor surgery BMI > 25 kg/m2 Swollen legs Varicose veins or History of unexplained or recurrent spontaneous Oral contraceptives or hormone replacement Sepsis (< 1 month) Serious lung disease, including pneumonia (< 1 month) Abnormal pulmonary function Acute myocardial infarction Congestive heart failure (< 1 month) History of inflammatory bowel disease Medical patient at bed rest Age 61-74 Arthroscopic surgery Major open surgery (> 45 min) Laparoscopic surgery (> 45 min) Malignancy Confined to bed (> 72 hours) Immobilizing plaster cast Central venous access Age >= 75 History of VTE Family history of VTE Factor V Leiden Prothrombin [id number] Lupus anticoagulant Anticardiolipin antibodies Elevated serum homocysteine Heparin-induced thrombocytopenia Other congenital or acquired thrombophilia Stroke (< 1 month) Elective arthroplasty Hip, pelvis, or leg fracture Acute spinal cord injury (< 1 month) Prophylaxis Regimen: Total Risk Factor Score Risk Level Prophylaxis Regimen 0-1 Low Early ambulation 2 Moderate Order ONE of the following: *Sequential Compression Device (SCD) *Heparin 5000 units SQ BID 3-4 Higher Order ONE of the following medications: *Heparin 5000 units SQ TID *Enoxaparin/Lovenox 40 mg SQ daily (WT < 150 kg, CrCl > 30 mL/min) *Enoxaparin/Lovenox 30 mg SQ daily (WT < 150 kg, CrCl > 10-29 mL/min) *Enoxaparin/Lovenox 30 mg SQ BID (WT < 150 kg, CrCl > 30 mL/min) AND/OR *Sequential Compression Device (SCD) 5 or more Highest Order ONE of the following medications: *Heparin 5000 units SQ TID (Preferred with Epidurals) *Enoxaparin/Lovenox 40 mg SQ daily (WT < 150 kg, CrCl > 30 mL/min) *Enoxaparin/Lovenox 30 mg SQ daily (WT < 150 kg, CrCl > 10-29 mL/min) *Enoxaparin/Lovenox 30 mg SQ BID (WT < 150 kg, CrCl > 30 mL/min) AND *Sequential Compression Device (SCD) Assessment and Plan - Plan Assessment/plan: 1. Right foot cellulitis/ulcer Foot MRI negative for abscess/osteomyelitis Broad-spectrum antibiotics with vancomycin/Zosyn ETHAN pending Podiatry consulted, appreciate assistance 2. Diabetes mellitus Holding metformin Sliding-scale insulin Monitor blood glucose 3. Hypertension/hyperlipidemia Continue home medications FEN N.p.o. NS at 100 cc/hour Electrolytes: Monitor and replete as needed
[2018-12-24] MEDS: Sod Chloride 0.9% Inj 1,000 ML IV.CONT SCH ×4 (00:36→20:12)
[2018-12-24] MEDS: Piperacil/Tazo 3.375 GM Premix 3.375 GM/50 ML PIGGYBACK IV.SIG SCH ×4 (02:36→19:35)
[2018-12-24] MEDS: Vancomycin Inj 1,250 MG in Sodium Chlor 0.9% Inj 250 ML IV.SIG SCH ×3 (03:53→21:16)
[2018-12-24] MEDS: Insulin NovoLOG Aspart Correctional Sugar Inj SQ SCH ×5 (03:56→21:16)
[2018-12-24 07:24] LABS: Baso # (Auto) 0.1 th/mm3 (0.0-0.2); Baso % (Auto) 1.1 % (0.0-2.0); Eos # (Auto) 0.5 th/mm3 (0.0-0.4); Eos % (Auto) 4.9 % (0.0-4.0); Hematocrit 39.5 % (39.0-51.0); Hemoglobin 13.8 gm/dL (13.0-17.0); Lymph # (Auto) 3.3 th/mm3 (1.0-4.8); Lymph % (Auto) 35.9 % (9.0-44.0); Mean Corpuscular HGB Conc 34.9 % (32.0-36.0); Mean Corpuscular Hemoglobin 31.6 pg (27.0-34.0); Mean Corpuscular Volume 90.6 fL (80.0-100.0); Mean Platelet Volume 8.5 fL (7.0-11.0); Mono # (Auto) 0.8 th/mm3 (0.0-0.9); Mono % (Auto) 8.3 % (0.0-8.0); Neut # (Auto) 4.6 th/mm3 (1.8-7.7); Neut % (Auto) 49.8 % (16.0-70.0); Platelet Count 212 th/mm3 (150-450); Red Blood Count 4.36 mil/mm3 (4.50-5.90); White Blood Count 9.3 th/mm3 (4.0-11.0)
[2018-12-24 08:15] LABS: Anion Gap 9 meq/L (5-15); Blood Urea Nitrogen 12 mg/dL (7-18); Carbon Dioxide 24.3 meq/L (21.0-32.0); Chloride 110 meq/L (98-107); Glomerular Filtration Rate Greater Than 89 mL/min (>89); Potassium 3.9 meq/L (3.5-5.1); Sodium 143 meq/L (136-145)
--- NOTE | 2018-12-24 08:32 | P.PNIM ---
Subjective Interval history: f/u; right foot infection in no acute distress. has some pain to the right foot. no fever. Physical Exam Vital signs: Vital Signs 12/23/18 17:44 12/23/18 19:47 12/23/18 21:18 Temperature 98.1 F Pulse Rate 91 H 76 Respiratory Rate 20 16 Blood Pressure 197/90 H 151/74 H Pulse Oximetry 98 97 98 12/24/18 00:00 12/24/18 04:00 Temperature 98.1 F 98.3 F Pulse Rate 65 64 Respiratory Rate 20 20 Blood Pressure 143/75 H 149/76 H Pulse Oximetry 93 L 93 L Intake & Output 12/23/18 12/24/18 12/24/18 18:59 06:59 18:59 Intake Total 2112.5 / 2112.5 Balance 2112.5 / 2112.5 Weight 102.058 kg 96.8 kg Intake: IV 2112.5 / 2112.5 Zosyn 3.375 GM Premix 3.375 gm 100 / 100 In 50 ml @ 100 mls/hr IV.SIG Q6H [facility] Rx#:[id number] NS Inj 1,000 ML @ Wide Open IV. 1000 / 1000 SIG BOLUS ONE Rx#:[id number] NS Inj 500 ML @ Wide Open IV. 500 / 500 SIG BOLUS ONE Rx#:[id number] Vancomycin Inj 1,000 MG In NS 250 / 250 Inj 250 ML @ 250 mls/hr IV.SIG ONCE ONE Rx#:[id number] Vancomycin Inj 1,250 MG In NS 262.5 / 262.5 Inj 250 ML @ 250 mls/hr IV.SIG Q8H [facility] Rx#:[id number] Other: Weight On Admission 96.8 kg Constitutional no acute distress Routine Respiratory Exam Present CTA bilaterally Routine Cardiovascular Exam Present RRR Routine Abdominal Exam Present soft Routine Extremities Exam Present tenderness Comments: mild tenderness over the right foot. Routine Skin Exam Present erythema Comments: mild erythema over the right foot. Routine Neurological Exam Present alert and oriented X3 Results Labs CBC & Chem 7: 12/24/18 06:24 12/24/18 06:24 Imaging Imaging: Impressions Chest X-Ray 12/23/18 19:47 CONCLUSION: No acute cardiopulmonary disease Foot MRI 12/23/18 19:48 CONCLUSION: 1. Amputation of distal first metatarsal and great toe with ulceration and mild cellulitis medially near the amputation site. No discrete abscess. No evidence for osteomyelitis. Foot X-Ray 12/23/18 19:50 CONCLUSION: No acute findings. Amputation of the right great toe. Mild osteoarthritis. Assessment and Plan Plan A/P 1. Right foot cellulitis/ulcer Foot MRI negative for abscess/osteomyelitis Broad-spectrum antibiotics with vancomycin/Zosyn ETHAN pending. follow the cultures. Podiatry consulted, appreciate assistance 2. Diabetes mellitus Holding metformin Sliding-scale insulin Monitor blood glucose 3. Hypertension/hyperlipidemia Continue home medications DVT prophylaxis; will initiate chemical prophylaxis - pending podiatry evaluation. Discussed Condition With: the patient. Progress Note: Quality VTE Deep Vein Thrombosis/Pulmonary Embolism Present on Admission: No
[2018-12-24 08:42] LABS: Glucose,Random 195 mg/dL (74-106)
[2018-12-24] MEDS: Gabapentin 300 MG Capsule PO SCH ×3 (08:46→17:58)
[2018-12-24] MEDS: amLODIPine 5 MG Tablet PO SCH (08:47)
--- NOTE | 2018-12-24 13:56 | ECHRPT ---
EXAM DATE: 12/24/2018 1:24 PM EST AGE/SEX: 43 years / Male INDICATIONS: right foot infection, peripheral vascular disease CLINICAL DATA: This is the patient's initial encounter. Patient reports that signs and symptoms have been present for 3 weeks and indicates a pain score of 9/10. MEDICAL/SURGICAL HISTORY: . diabetes mellitus, hyperlipidemia, hypertension, teeth extraction, peripheral vascular disease . vascular surgery, amputation right great toe COMPARISON: No prior exams available for comparison. TECHNIQUE: Four-cuff ankle and brachial pressures were obtained. Pulse cuff waveform tracings of the ankles were recorded, and ankle-brachial indices were calculated. PRESSURES (mmHg): Brachial (arm) : RIGHT: iv site, LEFT: 134 Ankle : RIGHT: 67, LEFT: 81 ETHAN : RIGHT: 0.50, LEFT: 0.60 TBI : RIGHT: 0.00, LEFT: 0.34 FINDINGS: The ABIs are moderately decreased at both lower extremities, left greater than right. The left TBI is also decreased. No TBI in the right was demonstrated. Other: None. CONCLUSION: 1. The ABIs are moderately decreased in both lower extremities, left greater than right suggesting a t least moderate arterial insufficiency. Moderate to severe insufficiency involving the left big toe. No TBI was recorded on the right side. Electronically signed by: Luis Enrique Colin MD Board Certified Radiologist 12/24/2018 1:55 PM EST
--- NOTE | 2018-12-24 15:15 | ECG ---
Date Performed: 12/23/2018 Time Performed: 22:28:42 PTAGE: 43 years EKG: Sinus rhythm Since the previous tracing, no significant change noted NORMAL ECG PREVIOUS TRACING : 02/25/2018 05.30 DOCTOR: Maggy Rawls Interpretating Date/Time 12/24/2018 15:11:16
--- NOTE | 2018-12-24 15:17 | P.CONPOD ---
History of Present Illness Service: Podiatry Consult date: 12/24/18 Reason for Consult: right foot infection Primary Care Provider: UNKNOWN History of Present Illness: Patient says he noticed a lesion on the outer right foot and was concerned for infection and came in. He has had many issues with his feet with previous admissions. Review of Systems All other systems reviewed negative except as stated [facility] - History History Provided By: Patient - Medical History Medical History: Medical History (Last Updated 12/23/18 @ 23:22 by Karina Mcdermott MD) Amputated toe of right foot (Acute) Loss of teeth due to extraction (Acute) Hypertension (Acute) Diabetes (Acute) PVD (peripheral vascular disease) (Acute) Amputated great toe of right foot Hyperlipidemia - Surgical History Surgical History: Surgical History (Last Reviewed 12/23/18 @ 23:22 by Karina Mcdermott MD) History of vascular surgery - Family History Family History: Family History (Last Updated 12/23/18 @ 23:23 by Karina Mcdermott MD) Other Diabetes mellitus - Tobacco History Second Hand Smoke Exposure: Yes Tobacco Use In Past 30 Days: Yes Smoking Status: Light tobacco smoker Tobacco Type: Cigarettes - Alcohol History How Often Do You Have a Drink Containing Alcohol: Never - Substance Use History Substance History: No History of Abuse - Immunization History Tetanus Immunization: <5 Years Tetanus Immunization Year if Known: 2016 Hx Influenza Vaccine This Season: No Medications and Allergies Active Medications: Active Medications Acetaminophen (Tylenol) 650 mg PO Q4H PRN PRN Reason: Temp > 100.4 Hydrocodone Bitart/Acetaminophen ([place] 5/325) 1 tab PO Q4H PRN PRN Reason: Acute Pain Exemption Last Admin: 12/24/18 13:16 Dose: 1 tab Al Hydroxide/Mg Hydroxide (Milk Of Richie Liq) 30 ml PO Q12H PRN PRN Reason: Mild Constipation Amlodipine Besylate (Norvasc) 10 mg PO DAILY [facility] Last Admin: 12/24/18 08:47 Dose: 10 mg Atorvastatin Calcium (Lipitor) 40 mg PO DAILY [facility] Last Admin: 12/24/18 08:46 Dose: 40 mg Bisacodyl (Dulcolax Supp) 10 mg RECTAL DAILY PRN PRN Reason: SEVERE CONSITIPATION Dextrose (D50w Vial) 50 ml IV.PUSH UNSCH PRN PRN Reason: PER HYPOGLYCEMIA PROTOCOL Gabapentin (Neurontin) 300 mg PO TID [facility] Last Admin: 12/24/18 13:16 Dose: 300 mg Glucagon (Glucagon Inj) 1 mg OTHER PRN PRN PRN Reason: for Hypoglycemia Protocol Piperacillin/Tazobactam/Dextrose (Zosyn 3.375 Gm Premix) 3.375 gm in 50 mls @ 100 mls/hr IV.SIG Q6H [facility] Last Admin: 12/24/18 14:59 Dose: 100 mls/hr Sodium Chloride (Ns Inj) 1,000 mls @ 100 mls/hr IV.CONT .Q10H [facility] Last Admin: 12/24/18 13:25 Dose: 100 mls/hr Vancomycin HCl 1,250 mg/ (Sodium Chloride) 262.5 mls @ 250 mls/hr IV.SIG Q8H [facility] Last Infusion: 12/24/18 14:34 Dose: Infused Insulin Aspart (Novolog Insulin Correctional Sugar Inj) 0 unit SQ ACHS AND 3AM [facility]; Protocol Last Admin: 12/24/18 12:04 Dose: Not Given Miscellaneous Information ([facility] Ordered Lab Info) 0 each OTHER ONCE ONE Stop: 12/24/18 19:46 Ondansetron HCl (Zofran Inj) 4 mg IV.PUSH Q6H PRN PRN Reason: NAUSEA OR VOMITING Pharmacy Profile Note (Vancomycin Consult Pharmacy) 1 each OTHER UNSCH PRN PRN Reason: Pharmacy to dose Sennosides (Senokot) 17.2 mg PO Q12H PRN PRN Reason: Moderate Constipation Sodium Chloride (Ns Flush) 2 ml IV.FLUSH BID [facility] Last Admin: 12/24/18 09:29 Dose: 2 ml Sodium Chloride (Ns Flush) 2 ml IV.FLUSH PRN PRN PRN Reason: FLUSH AFTER USING IV ACCESS Allergies Allergy/AdvReac Type Severity Reaction Status Date / Time No Known Allergies Allergy Verified 08/19/18 20:56 Home Medications Medication Instructions Recorded Confirmed Type amlodipine 10 mg PO DAILY 05/31/18 12/23/18 History metformin 500 mg PO BID 05/31/18 12/23/18 History gabapentin 300 mg PO TID 08/19/18 12/23/18 History aspirin [Aspirin Low Dose] 81 mg PO DAILY 11/29/18 12/23/18 History atorvastatin 40 mg PO DAILY 11/29/18 12/23/18 History Physical Exam Vital signs: Vital Signs 12/23/18 17:44 12/23/18 19:47 12/23/18 21:18 Temperature 98.1 F Pulse Rate 91 H 76 Respiratory Rate 20 16 Blood Pressure 197/90 H 151/74 H Pulse Oximetry 98 97 98 12/24/18 00:00 12/24/18 04:00 12/24/18 08:37 Temperature 98.1 F 98.3 F 98.4 F Pulse Rate 65 64 64 Respiratory Rate 20 20 20 Blood Pressure 143/75 H 149/76 H 138/75 Pulse Oximetry 93 L 93 L 94 L 12/24/18 12:36 12/24/18 14:00 Temperature 98.3 F Pulse Rate 57 L Respiratory Rate 18 20 Blood Pressure 142/74 H Pulse Oximetry 93 L Intake & Output 12/23/18 12/24/18 12/24/18 18:59 06:59 18:59 Intake Total 2112.5 / 2112.5 1312.5 / 1312.5 Balance 2112.5 / 2112.5 1312.5 / 1312.5 Weight 102.058 kg 96.8 kg Intake: IV 2112.5 / 2112.5 1312.5 / 1312.5 NS Inj 1,000 ML @ 100 mls/hr IV 1000 / 1000 .CONT .Q10H [facility] Rx#:[id number] Zosyn 3.375 GM Premix 3.375 gm 100 / 100 50 / 50 In 50 ml @ 100 mls/hr IV.SIG Q6H [facility] Rx#:[id number] NS Inj 1,000 ML @ Wide Open IV. 1000 / 1000 SIG BOLUS ONE Rx#:[id number] NS Inj 500 ML @ Wide Open IV. 500 / 500 SIG BOLUS ONE Rx#:[id number] Vancomycin Inj 1,000 MG In NS 250 / 250 Inj 250 ML @ 250 mls/hr IV.SIG ONCE ONE Rx#:[id number] Vancomycin Inj 1,250 MG In NS 262.5 / 262.5 262.5 / 262.5 Inj 250 ML @ 250 mls/hr IV.SIG Q8H [facility] Rx#:[id number] Other: Weight On Admission 96.8 kg Narrative: Right foot previous hallux amputation with plantar lateral foot hyperkeratotic lesion with purple discoloration. mild erythema. No warmth noted. No edema present. No foul odor. No crepitus. No palpable/visible bone. Results - Labs CBC & Chem 7: 12/24/18 06:24 12/24/18 06:24 Laboratory Results - last 24 hr 12/23/18 12/23/18 12/23/18 19:50 19:50 19:50 WBC 10.2 RBC 5.65 Hgb 17.9 H Hct 52.1 H MCV 92.1 MCH 31.7 MCHC 34.4 RDW 13.6 Plt Count 208 MPV 8.6 Neut % (Auto) 63.0 Lymph % (Auto) 26.1 [place] % (Auto) 6.4 Eos % (Auto) 3.5 Baso % (Auto) 1.0 Neut # (Auto) 6.5 Lymph # (Auto) 2.7 [place] # (Auto) 0.7 Eos # (Auto) 0.4 Baso # (Auto) 0.1 WBC Differential . Differential Comment Auto diff final PT 9.9 INR 1.0 APTT 28.2 Sodium 136 Potassium 4.1 Chloride 102 Carbon Dioxide 25.6 Anion Gap 8 BUN 15 Creatinine 0.95 Estimated GFR 86 L POC Glucose Random Glucose 390 H Lactic Acid Calcium 8.8 Magnesium 2.2 Total Bilirubin 0.2 AST 21 ALT 28 Alkaline Phosphatase 106 Total Protein 7.8 Albumin 3.7 12/23/18 12/23/18 12/24/18 19:55 22:07 00:15 WBC RBC Hgb Hct MCV MCH MCHC RDW Plt Count MPV Neut % (Auto) Lymph % (Auto) [place] % (Auto) Eos % (Auto) Baso % (Auto) Neut # (Auto) Lymph # (Auto) [place] # (Auto) Eos # (Auto) Baso # (Auto) WBC Differential Differential Comment PT INR APTT Sodium Potassium Chloride Carbon Dioxide Anion Gap BUN Creatinine Estimated GFR POC Glucose 231 H Random Glucose Lactic Acid 2.8 H 1.2 Calcium Magnesium Total Bilirubin AST ALT Alkaline Phosphatase Total Protein Albumin 12/24/18 12/24/18 12/24/18 03:56 06:24 06:24 WBC 9.3 RBC 4.36 L Hgb 13.8 D Hct 39.5 MCV 90.6 MCH 31.6 MCHC 34.9 RDW 13.0 Plt Count 212 MPV 8.5 Neut % (Auto) 49.8 Lymph % (Auto) 35.9 [place] % (Auto) 8.3 H Eos % (Auto) 4.9 H Baso % (Auto) 1.1 Neut # (Auto) 4.6 Lymph # (Auto) 3.3 [place] # (Auto) 0.8 Eos # (Auto) 0.5 H Baso # (Auto) 0.1 WBC Differential . Differential Comment Auto diff final PT INR APTT Sodium 143 Potassium 3.9 Chloride 110 H D Carbon Dioxide 24.3 Anion Gap 9 BUN 12 Creatinine 0.59 L Estimated GFR Greater than 89 POC Glucose 197 H Random Glucose 195 H D Lactic Acid Calcium 8.0 L D Magnesium Total Bilirubin AST ALT Alkaline Phosphatase Total Protein Albumin 12/24/18 12/24/18 07:46 11:40 WBC RBC Hgb Hct MCV MCH MCHC RDW Plt Count MPV Neut % (Auto) Lymph % (Auto) [place] % (Auto) Eos % (Auto) Baso % (Auto) Neut # (Auto) Lymph # (Auto) [place] # (Auto) Eos # (Auto) Baso # (Auto) WBC Differential Differential Comment PT INR APTT Sodium Potassium Chloride Carbon Dioxide Anion Gap BUN Creatinine Estimated GFR POC Glucose 214 H 180 H Random Glucose Lactic Acid Calcium Magnesium Total Bilirubin AST ALT Alkaline Phosphatase Total Protein Albumin Microbiology 12/23/18 23:00 Wound - Foot Gram Stain - Final 12/23/18 23:00 Wound - Foot Wound Culture - Preliminary S. aureus MRSA 12/23/18 19:45 Blood - Peripheral Aerobic Blood Culture - Preliminary No growth in 1 day 12/23/18 19:45 Blood - Peripheral Anaerobic Blood Culture - Preliminary No growth in 1 day 12/23/18 19:55 Blood - Peripheral Aerobic Blood Culture - Preliminary No growth in 1 day 12/23/18 19:55 Blood - Peripheral Anaerobic Blood Culture - Preliminary No growth in 1 day - Imaging Impressions Extremity Arterial Study 12/23/18 00:00 CONCLUSION: 1. The ABIs are moderately decreased in both lower extremities, left greater than right suggesting at least moderate arterial insufficiency. Moderate to severe insufficiency involving the left big toe. No TBI was recorded on the right side. Chest X-Ray 12/23/18 19:47 CONCLUSION: No acute cardiopulmonary disease Foot MRI 12/23/18 19:48 CONCLUSION: 1. Amputation of distal first metatarsal and great toe with ulceration and mild cellulitis medially near the amputation site. No discrete abscess. No evidence for osteomyelitis. Foot X-Ray 12/23/18 19:50 CONCLUSION: No acute findings. Amputation of the right great toe. Mild osteoarthritis. Assessment and Plan - Assessment (1) Cellulitis of foot, right Code(s): L03.115 - Cellulitis of right lower limb Status: Acute (2) Diabetic foot infection Code(s): E11.628 - Type 2 diabetes mellitus with other skin complications; L08.9 - Local infection of the skin and subcutaneous tissue, unspecified Status: Acute - Plan Betadine wet to dry dressings ordered right foot daily per nursing. Call podiatry if any wound deterioration develops MRI result reviewed. No abscess, no osteomyelitis signs on imaging. Needs full vascular work up and intervention prior to foot surgery Vascular consulted. Will continue to monitor foot wound daily
--- NOTE | 2018-12-24 17:13 | P.CONVS ---
History of Present Illness Service: Vascular Surgery Consult date: 12/24/18 Requesting Physician: Jag Jang Reason for Consult: R foot infection Primary Care Provider: UNKNOWN Chief Complaint: 3 weeks R foot wound History of Present Illness: 43 yo male with PAD and history of R groin reconstruction, iliac stent, and [employer] 02/25/18. He has 3 weeks of worsening R foot wound that he says he first noticed it when he took off his work boot. No fevers or chills. Does have elevated BS but that seems to be normal for him. ETHAN 0.5 this admission. Review of Systems All other systems reviewed negative except as stated in HPI [facility] - History History Provided By: Patient - Medical History Medical History: Medical History (Last Reviewed 12/24/18 @ 17:07 by Dandy Patel MD) Amputated toe of right foot (Acute) Loss of teeth due to extraction (Acute) Hypertension (Acute) Diabetes (Acute) PVD (peripheral vascular disease) (Acute) Amputated great toe of right foot Hyperlipidemia - Surgical History Surgical History: Surgical History (Last Reviewed 12/24/18 @ 17:07 by Dandy Patel MD) History of vascular surgery - Family History Family History: Family History (Last Updated 12/23/18 @ 23:23 by Karina Mcdermott MD) Other Diabetes mellitus - Tobacco History Second Hand Smoke Exposure: Yes Tobacco Use In Past 30 Days: Yes Smoking Status: Light tobacco smoker Tobacco Type: Cigarettes - Alcohol History How Often Do You Have a Drink Containing Alcohol: Never - Substance Use History Substance History: No History of Abuse - Immunization History Tetanus Immunization: <5 Years Tetanus Immunization Year if Known: 2016 Hx Influenza Vaccine This Season: No Medications and Allergies Active Medications: Active Medications Acetaminophen (Tylenol) 650 mg PO Q4H PRN PRN Reason: Temp > 100.4 Hydrocodone Bitart/Acetaminophen ([place] 5/325) 1 tab PO Q4H PRN PRN Reason: Acute Pain Exemption Last Admin: 12/24/18 13:16 Dose: 1 tab Al Hydroxide/Mg Hydroxide (Milk Of Magnesia Liq) 30 ml PO Q12H PRN PRN Reason: Mild Constipation Amlodipine Besylate (Norvasc) 10 mg PO DAILY [facility] Last Admin: 12/24/18 08:47 Dose: 10 mg Atorvastatin Calcium (Lipitor) 40 mg PO DAILY [facility] Last Admin: 12/24/18 08:46 Dose: 40 mg Bisacodyl (Dulcolax Supp) 10 mg RECTAL DAILY PRN PRN Reason: SEVERE CONSITIPATION Dextrose (D50w Vial) 50 ml IV.PUSH UNSCH PRN PRN Reason: PER HYPOGLYCEMIA PROTOCOL Gabapentin (Neurontin) 300 mg PO TID [facility] Last Admin: 12/24/18 13:16 Dose: 300 mg Glucagon (Glucagon Inj) 1 mg OTHER PRN PRN PRN Reason: for Hypoglycemia Protocol Piperacillin/Tazobactam/Dextrose (Zosyn 3.375 Gm Premix) 3.375 gm in 50 mls @ 100 mls/hr IV.SIG Q6H [facility] Last Infusion: 12/24/18 15:30 Dose: Infused Sodium Chloride (Ns Inj) 1,000 mls @ 100 mls/hr IV.CONT .Q10H [facility] Last Admin: 12/24/18 13:25 Dose: 100 mls/hr Vancomycin HCl 1,250 mg/ (Sodium Chloride) 262.5 mls @ 250 mls/hr IV.SIG Q8H [facility] Last Infusion: 12/24/18 14:34 Dose: Infused Insulin Aspart (Novolog Insulin Correctional Sugar Inj) 0 unit SQ ACHS AND 3AM [facility]; Protocol Last Admin: 12/24/18 16:41 Dose: 1 unit Miscellaneous Information ([facility] Ordered Lab Info) 0 each OTHER ONCE ONE Stop: 12/24/18 19:46 Ondansetron HCl (Zofran Inj) 4 mg IV.PUSH Q6H PRN PRN Reason: NAUSEA OR VOMITING Pharmacy Profile Note (Vancomycin Consult Pharmacy) 1 each OTHER UNSCH PRN PRN Reason: Pharmacy to dose Sennosides (Senokot) 17.2 mg PO Q12H PRN PRN Reason: Moderate Constipation Sodium Chloride (Ns Flush) 2 ml IV.FLUSH BID [facility] Last Admin: 12/24/18 09:29 Dose: 2 ml Sodium Chloride (Ns Flush) 2 ml IV.FLUSH PRN PRN PRN Reason: FLUSH AFTER USING IV ACCESS Allergies Allergy/AdvReac Type Severity Reaction Status Date / Time No Known Allergies Allergy Verified 08/19/18 20:56 Home Medications Medication Instructions Recorded Confirmed Type amlodipine 10 mg PO DAILY 05/31/18 12/23/18 History metformin 500 mg PO BID 05/31/18 12/23/18 History gabapentin 300 mg PO TID 08/19/18 12/23/18 History aspirin [Aspirin Low Dose] 81 mg PO DAILY 11/29/18 12/23/18 History atorvastatin 40 mg PO DAILY 11/29/18 12/23/18 History Physical Exam Vital Signs / I&O: Vital Signs 12/23/18 17:44 12/23/18 19:47 12/23/18 21:18 Temperature 98.1 F Pulse Rate 91 H 76 Respiratory Rate 20 16 Blood Pressure 197/90 H 151/74 H Pulse Oximetry 98 97 98 12/24/18 00:00 12/24/18 04:00 12/24/18 08:37 Temperature 98.1 F 98.3 F 98.4 F Pulse Rate 65 64 64 Respiratory Rate 20 20 20 Blood Pressure 143/75 H 149/76 H 138/75 Pulse Oximetry 93 L 93 L 94 L 12/24/18 12:36 12/24/18 14:00 12/24/18 16:46 Temperature 98.3 F 97.4 F L Pulse Rate 57 L 55 L Respiratory Rate 18 20 18 Blood Pressure 142/74 H 141/73 H Pulse Oximetry 93 L 94 L Intake & Output 12/23/18 12/24/18 12/24/18 18:59 06:59 18:59 Intake Total 2112.5 / 2112.5 1362.5 / 1362.5 Balance 2112.5 / 2112.5 1362.5 / 1362.5 Weight 102.058 kg 96.8 kg Intake: IV 2112.5 / 2112.5 1362.5 / 1362.5 NS Inj 1,000 ML @ 100 mls/hr IV 1000 / 1000 .CONT .Q10H [facility] Rx#:[id number] Zosyn 3.375 GM Premix 3.375 gm 100 / 100 100 / 100 In 50 ml @ 100 mls/hr IV.SIG Q6H [facility] Rx#:[id number] NS Inj 1,000 ML @ Wide Open IV. 1000 / 1000 SIG BOLUS ONE Rx#:[id number] NS Inj 500 ML @ Wide Open IV. 500 / 500 SIG BOLUS ONE Rx#:[id number] Vancomycin Inj 1,000 MG In NS 250 / 250 Inj 250 ML @ 250 mls/hr IV.SIG ONCE ONE Rx#:[id number] Vancomycin Inj 1,250 MG In NS 262.5 / 262.5 262.5 / 262.5 Inj 250 ML @ 250 mls/hr IV.SIG Q8H [facility] Rx#:[id number] Other: Weight On Admission 96.8 kg Neuro: alert, no distress HEENT: NC/AT Neck: no JVD Heart: reg rate, no M Lungs: clear B Vascular: palpable R femoral and L femoral pulses no popliteal or pedal pulses R foot Extremities: would lateral R foot Laboratory Results - last 24 hr 12/23/18 12/23/18 12/23/18 19:50 19:50 19:50 WBC 10.2 RBC 5.65 Hgb 17.9 H Hct 52.1 H MCV 92.1 MCH 31.7 MCHC 34.4 RDW 13.6 Plt Count 208 MPV 8.6 Neut % (Auto) 63.0 Lymph % (Auto) 26.1 [place] % (Auto) 6.4 Eos % (Auto) 3.5 Baso % (Auto) 1.0 Neut # (Auto) 6.5 Lymph # (Auto) 2.7 [place] # (Auto) 0.7 Eos # (Auto) 0.4 Baso # (Auto) 0.1 WBC Differential . Differential Comment Auto diff final PT 9.9 INR 1.0 APTT 28.2 Sodium 136 Potassium 4.1 Chloride 102 Carbon Dioxide 25.6 Anion Gap 8 BUN 15 Creatinine 0.95 Estimated GFR 86 L POC Glucose Random Glucose 390 H Lactic Acid Calcium 8.8 Magnesium 2.2 Total Bilirubin 0.2 AST 21 ALT 28 Alkaline Phosphatase 106 Total Protein 7.8 Albumin 3.7 12/23/18 12/23/18 12/24/18 19:55 22:07 00:15 WBC RBC Hgb Hct MCV MCH MCHC RDW Plt Count MPV Neut % (Auto) Lymph % (Auto) [place] % (Auto) Eos % (Auto) Baso % (Auto) Neut # (Auto) Lymph # (Auto) [place] # (Auto) Eos # (Auto) Baso # (Auto) WBC Differential Differential Comment PT INR APTT Sodium Potassium Chloride Carbon Dioxide Anion Gap BUN Creatinine Estimated GFR POC Glucose 231 H Random Glucose Lactic Acid 2.8 H 1.2 Calcium Magnesium Total Bilirubin AST ALT Alkaline Phosphatase Total Protein Albumin 0212/24/18 12/24/18 03:56 06:24 06:24 WBC 9.3 RBC 4.36 L Hgb 13.8 D Hct 39.5 MCV 90.6 MCH 31.6 MCHC 34.9 RDW 13.0 Plt Count 212 MPV 8.5 Neut % (Auto) 49.8 Lymph % (Auto) 35.9 [place] % (Auto) 8.3 H Eos % (Auto) 4.9 H Baso % (Auto) 1.1 Neut # (Auto) 4.6 Lymph # (Auto) 3.3 [place] # (Auto) 0.8 Eos # (Auto) 0.5 H Baso # (Auto) 0.1 WBC Differential . Differential Comment Auto diff final PT INR APTT Sodium 143 Potassium 3.9 Chloride 110 H D Carbon Dioxide 24.3 Anion Gap 9 BUN 12 Creatinine 0.59 L Estimated GFR Greater than 89 POC Glucose 197 H Random Glucose 195 H D Lactic Acid Calcium 8.0 L D Magnesium Total Bilirubin AST ALT Alkaline Phosphatase Total Protein Albumin 12/24/18 12/24/18 12/24/18 07:46 11:40 16:20 WBC RBC Hgb Hct MCV MCH MCHC RDW Plt Count MPV Neut % (Auto) Lymph % (Auto) [place] % (Auto) Eos % (Auto) Baso % (Auto) Neut # (Auto) Lymph # (Auto) [place] # (Auto) Eos # (Auto) Baso # (Auto) WBC Differential Differential Comment PT INR APTT Sodium Potassium Chloride Carbon Dioxide Anion Gap BUN Creatinine Estimated GFR POC Glucose 214 H 180 H 157 H Random Glucose Lactic Acid Calcium Magnesium Total Bilirubin AST ALT Alkaline Phosphatase Total Protein Albumin Microbiology 12/23/18 23:00 Gram Stain - Final Wound - Foot Wound Culture - Preliminary S. aureus MRSA 12/23/18 19:45 Aerobic Blood Culture - Preliminary Blood - Peripheral No growth in 1 day Anaerobic Blood Culture - Preliminary No growth in 1 day 12/23/18 19:55 Aerobic Blood Culture - Preliminary Blood - Peripheral No growth in 1 day Anaerobic Blood Culture - Preliminary No growth in 1 day Impressions Extremity Arterial Study 12/23/18 00:00 CONCLUSION: 1. The ABIs are moderately decreased in both lower extremities, left greater than right suggesting at least moderate arterial insufficiency. Moderate to severe insufficiency involving the left big toe. No TBI was recorded on the right side. Chest X-Ray 12/23/18 19:47 CONCLUSION: No acute cardiopulmonary disease Foot MRI 12/23/18 19:48 CONCLUSION: 1. Amputation of distal first metatarsal and great toe with ulceration and mild cellulitis medially near the amputation site. No discrete abscess. No evidence for osteomyelitis. Foot X-Ray 12/23/18 19:50 CONCLUSION: No acute findings. Amputation of the right great toe. Mild osteoarthritis. Assessment and Plan - Assessment (1) PAD (peripheral artery disease) Code(s): I73.9 - Peripheral vascular disease, unspecified Status: Acute (2) Cellulitis of foot, right Code(s): L03.115 - Cellulitis of right lower limb Status: Acute - Plan R LE tissue loss and ETHAN 0.5 Will schedule R LE angiogram for tomorrow (Wed). NPO after MN
--- NOTE | 2018-12-24 18:46 | US ---
EXAM DATE: 12/24/2018 6:42 PM EST AGE/SEX: 43 years / Male INDICATIONS: Preop surgery. CLINICAL DATA: This is the patient's subsequent encounter. Patient reports that signs and symptoms h ave been present for 1 day and indicates a pain score of 0/10. MEDICAL/SURGICAL HISTORY: Hypertension. Amputated toe right foot. Diabetes. Hyperlipidemia. Per ipheral vascular disease. . Right leg artery surgery. COMPARISON: [facility] – [place], [place] LEG BILATERAL VENOUS DOPPLER, 02/19/2018. . TECHNIQUE: Venous ultrasound of both lower extremities was performed from the inguinal ligament to t he proximal calf. Real-time, color Doppler and spectral tracing, compression and augmentation techni ques were used. FINDINGS: Right Leg: Normal compression of the deep venous system from the inguinal region to the proximal bhavya f. No echogenic clot is seen. Normal response of the venous system to augmentation and respiration. Left Leg: Normal compression of the deep venous system from the inguinal region to the proximal calf . No echogenic clot is seen. Normal response of the venous system to augmentation and respiration. Other: None. CONCLUSION: 1. The study is negative for bilateral lower extremity deep venous thrombosis. Electronically signed by: Micah Lowery MD Board Certified Radiologist 12/24/2018 6:44 PM EST
--- NOTE | 2018-12-24 19:08 | US ---
EXAM DATE: 12/24/2018 6:46 PM EST AGE/SEX: 43 years / Male INDICATIONS: Preop surgery. CLINICAL DATA: This is the patient's subsequent encounter. Patient reports that signs and symptoms h ave been present for 1 day and indicates a pain score of 0/10. MEDICAL/SURGICAL HISTORY: Hypertension. Amputated toe right foot. Diabetes. Hyperlipidemia. Per ipheral vascular disease. . Right leg surgery. COMPARISON: No prior exams available for comparison. MEASUREMENTS: RIGHT THIGH: Proximal:__8 mm Mid:__ 2 mm Distal:__2 mm LEFT THIGH: Proximal:__6 mm Mid:__3 mm Distal:__2 mm RIGHT CALF: Proximal:__2 mm Mid:__2 mm Distal:__2 mm LEFT CALF: Proximal:__2 mm Mid:__2 mm Distal:__1 mm FINDINGS: The venous system of the lower extremities are patent by color Doppler imaging. Measurements of the leg veins (in mm) are listed above. CONCLUSION: 1. Venous mapping as above Electronically signed by: Ken Klein MD Board Certified Radiologist 12/24/2018 7:07 PM EST
[2018-12-24] MEDS ORDERED: Pharmacy Ordered Lab Info OTHER ONE (19:45)
[2018-12-24 22:40] LABS: Hemoglobin A1c 9.7 % (4.3-6.0)
[2018-12-25] MEDS: Piperacil/Tazo 3.375 GM Premix 3.375 GM/50 ML PIGGYBACK IV.SIG SCH ×4 (01:13→19:29)
[2018-12-25] MEDS: Sod Chloride 0.9% Inj 1,000 ML IV.CONT SCH ×4 (01:21→17:29)
[2018-12-25] MEDS: Insulin NovoLOG Aspart Correctional Sugar Inj SQ SCH ×5 (02:27→20:57)
[2018-12-25] MEDS: Vancomycin Inj 1,250 MG in Sodium Chlor 0.9% Inj 250 ML IV.SIG SCH ×3 (03:26→19:54)
[2018-12-25] MEDS: amLODIPine 5 MG Tablet PO SCH (09:39)
[2018-12-25] MEDS: Gabapentin 300 MG Capsule PO SCH ×3 (09:39→18:19)
--- NOTE | 2018-12-25 10:41 | P.PNIM ---
Subjective Interval history: f/u; cellulitis right foot in no acute distress. no fever. pain seems to be controlled. for angiogram today. Physical Exam Vital signs: Vital Signs 12/24/18 12:36 12/24/18 14:00 12/24/18 16:46 Temperature 98.3 F 97.4 F L Pulse Rate 57 L 55 L Respiratory Rate 18 20 18 Blood Pressure 142/74 H 141/73 H Pulse Oximetry 93 L 94 L 12/24/18 19:45 12/25/18 00:30 12/25/18 04:00 Temperature 98.0 F 98.1 F 97.8 F Pulse Rate 57 L 62 59 L Respiratory Rate 18 17 16 Blood Pressure 146/70 H 146/74 H 140/80 Pulse Oximetry 94 L 94 L 94 L 12/25/18 08:00 Temperature 98.3 F Pulse Rate 60 Respiratory Rate 18 Blood Pressure 146/63 H Pulse Oximetry 93 L Intake & Output 12/24/18 12/25/18 12/25/18 18:59 06:59 18:59 Intake Total 1362.5 / 1362.5 1625.0 / 1625.0 50 / 50 Output Total 1825 / 1825 250 / 250 Balance -462.5 / -462.5 1375.0 / 1375.0 50 / 50 Weight 98 kg Intake: IV 1362.5 / 1362.5 1625.0 / 1625.0 50 / 50 NS Inj 1,000 ML @ 100 mls/hr IV 1000 / 1000 1000 / 1000 .CONT .Q10H STELLA Rx#:[id number] Zosyn 3.375 GM Premix 3.375 gm 100 / 100 100 / 100 50 / 50 In 50 ml @ 100 mls/hr IV.SIG Q6H STELLA Rx#:[id number] Vancomycin Inj 1,250 MG In NS 262.5 / 262.5 525.0 / 525.0 Inj 250 ML @ 250 mls/hr IV.SIG Q8H STELLA Rx#:[id number] Oral 0 / 0 Output: Urine 1825 / 1825 250 / 250 Other: # Bowel Movements 0 Constitutional no acute distress Routine Respiratory Exam Present CTA bilaterally Routine Cardiovascular Exam Present RRR Routine Abdominal Exam Present soft Routine Extremities Exam Comments: erythema/ tenderness of the right foot seems to be improving. Routine Neurological Exam Present alert and oriented X3 Results Labs CBC & Chem 7: 12/24/18 06:24 12/24/18 06:24 Labs: Microbiology 12/23/18 23:00 Wound - Foot Gram Stain - Final 12/23/18 23:00 Wound - Foot Wound Culture - Preliminary S. aureus MRSA 12/23/18 19:45 Blood - Peripheral Aerobic Blood Culture - Preliminary No growth in 1 day 12/23/18 19:45 Blood - Peripheral Anaerobic Blood Culture - Preliminary No growth in 1 day 12/23/18 19:55 Blood - Peripheral Aerobic Blood Culture - Preliminary No growth in 1 day 12/23/18 19:55 Blood - Peripheral Anaerobic Blood Culture - Preliminary No growth in 1 day Imaging Imaging: Impressions Extremity Arterial Study 12/23/18 00:00 CONCLUSION: 1. The ABIs are moderately decreased in both lower extremities, left greater than right suggesting at least moderate arterial insufficiency. Moderate to severe insufficiency involving the left big toe. No TBI was recorded on the right side. Lower Extremity Ultrasound 12/24/18 00:00 CONCLUSION: 1. Venous mapping as above Venous Doppler Study 12/24/18 00:00 CONCLUSION: 1. The study is negative for bilateral lower extremity deep venous thrombosis. Assessment and Plan (1) PAD (peripheral artery disease): Code(s): I73.9 - Peripheral vascular disease, unspecified Status: Acute (2) Cellulitis of foot, right: Code(s): L03.115 - Cellulitis of right lower limb Status: Acute Plan A/P 1. Right foot cellulitis/ulcer Foot MRI negative for abscess/osteomyelitis Broad-spectrum antibiotics with vancomycin/Zosyn follow the cultures. Podiatry consulted, appreciate assistance vascular surgery consult appreciated and plan for angiogram today. 2. Diabetes mellitus Holding metformin Sliding-scale insulin Monitor blood glucose 3. Hypertension/hyperlipidemia Continue home medications DVT prophylaxis; will initiate chemical prophylaxis - pending vascular interventions. Discharge Planning: for angiogram today. Progress Note: Quality VTE Deep Vein Thrombosis/Pulmonary Embolism Present on Admission: No
[2018-12-25] MEDS ORDERED: Heparin/NS PF Inj 1,000 ML ONE (15:00)
[2018-12-25] MEDS ORDERED: fentaNYL Citrate Inj 100 MCG/2 ML Ampul ONE ×2 (15:00→15:49)
[2018-12-25] MEDS ORDERED: Iohexol 350 MG/ML 100 ML Vial (for Cath Lab) IVCONTRAST ONE (15:15)
--- NOTE | 2018-12-25 16:20 | P.OP ---
- Preoperative Diagnosis (1) PAD (peripheral artery disease) - Postoperative Diagnosis (1) PAD (peripheral artery disease) Date of procedure: 12/25/18 Procedure: 1. Aortogram w/ R LE angiogram 2. R SFA FRAME TENDER/stent 3. L GARDEN TRACTOR MECHANIC Angioseal Implants: R SFA stents (6x80, 6x120, 6x60) L GARDEN TRACTOR MECHANIC Angioseal Anesthesia: MAC Surgeon: Dandy Patel MD Estimated blood loss (mL): 5 Pathology: none sent Operation and Findings: SFA occlusion, recanalized palpable pedal pulses at end of case
[2018-12-25] MEDS ORDERED: Heparin 10,000 UNITS/10 ML Vial (for IV use) ONE (16:21)
--- NOTE | 2018-12-25 16:31 | CATHPROC ---
[facility] HIS Report Study Information Study Number Admission Scheduled Start Study Start [id number] Dec 23 2018 9:05PM 12/25/2018 Dec 25 2018 2:52PM [place] Service Cath Endovascular Study Admit Source Facility Department Emergency department [facility] - Rehab Therapy Manager Physician and Clinical Staff Initial Dandy Sims Heat Treater Apprentice Karina Qureshi,JAMAR Heat Treater Apprentice Suzie Arreola,JAMAR Recorder Benito Swift,RT(R) ScrNaseem Sears,RT(R) Scrub Karen Diop ,RT(R) Procedures Performed Procedure Location (Site) Vessel Name Abdominal Angiogram Abd Aorta (A3) Aorta Abdominal Angiogram Fem Art (right) Femoral Art Abdominal Angiogram PELVIC Angiogram Pelvic Abdominal Angiogram Popliteal R (R10) Popliteal Abdominal Angiogram SFA (right) Femoral Art Abdominal Angiogram Tib, Ant. (right) Popliteal PTCA SFA (right) Femoral Art Wire insertion Fem Art (left) Femoral Art Wire insertion Fem Art (right) Femoral Art Equipment Time Glass Breaker Description Size Mfg Part Number Used/Scraped [id number] 15:17 ANGIO-DYNAMICS OMNI FLUSH 65CM CATHETER FR 4 Used *[id number] INTRODUCER SET, 14:54 [employer]. FR 5 [id number] *[id number] Used MICROPUNCTURE STIFF BALLOON, ADVANCE 35 LP .035 5 [id number] 16:02 COOK/SRIDHAR 5 X 10 Used X 10 *[id number] CXI-4.0-35-135- 15:25 COOK/SRIDHAR CATHETER, FR4 CXI SUPPORT .035 Used P-NS-0 *[id number] CATHETER, CXI SUPPORT 2.6FR 15:36 COOK/SRIDHAR .018 [id number] Used 0.18 ANGLED SHEATH, FR6 LIT 1 FLEXOR [id number] 15:29 COOK/SRIDHAR FR 6 Used 55CM *[id number] WIRE, GUIDE APPROACH RECOVERY RN [id number] 15:43 COOK/SRIDHAR 300CM Used MICROWIRE *[id number] WIRE, GUIDE APPROACH RECOVERY RN [id number] 15:27 COOK/SRIDHAR 300CM Used MICROWIRE *[id number] WIRE, BEEBE CURVED GUIDE [id number] 15:29 COOK/SRIDHAR 260CM Used 260CM *[id number] 15:36 DAIG/[employer] ANGIOSEAL, FR6 VIP FR 6 Used *[id number] ENDOVASCULAR 16:21 STENT, EVERFLEX 6 X 60 120CM 6 X 60 [id number] Used COMPANY ENDOVASCULAR STENT, EVERFLEX ENTRUST 6 X [id number]- 16:04 FR 5 Used COMPANY 120 120CM 120 *[id number] ENDOVASCULAR STENT, EVERFLEX ENTRUST 6 X [id number] 15:58 FR 5 Used Penana 80 120CM 120 *[id number] BALLOON, ADMIRAL XTREME 5 X [id number] 15:47 [employer] 5 X 300 Used 300 LONG 130CM *[id number] 14:54 Mevio BLANKET,WARM AIR CCL * Used *[id number] 14:54 Mevio PACK, CCL CUSTOM * Used *[id number] [id number] 15:49 [employer] 30 NARCISO INDEFLATOR Used *[id number] TUBING, 72" PRESSURE [id number] 14:54 NAMIC 72" Used INJECTION (FRONT DESK TEAM MEMBER) 0476 14:54 NYCOMED OMNIPAQUE, 300 MG, 150ML 150ML [id number] Used 14:54 NYCOMED OMNIPAQUE, 300 MG, 50ML 50ML [id number] Used 15:43 NYCOMED OMNIPAQUE, 300 MG, 50ML 50ML [id number] Used 15:44 NYCOMED OMNIPAQUE, 300 MG, 50ML 50ML [id number] Used 15:44 NYCOMED OMNIPAQUE, 300 MG, 50ML 50ML [id number] Used [id number] 15:16 TERUMO MEDICAL SHEATH, FR5 TERUMO (10CM) FR 5 Used *[id number] WIRE, ANGLED GLIDE .035 RQ9964 14:54 TERUMO MEDICAL/SRIDHAR 260CM Used 260CM *[id number] Equipment Model, Serial, Lot Number and Expiration Data Description Model Number Serial Number Lot Number Expiration Date ANGIOSEAL, FR6 VIP [id number] 04-18-2019 BALLOON, ADMIRAL XTREME 5 X [id number] 06-18-2021 300 LONG 130CM CATHETER, FR4 CXI SUPPORT [id number] 10-08-2021 SHEATH, FR6 LIT 1 FLEXOR [id number] 05-24-2021 55CM STENT, EVERFLEX 6 X 60 120CM [id number] 08-28-2020 STENT, EVERFLEX ENTRUST 6 X [id number] 09-10-2020 120 120CM STENT, EVERFLEX ENTRUST 6 X 80 [id number] 07-07-2021 120CM WIRE, GUIDE APPROACH RECOVERY RN [id number] 08-31-2022 MICROWIRE WIRE, GUIDE APPROACH RECOVERY RN [id number] 11-30-2022 MICROWIRE WIRE, BEEBE CURVED GUIDE [id number] 10-03-2023 260CM History: Current Medications Medication Dosage/Unit Route Frequency Last Date/Time Taken Insulin Glucophage ASA Statins (any) History: Allergies Allergy Reaction No Known Allergies History: Risk Factors Family History of Hypertension Dyslipidemia Previous NE Previous Heart Failure Premature CAD Yes Yes No No No Prior Valve Prior PCI Prior CABG Surgery No No No Cerebrovascular Peripheral Artery Chronic Lung On Dialysis Diabetes Diabetes Therapy Disease Disease Disease No No Yes No Yes Oral History: Risk Factors Selection Items Current Smoker History: Stress Tests Stress or Imaging Studies Performed No History: Other Disease Selection Items HTN History: Other Current Smoker Method Packs a Day Years Used Pack Years Yes Cigarettes 12 16 27 Labs Hgb (g/dl) Hct (%) RBC (MIL/MM3) WBC (l/cumm) Platelets (thousands) 11.60-17.00 35.00-51.00 4.00-5.90 4.00-11.00 150.00-450.00 17.9 52.1 5.6 10.2 208 Glucose (mg/dl) BUN (mg/dl) Creatinine (mg/dl) BUN:Creatinine (1:x) 74.00-106.00 7.00-18.00 0.50-1.30 10.00-20.00 390 15 0.9 16.7 Na (meq/l) K (meq/l) Cl (meq/l) CO2 (mmol/L) Ca (mg/dl) 136.00-145.00 3.50-5.10 98.00-107.00 21.00-32.00 8.50-10.10 136 4.1 102 25.6 8.8 PT (sec) PTT (sec) INR (PTT:PT) 9.80-11.60 24.30-30.10 0.90-1.10 9.9 28.2 1 CPK-MB (ng/ML) 0.50-3.60 Not Drawn Medication Medication Total Dose (Bolus/Oral) Medication Total Dosage/Unit 1% XYLOCAINE 20 mL FENTANYL 200 mcg HEPARIN 8000 units VERSED 3 mg Medications (Bolus/Oral) Medication Time Given Dosage/Unit Administered By Reason VERSED 12/25/2018 3:11:53 PM 1 mg Adamy, Karina 1 mg VERSED given in lab by Karina Qureshi RN in Left Hand via Peripheral IV. FENTANYL 12/25/2018 3:11:54 PM 50 mcg [place] Qureshifer 50 mcg FENTANYL given in lab by Karina Qureshi RN in Left Hand via Peripheral IV. 1% XYLOCAINE 12/25/2018 3:11:56 PM 20 mL Dandy Patel 20 mL 1% XYLOCAINE given in lab by Dandy Patel in Right Groin via Subcutaneous. HEPARIN 12/25/2018 3:30:04 PM 5000 units Karina Qureshi 5000 units HEPARIN given in lab by Karina Qureshi RN in Left Hand via Peripheral IV. VERSED 12/25/2018 3:31:54 PM 1 mg Binhy, Karina 1 mg VERSED given in lab by Karina Qureshi RN in Left Hand via Peripheral IV. FENTANYL 12/25/2018 3:31:59 PM 50 mcg Binhy, Karina 50 mcg FENTANYL given in lab by Karina Qureshi RN in Left Hand via Peripheral IV. HEPARIN 12/25/2018 3:45:56 PM 3000 units Karina Qureshi 3000 units HEPARIN given in lab by Karina Qureshi RN in Left Hand via Peripheral IV. VERSED 12/25/2018 3:50:35 PM 1 mg Adamy, Karina 1 mg VERSED given in lab by Karina Qureshi RN in Left Hand via Peripheral IV. FENTANYL 12/25/2018 3:50:42 PM 50 mcg Binhy, Karina 50 mcg FENTANYL given in lab by Karina Qureshi RN in Left Hand via Peripheral IV. FENTANYL 12/25/2018 4:16:29 PM 50 mcg Binhy, Karina 50 mcg FENTANYL given in lab by Karina Qureshi RN in Left Hand via Peripheral IV. Medication (Drip) Medication Time Given Dosage/Unit Concentration/Unit Diluent (ml) Solution IV Solutions 12/25/2018 2:52:01 PM 0 mL (IV) 500 NaCl .9 Patient arrived on IV Solutions in Left Hand via Peripheral IV. Pump/Drip Flow = 20 ml/hr using NaCl .9. Initial Case Assessment Cardiovascular HR Rhythm NIBP Chest Pain 54 Sinus 138/76 0 Edema Present Skin color Skin None Normal Warm Dry Circulatory - Right Pulses Femoral 2 Scale (0,1,2,3,4,d) Circulatory - Left Pulses Femoral 2 Scale (0,1,2,3,4,d) Neurological State Oriented to time-place- Alert Moves all extremities person Respiration - General Respiration Rate SpO2 (%) O2 (lpm) (B/min) 11 96 0 Final Case Assessment Cardiovascular HR Rhythm NIBP Chest Pain 73 Sinus 150/81 0 Edema Present Skin color Skin None Normal Warm Dry Circulatory - Right Pulses Femoral 2 Scale (0,1,2,3,4,d) Circulatory - Left Pulses Femoral 2 Scale (0,1,2,3,4,d) Neurological State Oriented to time-place- Alert Moves all extremities person Respiration - General Respiration Rate SpO2 (%) O2 (lpm) (B/min) 13 99 2 Chronological Log Time Study Chronological Log 14:50:00 MD arrived. 14:51:48 Patient arrived via Bed. 14:51:49 Patient Name, D.O.B, / Armband Verified By R.N. 14:51:50 Consent signed by the physician and the patient and verified by the Rehab Therapy Manager staff. 14:51:50 Pre-op and post- op instructions given; patient acknowledges understanding of instructions. 14:51:51 Verbal Stimulation=2 Physical Stimulation=2 Airway=2 Respiration=2 TOTAL=8. (0=absent, 1=li mited, 2=present) 14:51:52 Presedation assessment performed by Rehab Therapy Manager RN. 14:51:55 Patient has been NPO for More than 6Hrs. 14:51:55 Skin Breakdown- right foot skin breakdown. 14:51:56 Patient Warmer Placed on the Table. 14:51:58 Maria De Jesus Prominences Protected 14:51:59 A # 20 IV was noted in the Hand (left). Grade = 0 14:52:01 Patient arrived on IV Solutions in Left Hand via Peripheral IV. Pump/Drip Flow = 20 ml/hr u sing NaCl .9. 14:52:02 History and physical on the chart or being dictated. Assessment: Initial Case, HR=54 BPM, Rhythm=Sinus, ZLGV=897/76 mmhg, Chest Pain=0, Edema=None, Color=Normal, Skin = Warm, Dry Right Pulses: Femoral=2 14:52:02 Left Pulses: Femoral=2 Neurological: State=Alert, Ox3, HERCULES Respiration: Resp=11 B/min, SpO2=96 %, O2=0 lpm Vitals capture started with the following parameters, Patient=Adult, Interval=5 min, Initial Pr zrqmoq=151 mmHg, 14:58:34 Deflation Rate=5 mmHg, Cuff placed on Right Arm 14:59:53 HR=54 bpm, SJYX=693/76 mmhg, SpO2=97.0 %, Resp=12 B/min, Pain=0, Lorena=10, Mcdonald=2 15:04:13 HR=55 bpm, KEZW=738/76 mmhg, SpO2=96.0 %, Resp=11 B/min, Pain=0, Lorena=10, Mcdonald=2 15:08:31 Bilateral groins prepped with 2% chlorhexidine, and draped after a 3 minute waiting time. 15:09:16 HR=58 bpm, AHJA=459/74 mmhg, SpO2=95.0 %, Resp=14 B/min, Pain=0, Lorena=10, Mcdonald=2 15:09:44 Reference ECG taken Time Out. Correct patient, correct procedure, correct physician, labs, allergies, and equipment verified with environmental laboratory technician 15:10:59 team present. Fire risk assesment completed (see hard stop sheet for coding). Time Out Conc urred by MD and individual staff in procedure. 15:11:53 1 mg VERSED given in lab by Karina Qureshi, RN in Left Hand via Peripheral IV. 15:11:54 50 mcg FENTANYL given in lab by Karina Qureshi RN in Left Hand via Peripheral IV. 15:11:56 20 mL 1% XYLOCAINE given in lab by Dandy Patel in Right Groin via Subcutaneous. 15:11:57 Case Start 15:14:14 Access site was Left Femoral Artery. 15:14:26 A SHEATH, FR5 TERUMO (10CM) FR 5 was advanced into the Fem Art (left) using the Percutaneou s technique. 15:14:46 HR=56 bpm, ILQJ=110/75 mmhg, SpO2=93.0 %, Resp=14 B/min, Pain=0, Lorena=10, Mcdonald=2 A OMNI FLUSH 65CM CATHETER FR 4 was advanced over a wire. OMNIPAQUE, 300 MG, 150ML 150ML was us ed for 15:16:14 injections. 15:16:56 Through a OMNI FLUSH 65CM CATHETER FR 4, The Abdominal Aorta was injected with 10 cc's of c ontrast. 15:17:11 Through a OMNI FLUSH 65CM CATHETER FR 4, The Abdominal Aorta was injected with 10 cc's of c ontrast. 15:18:14 A WIRE, ANGLED GLIDE .035 260CM 260CM was inserted via Fem Art (left). 15:19:02 Through a OMNI FLUSH 65CM CATHETER FR 4, The Abdominal Aorta was injected with 4 cc's of co ntrast. 15:19:17 HR=55 bpm, UUTT=895/70 mmhg, SpO2=95.0 %, Resp=14 B/min, Pain=0, Lorena=10, Mcdonald=2 15:19:25 Through a OMNI FLUSH 65CM CATHETER FR 4, The Abdominal Aorta was injected with 4 cc's of co ntrast. 15:19:49 Through a OMNI FLUSH 65CM CATHETER FR 4, The Abdominal Aorta was injected with 4 cc's of co ntrast. 15:20:22 Through a OMNI FLUSH 65CM CATHETER FR 4, The Abdominal Aorta was injected with 4 cc's of co ntrast. 15:23:24 Through a OMNI FLUSH 65CM CATHETER FR 4, The Abdominal Aorta was injected with 4 cc's of co ntrast. 15:24:50 HR=59 bpm, AUBY=590/69 mmhg, SpO2=95.0 %, Resp=14 B/min, Pain=0, Lorena=10, Mcdonald=2 After removing the current catheter a CATHETER, FR4 CXI SUPPORT .035 was advanced over a WIRE, ANGLED GLIDE 15:25:01 .035 260CM 260CM. 15:26:47 The previous wire was exchanged for a WIRE, GUIDE APPROACH RECOVERY RN MICROWIRE 300CM. 15:28:45 Wire removed 15:29:11 A WIRE, BEEBE CURVED GUIDE 260CM 260CM was inserted via Fem Art (left). 15:29:15 HR=63 bpm, JEWB=560/75 mmhg, SpO2=96.0 %, Resp=7 B/min, Pain=0, Lorena=10, Mcdonald=2 A SHEATH, FR6 LIT 1 FLEXOR 55CM FR 6 was exchanged in the Fem Art (left). This was necessary in order to 15:29:39 minimize site leakage. 15:30:04 5000 units HEPARIN given in lab by Karina Qureshi, JAMAR in Left Hand via Peripheral IV. 15:31:48 Manual injection left femoral 15:31:54 1 mg VERSED given in lab by Karina Qureshi, JAMAR in Left Hand via Peripheral IV. 15:31:59 50 mcg FENTANYL given in lab by Karina Qureshi RN in Left Hand via Peripheral IV. 15:32:58 The previous wire was exchanged for a WIRE, ANGLED GLIDE .035 260CM 260CM. 15:34:16 HR=51 bpm, HJTT=160/85 mmhg, SpO2=88.0 %, Resp=17 B/min, Pain=0, Lorena=10, Mcdonald=2 15:34:58 Wire removed 15:35:16 A WIRE, GUIDE APPROACH RECOVERY RN MICROWIRE 300CM was inserted via Fem Art (right). After removing the current catheter a CATHETER, CXI SUPPORT 2.6FR 0.18 ANGLED .018 was advanced over a WIRE, 15:36:40 GUIDE APPROACH RECOVERY RN MICROWIRE 300CM. 15:38:18 The previous wire was exchanged for a WIRE, ANGLED GLIDE .035 260CM 260CM. 15:40:00 HR=57 bpm, GNRH=977/86 mmhg, SpO2=94.0 %, Resp=16 B/min, Pain=0, Lorena=10, Mcdonald=2 15:41:14 The previous wire was exchanged for a WIRE, GUIDE APPROACH RECOVERY RN MICROWIRE 300CM. 15:42:46 Wire removed 15:42:54 Manual injection SFA Right 15:43:10 A WIRE, GUIDE APPROACH RECOVERY RN MICROWIRE 300CM was inserted via Fem Art (left). 15:44:17 Wire removed 15:44:22 HR=50 bpm, CBGS=244/85 mmhg, SpO2=99.0 %, Resp=9 B/min, Pain=0, Lorena=10, Mcdonald=2 15:44:31 Manual injection SFA Right 15:45:48 The previous wire was exchanged for a WIRE, BEEBE CURVED GUIDE 260CM 260CM. 15:45:56 3000 units HEPARIN given in lab by Karina Qureshi, RN in Left Hand via Peripheral IV. 15:46:31 Catheter was removed A BALLOON, ADMIRAL XTREME 5 X 300 LONG 130CM 5 X 300 was inserted over WIRE, BEEBE CURVED GUIDE 260CM 15:47:11 260CM via the SFA (right). A BALLOON, ADMIRAL XTREME 5 X 300 LONG 130CM 5 X 300 over a WIRE, BEEBE CURVED GUIDE 260CM 260C M in 15:48:25 the SFA (right) was inflated using a 30 NARCISO INDEFLATOR at 8 narciso for 120 sec. 15:49:23 HR=54 bpm, LAEV=710/90 mmhg, SpO2=99.0 %, Resp=10 B/min, Pain=0, Lorena=10, Mcdonald=2 15:50:35 1 mg VERSED given in lab by Karina Qureshi, RN in Left Hand via Peripheral IV. 15:50:42 50 mcg FENTANYL given in lab by Karina Qureshi, JAMAR in Left Hand via Peripheral IV. A BALLOON, ADMIRAL XTREME 5 X 300 LONG 130CM 5 X 300 over a WIRE, BEEBE CURVED GUIDE 260CM 260C M in 15:51:48 the SFA (right) was inflated using a 30 NARCISO INDEFLATOR at 8 narciso for 120 sec. 15:54:24 HR=56 bpm, PYLI=492/80 mmhg, SpO2=95.0 %, Resp=20 B/min, Pain=0, Lorena=10, Mcdonald=2 15:58:37 Balloon Removed. 15:59:21 HR=63 bpm, IODJ=902/78 mmhg, SpO2=94.0 %, Resp=35 B/min, Pain=0, Lorena=10, Mcdonald=2 An STENT, EVERFLEX ENTRUST 6 X 80 120CM FR 5 Bare Metal Stent was inserted through a catheter o xander a WIRE, 16:00:15 BEEBE CURVED GUIDE 260CM 260CM. Self expanding stent. 16:01:13 Delivery device removed A BALLOON, ADVANCE 35 LP .035 5 X 10 5 X 10 was inserted over WIRE, BEEBE CURVED GUIDE 260CM 26 0CM via 16:01:17 the SFA (right). A BALLOON, ADVANCE 35 LP .035 5 X 10 5 X 10 over a WIRE, BEEBE CURVED GUIDE 260CM 260CM in the SFA (right) 16:01:41 was inflated using a 30 NARCISO INDEFLATOR at 8 narciso for 10 sec. 16:02:28 Manual injection right SFA 16:03:49 Balloon Removed. 16:04:24 HR=59 bpm, FFBK=806/76 mmhg, SpO2=96.0 %, Resp=21 B/min, Pain=0, Lorena=10, Mcdonald=2 An STENT, EVERFLEX ENTRUST 6 X 120 120CM FR 5 Bare Metal Stent was inserted through a catheter over a WIRE, 16:04:35 BEEBE CURVED GUIDE 260CM 260CM. Self expanding 16:06:29 Delivery device removed A BALLOON, ADVANCE 35 LP .035 5 X 10 5 X 10 was inserted over WIRE, BEEBE CURVED GUIDE 260CM 26 0CM via 16:06:33 the SFA (right). A BALLOON, ADVANCE 35 LP .035 5 X 10 5 X 10 over a WIRE, BEEBE CURVED GUIDE 260CM 260CM in the SFA (right) 16:06:48 was inflated using a 30 NARCISO INDEFLATOR at 8 narciso for 10 sec. A BALLOON, ADVANCE 35 LP .035 5 X 10 5 X 10 over a WIRE, BEEBE CURVED GUIDE 260CM 260CM in the SFA (right) 16:07:37 was inflated using a 30 NARCISO INDEFLATOR at 8 narciso for 10 sec. 16:08:25 Balloon Removed. 16:08:31 Manual injection SFA Right 16:08:46 Manual injection SFA Right 16:09:23 HR=53 bpm, CQIB=472/76 mmhg, SpO2=96.0 %, Resp=24 B/min, Pain=0, Lorena=10, Mcdonald=2 16:10:53 An implantable Bare Metal Stent was inserted through a catheter over a WIRE, BEEBE CURVED G UIDE 260CM 260CM. 16:11:47 Delivery device removed A BALLOON, ADVANCE 35 LP .035 5 X 10 5 X 10 was inserted over WIRE, BEEBE CURVED GUIDE 260CM 26 0CM via 16:12:19 the SFA (right). A BALLOON, ADVANCE 35 LP .035 5 X 10 5 X 10 over a WIRE, BEEBE CURVED GUIDE 260CM 260CM in the SFA (right) 16:12:36 was inflated using a 30 NARCISO INDEFLATOR at 8 narciso for 10 sec. 16:12:50 Balloon Removed. Manual injection SFA Right 16:13:10 16:13:26 manual injection Tibila Right 16:14:59 HR=54 bpm, SSTF=438/81 mmhg, SpO2=97.0 %, Resp=18 B/min, Pain=0, Lorena=10, Mcdonald=2 16:15:46 ANGIOSEAL, FR6 VIP FR 6 placement in the Fem Art (left) 16:15:54 Case End (Physician broke scrub) 16:16:29 50 mcg FENTANYL given in lab by Karina Qureshi RN in Left Hand via Peripheral IV. Assessment: Final Case, HR=73 BPM, Rhythm=Sinus, RUUJ=317/81 mmhg, Chest Pain=0, Edema=None, Color=Normal, Skin = Warm, Dry Right Pulses: Femoral=2 16:16:36 Left Pulses: Femoral=2 Neurological: State=Alert, Ox3, HERCULES Respiration: Resp=13 B/min, SpO2=99 %, O2=2 lpm 16:18:43 Sterile dressing applied to site 16:18:44 No case complications noted. 16:18:44 Cine recording checked. 16:18:57 Implantable Device card placed in patient's chart. 16:19:59 Bedside Report will be given. 16:20:06 HR=62 bpm, LNEX=375/100 mmhg, SpO2=97.0 %, Resp=11 B/min, Pain=0, Lorena=10, Mcdonald=2 16:20:57 [facility] Vitals capture stopped. End Study - Contrast Media Used In Study Contrast Total Opened (mL) Total Used (mL) Total Wasted (mL) Omnipaque 300 150 80 70 End Study - Maximum Contrast Load Max Contrast Load (mL) 537.9 End Study - Radiation Exposure Fluoro Time Fluoro Dose (mGy) Cine Dose (uGym2) (minutes) 21.1 312 5593 End Study - Patient Disposition Complications Transferred To Interventional Outcome No Regular Bed successful
[2018-12-25] MEDS ORDERED: Pharmacy Ordered Lab Info OTHER ONE (19:45)
[2018-12-26] MEDS: Sod Chloride 0.9% Inj 1,000 ML IV.CONT SCH ×4 (00:05→23:51)
[2018-12-26] MEDS: Piperacil/Tazo 3.375 GM Premix 3.375 GM/50 ML PIGGYBACK IV.SIG SCH ×4 (02:09→21:46)
[2018-12-26] MEDS: Insulin NovoLOG Aspart Correctional Sugar Inj SQ SCH ×5 (02:13→21:47)
[2018-12-26] MEDS: Vancomycin Inj 1,250 MG in Sodium Chlor 0.9% Inj 250 ML IV.SIG SCH ×2 (03:35→12:37)
--- NOTE | 2018-12-26 07:52 | MP ---
cc: Dandy Patel MD DATE OF OPERATION: 12/25/2018 PREOPERATIVE DIAGNOSES: Right lower extremity tissue loss, peripheral arterial occlusive disease. POSTOPERATIVE DIAGNOSES: Right lower extremity tissue loss, peripheral arterial occlusive disease. PROCEDURE PERFORMED: 1. Aortogram with right lower extremity angiogram. 2. Right superficial femoral artery angioplasty and stenting with 6 mm stents. 3. Left common femoral artery Angio-Seal. ATTENDING SURGEON: Dandy Patel MD. ANESTHESIA: Local with sedation. INDICATION: Mr. Hills is a 43-year-old gentleman with right lower extremity tissue loss and a previous groin reconstruction. He was taken to the operating room for angiographic evaluation and treatment and there was no prior catheter-based imaging available for my review. DESCRIPTION OF PROCEDURE: Informed consent was obtained. The patient was taken to the operating room and placed supine on the operating table. An appropriate timeout was taken to ensure the patient's identity, operative site, and planned procedure. The administration of antibiotics was not necessary as the patient is on systemic broad therapeutic antibiotics and these will be continued postoperatively for ongoing treatment of his diabetic foot wound. Everyone in the room agreed with the timeout and we proceeded. His bilateral groins were prepped and draped and left groin was accessed with a 21-gauge micropuncture needle. This was exchanged using Seldinger technique for a micropuncture sheath. Through the sheath, a 0.05 Glidewire was introduced. The micropuncture sheath was exchanged for a 5-[place] sheath. A VCF catheter was placed over the wire through the sheath and aortogram and pelvic arteriogram was obtained. The Glidewire and VCF catheter were navigated down to the right common femoral artery and a right lower extremity arteriogram was obtained. The patient was systemically heparinized with 5000 units of IV heparin and approximately 30 minutes later, 3000 additional units were administered. The 0.035 James wire was introduced. The VCF catheter and 5-Citizen [place] sheath were removed, and a 6-[place]izen [place] 55 cm Warren sheath was introduced. The CXI catheter was placed over the James and the Ajmes exchanged for a HEAD ANIMAL KEEPER wire. Using the HEAD ANIMAL KEEPER wire, we were able to navigate into the occluded SFA and the subintimal dissection was then continued on down with a Glidewire. Ultimately, we reentered the popliteal artery and the CXI catheter was advanced over the Glidewire and the true popliteal artery and this was confirmed angiographically. The [place] was exchanged for a James. The entire SFA was angioplastied with a 5 mm balloon and a completion angiogram showed residual stenosis proximally and distally. These were treated with 6 mm stents. They were postdilated to 5 mm. The completion angiogram showed excellent result without any extravasation or flow-limiting dissection. The wire, catheter, and sheath were removed and the groin was closed with an Angio-Seal. There were no complications. I was present, scrubbed, and performed the entire procedure. At the conclusion of the procedure, the patient had a palpable dorsalis pedis pulse in his right foot. INTERPRETATION OF IMAGES: The patient has a patent terminal aorta, common iliac arteries, external iliac arteries bilaterally. The right external iliac artery stent is widely patent. In the groin, the ilioprofunda bypass is widely patent. The jump graft to the superficial femoral artery was occluded several centimeters after its origin. The SFA is occluded and profunda based collaterals give rise to the mid popliteal artery. There is 3-vessel runoff to the ankle. After recanalization and angioplasty of the SFA, there was residual stenosis that was successfully treated with a self-expanding stents. Dandy Patel MD RJF/rs , 05:19 AM , 05:28 AM
[2018-12-26] MEDS: Gabapentin 300 MG Capsule PO SCH ×3 (08:03→17:24)
[2018-12-26] MEDS: amLODIPine 5 MG Tablet PO SCH (08:03)
--- NOTE | 2018-12-26 10:48 | P.PNIM ---
Subjective Interval history: f/u; right foot infection/ PVD in no acute distress. has some pain to the right lower extremity and right foot. no fever or other complaints. Physical Exam Vital signs: Vital Signs 12/25/18 12:00 12/25/18 17:00 12/25/18 19:00 Temperature 98.1 F 97.6 F 98.0 F Pulse Rate 54 L 60 65 Respiratory Rate 20 21 19 Blood Pressure 143/63 H 161/80 H 179/85 H Pulse Oximetry 95 92 L 95 12/25/18 19:38 12/25/18 21:00 12/26/18 03:57 Temperature 97.8 F 97.9 F 97.2 F L Pulse Rate 65 63 59 L Respiratory Rate 18 18 16 Blood Pressure 150/84 H 158/88 H 150/84 H Pulse Oximetry 95 95 94 L 12/26/18 08:00 Temperature 98.2 F Pulse Rate 58 L Respiratory Rate 18 Blood Pressure 142/94 H Pulse Oximetry 95 Intake & Output 12/25/18 12/26/18 12/26/18 18:59 06:59 18:59 Intake Total 1362.5 / 1362.5 1255 / 1255 425 / 425 Output Total 1200 / 1200 500 / 500 Balance 162.5 / 162.5 755 / 755 425 / 425 Weight 96.9 kg Intake: IV 1362.5 / 1362.5 1255 / 1255 425 / 425 NS Inj 1,000 ML @ 100 mls/hr IV 1000 / 1000 625 / 625 375 / 375 .CONT .Q10H [facility] Rx#:[id number] Zosyn 3.375 GM Premix 3.375 gm 100 / 100 100 / 100 50 / 50 In 50 ml @ 100 mls/hr IV.SIG Q6H [facility] Rx#:[id number] Vancomycin Inj 1,250 MG In NS 262.5 / 262.5 530 / 530 Inj 250 ML @ 250 mls/hr IV.SIG Q8H [facility] Rx#:[id number] Oral 0 / 0 0 / 0 Output: Urine 1200 / 1200 500 / 500 Other: Date of Last Bowel Movement 12/26/18 # Bowel Movements 1 0 Constitutional no acute distress Routine Respiratory Exam Present CTA bilaterally Routine Cardiovascular Exam Present RRR Routine Abdominal Exam Present soft Routine Extremities Exam Comments: right foot with some erythema and tenderness. Routine Neurological Exam Present alert and oriented X3 Results Labs CBC & Chem 7: 12/24/18 06:24 12/24/18 06:24 Labs: Microbiology 12/23/18 23:00 Wound - Foot Gram Stain - Final 12/23/18 23:00 Wound - Foot Wound Culture - Preliminary S. aureus MRSA 12/23/18 19:45 Blood - Peripheral Aerobic Blood Culture - Preliminary No growth in 2 days 12/23/18 19:45 Blood - Peripheral Anaerobic Blood Culture - Preliminary No growth in 2 days 12/23/18 19:55 Blood - Peripheral Aerobic Blood Culture - Preliminary No growth in 2 days 12/23/18 19:55 Blood - Peripheral Anaerobic Blood Culture - Preliminary No growth in 2 days Procedures Procedures: Right superficial femoral artery angioplasty and stenting with 6 mm stent. Assessment and Plan (1) PAD (peripheral artery disease): Code(s): I73.9 - Peripheral vascular disease, unspecified Status: Acute (2) Cellulitis of foot, right: Code(s): L03.115 - Cellulitis of right lower limb Status: Acute Plan A/P 1. Right foot cellulitis/ulcer PVD Foot MRI negative for abscess/osteomyelitis Broad-spectrum antibiotics with vancomycin/Zosyn wound culture with MRSA Podiatry consulted, appreciate assistance vascular surgery consult appreciated - s/p Right superficial femoral artery angioplasty and stenting with 6 mm stent. continue Plavix. 2. Diabetes mellitus Holding metformin Sliding-scale insulin Monitor blood glucose 3. Hypertension/hyperlipidemia Continue home medications DVT prophylaxis; will initiate chemical prophylaxis - when ok with surgery. Discharge Planning: when cleared by podiatry and vascular surgery. Progress Note: Quality VTE Deep Vein Thrombosis/Pulmonary Embolism Present on Admission: No
[2018-12-26] MEDS ORDERED: Pharmacy Ordered Lab Info OTHER ONE (11:45)
--- NOTE | 2018-12-26 12:35 | P.PNVS ---
Subjective Subjective/Hospital Course: POD#1 s/p R LE angiogram, SFA stenting looks great Objective Vital Signs / I&O: Vital Signs 12/25/18 17:00 12/25/18 19:00 12/25/18 19:38 Temperature 97.6 F 98.0 F 97.8 F Pulse Rate 60 65 65 Respiratory Rate 21 19 18 Blood Pressure 161/80 H 179/85 H 150/84 H Pulse Oximetry 92 L 95 95 12/25/18 21:00 12/26/18 03:57 12/26/18 08:00 Temperature 97.9 F 97.2 F L 98.2 F Pulse Rate 63 59 L 58 L Respiratory Rate 18 16 18 Blood Pressure 158/88 H 150/84 H 142/94 H Pulse Oximetry 95 94 L 95 Intake & Output 12/25/18 12/26/18 12/26/18 18:59 06:59 18:59 Intake Total 1362.5 / 1362.5 1255 / 1255 425 / 425 Output Total 1200 / 1200 500 / 500 Balance 162.5 / 162.5 755 / 755 425 / 425 Weight 96.9 kg Intake: IV 1362.5 / 1362.5 1255 / 1255 425 / 425 NS Inj 1,000 ML @ 100 mls/hr IV 1000 / 1000 625 / 625 375 / 375 .CONT .Q10H [facility] Rx#:[id number] Zosyn 3.375 GM Premix 3.375 gm 100 / 100 100 / 100 50 / 50 In 50 ml @ 100 mls/hr IV.SIG Q6H [facility] Rx#:[id number] Vancomycin Inj 1,250 MG In NS 262.5 / 262.5 530 / 530 Inj 250 ML @ 250 mls/hr IV.SIG Q8H [facility] Rx#:[id number] Oral 0 / 0 0 / 0 Output: Urine 1200 / 1200 500 / 500 Other: Date of Last Bowel Movement 12/26/18 # Bowel Movements 1 0 Physical Exam: L groin soft palpable R DP pulse Laboratory Results - last 24 hr 12/25/18 12/25/18 12/25/18 17:11 19:45 20:56 POC Glucose 141 H 245 H Vancomycin Trough 5.3 12/26/18 12/26/18 12/26/18 02:12 07:44 11:35 POC Glucose 258 H 161 H Vancomycin Trough 13.8 H Microbiology 12/23/18 19:45 Aerobic Blood Culture - Preliminary Blood - Peripheral No growth in 3 days Anaerobic Blood Culture - Preliminary No growth in 3 days 12/23/18 19:55 Aerobic Blood Culture - Preliminary Blood - Peripheral No growth in 3 days Anaerobic Blood Culture - Preliminary No growth in 3 days 12/23/18 23:00 Gram Stain - Final Wound - Foot Wound Culture - Preliminary S. aureus MRSA Impressions Extremity Arterial Study 12/23/18 00:00 CONCLUSION: 1. The ABIs are moderately decreased in both lower extremities, left greater than right suggesting at least moderate arterial insufficiency. Moderate to severe insufficiency involving the left big toe. No TBI was recorded on the right side. Lower Extremity Ultrasound 12/24/18 00:00 CONCLUSION: 1. Venous mapping as above Venous Doppler Study 12/24/18 00:00 CONCLUSION: 1. The study is negative for bilateral lower extremity deep venous thrombosis. Assessment and Plan - Assessment (1) PAD (peripheral artery disease) Code(s): I73.9 - Peripheral vascular disease, unspecified Status: Acute (2) Cellulitis of foot, right Code(s): L03.115 - Cellulitis of right lower limb Status: Acute - Plan POD#1 s/p R LE angiogram and SFA stenting palpable pulse, groin ok 1. continue plavix 2. antibiotics and wound per podiatry 3. clear for d/c from a vascular surgery standpoint; f/u already arranged and d/ w patient. Discharge Planning: anytime from a vascular surgery standpoint
[2018-12-26] MEDS: Vancomycin Inj 1,500 MG in Sodium Chlor 0.9% Inj 500 ML IV.SIG SCH (17:24)
[2018-12-27] MEDS: Piperacil/Tazo 3.375 GM Premix 3.375 GM/50 ML PIGGYBACK IV.SIG SCH ×4 (01:45→20:30)
[2018-12-27] MEDS: Vancomycin Inj 1,500 MG in Sodium Chlor 0.9% Inj 500 ML IV.SIG SCH ×3 (02:55→18:40)
[2018-12-27] MEDS: Insulin NovoLOG Aspart Correctional Sugar Inj SQ SCH ×5 (02:56→21:45)
[2018-12-27 07:12] LABS: Glomerular Filtration Rate Greater Than 89 mL/min (>89)
[2018-12-27] MEDS: amLODIPine 5 MG Tablet PO SCH (09:01)
[2018-12-27] MEDS: Gabapentin 300 MG Capsule PO SCH ×3 (09:01→17:55)
[2018-12-27] MEDS: Sod Chloride 0.9% Inj 1,000 ML IV.CONT SCH ×3 (09:03→17:53)
--- NOTE | 2018-12-27 09:50 | P.PNIM ---
Subjective Interval history: f/u; right foot infection in no acute distress. pain seems to be fairly controlled. no fever. no new complaints. Physical Exam Vital signs: Vital Signs 12/26/18 12:00 12/26/18 16:00 12/26/18 20:00 Temperature 97.6 F 98 F 98.9 F Pulse Rate 73 68 60 Respiratory Rate 18 18 20 Blood Pressure 175/83 H 149/70 H 137/65 Pulse Oximetry 97 98 96 12/27/18 00:00 12/27/18 04:00 12/27/18 06:33 Temperature 98.7 F 98.1 F Pulse Rate 60 62 Respiratory Rate 20 20 8 L Blood Pressure 124/62 139/89 Pulse Oximetry 95 95 12/27/18 08:00 Temperature 97.9 F Pulse Rate 65 Respiratory Rate 18 Blood Pressure 125/67 Pulse Oximetry 99 Intake & Output 12/26/18 12/27/18 12/27/18 18:59 06:59 18:59 Intake Total 1697.5 / 1697.5 2370 / 2370 Output Total 1000 / 1000 Balance 697.5 / 697.5 2370 / 2370 Weight 98.2 kg Intake: IV 737.5 / 737.5 2130 / 2130 NS Inj 1,000 ML @ 100 mls/hr IV 375 / 375 1000 / 1000 .CONT .Q10H [facility] Rx#:[id number] Zosyn 3.375 GM Premix 3.375 gm 100 / 100 100 / 100 In 50 ml @ 100 mls/hr IV.SIG Q6H [facility] Rx#:[id number] Vancomycin Inj 1,250 MG In NS 262.5 / 262.5 Inj 250 ML @ 250 mls/hr IV.SIG Q8H [facility] Rx#:[id number] Vancomycin Inj 1,500 MG In NS 1030 / 1030 Inj 500 ML @ 250 mls/hr IV.SIG Q8H [facility] Rx#:[id number] Oral 960 / 960 240 / 240 Output: Urine 1000 / 1000 Other: # Voids 2 Date of Last Bowel Movement 12/26/18 # Bowel Movements 0 Constitutional no acute distress Routine Respiratory Exam Present CTA bilaterally Routine Cardiovascular Exam Present RRR Routine Abdominal Exam Present soft Routine Extremities Exam Comments: wound on the bottom of the right foot. Routine Neurological Exam Present alert and oriented X3 Results Labs CBC & Chem 7: 12/24/18 06:24 12/27/18 06:23 Labs: Microbiology 12/23/18 23:00 Wound - Foot Gram Stain - Final 12/23/18 23:00 Wound - Foot Wound Culture - Final S. aureus MRSA 12/23/18 19:45 Blood - Peripheral Aerobic Blood Culture - Preliminary No growth in 3 days 12/23/18 19:45 Blood - Peripheral Anaerobic Blood Culture - Preliminary No growth in 3 days 12/23/18 19:55 Blood - Peripheral Aerobic Blood Culture - Preliminary No growth in 3 days 12/23/18 19:55 Blood - Peripheral Anaerobic Blood Culture - Preliminary No growth in 3 days Procedures Procedures: Right superficial femoral artery angioplasty and stenting with 6 mm stent. Assessment and Plan (1) PAD (peripheral artery disease): Code(s): I73.9 - Peripheral vascular disease, unspecified Status: Acute (2) Cellulitis of foot, right: Code(s): L03.115 - Cellulitis of right lower limb Status: Acute Plan A/P 1. Right foot cellulitis/ulcer PVD Foot MRI negative for abscess/osteomyelitis Broad-spectrum antibiotics with vancomycin/Zosyn wound culture with MRSA Podiatry consulted, appreciate assistance vascular surgery consult appreciated - s/p Right superficial femoral artery angioplasty and stenting with 6 mm stent; cleared for discharge. continue Plavix. 2. Diabetes mellitus Holding metformin Sliding-scale insulin Monitor blood glucose 3. Hypertension/hyperlipidemia Continue home medications DVT prophylaxis; will initiate chemical prophylaxis - when ok with surgery. Discharge Planning: when cleared by podiatry. called "s office and left a message. Progress Note: Quality VTE Deep Vein Thrombosis/Pulmonary Embolism Present on Admission: No
--- NOTE | 2018-12-27 17:32 | P.PNPOD ---
Subjective Interval history: no events over night, doing well Physical Exam Vital signs: Vital Signs 12/26/18 20:00 12/27/18 00:00 12/27/18 04:00 Temperature 98.9 F 98.7 F 98.1 F Pulse Rate 60 60 62 Respiratory Rate 20 20 20 Blood Pressure 137/65 124/62 139/89 Pulse Oximetry 96 95 95 12/27/18 06:33 12/27/18 08:00 12/27/18 12:00 Temperature 97.9 F 98.4 F Pulse Rate 65 66 Respiratory Rate 8 L 18 18 Blood Pressure 125/67 150/74 H Pulse Oximetry 99 98 Intake & Output 12/26/18 12/27/18 12/27/18 18:59 06:59 18:59 Intake Total 1697.5 / 1697.5 2370 / 2370 1100 / 1100 Output Total 1000 / 1000 Balance 697.5 / 697.5 2370 / 2370 1100 / 1100 Weight 98.2 kg Intake: IV 737.5 / 737.5 2130 / 2130 1100 / 1100 NS Inj 1,000 ML @ 100 mls/hr IV 375 / 375 1000 / 1000 1000 / 1000 .CONT .Q10H [facility] Rx#:[id number] Zosyn 3.375 GM Premix 3.375 gm 100 / 100 100 / 100 100 / 100 In 50 ml @ 100 mls/hr IV.SIG Q6H [facility] Rx#:[id number] Vancomycin Inj 1,250 MG In NS 262.5 / 262.5 Inj 250 ML @ 250 mls/hr IV.SIG Q8H [facility] Rx#:[id number] Vancomycin Inj 1,500 MG In NS 1030 / 1030 Inj 500 ML @ 250 mls/hr IV.SIG Q8H [facility] Rx#:[id number] Oral 960 / 960 240 / 240 Output: Urine 1000 / 1000 Other: # Voids 2 Date of Last Bowel Movement 12/26/18 # Bowel Movements 0 - Constitutional no acute distress - Neurological Alert and oriented x3 - Routine Extremities Exam Comments: Right foot-lateral 5th MPJ edema, hematoma, sub 2nd MPJ 2cm 2cm partial thickness ulcer with exposed dermis no odor mild drainage foot is warm, absent first ray, poor dorsiflexion of ankle causing forefoot pressure while walking Medications and Allergies Active Medications: Active Medications Acetaminophen (Tylenol) 650 mg PO Q4H PRN PRN Reason: Temp > 100.4 Hydrocodone Bitart/Acetaminophen ([place] 5/325) 1 tab PO Q4H PRN PRN Reason: Acute Pain Exemption Last Admin: 12/27/18 14:29 Dose: 1 tab Al Hydroxide/Mg Hydroxide (Milk Of Magnluis Liq) 30 ml PO Q12H PRN PRN Reason: Mild Constipation Amlodipine Besylate (Norvasc) 10 mg PO DAILY [facility] Last Admin: 12/27/18 09:01 Dose: 10 mg Atorvastatin Calcium (Lipitor) 40 mg PO DAILY [facility] Last Admin: 12/27/18 09:01 Dose: 40 mg Bisacodyl (Dulcolax Supp) 10 mg RECTAL DAILY PRN PRN Reason: SEVERE CONSITIPATION Clopidogrel Bisulfate (Plavix) 75 mg PO DAILY [facility] Last Admin: 12/27/18 09:01 Dose: 75 mg Dextrose (D50w Vial) 50 ml IV.PUSH UNSCH PRN PRN Reason: PER HYPOGLYCEMIA PROTOCOL Gabapentin (Neurontin) 300 mg PO TID [facility] Last Admin: 12/27/18 13:13 Dose: 300 mg Glucagon (Glucagon Inj) 1 mg OTHER PRN PRN PRN Reason: for Hypoglycemia Protocol Piperacillin/Tazobactam/Dextrose (Zosyn 3.375 Gm Premix) 3.375 gm in 50 mls @ 100 mls/hr IV.SIG Q6H [facility] Last Infusion: 12/27/18 13:45 Dose: Infused Sodium Chloride (Ns Inj) 1,000 mls @ 100 mls/hr IV.CONT .Q10H [facility] Last Admin: 12/27/18 15:32 Dose: 100 mls/hr Vancomycin HCl 1,500 mg/ (Sodium Chloride) 515 mls @ 250 mls/hr IV.SIG Q8H [facility] Last Admin: 12/27/18 10:20 Dose: 250 mls/hr Insulin Aspart (Novolog Insulin Correctional Sugar Inj) 0 unit SQ ACHS AND 3AM [facility]; Protocol Last Admin: 12/27/18 13:12 Dose: 5 unit Miscellaneous Information ([facility] Ordered Lab Info) 1 each OTHER ONCE ONE Stop: 12/27/18 17:46 Ondansetron HCl (Zofran Inj) 4 mg IV.PUSH Q6H PRN PRN Reason: NAUSEA OR VOMITING Pharmacy Profile Note (Vancomycin Consult Pharmacy) 1 each OTHER UNSCH PRN PRN Reason: Pharmacy to dose Sennosides (Senokot) 17.2 mg PO Q12H PRN PRN Reason: Moderate Constipation Sodium Chloride (Ns Flush) 2 ml IV.FLUSH PRN PRN PRN Reason: FLUSH AFTER USING IV ACCESS Sodium Chloride (Ns Flush) 2 ml IV.FLUSH BID [facility] Last Admin: 12/27/18 09:03 Dose: Not Given Allergies Allergy/AdvReac Type Severity Reaction Status Date / Time No Known Allergies Allergy Verified 08/19/18 20:56 Home Medications Medication Instructions Recorded Confirmed Type amlodipine 10 mg PO DAILY 05/31/18 12/23/18 History metformin 500 mg PO BID 05/31/18 12/23/18 History gabapentin 300 mg PO TID 08/19/18 12/23/18 History aspirin [Aspirin Low Dose] 81 mg PO DAILY 11/29/18 12/23/18 History atorvastatin 40 mg PO DAILY 11/29/18 12/23/18 History Results - Labs CBC & Chem 7: 12/24/18 06:24 12/27/18 06:23 Laboratory Results - last 24 hr 12/26/18 12/27/18 12/27/18 20:22 02:55 06:23 Creatinine 0.57 L Estimated GFR Greater than 89 POC Glucose 187 H 222 H 12/27/18 12/27/18 12/27/18 07:26 11:49 16:40 Creatinine Estimated GFR POC Glucose 153 H 251 H 208 H Microbiology 12/23/18 19:45 Blood - Peripheral Aerobic Blood Culture - Preliminary No growth in 4 days 12/23/18 19:45 Blood - Peripheral Anaerobic Blood Culture - Preliminary No growth in 4 days 12/23/18 19:55 Blood - Peripheral Aerobic Blood Culture - Preliminary No growth in 4 days 12/23/18 19:55 Blood - Peripheral Anaerobic Blood Culture - Preliminary No growth in 4 days 12/23/18 23:00 Wound - Foot Gram Stain - Final 12/23/18 23:00 Wound - Foot Wound Culture - Final S. aureus MRSA - Procedures Right superficial femoral artery angioplasty and stenting with 6 mm stent. Assessment and Plan - Assessment (1) Cellulitis of foot, right Code(s): L03.115 - Cellulitis of right lower limb Status: Acute (2) Diabetic foot infection Code(s): E11.628 - Type 2 diabetes mellitus with other skin complications; L08.9 - Local infection of the skin and subcutaneous tissue, unspecified Status: Acute (3) Foot ulcer, right Code(s): L97.519 - Non-pressure chronic ulcer of other part of right foot with unspecified severity Status: Acute (4) Equinus contracture of right ankle Code(s): M24.571 - Contracture, right ankle Status: Acute - Plan Reviewed case with Vascular- improved flow. Ok to hold Plavix and ok for daily Lovenox in preparation for foot ankle surgery. Patient would benefit from heel cord lengthening- HOLLY vs gastroc recession in combination with wound debridement and wound graft application. Reviewed xray and MRI. Will follow throughout weekend, possible surgery Tues next week with Dr Carlton, +MRSA cx continue ABX.
[2018-12-27] MEDS ORDERED: Pharmacy Ordered Lab Info OTHER ONE (17:45)
[2018-12-28] MEDS: Vancomycin Inj 1,500 MG in Sodium Chlor 0.9% Inj 500 ML IV.SIG SCH ×3 (01:46→18:11)
[2018-12-28] MEDS: Piperacil/Tazo 3.375 GM Premix 3.375 GM/50 ML PIGGYBACK IV.SIG SCH ×2 (01:46→10:17)
[2018-12-28] MEDS: Sod Chloride 0.9% Inj 1,000 ML IV.CONT SCH ×3 (01:47→18:13)
[2018-12-28] MEDS: Insulin NovoLOG Aspart Correctional Sugar Inj SQ SCH ×5 (01:59→20:38)
[2018-12-28] MEDS: amLODIPine 5 MG Tablet PO SCH (10:18)
[2018-12-28] MEDS: Gabapentin 300 MG Capsule PO SCH ×3 (10:18→18:11)
--- NOTE | 2018-12-28 12:13 | P.PNIM ---
Subjective Interval history: f/u; right foot infection in no distress. no fever. pain is controlled. no new complaints. Physical Exam Vital signs: Vital Signs 12/27/18 19:45 12/28/18 00:10 12/28/18 03:25 Temperature 98.9 F 98.6 F 98.7 F Pulse Rate 59 L 61 59 L Respiratory Rate 18 18 18 Blood Pressure 155/76 H 135/63 133/73 Pulse Oximetry 96 97 95 12/28/18 05:33 12/28/18 08:00 Temperature 98.5 F Pulse Rate 61 Respiratory Rate 18 20 Blood Pressure 176/78 H Pulse Oximetry 98 Intake & Output 12/27/18 12/28/18 12/28/18 18:59 06:59 18:59 Intake Total 2060 / 2060 2370 / 2370 565 / 565 Output Total 1200 / 1200 1250 / 1250 Balance 860 / 860 1120 / 1120 565 / 565 Weight 98.8 kg Intake: IV 1100 / 1100 2130 / 2130 565 / 565 NS Inj 1,000 ML @ 100 mls/hr IV 1000 / 1000 1000 / 1000 .CONT .Q10H [facility] Rx#:[id number] Zosyn 3.375 GM Premix 3.375 gm 100 / 100 100 / 100 50 / 50 In 50 ml @ 100 mls/hr IV.SIG Q6H [facility] Rx#:[id number] Vancomycin Inj 1,500 MG In NS 1030 / 1030 515 / 515 Inj 500 ML @ 250 mls/hr IV.SIG Q8H [facility] Rx#:[id number] Oral 960 / 960 240 / 240 Output: Urine 1200 / 1200 1250 / 1250 Other: Date of Last Bowel Movement 12/27/18 # Bowel Movements 1 0 Constitutional no acute distress Routine Respiratory Exam Present CTA bilaterally Routine Cardiovascular Exam Present RRR Routine Abdominal Exam Present soft Routine Extremities Exam Comments: right foot wound. Routine Skin Exam Present wounds Comments: on the bottom of the right foot. Routine Neurological Exam Present alert and oriented X3 Results Labs CBC & Chem 7: 12/24/18 06:24 12/27/18 06:23 Labs: Microbiology 12/23/18 19:45 Blood - Peripheral Aerobic Blood Culture - Final No growth in 5 days 12/23/18 19:45 Blood - Peripheral Anaerobic Blood Culture - Final No growth in 5 days 12/23/18 19:55 Blood - Peripheral Aerobic Blood Culture - Final No growth in 5 days 12/23/18 19:55 Blood - Peripheral Anaerobic Blood Culture - Final No growth in 5 days 12/23/18 23:00 Wound - Foot Gram Stain - Final 12/23/18 23:00 Wound - Foot Wound Culture - Final S. aureus MRSA Procedures Procedures: Right superficial femoral artery angioplasty and stenting with 6 mm stent. Assessment and Plan (1) Cellulitis of foot, right: Code(s): L03.115 - Cellulitis of right lower limb Status: Acute (2) Diabetic foot infection: Code(s): E11.628 - Type 2 diabetes mellitus with other skin complications; L08.9 - Local infection of the skin and subcutaneous tissue, unspecified Status: Acute (3) Foot ulcer, right: Code(s): L97.519 - Non-pressure chronic ulcer of other part of right foot with unspecified severity Status: Acute (4) Equinus contracture of right ankle: Code(s): M24.571 - Contracture, right ankle Status: Acute Plan A/P 1. Right foot cellulitis/ulcer PVD Foot MRI negative for abscess/osteomyelitis wound culture with MRSA; continue with IV Vancomycin. Podiatry follow-up appreciated and plan for surgery next week. vascular surgery consult appreciated - s/p Right superficial femoral artery angioplasty and stenting with 6 mm stent; cleared for discharge. continue Plavix ( on hold for planned surgery). 2. Diabetes mellitus Holding metformin Sliding-scale insulin Monitor blood glucose 3. Hypertension/hyperlipidemia Continue home medications DVT prophylaxis; subq Lovenox. Discharge Planning: when cleared by podiatry. Progress Note: Quality VTE Deep Vein Thrombosis/Pulmonary Embolism Present on Admission: No _ (1) Foot ulcer, right Qualifiers: Non-pressure ulcer stage:
[2018-12-29] MEDS: Vancomycin Inj 1,500 MG in Sodium Chlor 0.9% Inj 500 ML IV.SIG SCH ×3 (02:18→18:06)
[2018-12-29] MEDS: Sod Chloride 0.9% Inj 1,000 ML IV.CONT SCH ×3 (02:18→18:06)
[2018-12-29] MEDS: Insulin NovoLOG Aspart Correctional Sugar Inj SQ SCH ×5 (02:22→21:39)
[2018-12-29 09:09] LABS: Glomerular Filtration Rate Greater Than 89 mL/min (>89)
[2018-12-29] MEDS ORDERED: Pharmacy Ordered Lab Info OTHER ONE (09:45)
[2018-12-29] MEDS: Enoxaparin Inj 40 MG/0.4 ML Syringe SQ SCH (09:49)
[2018-12-29] MEDS: Gabapentin 300 MG Capsule PO SCH ×3 (09:49→18:06)
[2018-12-29] MEDS: amLODIPine 5 MG Tablet PO SCH (09:49)
--- NOTE | 2018-12-29 10:53 | P.PNIM ---
Subjective Interval history: f/u; right foot infection/wound in no acute distress. looks comfortable. no fever. Physical Exam Vital signs: Vital Signs 12/28/18 12:00 12/28/18 16:00 12/28/18 20:00 Temperature 98 F 97.8 F 98.1 F Pulse Rate 57 L 58 L 61 Respiratory Rate 18 18 17 Blood Pressure 139/70 149/70 H 152/77 H Pulse Oximetry 97 97 94 L 12/29/18 04:05 12/29/18 08:03 Temperature 98.2 F 97.3 F L Pulse Rate 55 L 61 Respiratory Rate 17 18 Blood Pressure 133/63 137/79 Pulse Oximetry 96 96 Intake & Output 12/28/18 12/29/18 12/29/18 18:59 06:59 18:59 Intake Total 1800 / 1800 2295 / 2295 Output Total 1200 / 1200 1900 / 1900 Balance 600 / 600 395 / 395 Weight 97.3 kg Intake: IV 840 / 840 1815 / 1815 NS Inj 1,000 ML @ 100 mls/hr IV 275 / 275 785 / 785 .CONT .Q10H [facility] Rx#:[id number] Zosyn 3.375 GM Premix 3.375 gm 50 / 50 In 50 ml @ 100 mls/hr IV.SIG Q6H [facility] Rx#:[id number] Vancomycin Inj 1,500 MG In NS 515 / 515 1030 / 1030 Inj 500 ML @ 250 mls/hr IV.SIG Q8H [facility] Rx#:[id number] Oral 960 / 960 480 / 480 Output: Urine 1200 / 1200 1900 / 1900 Other: Date of Last Bowel Movement 12/28/18 # Bowel Movements 2 0 Constitutional no acute distress Routine Respiratory Exam Present CTA bilaterally Routine Cardiovascular Exam Present RRR Routine Abdominal Exam Present soft Routine Extremities Exam Comments: no pedal edema. Routine Skin Exam Present wounds Comments: wound on the bottom of the right foot. Routine Neurological Exam Present alert and oriented X3 Results Labs CBC & Chem 7: 12/24/18 06:24 12/29/18 08:11 Labs: Microbiology 12/23/18 19:45 Blood - Peripheral Aerobic Blood Culture - Final No growth in 5 days 12/23/18 19:45 Blood - Peripheral Anaerobic Blood Culture - Final No growth in 5 days 12/23/18 19:55 Blood - Peripheral Aerobic Blood Culture - Final No growth in 5 days 12/23/18 19:55 Blood - Peripheral Anaerobic Blood Culture - Final No growth in 5 days Procedures Procedures: Right superficial femoral artery angioplasty and stenting with 6 mm stent. Assessment and Plan (1) Cellulitis of foot, right: Code(s): L03.115 - Cellulitis of right lower limb Status: Acute (2) Diabetic foot infection: Code(s): E11.628 - Type 2 diabetes mellitus with other skin complications; L08.9 - Local infection of the skin and subcutaneous tissue, unspecified Status: Acute (3) Foot ulcer, right: Code(s): L97.519 - Non-pressure chronic ulcer of other part of right foot with unspecified severity Status: Acute (4) Equinus contracture of right ankle: Code(s): M24.571 - Contracture, right ankle Status: Acute Plan A/P 1. Right foot cellulitis/ulcer PVD Foot MRI negative for abscess/osteomyelitis wound culture with MRSA; continue with IV Vancomycin. Podiatry follow-up appreciated and plan for surgery this week. vascular surgery consult appreciated - s/p Right superficial femoral artery angioplasty and stenting with 6 mm stent; cleared for discharge. continue Plavix ( on hold for planned surgery). 2. Diabetes mellitus Holding metformin Sliding-scale insulin Monitor blood glucose 3. Hypertension/hyperlipidemia Continue home medications DVT prophylaxis; subq Lovenox. Discharge Planning: when cleared by podiatry. Progress Note: Quality VTE Deep Vein Thrombosis/Pulmonary Embolism Present on Admission: No _ (1) Foot ulcer, right Qualifiers: Non-pressure ulcer stage:
[2018-12-30] MEDS: Vancomycin Inj 1,500 MG in Sodium Chlor 0.9% Inj 500 ML IV.SIG SCH ×3 (02:40→17:21)
[2018-12-30] MEDS: Insulin NovoLOG Aspart Correctional Sugar Inj SQ SCH ×5 (02:42→21:18)
[2018-12-30] MEDS: Sod Chloride 0.9% Inj 1,000 ML IV.CONT SCH ×2 (05:18→16:47)
--- NOTE | 2018-12-30 08:45 | P.PNIM ---
Subjective Interval history: Patient says he is feeling well. Denies any chest pain or shortness of breath. Reports pain is controlled. Physical Exam Vital signs: Vital Signs 12/29/18 14:13 12/29/18 18:21 12/29/18 20:50 Temperature 98.1 F 98.3 F 98.9 F Pulse Rate 63 58 L 60 Respiratory Rate 18 18 17 Blood Pressure 154/72 H 164/84 H 152/68 H Pulse Oximetry 96 97 96 12/30/18 00:30 12/30/18 04:55 12/30/18 08:00 Temperature 97.9 F 98.1 F 97.7 F Pulse Rate 54 L 48 L 53 L Respiratory Rate 17 17 18 Blood Pressure 130/66 122/72 122/58 L Pulse Oximetry 97 96 97 Intake & Output 12/29/18 12/30/18 12/30/18 18:59 06:59 18:59 Intake Total 790 / 790 2510 / 2510 Output Total 725 / 725 800 / 800 Balance 65 / 65 1710 / 1710 Weight 99.8 kg Intake: IV 790 / 790 2030 / 2030 NS Inj 1,000 ML @ 100 mls/hr IV 275 / 275 1000 / 1000 .CONT .Q10H [facility] Rx#:[id number] Vancomycin Inj 1,500 MG In NS 515 / 515 1030 / 1030 Inj 500 ML @ 250 mls/hr IV.SIG Q8H [facility] Rx#:[id number] Oral 480 / 480 Output: Urine 725 / 725 800 / 800 Other: Date of Last Bowel Movement 12/28/18 # Bowel Movements 3 0 Narrative: GENERAL: Patient lying in bed. Appears comfortable. SKIN: Warm and dry. HEAD: Normocephalic. EYES: No scleral icterus. No injection or drainage. NECK: Supple, trachea midline. No JVD. CARDIOVASCULAR: Regular rate and rhythm without murmurs, gallops, or rubs. RESPIRATORY: Breath sounds equal bilaterally. No accessory muscle use. GASTROINTESTINAL: Abdomen soft, non-tender, nondistended. MUSCULOSKELETAL: No cyanosis, right foot with first toe amputation, ulcer BACK: Nontender without obvious deformity. No CVA tenderness. Results - Labs CBC & Chem 7: 12/24/18 06:24 12/29/18 08:11 Laboratory Results - last 24 hr 02/09/0612/29/18 12/29/18 08:11 08:11 12:12 Creatinine 0.61 Estimated GFR Greater than 89 POC Glucose 271 H Vancomycin Trough 19.6 H 12/29/18 12/29/18 12/30/18 17:29 21:32 02:39 Creatinine Estimated GFR POC Glucose 261 H 338 H 172 H Vancomycin Trough 12/30/18 07:36 Creatinine Estimated GFR POC Glucose 188 H Vancomycin Trough - Procedures Right superficial femoral artery angioplasty and stenting with 6 mm stent. Assessment and Plan - Assessment (1) Cellulitis of foot, right Code(s): L03.115 - Cellulitis of right lower limb Status: Acute (2) Diabetic foot infection Code(s): E11.628 - Type 2 diabetes mellitus with other skin complications; L08.9 - Local infection of the skin and subcutaneous tissue, unspecified Status: Acute (3) Foot ulcer, right Code(s): L97.519 - Non-pressure chronic ulcer of other part of right foot with unspecified severity Status: Acute (4) Equinus contracture of right ankle Code(s): M24.571 - Contracture, right ankle Status: Acute - Plan //Right foot cellulitis/ulcer PVD Foot MRI negative for abscess/osteomyelitis wound culture with MRSA; continue with IV Vancomycin. Podiatry follow-up appreciated and plan for surgery this week. vascular surgery consult appreciated - s/p Right superficial femoral artery angioplasty and stenting with 6 mm stent; cleared for discharge. continue Plavix ( on hold for planned surgery). = 12/30. Discussed with Dr. Patel. Will start patient on aspirin. Can hold Plavix for the procedure. Possible surgery tomorrow with podiatry //Diabetes mellitus Holding metformin Sliding-scale insulin Monitor blood glucose //Hypertension/hyperlipidemia Continue home medications //DVT prophylaxis; subq Lovenox. Discussed Condition With: Patient, nurse, vascular surgeon Discharge Planning: when cleared by podiatry.
[2018-12-30] MEDS: Gabapentin 300 MG Capsule PO SCH ×3 (09:19→17:20)
[2018-12-30] MEDS: amLODIPine 5 MG Tablet PO SCH (09:19)
[2018-12-30] MEDS: Enoxaparin Inj 40 MG/0.4 ML Syringe SQ SCH (09:20)
[2018-12-30 10:07] LABS: Baso # (Auto) 0.1 th/mm3 (0.0-0.2); Baso % (Auto) 0.8 % (0.0-2.0); Eos # (Auto) 0.5 th/mm3 (0.0-0.4); Eos % (Auto) 5.3 % (0.0-4.0); Hematocrit 38.7 % (39.0-51.0); Hemoglobin 13.4 gm/dL (13.0-17.0); Lymph # (Auto) 2.7 th/mm3 (1.0-4.8); Lymph % (Auto) 28.9 % (9.0-44.0); Mean Corpuscular HGB Conc 34.7 % (32.0-36.0); Mean Corpuscular Hemoglobin 31.6 pg (27.0-34.0); Mean Platelet Volume 8.4 fL (7.0-11.0); Mono # (Auto) 0.8 th/mm3 (0.0-0.9); Mono % (Auto) 7.9 % (0.0-8.0); Neut # (Auto) 5.4 th/mm3 (1.8-7.7); Neut % (Auto) 57.1 % (16.0-70.0); Platelet Count 255 th/mm3 (150-450); Red Blood Count 4.25 mil/mm3 (4.50-5.90); Red Cell Distribution Width 13.3 % (11.6-17.2); White Blood Count 9.5 th/mm3 (4.0-11.0)
[2018-12-30 10:38] LABS: Albumin 3.1 g/dL (3.4-5.0); Anion Gap 7 meq/L (5-15); Aspartate Aminotransferase 18 U/L (15-37); Blood Urea Nitrogen 5 mg/dL (7-18); Calcium 8.6 mg/dL (8.5-10.1); Carbon Dioxide 26.9 meq/L (21.0-32.0); Chloride 107 meq/L (98-107); Glomerular Filtration Rate Greater Than 89 mL/min (>89); Glucose,Random 165 mg/dL (74-106); Sodium 141 meq/L (136-145)
[2018-12-30 10:39] LABS: Alanine Aminotransferase 27 U/L (12-78)
[2018-12-30 10:42] LABS: Alkaline Phosphatase 87 U/L (45-117); Total Protein 7.2 g/dL (6.4-8.2)
--- NOTE | 2018-12-30 21:52 | P.PNPOD ---
Subjective Interval history: Patient seen bedside with son present. Understands planned surgical procedure. Physical Exam Vital signs: Vital Signs 12/30/18 00:30 12/30/18 04:55 12/30/18 08:00 Temperature 97.9 F 98.1 F 97.7 F Pulse Rate 54 L 48 L 53 L Respiratory Rate 17 17 18 Blood Pressure 130/66 122/72 122/58 L Pulse Oximetry 97 96 97 12/30/18 12:00 12/30/18 16:00 12/30/18 20:00 Temperature 97.6 F 98.3 F 98.2 F Pulse Rate 57 L 53 L 54 L Respiratory Rate 18 18 14 Blood Pressure 141/66 H 141/71 H 126/65 Pulse Oximetry 98 97 98 Intake & Output 12/30/18 12/30/18 12/31/18 06:59 18:59 06:59 Intake Total 2510 / 2510 995 / 995 515 / 515 Output Total 800 / 800 400 / 400 Balance 1710 / 1710 595 / 595 515 / 515 Weight 99.8 kg Intake: IV 2029 / 2029 515 / 515 515 / 515 NS Inj 1,000 ML @ 100 mls/hr IV 1000 / 1000 0 / 0 .CONT .Q10H [facility] Rx#:[id number] Vancomycin Inj 1,500 MG In NS 1030 / 1030 515 / 515 515 / 515 Inj 500 ML @ 250 mls/hr IV.SIG Q8H [facility] Rx#:[id number] Oral 480 / 480 480 / 480 Output: Urine 800 / 800 400 / 400 Other: # Bowel Movements 0 1 Narrative: Equinus noted to right ankle. Plantar ulcerations with hyperkeratotic skin edges. Eschar noted to right submet 5 with drainage noted. Improved edema and erythema noted to plantar ulcerations. Medications and Allergies Active Medications: Active Medications Acetaminophen (Tylenol) 650 mg PO Q4H PRN PRN Reason: Temp > 100.4 Hydrocodone Bitart/Acetaminophen ([place] 5/325) 1 tab PO Q4H PRN PRN Reason: Acute Pain Exemption Last Admin: 12/30/18 21:17 Dose: 1 tab Al Hydroxide/Mg Hydroxide (Milk Of Magnesia Liq) 30 ml PO Q12H PRN PRN Reason: Mild Constipation Amlodipine Besylate (Norvasc) 10 mg PO DAILY [facility] Last Admin: 12/30/18 09:19 Dose: 10 mg Aspirin (Aspirin Chew) 81 mg PO DAILY [facility] Last Admin: 12/30/18 09:19 Dose: 81 mg Atorvastatin Calcium (Lipitor) 40 mg PO DAILY [facility] Last Admin: 12/30/18 09:19 Dose: 40 mg Bisacodyl (Dulcolax Supp) 10 mg RECTAL DAILY PRN PRN Reason: SEVERE CONSITIPATION Dextrose (D50w Vial) 50 ml IV.PUSH UNSCH PRN PRN Reason: PER HYPOGLYCEMIA PROTOCOL Enoxaparin Sodium (Lovenox Inj) 40 mg SQ DAILY [facility] Last Admin: 12/30/18 09:20 Dose: 40 mg Gabapentin (Neurontin) 300 mg PO TID [facility] Last Admin: 12/30/18 17:20 Dose: 300 mg Glucagon (Glucagon Inj) 1 mg OTHER PRN PRN PRN Reason: for Hypoglycemia Protocol Sodium Chloride (Ns Inj) 1,000 mls @ 100 mls/hr IV.CONT .Q10H [facility] Last Infusion: 12/30/18 16:48 Dose: 100 mls/hr Vancomycin HCl 1,500 mg/ (Sodium Chloride) 515 mls @ 250 mls/hr IV.SIG Q8H [facility] Last Infusion: 12/30/18 19:32 Dose: Infused Insulin Aspart (Novolog Insulin Correctional Sugar Inj) 0 unit SQ ACHS AND 3AM [facility]; Protocol Last Admin: 12/30/18 21:18 Dose: 3 unit Miscellaneous Information ([facility] Ordered Lab Info) 1 each OTHER ONCE ONE Stop: 12/31/18 01:46 Ondansetron HCl (Zofran Inj) 4 mg IV.PUSH Q6H PRN PRN Reason: NAUSEA OR VOMITING Pharmacy Profile Note (Vancomycin Consult Pharmacy) 1 each OTHER UNSCH PRN PRN Reason: Pharmacy to dose Sennosides (Senokot) 17.2 mg PO Q12H PRN PRN Reason: Moderate Constipation Sodium Chloride (Ns Flush) 2 ml IV.FLUSH PRN PRN PRN Reason: FLUSH AFTER USING IV ACCESS Sodium Chloride (Ns Flush) 2 ml IV.FLUSH BID [facility] Last Admin: 12/30/18 21:16 Dose: 2 ml Allergies Allergy/AdvReac Type Severity Reaction Status Date / Time No Known Allergies Allergy Verified 08/19/18 20:56 Home Medications Medication Instructions Recorded Confirmed Type amlodipine 10 mg PO DAILY 05/31/18 12/23/18 History metformin 500 mg PO BID 05/31/18 12/23/18 History gabapentin 300 mg PO TID 08/19/18 12/23/18 History aspirin [Aspirin Low Dose] 81 mg PO DAILY 11/29/18 12/23/18 History atorvastatin 40 mg PO DAILY 11/29/18 12/23/18 History Results - Labs CBC & Chem 7: 12/30/18 09:09 12/30/18 09:09 Laboratory Results - last 24 hr 12/29/18 12/30/18 12/30/18 21:32 02:39 07:36 WBC RBC Hgb Hct MCV MCH MCHC RDW Plt Count MPV Neut % (Auto) Lymph % (Auto) [place] % (Auto) Eos % (Auto) Baso % (Auto) Neut # (Auto) Lymph # (Auto) [place] # (Auto) Eos # (Auto) Baso # (Auto) WBC Differential Differential Comment Sodium Potassium Chloride Carbon Dioxide Anion Gap BUN Creatinine Estimated GFR POC Glucose 338 H 172 H 188 H Random Glucose Calcium Total Bilirubin AST ALT Alkaline Phosphatase Total Protein Albumin 12/30/18 12/30/18 12/30/18 09:09 09:09 12:11 WBC 9.5 RBC 4.25 L Hgb 13.4 Hct 38.7 L MCV 91.0 MCH 31.6 MCHC 34.7 RDW 13.3 Plt Count 255 MPV 8.4 Neut % (Auto) 57.1 Lymph % (Auto) 28.9 [place] % (Auto) 7.9 Eos % (Auto) 5.3 H Baso % (Auto) 0.8 Neut # (Auto) 5.4 Lymph # (Auto) 2.7 [place] # (Auto) 0.8 Eos # (Auto) 0.5 H Baso # (Auto) 0.1 WBC Differential . Differential Comment Auto diff final Sodium 141 Potassium 4.0 Chloride 107 Carbon Dioxide 26.9 Anion Gap 7 BUN 5 L Creatinine 0.59 L Estimated GFR Greater than 89 POC Glucose 240 H Random Glucose 165 H Calcium 8.6 Total Bilirubin 0.4 AST 18 ALT 27 Alkaline Phosphatase 87 Total Protein 7.2 D Albumin 3.1 L 12/30/18 16:46 WBC RBC Hgb Hct MCV MCH MCHC RDW Plt Count MPV Neut % (Auto) Lymph % (Auto) [place] % (Auto) Eos % (Auto) Baso % (Auto) Neut # (Auto) Lymph # (Auto) [place] # (Auto) Eos # (Auto) Baso # (Auto) WBC Differential Differential Comment Sodium Potassium Chloride Carbon Dioxide Anion Gap BUN Creatinine Estimated GFR POC Glucose 224 H Random Glucose Calcium Total Bilirubin AST ALT Alkaline Phosphatase Total Protein Albumin - Procedures Right superficial femoral artery angioplasty and stenting with 6 mm stent. Assessment and Plan - Assessment (1) Cellulitis of foot, right Code(s): L03.115 - Cellulitis of right lower limb Status: Acute (2) Diabetic foot infection Code(s): E11.628 - Type 2 diabetes mellitus with other skin complications; L08.9 - Local infection of the skin and subcutaneous tissue, unspecified Status: Acute (3) Foot ulcer, right Code(s): L97.519 - Non-pressure chronic ulcer of other part of right foot with unspecified severity Status: Acute (4) Equinus contracture of right ankle Code(s): M24.571 - Contracture, right ankle Status: Acute - Plan 43 year old male with right plantar forefoot ulcerations Patient to OR tomorrow for right gastroc recession and debridement and irrigation with possible graft placement NPO after midnight Obtain consent Discussed all risks alternatives benefits and complications with patient
[2018-12-31] MEDS: Sod Chloride 0.9% Inj 1,000 ML IV.CONT SCH ×3 (00:36→21:53)
[2018-12-31] MEDS ORDERED: Pharmacy Ordered Lab Info OTHER ONE (01:45)
[2018-12-31] MEDS: Vancomycin Inj 1,500 MG in Sodium Chlor 0.9% Inj 500 ML IV.SIG SCH ×3 (01:53→17:40)
[2018-12-31] MEDS: Insulin NovoLOG Aspart Correctional Sugar Inj SQ SCH ×5 (02:01→21:46)
[2018-12-31 08:10] LABS: Glomerular Filtration Rate Greater Than 89 mL/min (>89)
[2018-12-31] MEDS: amLODIPine 5 MG Tablet PO SCH (08:37)
[2018-12-31] MEDS: Gabapentin 300 MG Capsule PO SCH ×3 (08:38→17:48)
[2018-12-31] MEDS: Enoxaparin Inj 40 MG/0.4 ML Syringe SQ SCH (10:08)
[2018-12-31] MEDS ORDERED: Bupivacaine PF 0.5% Inj 10 ML Vial ONE (10:10)
[2018-12-31] MEDS ORDERED: Normosol-R pH 7.4 Inj 1,000 ML IV.CONT ONE (12:59)
[2018-12-31] MEDS ORDERED: Glycopyrrolate Inj 1 MG/5 ML Syringe IV.PUSH ONE (12:59)
--- NOTE | 2018-12-31 13:09 | P.PNPOD ---
Subjective Interval history: Patient seen preoperatively. Agrees with planned procedure. Physical Exam Vital signs: Vital Signs 12/30/18 16:00 12/30/18 20:00 12/30/18 23:08 Temperature 98.3 F 98.2 F 98.3 F Pulse Rate 53 L 54 L 57 L Respiratory Rate 18 14 16 Blood Pressure 141/71 H 126/65 140/70 Pulse Oximetry 97 96 96 12/31/18 04:00 12/31/18 08:00 12/31/18 10:34 Temperature 97.9 F 99.4 F Pulse Rate 55 L 54 L Respiratory Rate 14 18 Blood Pressure 130/61 150/65 H Pulse Oximetry 95 96 95 Intake & Output 12/30/18 12/31/18 12/31/18 18:59 06:59 18:59 Intake Total 995 / 995 1645 / 1645 1000 / 1000 Output Total 400 / 400 350 / 350 Balance 595 / 595 1645 / 1645 650 / 650 Weight 98.9 kg Intake: IV 515 / 515 1405 / 1405 1000 / 1000 NS Inj 1,000 ML @ 100 mls/hr IV 0 / 0 375 / 375 1000 / 1000 .CONT .Q10H [facility] Rx#:[id number] Vancomycin Inj 1,500 MG In NS 515 / 515 1030 / 1030 Inj 500 ML @ 250 mls/hr IV.SIG Q8H [facility] Rx#:[id number] Oral 480 / 480 240 / 240 Output: Urine 400 / 400 350 / 350 Other: # Voids 3 Date of Last Bowel Movement 12/28/18 # Bowel Movements 1 Narrative: Dressing to the right foot intact. No interval change since yesterdays examination. Medications and Allergies Active Medications: Active Medications Acetaminophen (Tylenol) 650 mg PO Q4H PRN PRN Reason: Temp > 100.4 Hydrocodone Bitart/Acetaminophen ([place] 5/325) 1 tab PO Q4H PRN PRN Reason: Acute Pain Exemption Last Admin: 12/31/18 10:04 Dose: 1 tab Al Hydroxide/Mg Hydroxide (Milk Of Magnesia Liq) 30 ml PO Q12H PRN PRN Reason: Mild Constipation Amlodipine Besylate (Norvasc) 10 mg PO DAILY [facility] Last Admin: 12/31/18 08:37 Dose: 10 mg Aspirin (Aspirin Chew) 81 mg PO DAILY [facility] Last Admin: 12/31/18 10:08 Dose: Not Given Atorvastatin Calcium (Lipitor) 40 mg PO DAILY [facility] Last Admin: 12/31/18 08:38 Dose: 40 mg Bisacodyl (Dulcolax Supp) 10 mg RECTAL DAILY PRN PRN Reason: SEVERE CONSITIPATION Dextrose (D50w Vial) 50 ml IV.PUSH UNSCH PRN PRN Reason: PER HYPOGLYCEMIA PROTOCOL Enoxaparin Sodium (Lovenox Inj) 40 mg SQ DAILY [facility] Last Admin: 12/31/18 10:08 Dose: Not Given Gabapentin (Neurontin) 300 mg PO TID [facility] Last Admin: 12/31/18 08:38 Dose: 300 mg Glucagon (Glucagon Inj) 1 mg OTHER PRN PRN PRN Reason: for Hypoglycemia Protocol Sodium Chloride (Ns Inj) 1,000 mls @ 100 mls/hr IV.CONT .Q10H [facility] Last Infusion: 12/31/18 10:36 Dose: Infused Vancomycin HCl 1,500 mg/ (Sodium Chloride) 515 mls @ 250 mls/hr IV.SIG Q8H [facility] Last Admin: 12/31/18 10:01 Dose: 250 mls/hr Insulin Aspart (Novolog Insulin Correctional Sugar Inj) 0 unit SQ ACHS AND 3AM [facility]; Protocol Last Admin: 12/31/18 08:35 Dose: Not Given Miscellaneous Information ([facility] Ordered Lab Info) 1 each OTHER ONCE ONE Stop: 01/04/19 01:46 Ondansetron HCl (Zofran Inj) 4 mg IV.PUSH Q6H PRN PRN Reason: NAUSEA OR VOMITING Pharmacy Profile Note (Vancomycin Consult Pharmacy) 1 each OTHER UNSCH PRN PRN Reason: Pharmacy to dose Sennosides (Senokot) 17.2 mg PO Q12H PRN PRN Reason: Moderate Constipation Sodium Chloride (Ns Flush) 2 ml IV.FLUSH PRN PRN PRN Reason: FLUSH AFTER USING IV ACCESS Sodium Chloride (Ns Flush) 2 ml IV.FLUSH BID [facility] Last Admin: 12/31/18 08:38 Dose: Not Given Allergies Allergy/AdvReac Type Severity Reaction Status Date / Time No Known Allergies Allergy Verified 08/19/18 20:56 Home Medications Medication Instructions Recorded Confirmed Type amlodipine 10 mg PO DAILY 05/31/18 12/23/18 History metformin 500 mg PO BID 05/31/18 12/23/18 History gabapentin 300 mg PO TID 08/19/18 12/23/18 History aspirin [Aspirin Low Dose] 81 mg PO DAILY 11/29/18 12/23/18 History atorvastatin 40 mg PO DAILY 11/29/18 12/23/18 History Results - Labs CBC & Chem 7: 12/30/18 09:09 12/31/18 01:50 Laboratory Results - last 24 hr 12/30/18 12/30/18 12/31/18 16:46 21:16 01:50 Creatinine Estimated GFR POC Glucose 224 H 229 H Vancomycin Trough 16.3 H 12/31/18 12/31/18 12/31/18 01:50 01:52 07:48 Creatinine 0.67 Estimated GFR Greater than 89 POC Glucose 252 H 178 H Vancomycin Trough 12/31/18 11:45 Creatinine Estimated GFR POC Glucose 190 H Vancomycin Trough - Procedures Right superficial femoral artery angioplasty and stenting with 6 mm stent. Assessment and Plan - Assessment (1) Cellulitis of foot, right Code(s): L03.115 - Cellulitis of right lower limb Status: Acute (2) Diabetic foot infection Code(s): E11.628 - Type 2 diabetes mellitus with other skin complications; L08.9 - Local infection of the skin and subcutaneous tissue, unspecified Status: Acute (3) Foot ulcer, right Code(s): L97.519 - Non-pressure chronic ulcer of other part of right foot with unspecified severity Status: Acute (4) Equinus contracture of right ankle Code(s): M24.571 - Contracture, right ankle Status: Acute - Plan 43 year old male with right plantar forefoot ulcerations Patient to OR today for right gastroc recession and debridement and irrigation with possible graft placement NPO after midnight Obtain consent Discussed all risks alternatives benefits and complications with patient Patient is in agreement with planned procedures
--- NOTE | 2018-12-31 13:40 | P.PNIM ---
Subjective Interval history: Patient lying in bed. Appears comfortable. Reports pain is controlled. Denies any chest pain or shortness of breath. Denies constipation. Physical Exam Vital signs: Vital Signs 12/30/18 16:00 12/30/18 20:00 12/30/18 23:08 Temperature 98.3 F 98.2 F 98.3 F Pulse Rate 53 L 54 L 57 L Respiratory Rate 18 14 16 Blood Pressure 141/71 H 126/65 140/70 Pulse Oximetry 97 96 96 12/31/18 04:00 12/31/18 08:00 12/31/18 10:34 Temperature 97.9 F 99.4 F Pulse Rate 55 L 54 L Respiratory Rate 14 18 Blood Pressure 130/61 150/65 H Pulse Oximetry 95 96 95 Intake & Output 12/30/18 12/31/18 12/31/18 18:59 06:59 18:59 Intake Total 995 / 995 1645 / 1645 1000 / 1000 Output Total 400 / 400 350 / 350 Balance 595 / 595 1645 / 1645 650 / 650 Weight 98.9 kg Intake: IV 515 / 515 1405 / 1405 1000 / 1000 NS Inj 1,000 ML @ 100 mls/hr IV 0 / 0 375 / 375 1000 / 1000 .CONT .Q10H [facility] Rx#:[id number] Vancomycin Inj 1,500 MG In NS 515 / 515 1030 / 1030 Inj 500 ML @ 250 mls/hr IV.SIG Q8H [facility] Rx#:[id number] Oral 480 / 480 240 / 240 Output: Urine 400 / 400 350 / 350 Other: # Voids 3 Date of Last Bowel Movement 12/28/18 # Bowel Movements 1 Narrative: GENERAL: Patient lying in bed. Appears comfortable. SKIN: Warm and dry. HEAD: Normocephalic. EYES: No scleral icterus. No injection or drainage. NECK: Supple, trachea midline. No JVD. CARDIOVASCULAR: Regular rate and rhythm without murmurs, gallops, or rubs. RESPIRATORY: Breath sounds equal bilaterally. No accessory muscle use. GASTROINTESTINAL: Abdomen soft, non-tender, nondistended. MUSCULOSKELETAL: No cyanosis, right foot with first toe amputation, ulcer as before. BACK: Nontender without obvious deformity. No CVA tenderness. Results Labs CBC & Chem 7: 12/30/18 09:09 12/31/18 01:50 Procedures Procedures: Right superficial femoral artery angioplasty and stenting with 6 mm stent. Assessment and Plan (1) Cellulitis of foot, right: Code(s): L03.115 - Cellulitis of right lower limb Status: Acute (2) Diabetic foot infection: Code(s): E11.628 - Type 2 diabetes mellitus with other skin complications; L08.9 - Local infection of the skin and subcutaneous tissue, unspecified Status: Acute (3) Foot ulcer, right: Code(s): L97.519 - Non-pressure chronic ulcer of other part of right foot with unspecified severity Status: Acute (4) Equinus contracture of right ankle: Code(s): M24.571 - Contracture, right ankle Status: Acute Plan //Right foot cellulitis/ulcer PVD Foot MRI negative for abscess/osteomyelitis wound culture with MRSA; continue with IV Vancomycin. Podiatry follow-up appreciated and plan for surgery this week. vascular surgery consult appreciated - s/p Right superficial femoral artery angioplasty and stenting with 6 mm stent; cleared for discharge. continue Plavix ( on hold for planned surgery). = 12/30. Discussed with Dr. Patel. Will start patient on aspirin. Can hold Plavix for the procedure. Possible surgery tomorrow with podiatry = 12/31. Patient seen and examined. Vital signs stable. Surgery with podiatry today. Appreciate assistance. Follow-up podiatry recommendations. //Diabetes mellitus Holding metformin Sliding-scale insulin Monitor blood glucose //Hypertension/hyperlipidemia Continue home medications //DVT prophylaxis; subq Lovenox. Discharge Planning: when cleared by podiatry. Progress Note: Quality VTE Deep Vein Thrombosis/Pulmonary Embolism Present on Admission: No _ (1) Foot ulcer, right Qualifiers: Non-pressure ulcer stage:
--- NOTE | 2018-12-31 14:15 | P.PCN ---
Date of procedure: 12/31/18 Pre-op diagnosis: Equinus right LE, Ulcerations forefoot right foot Post-op diagnosis: same Procedure: Gastroc recession right leg; Debridement and Irrigation of right forefoot ulcers Anesthesia: LLOYD Surgeon: Priscilla Carlton Estimated blood loss (mL): 10 Pathology: none sent Condition: stable Disposition: PACU (with VSS and NVS intact to right foot)
[2018-12-31] MEDS ORDERED: Misc Info for Pharmacy OTHER STA (14:17)
[2018-12-31] MEDS ORDERED: fentaNYL Citrate Inj 100 MCG/2 ML Ampul ONE (14:17)
--- NOTE | 2018-12-31 14:43 | MP ---
cc: Priscilla Carlton DPM DATE OF OPERATION: 12/31/2018 SURGEON: Priscilla Carlton DPM TEACHER OF GIFTED STUDENTS: None. PREOPERATIVE DIAGNOSES: 1. Right ankle equinus. 2. Right forefoot ulcerations. POSTOPERATIVE DIAGNOSES: 1. Right ankle equinus. 2. Right forefoot ulcerations. PROCEDURE PERFORMED: 1. Right gastroc recession. 2. Right debridement and irrigation forefoot ulcers. ANESTHESIA: General. HEMOSTASIS: None. ESTIMATED BLOOD LOSS: 10 mL. MATERIALS: 2-0 Monocryl, 3-0 Prolene. INJECTABLES: 20 mL of 0.5% Marcaine plain infiltrated about the right lower extremity. COMPLICATIONS: None. INDICATIONS FOR PROCEDURE: The patient is a 43-year-old male with history of a right hallux amputation, was admitted for evaluation of nonhealing ulcerations to plantar forefoot. The patient was revascularized and treated by vascular surgery. He understands all risks, alternatives, and complications associated with proceeding with surgical intervention. He would like to proceed with surgical intervention. DESCRIPTION OF PROCEDURE: The patient was taken to the operating room and placed on the table in supine position. General anesthesia was then induced. Following induction of general anesthesia, the right foot was prepped and draped in the usual sterile fashion. Attention was then directed to the posteromedial aspect of the right lower extremity. An incision approximately 1 cm in length was made. This incision was deepened through skin and subcutaneous tissue with care to retract all neurovascular structures. This incision was placed well below the heads of the gastrocnemius muscle. The gastrocnemius aponeurosis was palpated and appreciated and the foot was dorsiflexed prior to skin placement. Dissection was carried down to the subcutaneous layer. Deep fascial layer was identified and the subcutaneous layer was both medially and laterally along this tissue plane. The peritenon was incised. A transverse cut was then made over the gastroc tendon. The entire gastroc was noted to be resected. There was noted to be immediate increase in dorsiflexion. Site was copiously irrigated. Vancomycin powder was applied and site were closed in layered fashion utilizing 2-0 Vicryl and 3-0 Prolene. Xeroform, cast padding, Arturo were then applied to site. Attention was then directed to the plantar forefoot. Site was debrided, a full-thickness excisional debridement to submetatarsal 3 and 5. The site was copiously irrigated. Xeroform was placed along with cast padding and Arturo. The patient tolerated the procedure and anesthesia well. He was transferred from the OR to PACU with vital signs stable and neurovascular status intact. Prior to being transferred the patient was placed in a posterior splint. He will remain in-house and we will evaluate his progress. KRISTINA Rodríugez/stevan , 02:25 PM , 02:34 PM
[2019-01-01] MEDS: Vancomycin Inj 1,500 MG in Sodium Chlor 0.9% Inj 500 ML IV.SIG SCH ×3 (01:56→18:19)
[2019-01-01] MEDS: Insulin NovoLOG Aspart Correctional Sugar Inj SQ SCH ×5 (03:08→21:13)
[2019-01-01] MEDS ORDERED: Morphine Inj 4 MG/ML Vial IV.PUSH ONE (04:11)
[2019-01-01] MEDS: Sod Chloride 0.9% Inj 1,000 ML IV.CONT SCH ×2 (06:49→17:42)
[2019-01-01] MEDS: amLODIPine 5 MG Tablet PO SCH (08:26)
[2019-01-01] MEDS: Gabapentin 300 MG Capsule PO SCH ×3 (08:27→18:19)
[2019-01-01] MEDS: Enoxaparin Inj 40 MG/0.4 ML Syringe SQ SCH (08:27)
[2019-01-01] MEDS ORDERED: Naloxone Inj 0.4 MG/ML Vial IV.PUSH PRN (16:16)
--- NOTE | 2019-01-01 16:20 | P.PNIM ---
Subjective Interval history: Patient says that right foot pain is not adequately controlled with current pain regimen. Denies any chest pain or shortness of breath. Denies nausea or vomiting. Denies constipation. Physical Exam Vital signs: Vital Signs 12/31/18 20:00 12/31/18 23:25 01/01/19 03:15 Temperature 97.8 F 97.4 F L 97.7 F Pulse Rate 80 56 L 48 L Respiratory Rate 18 18 18 Blood Pressure 154/86 H 158/73 H 150/74 H Pulse Oximetry 93 L 96 96 01/01/19 08:00 01/01/19 12:00 Temperature 97.9 F 97.8 F Pulse Rate 62 62 Respiratory Rate 20 20 Blood Pressure 154/72 H 152/75 H Pulse Oximetry 95 98 Intake & Output 12/31/18 01/01/19 01/01/19 18:59 06:59 18:59 Intake Total 2014 1630 / 1630 515 / 515 Output Total 760 / 760 950 / 950 Balance 1255 / 1255 680 / 680 515 / 515 Weight 99 kg Intake: IV 1515 / 1515 1030 / 1030 515 / 515 NS Inj 1,000 ML @ 100 mls/hr IV 1000 / 1000 .CONT .Q10H [facility] Rx#:[id number] Vancomycin Inj 1,500 MG In NS 515 / 515 1030 / 1030 515 / 515 Inj 500 ML @ 250 mls/hr IV.SIG Q8H [facility] Rx#:[id number] Oral 0 / 0 600 / 600 Anesthesia Amount 500 / 500 Output: Urine 750 / 750 950 / 950 Estimated Blood Loss 10 / Other: Date of Last Bowel Movement 12/28/18 01/01/19 01/01/19 # Bowel Movements 2 Narrative: GENERAL: Patient lying in bed. Appears comfortable. SKIN: Warm and dry. HEAD: Normocephalic. EYES: No scleral icterus. No injection or drainage. NECK: Supple, trachea midline. No JVD. CARDIOVASCULAR: Regular rate and rhythm without murmurs, gallops, or rubs. RESPIRATORY: Breath sounds equal bilaterally. No accessory muscle use. GASTROINTESTINAL: Abdomen soft, non-tender, nondistended. MUSCULOSKELETAL: No cyanosis, right foot dressed with dressing clean dry and intact. BACK: Nontender without obvious deformity. No CVA tenderness. Results Labs CBC & Chem 7: 12/30/18 09:09 12/31/18 01:50 Procedures Procedures: Right superficial femoral artery angioplasty and stenting with 6 mm stent. Assessment and Plan (1) Cellulitis of foot, right: Code(s): L03.115 - Cellulitis of right lower limb Status: Acute (2) Diabetic foot infection: Code(s): E11.628 - Type 2 diabetes mellitus with other skin complications; L08.9 - Local infection of the skin and subcutaneous tissue, unspecified Status: Acute (3) Foot ulcer, right: Code(s): L97.519 - Non-pressure chronic ulcer of other part of right foot with unspecified severity Status: Acute (4) Equinus contracture of right ankle: Code(s): M24.571 - Contracture, right ankle Status: Acute Plan //Right foot cellulitis/ulcer PVD Foot MRI negative for abscess/osteomyelitis wound culture with MRSA; continue with IV Vancomycin. Podiatry follow-up appreciated and plan for surgery this week. vascular surgery consult appreciated - s/p Right superficial femoral artery angioplasty and stenting with 6 mm stent; cleared for discharge. continue Plavix ( on hold for planned surgery). = 12/30. Discussed with Dr. aPtel. Will start patient on aspirin. Can hold Plavix for the procedure. Possible surgery tomorrow with podiatry = 12/31. Patient seen and examined. Vital signs stable. Surgery with podiatry today. Appreciate assistance. Follow-up podiatry recommendations. 01/01. Status post debridement, right gastroc recession yesterday. Follow-up podiatry recommendations. Will consult ID for home regimen. Will adjust medications for pain. Restart Plavix when cleared by podiatry. //Diabetes mellitus Holding metformin Sliding-scale insulin Monitor blood glucose //Hypertension/hyperlipidemia Continue home medications //DVT prophylaxis; subq Lovenox. Discharge Planning: when cleared by podiatry. ID consult pending for antibiotics Progress Note: Quality VTE Deep Vein Thrombosis/Pulmonary Embolism Present on Admission: No _ (1) Foot ulcer, right Qualifiers: Non-pressure ulcer stage:
--- NOTE | 2019-01-01 23:21 | P.PNPOD ---
Subjective Interval history: s/p Right gastroc recession, and wound debridement POD #1 Dr Carlton No n/v/f/d/c Physical Exam Vital signs: Vital Signs 12/31/18 23:25 01/01/19 03:15 01/01/19 08:00 Temperature 97.4 F L 97.7 F 97.9 F Pulse Rate 56 L 48 L 62 Respiratory Rate 18 18 20 Blood Pressure 158/73 H 150/74 H 154/72 H Pulse Oximetry 96 96 95 01/01/19 12:00 01/01/19 16:00 01/01/19 21:25 Temperature 97.8 F 98 F 98.4 F Pulse Rate 62 56 L 61 Respiratory Rate 20 18 18 Blood Pressure 152/75 H 163/79 H 166/76 H Pulse Oximetry 98 97 95 01/01/19 22:53 Temperature Pulse Rate Respiratory Rate Blood Pressure Pulse Oximetry 96 Intake & Output 01/01/19 01/01/19 01/02/19 06:59 18:59 06:59 Intake Total 1630 / 1630 1515 / 1515 515 / 515 Output Total 950 / 950 400 / 400 Balance 680 / 680 1115 / 1115 515 / 515 Weight 99 kg Intake: IV 1030 / 1030 915 / 915 515 / 515 NS Inj 1,000 ML @ 100 mls/hr IV 400 / 400 .CONT .Q10H [facility] Rx#:[id number] Vancomycin Inj 1,500 MG In NS 1030 / 1030 515 / 515 515 / 515 Inj 500 ML @ 250 mls/hr IV.SIG Q8H [facility] Rx#:[id number] Oral 600 / 600 600 / 600 Output: Urine 950 / 950 400 / 400 Other: Date of Last Bowel Movement 01/01/19 01/01/19 # Bowel Movements 2 Narrative: RLE Intact dressing and no strikethrough. Intact NVS and active ROM of digits available. Medications and Allergies Active Medications: Active Medications Acetaminophen (Tylenol) 650 mg PO Q4H PRN PRN Reason: Temp > 100.4 Hydrocodone Bitart/Acetaminophen ([place] 5/325) 1 tab PO Q4H PRN PRN Reason: PAIN SCALE 3 TO 5 Hydrocodone Bitart/Acetaminophen ([place] 10/325) 1 tab PO Q4H PRN PRN Reason: PAIN SCALE 6 TO 10 Last Admin: 01/01/19 20:35 Dose: 1 tab Al Hydroxide/Mg Hydroxide (Milk Of Richie Liq) 30 ml PO Q12H PRN PRN Reason: Mild Constipation Amlodipine Besylate (Norvasc) 10 mg PO DAILY [facility] Last Admin: 01/01/19 08:26 Dose: 10 mg Aspirin (Aspirin Chew) 81 mg PO DAILY [facility] Last Admin: 01/01/19 08:27 Dose: 81 mg Atorvastatin Calcium (Lipitor) 40 mg PO DAILY [facility] Last Admin: 01/01/19 08:26 Dose: 40 mg Bisacodyl (Dulcolax Supp) 10 mg RECTAL DAILY PRN PRN Reason: SEVERE CONSITIPATION Dextrose (D50w Vial) 50 ml IV.PUSH UNSCH PRN PRN Reason: PER HYPOGLYCEMIA PROTOCOL Enoxaparin Sodium (Lovenox Inj) 40 mg SQ DAILY [facility] Last Admin: 01/01/19 08:27 Dose: 40 mg Gabapentin (Neurontin) 300 mg PO TID [facility] Last Admin: 01/01/19 18:19 Dose: 300 mg Glucagon (Glucagon Inj) 1 mg OTHER PRN PRN PRN Reason: for Hypoglycemia Protocol Sodium Chloride (Ns Inj) 1,000 mls @ 100 mls/hr IV.CONT .Q10H [facility] Last Infusion: 01/01/19 17:42 Dose: 100 mls/hr Vancomycin HCl 1,500 mg/ (Sodium Chloride) 515 mls @ 250 mls/hr IV.SIG Q8H [facility] Last Infusion: 01/01/19 20:35 Dose: Infused Insulin Aspart (Novolog Insulin Correctional Sugar Inj) 0 unit SQ ACHS AND 3AM [facility]; Protocol Last Admin: 01/01/19 21:13 Dose: 3 unit Miscellaneous Information ([facility] Ordered Lab Info) 1 each OTHER ONCE ONE Stop: 01/04/19 01:46 Naloxone HCl (Narcan Inj) 0.4 mg IV.PUSH UNSCH PRN PRN Reason: SEE LABEL COMMENTS Ondansetron HCl (Zofran Inj) 4 mg IV.PUSH Q6H PRN PRN Reason: NAUSEA OR VOMITING Pharmacy Profile Note (Vancomycin Consult Pharmacy) 1 each OTHER UNSCH PRN PRN Reason: Pharmacy to dose Sennosides (Senokot) 17.2 mg PO Q12H PRN PRN Reason: Moderate Constipation Sodium Chloride (Ns Flush) 2 ml IV.FLUSH PRN PRN PRN Reason: FLUSH AFTER USING IV ACCESS Sodium Chloride (Ns Flush) 2 ml IV.FLUSH BID [facility] Last Admin: 01/01/19 21:14 Dose: Not Given Allergies Allergy/AdvReac Type Severity Reaction Status Date / Time No Known Allergies Allergy Verified 08/19/18 20:56 Home Medications Medication Instructions Recorded Confirmed Type amlodipine 10 mg PO DAILY 05/31/18 12/23/18 History metformin 500 mg PO BID 05/31/18 12/23/18 History gabapentin 300 mg PO TID 08/19/18 12/23/18 History aspirin [Aspirin Low Dose] 81 mg PO DAILY 11/29/18 12/23/18 History atorvastatin 40 mg PO DAILY 11/29/18 12/23/18 History Results - Labs CBC & Chem 7: 12/30/18 09:09 12/31/18 01:50 Laboratory Results - last 24 hr 01/01/19 01/01/19 01/01/19 03:06 07:24 12:17 POC Glucose 158 H 171 H 183 H 01/01/19 01/01/19 16:11 20:20 POC Glucose 214 H 232 H - Procedures Right superficial femoral artery angioplasty and stenting with 6 mm stent. Assessment and Plan - Assessment (1) Cellulitis of foot, right Code(s): L03.115 - Cellulitis of right lower limb Status: Acute (2) Diabetic foot infection Code(s): E11.628 - Type 2 diabetes mellitus with other skin complications; L08.9 - Local infection of the skin and subcutaneous tissue, unspecified Status: Acute (3) Foot ulcer, right Code(s): L97.519 - Non-pressure chronic ulcer of other part of right foot with unspecified severity Status: Acute (4) Equinus contracture of right ankle Code(s): M24.571 - Contracture, right ankle Status: Acute - Plan Continue with NWB right Plan for dressing change on 01/04/19
[2019-01-02] MEDS: Sod Chloride 0.9% Inj 1,000 ML IV.CONT SCH ×4 (00:38→17:50)
[2019-01-02] MEDS: Vancomycin Inj 1,500 MG in Sodium Chlor 0.9% Inj 500 ML IV.SIG SCH ×3 (02:23→17:50)
[2019-01-02] MEDS: Insulin NovoLOG Aspart Correctional Sugar Inj SQ SCH ×5 (03:13→20:18)
--- NOTE | 2019-01-02 07:35 | MB ---
cc: Charles Mccauley MD DATE: 01/01/2019 REQUESTING PHYSICIAN: Rashid Ramirez MD REASON FOR CONSULTATION: Osteomyelitis. MRSA. Status post debridement on 12/31/2018. HISTORY OF PRESENT ILLNESS: This is a 43-year-old white male who presented to the hospital on 12/23/2018. The patient was having problems with recurrent ulcer on his right foot and he was being followed by podiatry. He was given antibiotics course about a week before presenting. He developed increased pain in the right foot and an area of discoloration, which was noted to be new along the distal lateral surface of the right foot. The patient was evaluated by vascular surgery. He has history of peripheral vascular disease. He underwent aortogram with right lower extremity angiogram and a right SFA to MILK RECEIVER TANK TRUCK stent and left WELDING FOREMAN Angio-Seal. The patient subsequently had right gastroc resection and debridement and irrigation of 4 foot ulcers. The entire gastroc was noted to be resected and there was noted to be immediate increase in dorsiflexion. Culture was not taken during that procedure. Culture which was taken on admission on 12/23/2018 from the foot has MRSA. The patient has been afebrile since admission. His white blood cell count is normal. MRI of the foot on admission revealed that amputation of the distal first metatarsal and great toe with ulceration and mild cellulitis medial near the amputated site. No evidence of osteomyelitis was noted. The patient has no other symptoms besides discomfort of the foot. PAST MEDICAL HISTORY: Hypertension, hyperlipidemia, peripheral arterial disease, peripheral vascular disease, diabetes mellitus, history of right great toe amputation. ALLERGIES: NO KNOWN DRUG ALLERGIES. MEDICATIONS: 1. Vancomycin. 2. Aspirin. 3. Neurontin. 4. Lovenox. 5. Insulin. 6. Lipitor. 7. Norvasc. SOCIAL HISTORY: The patient smokes 1 cigarette a day. No alcohol. No illicit drugs. FAMILY HISTORY: Significant for cancer unspecified in his mom and also cancer in his brother. REVIEW OF SYSTEMS: Negative, except for cough, not productive of sputum. PHYSICAL EXAMINATION: GENERAL: Well-developed male in no acute distress. He is awake and alert and oriented. VITAL SIGNS: Includes temperature 97.8 BP 152/75, respirations 20, heart rate 62. HEENT: Head is atraumatic. Extraocular movements grossly intact. Pupils reactive to light. No icterus. No conjunctival erythema. Oropharynx: Moist mucosa. No lesions. NECK: Supple without adenopathy or swelling. LUNGS: Clear breath sounds. HEART: Regular S1 and S2, without murmurs, rubs or gallops. ABDOMEN: Bowel sounds present. Soft, nontender. RECTAL: Not performed. EXTREMITIES: Right leg is wrapped in a surgical dressing. This was not unwrapped for inspection at this time. SKIN: No rash. NEURO: No gross focal finding. PSYCHIATRIC: The patient is calm and cooperative. IMPRESSION: Wound infection of the left foot. The patient is status post vascular procedure and right gastrocnemius resection and right forefoot ulcer debridements for right forefoot ulcerations which were nonresponsive to prior antibiotic treatment. RECOMMENDATIONS: 1. Continue the vancomycin. 2. Follow the wound per podiatry. Given the absence of osteomyelitis, I would give the patient at least another week of the IV vancomycin and depending on the condition of the wound when reevaluated by podiatry, determination can be made about extending IV antibiotics versus completing the course of treatment with p.o. Thank you for this consultation. I will follow the patient's progress along with you. I will see after podiatry make decision on further progress of the wound. Charles Mccauley MD FFD/ct , 05:17 PM , 05:23 PM
[2019-01-02 07:51] LABS: Baso # (Auto) 0.1 th/mm3 (0.0-0.2); Eos # (Auto) 0.3 th/mm3 (0.0-0.4); Eos % (Auto) 4.1 % (0.0-4.0); Hematocrit 37.8 % (39.0-51.0); Hemoglobin 12.9 gm/dL (13.0-17.0); Lymph # (Auto) 2.8 th/mm3 (1.0-4.8); Lymph % (Auto) 36.1 % (9.0-44.0); Mean Corpuscular Hemoglobin 30.9 pg (27.0-34.0); Mean Corpuscular Volume 90.8 fL (80.0-100.0); Mono # (Auto) 0.7 th/mm3 (0.0-0.9); Mono % (Auto) 9.7 % (0.0-8.0); Neut # (Auto) 3.8 th/mm3 (1.8-7.7); Neut % (Auto) 49.1 % (16.0-70.0); Platelet Count 243 th/mm3 (150-450); Red Blood Count 4.16 mil/mm3 (4.50-5.90); Red Cell Distribution Width 13.1 % (11.6-17.2); White Blood Count 7.7 th/mm3 (4.0-11.0)
[2019-01-02 08:22] LABS: Alanine Aminotransferase 29 U/L (12-78); Albumin 3.1 g/dL (3.4-5.0); Anion Gap 5 meq/L (5-15); Aspartate Aminotransferase 18 U/L (15-37); Blood Urea Nitrogen 9 mg/dL (7-18); Calcium 8.3 mg/dL (8.5-10.1); Carbon Dioxide 28.9 meq/L (21.0-32.0); Chloride 108 meq/L (98-107); Glomerular Filtration Rate Greater Than 89 mL/min (>89); Glucose,Random 163 mg/dL (74-106); Magnesium 1.9 mg/dL (1.5-2.5); Potassium 3.8 meq/L (3.5-5.1); Sodium 142 meq/L (136-145)
[2019-01-02 08:25] LABS: Alkaline Phosphatase 87 U/L (45-117); Total Protein 7.1 g/dL (6.4-8.2)
[2019-01-02] MEDS: Gabapentin 300 MG Capsule PO SCH ×3 (09:44→17:50)
[2019-01-02] MEDS: Enoxaparin Inj 40 MG/0.4 ML Syringe SQ SCH (09:44)
[2019-01-02] MEDS: amLODIPine 5 MG Tablet PO SCH (09:44)
--- NOTE | 2019-01-02 18:33 | P.PNIM ---
Subjective Interval history: Patient says he is feeling right. Reports pain is controlled. Denies any chest pain shortness breath. Denies nausea vomiting. Had a bowel movement recently. Physical Exam Vital signs: Vital Signs 01/01/19 21:25 01/01/19 22:53 01/01/19 23:10 Temperature 98.4 F 98.1 F Pulse Rate 61 63 Respiratory Rate 18 18 Blood Pressure 166/76 H 168/78 H Pulse Oximetry 95 96 96 01/02/19 03:45 01/02/19 08:00 01/02/19 12:00 Temperature 98.1 F 97.7 F 97.5 F L Pulse Rate 54 L 53 L 57 L Respiratory Rate 18 16 20 Blood Pressure 138/67 145/77 H 149/91 H Pulse Oximetry 95 95 98 01/02/19 13:30 01/02/19 16:00 Temperature 98 F Pulse Rate 59 L Respiratory Rate 18 Blood Pressure 131/78 Pulse Oximetry 92 L 98 Intake & Output 01/01/19 01/02/19 01/02/19 18:59 06:59 18:59 Intake Total 1515 / 1515 2350 / 2350 2014 Output Total 400 / 400 750 / 750 Balance 1115 / 1115 1600 / 1600 2014 Weight 94.9 kg Intake: IV 915 / 915 1630 / 1630 2014 NS Inj 1,000 ML @ 100 mls/hr IV 400 / 400 600 / 600 1500 / 1500 .CONT .Q10H [facility] Rx#:[id number] Vancomycin Inj 1,500 MG In NS 515 / 515 1030 / 1030 515 / 515 Inj 500 ML @ 250 mls/hr IV.SIG Q8H [facility] Rx#:[id number] Oral 600 / 600 720 / 720 Output: Urine 400 / 400 750 / 750 Other: # Voids 2 Date of Last Bowel Movement 01/01/19 01/01/19 01/01/19 # Bowel Movements 2 Narrative: GENERAL: Patient lying in bed. Appears comfortable. Alert and oriented x3. SKIN: Warm and dry. HEAD: Normocephalic. EYES: No scleral icterus. No injection or drainage. NECK: Supple, trachea midline. No JVD. CARDIOVASCULAR: Regular rate and rhythm without murmurs, gallops, or rubs. RESPIRATORY: Breath sounds equal bilaterally. No accessory muscle use. GASTROINTESTINAL: Abdomen soft, non-tender, nondistended. MUSCULOSKELETAL: No cyanosis, right foot dressed with dressing clean dry and intact. BACK: Nontender without obvious deformity. No CVA tenderness. Results Labs CBC & Chem 7: 01/02/19 07:03 01/02/19 07:03 Procedures Procedures: Right superficial femoral artery angioplasty and stenting with 6 mm stent. Assessment and Plan (1) Cellulitis of foot, right: Code(s): L03.115 - Cellulitis of right lower limb Status: Acute (2) Diabetic foot infection: Code(s): E11.628 - Type 2 diabetes mellitus with other skin complications; L08.9 - Local infection of the skin and subcutaneous tissue, unspecified Status: Acute (3) Foot ulcer, right: Code(s): L97.519 - Non-pressure chronic ulcer of other part of right foot with unspecified severity Status: Acute (4) Equinus contracture of right ankle: Code(s): M24.571 - Contracture, right ankle Status: Acute Plan //Right foot cellulitis/ulcer PVD Foot MRI negative for abscess/osteomyelitis wound culture with MRSA; continue with IV Vancomycin. Podiatry follow-up appreciated and plan for surgery this week. vascular surgery consult appreciated - s/p Right superficial femoral artery angioplasty and stenting with 6 mm stent; cleared for discharge. continue Plavix ( on hold for planned surgery). = 12/30. Discussed with Dr. Patel. Will start patient on aspirin. Can hold Plavix for the procedure. Possible surgery tomorrow with podiatry = 12/31. Patient seen and examined. Vital signs stable. Surgery with podiatry today. Appreciate assistance. Follow-up podiatry recommendations. 01/01. Status post debridement, right gastroc recession yesterday. Follow-up podiatry recommendations. Will consult ID for home regimen. Will adjust medications for pain. Restart Plavix when cleared by podiatry. 01/02. Follow-up podiatry recommendations. Dressing change on 01/04. Continue antibiotics. ID following for antibiotics. Appreciate assistance //Diabetes mellitus Holding metformin Sliding-scale insulin Monitor blood glucose = 01/02 glucose elevated 250 today. Will add Levemir. Obtain a monitor. //Hypertension/hyperlipidemia Continue home medications //DVT prophylaxis; subq Lovenox. Discharge Planning: when cleared by podiatry. ID consult pending for antibiotics Progress Note: Quality VTE Deep Vein Thrombosis/Pulmonary Embolism Present on Admission: No _ (1) Foot ulcer, right Qualifiers: Non-pressure ulcer stage:
[2019-01-02] MEDS: Insulin Detemir Inj 1,000 UNIT/10 ML Vial SQ SCH (20:19)
[2019-01-03] MEDS: Sod Chloride 0.9% Inj 1,000 ML IV.CONT SCH ×3 (00:02→22:17)
[2019-01-03] MEDS: Vancomycin Inj 1,500 MG in Sodium Chlor 0.9% Inj 500 ML IV.SIG SCH ×3 (02:48→17:25)
[2019-01-03] MEDS: Insulin NovoLOG Aspart Correctional Sugar Inj SQ SCH ×5 (02:53→21:08)
[2019-01-03] MEDS: Insulin Detemir Inj 1,000 UNIT/10 ML Vial SQ SCH ×2 (09:57→21:08)
[2019-01-03] MEDS: amLODIPine 5 MG Tablet PO SCH (09:58)
[2019-01-03] MEDS: Gabapentin 300 MG Capsule PO SCH ×3 (09:58→17:26)
[2019-01-03] MEDS: Enoxaparin Inj 40 MG/0.4 ML Syringe SQ SCH (09:58)
--- NOTE | 2019-01-03 16:40 | P.PNIM ---
Physical Exam Vital signs: Vital Signs 01/02/19 20:00 01/03/19 00:00 01/03/19 04:10 Temperature 98.1 F 98.3 F Pulse Rate 65 50 L Respiratory Rate 18 18 Blood Pressure 160/85 H 187/84 H Pulse Oximetry 95 96 96 01/03/19 08:00 01/03/19 10:35 01/03/19 12:00 Temperature 97.6 F 97.9 F Pulse Rate 50 L 54 L Respiratory Rate 18 18 Blood Pressure 123/61 152/79 H Pulse Oximetry 100 93 L 99 Intake & Output 01/02/19 01/03/19 01/03/19 18:59 06:59 18:59 Intake Total 2014 1180 / 1180 Output Total 1600 / 1600 Balance 2014 -420 / -420 Intake: IV 2014 1030 / 1030 NS Inj 1,000 ML @ 100 mls/hr IV 1500 / 1500 .CONT .Q10H [facility] Rx#:[id number] Vancomycin Inj 1,500 MG In NS 515 / 515 1030 / 1030 Inj 500 ML @ 250 mls/hr IV.SIG Q8H [facility] Rx#:[id number] Oral 150 / 150 Output: Urine 1600 / 1600 Other: Date of Last Bowel Movement 01/01/19 01/02/19 Narrative: GENERAL: Patient lying in bed. Appears comfortable. Alert and oriented x3. CARDIOVASCULAR: Regular rate and rhythm RESPIRATORY: Breath sounds equal bilaterally. No accessory muscle use. GASTROINTESTINAL: Abdomen soft, non-tender, nondistended. Normoactive bowel sounds MUSCULOSKELETAL: No cyanosis, right foot dressed with dressing clean dry and intact. NEURO: Alert and oriented x3 Results Labs CBC & Chem 7: 01/02/19 07:03 01/02/19 07:03 Procedures Procedures: Right superficial femoral artery angioplasty and stenting with 6 mm stent. Assessment and Plan (1) Cellulitis of foot, right: Code(s): L03.115 - Cellulitis of right lower limb Status: Acute (2) Diabetic foot infection: Code(s): E11.628 - Type 2 diabetes mellitus with other skin complications; L08.9 - Local infection of the skin and subcutaneous tissue, unspecified Status: Acute (3) Foot ulcer, right: Code(s): L97.519 - Non-pressure chronic ulcer of other part of right foot with unspecified severity Status: Acute (4) Equinus contracture of right ankle: Code(s): M24.571 - Contracture, right ankle Status: Acute Plan Right foot cellulitis/ulcer with MRSA PVD Foot MRI negative for abscess/osteomyelitis wound culture with MRSA; continue with IV Vancomycin. vascular surgery consult appreciated - s/p Right superficial femoral artery angioplasty and stenting with 6 mm stent; cleared for discharge. Continue with aspirin, currently Plavix on hold. Restart after cleared by podiatry. Podiatry will perform dressing changes tomorrow 01/04, Continue IV vancomycin per infectious disease, will need at least a minimum of 1 week, not a candidate for outpatient infusion due to twice daily dosing Diabetes mellitus type II, [id number], uncontrolled Holding metformin Will continue to monitor blood sugar with sliding scale insulin ; blood sugar better controlled after adding Levemir, increase to 8 units subcu twice daily Hypertension/hyperlipidemia Continue home medications amlodipine and statin DVT prophylaxis; subq Lovenox. Discharge Planning: when cleared by podiatry. Progress Note: Quality VTE Deep Vein Thrombosis/Pulmonary Embolism Present on Admission: No _ (1) Foot ulcer, right Qualifiers: Non-pressure ulcer stage:
--- NOTE | 2019-01-03 19:15 | P.PNPOD ---
Subjective Interval history: s/p right gastroc recession and right foot debridement with Dr Carlton on Physical Exam Vital signs: Vital Signs 01/02/19 20:00 01/03/19 00:00 01/03/19 04:10 Temperature 98.1 F 98.3 F Pulse Rate 65 50 L Respiratory Rate 18 18 Blood Pressure 160/85 H 187/84 H Pulse Oximetry 95 96 96 01/03/19 08:00 01/03/19 10:35 01/03/19 12:00 Temperature 97.6 F 97.9 F Pulse Rate 50 L 54 L Respiratory Rate 18 18 Blood Pressure 123/61 152/79 H Pulse Oximetry 100 93 L 99 01/03/19 16:00 Temperature 97.9 F Pulse Rate 54 L Respiratory Rate 18 Blood Pressure 182/78 H Pulse Oximetry 98 Intake & Output 01/03/19 01/03/19 01/04/19 06:59 18:59 06:59 Intake Total 2180 / 2180 1475 / 1475 Output Total 1600 / 1600 1999 Balance 580 / 580 -525 / -525 Intake: IV 2030 / 2029 515 / 515 NS Inj 1,000 ML @ 100 mls/hr IV 1000 / 1000 .CONT .Q10H [facility] Rx#:[id number] Vancomycin Inj 1,500 MG In NS 1030 / 1030 515 / 515 Inj 500 ML @ 250 mls/hr IV.SIG Q8H [facility] Rx#:[id number] Oral 150 / 150 960 / 960 Output: Urine 1600 / 1600 1999 Other: Date of Last Bowel Movement 01/02/19 # Bowel Movements 2 Narrative: RLE Intact sutures at gastrocnemius, plantar foot wound is granular NVS intact and unchanged. Medications and Allergies Active Medications: Active Medications Acetaminophen (Tylenol) 650 mg PO Q4H PRN PRN Reason: Temp > 100.4 Hydrocodone Bitart/Acetaminophen ([place] 5/325) 1 tab PO Q4H PRN PRN Reason: PAIN SCALE 3 TO 5 Hydrocodone Bitart/Acetaminophen ([place] 10/325) 1 tab PO Q4H PRN PRN Reason: PAIN SCALE 6 TO 10 Last Admin: 01/03/19 16:46 Dose: 1 tab Al Hydroxide/Mg Hydroxide (Milk Of Magnesia Liq) 30 ml PO Q12H PRN PRN Reason: Mild Constipation Amlodipine Besylate (Norvasc) 10 mg PO DAILY [facility] Last Admin: 01/03/19 09:58 Dose: 10 mg Aspirin (Aspirin Chew) 81 mg PO DAILY [facility] Last Admin: 01/03/19 09:57 Dose: 81 mg Atorvastatin Calcium (Lipitor) 40 mg PO DAILY [facility] Last Admin: 01/03/19 09:58 Dose: 40 mg Bisacodyl (Dulcolax Supp) 10 mg RECTAL DAILY PRN PRN Reason: SEVERE CONSITIPATION Dextrose (D50w Vial) 50 ml IV.PUSH UNSCH PRN PRN Reason: PER HYPOGLYCEMIA PROTOCOL Enoxaparin Sodium (Lovenox Inj) 40 mg SQ DAILY [facility] Last Admin: 01/03/19 09:58 Dose: 40 mg Gabapentin (Neurontin) 300 mg PO TID [facility] Last Admin: 01/03/19 17:26 Dose: 300 mg Glucagon (Glucagon Inj) 1 mg OTHER PRN PRN PRN Reason: for Hypoglycemia Protocol Sodium Chloride (Ns Inj) 1,000 mls @ 100 mls/hr IV.CONT .Q10H [facility] Last Admin: 01/03/19 17:07 Dose: 100 mls/hr Vancomycin HCl 1,500 mg/ (Sodium Chloride) 515 mls @ 250 mls/hr IV.SIG Q8H [facility] Last Admin: 01/03/19 17:25 Dose: 250 mls/hr Insulin Aspart (Novolog Insulin Correctional Sugar Inj) 0 unit SQ ACHS AND 3AM [facility]; Protocol Last Admin: 01/03/19 18:46 Dose: 3 unit Insulin Detemir (Levemir Inj) 8 unit SQ BID [facility] Miscellaneous Information ([facility] Ordered Lab Info) 1 each OTHER ONCE ONE Stop: 01/04/19 01:46 Naloxone HCl (Narcan Inj) 0.4 mg IV.PUSH UNSCH PRN PRN Reason: SEE LABEL COMMENTS Ondansetron HCl (Zofran Inj) 4 mg IV.PUSH Q6H PRN PRN Reason: NAUSEA OR VOMITING Pharmacy Profile Note (Vancomycin Consult Pharmacy) 1 each OTHER UNSCH PRN PRN Reason: Pharmacy to dose Sennosides (Senokot) 17.2 mg PO Q12H PRN PRN Reason: Moderate Constipation Sodium Chloride (Ns Flush) 2 ml IV.FLUSH PRN PRN PRN Reason: FLUSH AFTER USING IV ACCESS Sodium Chloride (Ns Flush) 2 ml IV.FLUSH BID [facility] Last Admin: 01/03/19 09:59 Dose: Not Given Allergies Allergy/AdvReac Type Severity Reaction Status Date / Time No Known Allergies Allergy Verified 08/19/18 20:56 Home Medications Medication Instructions Recorded Confirmed Type amlodipine 10 mg PO DAILY 05/31/18 12/23/18 History metformin 500 mg PO BID 05/31/18 12/23/18 History gabapentin 300 mg PO TID 08/19/18 12/23/18 History aspirin [Aspirin Low Dose] 81 mg PO DAILY 11/29/18 12/23/18 History atorvastatin 40 mg PO DAILY 11/29/18 12/23/18 History Results - Labs CBC & Chem 7: 01/02/19 07:03 01/02/19 07:03 Laboratory Results - last 24 hr 01/02/19 01/03/19 01/03/19 20:04 02:50 08:08 POC Glucose 248 H 177 H 185 H 01/03/19 01/03/19 12:06 17:01 POC Glucose 184 H 235 H - Procedures Right superficial femoral artery angioplasty and stenting with 6 mm stent. Assessment and Plan - Assessment (1) Cellulitis of foot, right Code(s): L03.115 - Cellulitis of right lower limb Status: Acute (2) Diabetic foot infection Code(s): E11.628 - Type 2 diabetes mellitus with other skin complications; L08.9 - Local infection of the skin and subcutaneous tissue, unspecified Status: Acute (3) Foot ulcer, right Code(s): L97.519 - Non-pressure chronic ulcer of other part of right foot with unspecified severity Status: Acute (4) Equinus contracture of right ankle Code(s): M24.571 - Contracture, right ankle Status: Acute - Plan Continue with NWB right Dressing change on 01/03/19 Dr Carlton with follow from 01/06/19
[2019-01-04] MEDS: Vancomycin Inj 1,500 MG in Sodium Chlor 0.9% Inj 500 ML IV.SIG SCH ×3 (01:30→18:08)
[2019-01-04] MEDS ORDERED: Pharmacy Ordered Lab Info OTHER ONE (01:45)
[2019-01-04 02:16] LABS: Glomerular Filtration Rate Greater Than 89 mL/min (>89)
[2019-01-04 02:17] LABS: Vancomycin,Trough 18.9 mcg/mL (5.0-10.0)
[2019-01-04] MEDS: Insulin NovoLOG Aspart Correctional Sugar Inj SQ SCH ×5 (03:00→21:07)
[2019-01-04] MEDS: amLODIPine 5 MG Tablet PO SCH (09:53)
[2019-01-04] MEDS: Gabapentin 300 MG Capsule PO SCH ×3 (09:54→18:09)
[2019-01-04] MEDS: Insulin Detemir Inj 1,000 UNIT/10 ML Vial SQ SCH ×2 (09:54→21:07)
[2019-01-04] MEDS: Enoxaparin Inj 40 MG/0.4 ML Syringe SQ SCH (09:54)
[2019-01-04] MEDS ORDERED: Aluminum/Magnesium/Simethacone Susp 30 ML UDC PO PRN (13:02)
--- NOTE | 2019-01-04 14:37 | P.PNIM ---
Subjective Interval history: Pain controlled. Reports some heartburn symptoms. No fevers or chills. Physical Exam Vital signs: Vital Signs 01/03/19 16:00 01/03/19 20:00 01/04/19 00:00 Temperature 97.9 F 97.9 F 97.9 F Pulse Rate 54 L 65 54 L Respiratory Rate 18 17 17 Blood Pressure 182/78 H 184/84 H 152/72 H Pulse Oximetry 98 96 94 L 01/04/19 04:00 01/04/19 08:00 01/04/19 12:00 Temperature 97.9 F 98 F 98.4 F Pulse Rate 49 L 59 L 51 L Respiratory Rate 17 18 18 Blood Pressure 160/74 H 141/63 H 145/76 H Pulse Oximetry 94 L 98 96 Intake & Output 01/03/19 01/04/19 01/04/19 18:59 06:59 18:59 Intake Total 1475 / 1475 1620 / 1620 Output Total 1999 / 1999 3000 / 3000 Balance -525 / -525 -1380 / -1380 Weight 98 kg Intake: IV 515 / 515 1260 / 1260 NS Inj 1,000 ML @ 100 mls/hr IV 230 / 230 .CONT .Q10H [facility] Rx#:[id number] Vancomycin Inj 1,500 MG In NS 515 / 515 1030 / 1030 Inj 500 ML @ 250 mls/hr IV.SIG Q8H [facility] Rx#:[id number] Oral 960 / 960 360 / 360 Output: Urine 1999 / 1999 3000 / 3000 Other: Date of Last Bowel Movement 01/02/19 # Bowel Movements 2 1 Narrative: GENERAL: Patient lying in bed. Appears comfortable. Alert and oriented x3. CARDIOVASCULAR: Regular rate and rhythm RESPIRATORY: Breath sounds equal bilaterally. No accessory muscle use. GASTROINTESTINAL: Abdomen soft, non-tender, nondistended. Normoactive bowel sounds MUSCULOSKELETAL: No cyanosis, right foot dressed with dressing clean dry and intact. NEURO: Alert and oriented x3 Results Labs CBC & Chem 7: 01/02/19 07:03 01/04/19 01:30 Procedures Procedures: Right superficial femoral artery angioplasty and stenting with 6 mm stent. Assessment and Plan (1) Cellulitis of foot, right: Code(s): L03.115 - Cellulitis of right lower limb Status: Acute (2) Diabetic foot infection: Code(s): E11.628 - Type 2 diabetes mellitus with other skin complications; L08.9 - Local infection of the skin and subcutaneous tissue, unspecified Status: Acute (3) Foot ulcer, right: Code(s): L97.519 - Non-pressure chronic ulcer of other part of right foot with unspecified severity Status: Acute (4) Equinus contracture of right ankle: Code(s): M24.571 - Contracture, right ankle Status: Acute Plan Right foot cellulitis/ulcer with MRSA PVD Foot MRI negative for abscess/osteomyelitis wound culture with MRSA; continue with IV Vancomycin. vascular surgery consult appreciated - s/p Right superficial femoral artery angioplasty and stenting with 6 mm stent; cleared for discharge. Continue with aspirin, currently Plavix on hold. Restart after cleared by podiatry. Podiatry will perform dressing changes Saturday 01/06 Continue IV vancomycin per infectious disease, will need at least a minimum of 1 week, not a candidate for outpatient infusion due to twice daily dosing Diabetes mellitus type II, [id number], uncontrolled Holding metformin Will continue to monitor blood sugar with sliding scale insulin ; blood sugar better controlled after adding Levemir, increase to 10 units subcu twice daily Hypertension/hyperlipidemia Continue home medications amlodipine and statin DVT prophylaxis; subq Lovenox. Discharge Planning: when cleared by podiatry and infectious disease. Progress Note: Quality VTE Deep Vein Thrombosis/Pulmonary Embolism Present on Admission: No _ (1) Foot ulcer, right Qualifiers: Non-pressure ulcer stage:
[2019-01-04] MEDS: Pantoprazole Sodium 20 MG DR Tablet PO SCH (15:41)
[2019-01-05] MEDS: Vancomycin Inj 1,500 MG in Sodium Chlor 0.9% Inj 500 ML IV.SIG SCH ×3 (01:35→18:16)
[2019-01-05] MEDS: Insulin NovoLOG Aspart Correctional Sugar Inj SQ SCH ×5 (03:47→21:24)
[2019-01-05] MEDS: Pantoprazole Sodium 20 MG DR Tablet PO SCH (08:37)
[2019-01-05] MEDS: Insulin Detemir Inj 1,000 UNIT/10 ML Vial SQ SCH ×2 (08:37→21:23)
[2019-01-05] MEDS: Gabapentin 300 MG Capsule PO SCH ×3 (08:38→18:16)
[2019-01-05] MEDS: amLODIPine 5 MG Tablet PO SCH (08:38)
[2019-01-05] MEDS: Enoxaparin Inj 40 MG/0.4 ML Syringe SQ SCH (08:42)
--- NOTE | 2019-01-05 12:07 | P.PNIM ---
Subjective Interval history: Patient reports his heartburn has improved. Pain control yes Physical Exam Vital signs: Vital Signs 01/04/19 16:00 01/04/19 20:00 01/04/19 20:17 Temperature 97.5 F L 98.2 F Pulse Rate 62 53 L Respiratory Rate 18 16 Blood Pressure 164/73 H 151/97 H Pulse Oximetry 97 94 L 94 L 01/05/19 00:00 01/05/19 04:00 01/05/19 09:10 Temperature 97.9 F 97.7 F 97.7 F Pulse Rate 50 L 48 L 52 L Respiratory Rate 18 16 18 Blood Pressure 157/72 H 140/65 162/82 H Pulse Oximetry 96 93 L 95 Intake & Output 01/04/19 01/05/19 01/05/19 18:59 06:59 18:59 Intake Total 1475 / 1475 1390 / 1390 Output Total 1500 / 1500 400 / 400 Balance -25 / -25 990 / 990 Weight 97.8 kg Intake: IV 515 / 515 1030 / 1030 Vancomycin Inj 1,500 MG In NS 515 / 515 1030 / 1030 Inj 500 ML @ 250 mls/hr IV.SIG Q8H [facility] Rx#:[id number] Oral 960 / 960 360 / 360 Output: Urine 1500 / 1500 400 / 400 Other: Date of Last Bowel Movement 01/02/19 01/04/19 # Bowel Movements 1 Narrative: GENERAL: Patient lying in bed. Appears comfortable. Alert and oriented x3. CARDIOVASCULAR: Regular rate and rhythm RESPIRATORY: Breath sounds equal bilaterally. No accessory muscle use. GASTROINTESTINAL: Abdomen soft, non-tender, nondistended. MUSCULOSKELETAL: No cyanosis, right foot dressed with dressing clean dry and intact. Neurovascularly intact NEURO: Alert and oriented x3 Results Labs CBC & Chem 7: 01/02/19 07:03 01/04/19 01:30 Procedures Procedures: Right superficial femoral artery angioplasty and stenting with 6 mm stent. Assessment and Plan (1) Cellulitis of foot, right: Code(s): L03.115 - Cellulitis of right lower limb Status: Acute (2) Diabetic foot infection: Code(s): E11.628 - Type 2 diabetes mellitus with other skin complications; L08.9 - Local infection of the skin and subcutaneous tissue, unspecified Status: Acute (3) Foot ulcer, right: Code(s): L97.519 - Non-pressure chronic ulcer of other part of right foot with unspecified severity Status: Acute (4) Equinus contracture of right ankle: Code(s): M24.571 - Contracture, right ankle Status: Acute Plan Right foot cellulitis/ulcer with MRSA PVD Foot MRI negative for abscess/osteomyelitis wound culture with MRSA; continue with IV Vancomycin. vascular surgery consult appreciated - s/p Right superficial femoral artery angioplasty and stenting with 6 mm stent; cleared for discharge. Continue with aspirin, currently Plavix on hold. Restart after cleared by podiatry. Podiatry will perform dressing changes Saturday 01/06 to determine if patient will need further surgical intervention Continue IV vancomycin per infectious disease, will need at least a minimum of 1 week, not a candidate for outpatient infusion due to twice daily dosing Diabetes mellitus type II, [id number], uncontrolled Holding metformin Will continue to monitor blood sugar with sliding scale insulin ; blood sugar better controlled after adding Levemir, increase to 10 units subcu twice daily Hypertension/hyperlipidemia Continue home medications amlodipine and statin DVT prophylaxis; subq Lovenox. Discharge Planning: when cleared by podiatry and infectious disease. Progress Note: Quality VTE Deep Vein Thrombosis/Pulmonary Embolism Present on Admission: No _ (1) Foot ulcer, right Qualifiers: Non-pressure ulcer stage:
[2019-01-06] MEDS: Insulin NovoLOG Aspart Correctional Sugar Inj SQ SCH ×5 (02:06→22:08)
[2019-01-06] MEDS: Vancomycin Inj 1,500 MG in Sodium Chlor 0.9% Inj 500 ML IV.SIG SCH ×3 (02:07→17:57)
[2019-01-06 08:14] LABS: Glomerular Filtration Rate Greater Than 89 mL/min (>89)
[2019-01-06] MEDS: amLODIPine 5 MG Tablet PO SCH (10:05)
[2019-01-06] MEDS: Pantoprazole Sodium 20 MG DR Tablet PO SCH (10:05)
[2019-01-06] MEDS: Gabapentin 300 MG Capsule PO SCH ×3 (10:06→18:00)
[2019-01-06] MEDS: Insulin Detemir Inj 1,000 UNIT/10 ML Vial SQ SCH ×2 (10:07→22:08)
[2019-01-06] MEDS: Enoxaparin Inj 40 MG/0.4 ML Syringe SQ SCH (10:08)
--- NOTE | 2019-01-06 12:55 | P.PNIM ---
Subjective Interval history: Reports no heartburn. No pain. Waiting for podiatry to come to look at the wound today. Physical Exam Vital signs: Vital Signs 01/05/19 15:19 01/05/19 16:00 01/05/19 19:50 Temperature 97.9 F 97.7 F Pulse Rate 52 L 53 L Respiratory Rate 18 17 Blood Pressure 149/73 H 129/61 Pulse Oximetry 98 95 96 01/05/19 23:25 01/05/19 23:30 01/06/19 03:35 Temperature 98.1 F 98.1 F 98.0 F Pulse Rate 49 L 49 L 47 L Respiratory Rate 17 17 17 Blood Pressure 136/63 136/63 132/57 L Pulse Oximetry 97 97 96 01/06/19 08:00 01/06/19 08:19 01/06/19 10:04 Temperature 97.5 F L Pulse Rate 44 L 68 Respiratory Rate 18 18 Blood Pressure 160/77 H Pulse Oximetry 96 Intake & Output 01/05/19 01/06/19 01/06/19 18:59 06:59 18:59 Intake Total 1475 / 1475 1630 / 1630 Output Total 1000 / 1000 Balance 475 / 475 1630 / 1630 Weight 99.7 kg Intake: IV 515 / 515 1150 / 1150 Vancomycin Inj 1,500 MG In NS 515 / 515 1150 / 1150 Inj 500 ML @ 250 mls/hr IV.SIG Q8H [facility] Rx#:[id number] Oral 960 / 960 480 / 480 Output: Urine 1000 / 1000 Other: # Voids 1 Date of Last Bowel Movement 01/05/19 01/05/19 01/05/19 # Bowel Movements 0 0 Narrative: GENERAL: Patient lying in bed. Appears comfortable. Alert and oriented x3. CARDIOVASCULAR: Regular rate and rhythm RESPIRATORY: Breath sounds equal bilaterally. No accessory muscle use. GASTROINTESTINAL: Abdomen soft, non-tender, nondistended. MUSCULOSKELETAL: No cyanosis, right foot dressed with dressing clean dry and intact in posterior leg splint. Neurovascularly intact NEURO: Alert and oriented x3 Results Labs CBC & Chem 7: 01/02/19 07:03 01/06/19 07:00 Procedures Procedures: Right superficial femoral artery angioplasty and stenting with 6 mm stent. Assessment and Plan (1) Cellulitis of foot, right: Code(s): L03.115 - Cellulitis of right lower limb Status: Acute (2) Diabetic foot infection: Code(s): E11.628 - Type 2 diabetes mellitus with other skin complications; L08.9 - Local infection of the skin and subcutaneous tissue, unspecified Status: Acute (3) Foot ulcer, right: Code(s): L97.519 - Non-pressure chronic ulcer of other part of right foot with unspecified severity Status: Acute (4) Equinus contracture of right ankle: Code(s): M24.571 - Contracture, right ankle Status: Acute Plan Right foot cellulitis/ulcer with MRSA PVD Foot MRI negative for abscess/osteomyelitis wound culture with MRSA; continue with IV Vancomycin. vascular surgery consult appreciated - s/p Right superficial femoral artery angioplasty and stenting with 6 mm stent; cleared for discharge. Continue with aspirin, currently Plavix on hold. Restart after cleared by podiatry. Podiatry will perform dressing changes today 01/06 to determine if patient will need further surgical intervention Continue IV vancomycin per infectious disease, will need at least a minimum of 1 week, not a candidate for outpatient infusion due to twice daily dosing Diabetes mellitus type II, [id number], uncontrolled Holding metformin Will continue to monitor blood sugar with sliding scale insulin ; blood sugar better controlled after adding Levemir, increase to 15 units subcu twice daily Hypertension/hyperlipidemia Continue home medications amlodipine and statin DVT prophylaxis; subq Lovenox. Discharge Planning: when cleared by podiatry and infectious disease. Progress Note: Quality VTE Deep Vein Thrombosis/Pulmonary Embolism Present on Admission: No _ (1) Foot ulcer, right Qualifiers: Non-pressure ulcer stage:
--- NOTE | 2019-01-06 19:02 | P.PNPOD ---
Subjective Interval history: Patient seen bedside. No concerns at this time. States he has been staying off his right lower extremity. Physical Exam Vital signs: Vital Signs 01/05/19 19:50 01/05/19 23:25 01/05/19 23:30 Temperature 97.7 F 98.1 F 98.1 F Pulse Rate 53 L 49 L 49 L Respiratory Rate 17 17 17 Blood Pressure 129/61 136/63 136/63 Pulse Oximetry 96 97 97 01/06/19 03:35 01/06/19 08:00 01/06/19 08:19 Temperature 98.0 F 97.5 F L Pulse Rate 47 L 44 L 68 Respiratory Rate 17 18 Blood Pressure 132/57 L 160/77 H Pulse Oximetry 96 96 01/06/19 10:04 01/06/19 12:00 01/06/19 14:33 Temperature 98.1 F Pulse Rate 55 L Respiratory Rate 18 18 10 L Blood Pressure 133/63 Pulse Oximetry 96 01/06/19 16:00 Temperature 98.1 F Pulse Rate 52 L Respiratory Rate 18 Blood Pressure 166/77 H Pulse Oximetry 96 Intake & Output 01/05/19 01/06/19 01/06/19 18:59 06:59 18:59 Intake Total 1475 / 1475 1630 / 1630 1075 / 1075 Output Total 1000 / 1000 Balance 475 / 475 1630 / 1630 1075 / 1075 Weight 99.7 kg Intake: IV 515 / 515 1150 / 1150 515 / 515 Vancomycin Inj 1,500 MG In NS 515 / 515 1150 / 1150 515 / 515 Inj 500 ML @ 250 mls/hr IV.SIG Q8H [facility] Rx#:[id number] Oral 960 / 960 480 / 480 560 / 560 Output: Urine 1000 / 1000 Other: # Voids 1 3 Date of Last Bowel Movement 01/05/19 01/05/19 01/05/19 # Bowel Movements 0 0 Narrative: Plantar wounds to submet 2/4 superficial in nature with no surrounding erythema , hyperkeratotic edges, or edema. Submetatarsal 5 ulceration noted with granular base serous drainage and epithelialization noted to wound edges. Sutures intact with skin well coapted to right posterior medial calf at site of gastroc recession. Increased range of motion noted to right ankle. Medications and Allergies Active Medications: Active Medications Acetaminophen (Tylenol) 650 mg PO Q4H PRN PRN Reason: Temp > 100.4 Hydrocodone Bitart/Acetaminophen ([place] 5/325) 1 tab PO Q4H PRN PRN Reason: PAIN SCALE 3 TO 5 Hydrocodone Bitart/Acetaminophen ([place] 10/325) 1 tab PO Q4H PRN PRN Reason: PAIN SCALE 6 TO 10 Last Admin: 01/06/19 18:03 Dose: 1 tab Al Hydrox/Mg Hydrox/Simethicone (Mag-Al Plus Susp Liq) 30 ml PO Q6H PRN PRN Reason: DYSPEPSIA OR HEARTBURN Al Hydroxide/Mg Hydroxide (Milk Of Magnesia Liq) 30 ml PO Q12H PRN PRN Reason: Mild Constipation Amlodipine Besylate (Norvasc) 10 mg PO DAILY [facility] Last Admin: 01/06/19 10:05 Dose: 10 mg Aspirin (Aspirin Chew) 81 mg PO DAILY [facility] Last Admin: 01/06/19 10:04 Dose: 81 mg Atorvastatin Calcium (Lipitor) 40 mg PO DAILY [facility] Last Admin: 01/06/19 10:04 Dose: 40 mg Bisacodyl (Dulcolax Supp) 10 mg RECTAL DAILY PRN PRN Reason: SEVERE CONSITIPATION Dextrose (D50w Vial) 50 ml IV.PUSH UNSCH PRN PRN Reason: PER HYPOGLYCEMIA PROTOCOL Enoxaparin Sodium (Lovenox Inj) 40 mg SQ DAILY [facility] Last Admin: 01/06/19 10:08 Dose: 40 mg Gabapentin (Neurontin) 300 mg PO TID [facility] Last Admin: 01/06/19 18:00 Dose: 300 mg Glucagon (Glucagon Inj) 1 mg OTHER PRN PRN PRN Reason: for Hypoglycemia Protocol Vancomycin HCl 1,500 mg/ (Sodium Chloride) 515 mls @ 250 mls/hr IV.SIG Q8H [facility] Last Admin: 01/06/19 17:57 Dose: 250 mls/hr Insulin Aspart (Novolog Insulin Correctional Sugar Inj) 0 unit SQ ACHS AND 3AM [facility]; Protocol Last Admin: 01/06/19 18:01 Dose: 1 unit Insulin Detemir (Levemir Inj) 15 unit SQ BID [facility] Naloxone HCl (Narcan Inj) 0.4 mg IV.PUSH UNSCH PRN PRN Reason: SEE LABEL COMMENTS Ondansetron HCl (Zofran Inj) 4 mg IV.PUSH Q6H PRN PRN Reason: NAUSEA OR VOMITING Pantoprazole Sodium (Protonix) 20 mg PO DAILY [facility] Last Admin: 01/06/19 10:05 Dose: 20 mg Pharmacy Profile Note (Vancomycin Consult Pharmacy) 1 each OTHER UNSCH PRN PRN Reason: Pharmacy to dose Sennosides (Senokot) 17.2 mg PO Q12H PRN PRN Reason: Moderate Constipation Sodium Chloride (Ns Flush) 2 ml IV.FLUSH PRN PRN PRN Reason: FLUSH AFTER USING IV ACCESS Sodium Chloride (Ns Flush) 2 ml IV.FLUSH BID [facility] Last Admin: 01/06/19 10:09 Dose: 2 ml Allergies Allergy/AdvReac Type Severity Reaction Status Date / Time No Known Allergies Allergy Verified 08/19/18 20:56 Home Medications Medication Instructions Recorded Confirmed Type amlodipine 10 mg PO DAILY 05/31/18 12/23/18 History metformin 500 mg PO BID 05/31/18 12/23/18 History gabapentin 300 mg PO TID 08/19/18 12/23/18 History aspirin [Aspirin Low Dose] 81 mg PO DAILY 11/29/18 12/23/18 History atorvastatin 40 mg PO DAILY 11/29/18 12/23/18 History Results - Labs CBC & Chem 7: 01/02/19 07:03 01/06/19 07:00 Laboratory Results - last 24 hr 01/05/19 01/06/19 01/06/19 19:20 02:06 07:00 Creatinine 0.61 Estimated GFR Greater than 89 POC Glucose 227 H 145 H 01/06/19 01/06/19 01/06/19 08:26 12:35 17:01 Creatinine Estimated GFR POC Glucose 133 H 290 H 177 H - Procedures Right superficial femoral artery angioplasty and stenting with 6 mm stent. Assessment and Plan - Assessment (1) Cellulitis of foot, right Code(s): L03.115 - Cellulitis of right lower limb Status: Acute (2) Diabetic foot infection Code(s): E11.628 - Type 2 diabetes mellitus with other skin complications; L08.9 - Local infection of the skin and subcutaneous tissue, unspecified Status: Acute (3) Foot ulcer, right Code(s): L97.519 - Non-pressure chronic ulcer of other part of right foot with unspecified severity Status: Acute (4) Equinus contracture of right ankle Code(s): M24.571 - Contracture, right ankle Status: Acute - Plan 43 year old male with right plantar forefoot ulcerations status post right lower extremity gastroc recession with debridement and irrigation of plantar foot wounds Patient evaluated with all questions answered Patient to remain nonweightbearing to right lower extremity Okay to discharge per podiatry Patient is to remain in the posterior splint Dressing changed bedside He is to follow-up within 1 week of discharge, discussed with patient to please make appointment for next Sunday in office Patient understands all risks and complications of walking on right lower extremity including limb loss, he has a knee scooter present bedside and states he will stay off his right lower extremity Appropriate outpatient oral antibiotics
[2019-01-07] MEDS: Vancomycin Inj 1,500 MG in Sodium Chlor 0.9% Inj 500 ML IV.SIG SCH ×3 (02:22→17:26)
[2019-01-07] MEDS: Insulin NovoLOG Aspart Correctional Sugar Inj SQ SCH ×5 (03:31→20:17)
[2019-01-07] MEDS: Gabapentin 300 MG Capsule PO SCH ×3 (09:14→17:26)
[2019-01-07] MEDS: Pantoprazole Sodium 20 MG DR Tablet PO SCH (09:14)
[2019-01-07] MEDS: amLODIPine 5 MG Tablet PO SCH (09:15)
[2019-01-07] MEDS: Insulin Detemir Inj 1,000 UNIT/10 ML Vial SQ SCH ×2 (09:17→20:18)
[2019-01-07] MEDS: Enoxaparin Inj 40 MG/0.4 ML Syringe SQ SCH (09:17)
[2019-01-07 13:18] VITALS: RESP 20; O2SAT 96
--- NOTE | 2019-01-07 13:22 | P.PNIM ---
Subjective Interval history: Patient reports that his pain is controlled well and try to space out the every 4 to every 6 hours on the [place]. Reports that he wants to be discharged home and is able to get oral antibiotics. He will follow-up with podiatry. Physical Exam Vital signs: Vital Signs 01/06/19 14:33 01/06/19 16:00 01/06/19 20:00 Temperature 98.1 F 98.3 F Pulse Rate 52 L 56 L Respiratory Rate 10 L 18 18 Blood Pressure 166/77 H 177/78 H Pulse Oximetry 96 97 01/07/19 04:00 01/07/19 08:00 01/07/19 10:15 Temperature 97.5 F L 98.1 F Pulse Rate 57 L 54 L Respiratory Rate 18 18 18 Blood Pressure 150/82 H 125/62 Pulse Oximetry 94 L 96 01/07/19 11:08 01/07/19 12:00 Temperature 97.6 F Pulse Rate 51 L Respiratory Rate 20 Blood Pressure 162/77 H Pulse Oximetry 94 L 96 Intake & Output 01/06/19 01/07/19 01/07/19 18:59 06:59 18:59 Intake Total 1075 / 1075 1270 / 1270 515 / 515 Output Total 500 / 500 Balance 1075 / 1075 770 / 770 515 / 515 Weight 99.7 kg Intake: IV 515 / 515 1030 / 1030 515 / 515 Vancomycin Inj 1,500 MG In NS 515 / 515 1030 / 1030 515 / 515 Inj 500 ML @ 250 mls/hr IV.SIG Q8H STELLA Rx#:[id number] Oral 560 / 560 240 / 240 Output: Urine 500 / 500 Other: # Voids 3 Date of Last Bowel Movement 01/05/19 01/05/19 01/05/19 Narrative: GENERAL: Patient lying in bed. Appears comfortable. Alert and oriented x3. CARDIOVASCULAR: Regular rate and rhythm RESPIRATORY: Breath sounds equal bilaterally. No accessory muscle use. GASTROINTESTINAL: Abdomen soft, non-tender, nondistended. MUSCULOSKELETAL: No cyanosis, right foot dressed with dressing clean dry and intact in posterior leg splint. Neurovascularly intact NEURO: Alert and oriented x3 Results Labs CBC & Chem 7: 01/02/19 07:03 01/06/19 07:00 Procedures Procedures: Right superficial femoral artery angioplasty and stenting with 6 mm stent. Assessment and Plan (1) Cellulitis of foot, right: Code(s): L03.115 - Cellulitis of right lower limb Status: Acute (2) Diabetic foot infection: Code(s): E11.628 - Type 2 diabetes mellitus with other skin complications; L08.9 - Local infection of the skin and subcutaneous tissue, unspecified Status: Acute (3) Foot ulcer, right: Code(s): L97.519 - Non-pressure chronic ulcer of other part of right foot with unspecified severity Status: Acute (4) Equinus contracture of right ankle: Code(s): M24.571 - Contracture, right ankle Status: Acute Plan Right foot cellulitis/ulcer with MRSA PVD Foot MRI negative for abscess/osteomyelitis wound culture with MRSA; continue with IV Vancomycin through this evening for a total of 7 days and transition to p.o. Zyvox per infectious disease. vascular surgery consult appreciated - s/p Right superficial femoral artery angioplasty and stenting with 6 mm stent; cleared for discharge. Continue with aspirin, restart Plavix today. Podiatry will perform dressing changes today 01/06 to determine if patient will need further surgical intervention Continue IV vancomycin per infectious disease, discussed with Dr. Mccauley to transition to oral Zyvox for 1 more week upon discharge. Diabetes mellitus type II, pua-pjemhvo-fidqlllvs, uncontrolled Holding metformin Will continue to monitor blood sugar with sliding scale insulin ; blood sugar better controlled after adding Levemir Hypertension/hyperlipidemia Continue home medications amlodipine and statin DVT prophylaxis; subq Lovenox. Discharge today after this evening's dose of IV vancomycin, follow-up with vascular surgery and podiatry Progress Note: Quality VTE Deep Vein Thrombosis/Pulmonary Embolism Present on Admission: No _ (1) Foot ulcer, right Qualifiers: Non-pressure ulcer stage:
--- NOTE | 2019-01-07 13:36 | P.DS ---
DS: Providers Date of admission: 12/23/18 21:05 Primary care physician: UNKNOWN Consults: 12/23/18 22:37 Consult to Podiatry Routine Consulting Provider: Jag Jang Patient known to:: Priscilla Carlton Reason for Consultation: right foot cellulitis Notified:: Service Spoke with:: DILLON Date Notified:: 12/23/18 Time Notified:: 22:50 Ordering Provider: GABRIELA 01/01/19 16:21 Consult to Infectious Diseases Routine Consulting Provider: Charles Mccauley Reason for Consultation: Osteomyelitis. MRSA. Status post debridement on without cultures. Home regimen needed Notified:: Service Spoke with:: fozia Date Notified:: 01/01/19 Time Notified:: 16:30 Ordering Provider: MIRIAM Anticipated date of discharge: 01/07/19 Brief History from admission: 43-year-old male with a past medical history significant for diabetes mellitus, peripheral vascular disease, hypertension and hyperlipidemia presents to the emergency department at the suggestion of his rate quoting operator following his appointment today. The patient was seen by his rate quoting operator, Dr. Atkinson for his chronic foot ulcer. He completed a course of antibiotics approximately 1 week ago. He reports that since completing the antibiotic he has developed increased pain in the right foot and a new area of discoloration over the distal lateral surface on the right foot. Patient denies any fever/chills. No chest pain or shortness of breath. No abdominal pain. No nausea/vomiting/ diarrhea. No focal neurologic deficits. DS: Diagnosis Discharge Diagnosis (1) Cellulitis of foot, right: Status: Acute (2) Diabetic foot infection: Status: Acute (3) Foot ulcer, right: Status: Resolved (4) Equinus contracture of right ankle: Status: Acute (5) MRSA infection: Status: Acute (6) PVD (peripheral vascular disease): Status: Chronic (7) Hypertension: Status: Chronic DS: Summary 43-year-old white male with rld-jeenomp-twflqhegj diabetes mellitus, hypertension presented with right foot infected ulcer with MRSA and cellulitis along with peripheral vascular disease. An MRI was done that ruled out abscess and osteomyelitis. Patient was seen by vascular surgeon Dr. Patel who performed the right superficial femoral artery angioplasty and stenting and place the patient on aspirin and Plavix. Podiatry, Dr. Carlton performed a right gastroc recession and debridement and irrigation forefoot ulcer on 12/31. Culture showed MRSA. Infectious disease, Dr. Mccauley recommended 1 week of IV vancomycin and then transition over to 1 more week of p.o. Zyvox. [employer] Prescription Drug Monitoring Database has been queried and verified prior to prescribing the controlled substance, Randolph 10. Patient is having significant pain caused by right infected ulcer wound which will last more than 3 days. Trial of alternative treatment options other than prescribed opioids has not helped. I believe that it is medically necessary to treat the patients pain because it is affecting patients ability to perform activities of daily living including ambulation. Patient has now gained maximum benefit from hospitalization and will be transitioned home with outpatient follow-up. Time Spent with Patient Total time spent providing and/or coordinating discharge services: Less than 30 minutes Quality: VTE Deep Vein Thrombosis/Pulmonary Embolism Present on Admission: No Exam Narrative Exam Narrative: GENERAL: This is a well-nourished, well-developed patient, in no apparent distress. CARDIOVASCULAR: Regular rate and rhythm RESPIRATORY: Clear to auscultation. Breath sounds equal bilaterally. No wheezes , rales, or rhonchi. GASTROINTESTINAL: Abdomen soft, non-tender, nondistended. Normal active bowel sounds MUSCULOSKELETAL: Right lower extremity bandage splint clean dry and intact NEURO: Alert & Oriented x4 to person, place, time, situation. Moves all ext x4 Results Procedures completed during hospitalization: 12/25 right superficial femoral artery angioplasty and stenting with 6 mm stent. Aortogram with right lower extremity angiogram Left common femoral artery Angio-Seal 12/31 Right gastroc recession. 2. Right debridement and irrigation forefoot ulcers Labs on day of discharge: Labs from last 24 hours 01/07/19 01/07/19 01/07/19 12:25 07:47 03:20 POC Glucose 172 H 160 H 166 H 01/06/19 01/06/19 20:20 17:01 POC Glucose 141 H 177 H Impressions ITS Impressions Extremity Arterial Study 12/23/18 00:00 CONCLUSION: 1. The ABIs are moderately decreased in both lower extremities, left greater than right suggesting at least moderate arterial insufficiency. Moderate to severe insufficiency involving the left big toe. No TBI was recorded on the right side. Chest X-Ray 12/23/18 19:47 CONCLUSION: No acute cardiopulmonary disease Foot MRI 12/23/18 19:48 CONCLUSION: 1. Amputation of distal first metatarsal and great toe with ulceration and mild cellulitis medially near the amputation site. No discrete abscess. No evidence for osteomyelitis. Foot X-Ray 12/23/18 19:50 CONCLUSION: No acute findings. Amputation of the right great toe. Mild osteoarthritis. Lower Extremity Ultrasound 12/24/18 00:00 CONCLUSION: 1. Venous mapping as above Venous Doppler Study 12/24/18 00:00 CONCLUSION: 1. The study is negative for bilateral lower extremity deep venous thrombosis. Discharge Plan Discharge Disposition Patient Disposition: Discharge Home Discharge Condition Condition: Good Discharge Order Discharge Orders: Discharge Order (Routine); Ordered 01/07/19 Ordered By: Chasidy South Podiatry Clear for Discharge (Routine); Ordered 01/06/19 Ordered By: Priscilla Carlton Vascular Surgery Clear for Discharge (Routine); Ordered 12/26/18 Ordered By: Dandy Patel Discharge Details Discharge Comment: Discharge after evening dose of Vancomyocin Physicians Team Primary Care Provider: UNKNOWN, Attending Provider: Chasidy South Other Providers: Jag Jang ; Charles Mccauley Rxs /Orders / Referrals /Forms Prescriptions: New hydrocodone-acetaminophen 5-325 mg Tablet 1 tab PO Q6HR PRN (Reason: Acute Pain) Qty: 10 RF: 0 hydrocodone-acetaminophen 10-325 mg Tablet 1 tab PO Q4H PRN (Reason: Acute Pain Exception) Qty: 28 RF: 0 linezolid [Zyvox] 600 mg Tablet 600 mg PO Q12HR Qty: 14 RF: 0 insulin detemir U-100 [Levemir U-100 Insulin] 100 unit/mL Solution 15 unit subcut BID Qty: 10 RF: 0 clopidogrel [Plavix] 75 mg Tablet 75 mg PO DAILY Qty: 30 RF: 0 Continue metformin 500 mg Tablet 500 mg PO BID RF: 0 amlodipine 5 mg Tablet 10 mg PO DAILY RF: 0 atorvastatin 40 mg Tablet 40 mg PO DAILY RF: 0 aspirin [Aspirin Low Dose] 81 mg Tablet,Delayed Release (Dr/Ec) 81 mg PO DAILY RF: 0 gabapentin 300 mg capsule 300 mg PO TID RF: 0 Discontinued hydrocodone-acetaminophen [Randolph] 5-325 mg tablet 1 tab PO Q4-6H PRN (Reason: Acute Pain Exemption) Qty: 10 RF: 0 Referrals: Priscilla Carlton DPM [Physician] - See Instructions ( Please call the physician's office to book the appointment to be seen within 1 week, march appt for next Sundayjan 13.) Dandy Patel MD [Physician] - See Instructions (APPOINTMENT HAS BEEN MADE FOR 01/17/19 at 10:00a for ABIs APPOINTMENT HAS BEEN MADE FOR 01/17/19 at 10:45a for office visit) UNKNOWN, [Primary Care Provider] - See Instructions Post Discharge Care Plan Care Plan Goals: Your Health Problems: Peripheral arterial disease, right foot infected ulceration Goals to Promote Your Health: * To prevent worsening of your condition * To maintain your health at the optimal level Directions to Meet Your Goals: * Take your medications as prescribed * Follow your dietary instruction * Follow activity as directed * Keep your appointments as scheduled * Take your immunizations and boosters as scheduled * If your symptoms worsen call your PCP * If no PCP go to Urgent Care or Emergency Room Smoking is dangerous to your health. Avoid second hand smoke. You may reach the 24-hour crisis hotline for domestic abuse at . Discharge Interventions Interventions: Discharge Planning - Case Management Last Done: 01/06/19 12:42 Status ED Status: Left Department
[2019-01-07] MEDS: Linezolid 600 MG Tablet PO SCH ×2 (15:17→20:17)
[2019-01-07 16:41] VITALS: BP 119/57; PULSE 50; TEMP 97.8
== END 2019-01-07 20:25 | disposition home or self-care (01) | DRG 623 ==
LOC: NEPC 17:40 → NEDA 21:05 → N04 22:30
PROVIDERS: ADMIT Family Medicine; ATTEND Family Medicine
PROC: ANGIOLE (2018-12-25 14:00)
DX: F17.210 Nicotine dependence, cigarettes, uncomplicated; Z79.02 Long term (current) use of antithrombotics/antiplatelets; E11.65 Type 2 diabetes mellitus with hyperglycemia; Z79.84 Long term (current) use of oral hypoglycemic drugs; Z83.3 Family history of diabetes mellitus; L97.519 Non-pressure chronic ulcer of other part of right foot with unspecified severity; E11.628 Type 2 diabetes mellitus with other skin complications; M24.571 Contracture, right ankle; Z89.411 Acquired absence of right great toe; I10 Essential (primary) hypertension; B95.62 Methicillin resistant Staphylococcus aureus infection as the cause of diseases classified elsewhere; E78.5 Hyperlipidemia, unspecified; Z80.9 Family history of malignant neoplasm, unspecified; E11.51 Type 2 diabetes mellitus with diabetic peripheral angiopathy without gangrene; L03.115 Cellulitis of right lower limb; Z79.899 Other long term (current) drug therapy; Z79.82 Long term (current) use of aspirin; E11.621 Type 2 diabetes mellitus with foot ulcer
CPT/HCPCS: 37226; 71010; 71045; 73630; 73720; 75625; 75710; 76937; 80048; 80053; 80202; 82565; 82948; 82962; 83036; 83605; 83735; 85025; 85610; 85730; 86403; 87040; 87070; 87147; 87186; 87205; 90765; 93005; 93922; 93965; 93970; 93998; 96365; 99152; 99153; 99285; A9585; C1725; C1751; C1760; C1769; C1876; C1893; G0269; J1644; J1650; J1815; J2250; J2270; J2405; J2543; J2704; J3010; J3370; J7030; J7040; J7050; Q9967